=== PATIENT | male | born 1950 | race Caucasian/White ===

== ENCOUNTER 2016-12-06 14:46 | Inpatient (IN) | payer BC, MEDICARE ==
[2016-12-06] VITALS (13 sets, daily range): BP systolic 69–98; BP diastolic 42–54
[~2016-12-06] VITALS: Ht 177.8 cm; Wt 111.6 kg
[~2016-12-06 14:46] MED LIST: ALLO300T PO; AMLO5TAB2 PO; ARIP10TA9 PO; ASPI325T8 PO; ATOR20TA58 PO; CHOL10002 PO; CILO50TA PO; CIPR500T PO; DICY20TA3 PO; DOXY100C2; ESOM40CA25 PO; FINA5TAB4 PO; FOLI0.8T3 PO; FURO20TA3 PO; GLYC2TAB4 PO; INSU100I11 SQ; INSU100I13 SQ; IRON18TA PO; ISOS30TA PO; KETO15CR2 TP; LACT1CAP12 PO; LOSA50TA6 PO; MAGN400T3 PO; MELA1TAB13 PO; MELA3TAB2 PO; MUPI22OI2 TP; NITR0.4T SL; NYST60PO TP; Nitrofurantoin Monohyd/M-Cryst PO; OMEG1CAP38 PO; OMEG500C PO; PANT40TA5 PO; POLY119P4 PO; POLY17PO3 PO; POTA20PA PO; POTA20TA12 PO; PRAM0.12; PRAM0.125 PO; PRAM0.255 PO; PRAZ1CAP2 PO; PROP20TA PO; PROP40TA PO; PSYL1CAP4 PO; RANO500T2 PO; SENN-37 PO; SENN8.6T99 PO; SIME125C65 PO; SIME62.5 PO; SUCR1TAB PO; SULF-143 PO; TAMS0.4C2 PO; TEMA15CA PO; TRIA80OI TP; UBID100C40 PO
[2016-12-06] MEDS ORDERED: ATROPINE 1 MG/10 ML DISP.SYRIN ONE (15:04)
[2016-12-06 15:10] LABS: POTASSIUM ISTAT 5.9 mmol/L (3.5-5.0)
[2016-12-06 15:11] LABS: BASO % 0 % (0-3); EOS % 0 % (0-3); HEMATOCRIT 32.2 % (39.0-53.0); LYMPH # 1.1 x10^3/uL (1.0-4.8); LYMPH % 14 % (24-48); MEAN CORPUSCULAR HEMOGLOBIN 29 pg (25-35); MEAN CORPUSCULAR HGB CONC 31 g/dL (31-37); MEAN CORPUSCULAR VOLUME 94 fL (79-100); MONO % 3 % (0-9); NEUT % 83 % (31-73); PLATELET COUNT 82 x10^3/uL (140-400); RED BLOOD COUNT 3.44 x10^6/uL (4.30-5.70); RED CELL DISTRIBUTION WIDTH 19.1 % (11.5-14.5); WHITE BLOOD COUNT 8.1 x10^3/uL (4.0-11.0)
--- NOTE | 2016-12-06 15:12 | PDOC2 ---
CARDIAC CONSULT DATE OF CONSULT Date of Consult DATE: 12/06/16 TIME: 15:07 REASON FOR CONSULT Reason for Consult: bradycardia REFERRING PHYSICIAN Referring Physician: Blane SOURCE Source: Chart review HISTORY OF PRESENT ILLNESS HISTORY OF PRESENT ILLNESS This is a 66 yo male admitted for complains of weakness and altered mental status. UPona admission he has been noted with RENETTA, bradycardia, and hypotension. Pt is currently lethargic and spouse at the waiting room and I talked to her in details about pt. Reports that pt baseline is typically AOx3 but debilitated mainly in a hospital bed for the most part. He does not ambulate. Reports that in the last 2 days he has been feeling weaker, but his appetite has not decreased significantly and in fact he still ate breakfast this morning. In the last 2 days aside from being weak his mentation has been intermittently becoming drowsy. He has not been drinking that well. Lunch time today he was drowsy that his son end up feeding him but he threw up. She could not really wake him up and was very drowsy that she has to call for herlp. Reports no prior chest pain, SOA, palpitations, diarrhea prior to this event. Reports that he has frequent UTI and the last time he was treated for it was 2 months ago. No fever or chills. Reports that he does not have any stents in his heart, CAD but apparently he is on ranexa. Denies any no prior VTE, recent falls or injury. Presently pt is lethargic and on Li hugger. PAST MEDICAL HISTORY Cardiovascular: CHF, HTN, Hyperlipidemia Pulmonary: Other (VENUS) CENTRAL NERVOUS SYSTEM: Periperal neuropathy, TIA, Other (tremors) GI: Constipation, Diverticulosis, GERD, Other (colonic ileus) Heme/Onc: Anemia NOS Psych: Depression Musculoskeletal: Osteoarthritis Infectious disease: Other (VRE?) Renal/: UTI (frequent) Endocrine: Diabetes (2) Dermatology: Psoriasis, Other (RLE chronic dermatitis) PAST SURGICAL HISTORY Past Surgical History: Arthroscopy (right knee), Total knee replacement, Other (penile surgery; 4th toe amputation, left surgery, bladder washing) FAMILY HISTORY Family History: Coronary Artery Disease (father and brother), Diabetes, Hypertension SOCIAL HISTORY Smoke: No (quit) ALCOHOL: none Drugs: None Lives: with Family ALLERGIES ALLERGIES: Coded Allergies: celecoxib (Unverified Adverse Reaction, Intermediate, Diarrhea, 03/07/14) ROS Review of System unobtainable, see HPI PHYSICAL EXAM General: moderate distress HEENT: Atraumatic, Other (dry oral mucosa) Lungs: Other (basilar crackles) Heart: Other (bradycardia with wide complex.; distant heart sounds) Abdomen: Soft, Other (truncal obesity with large pannus) Extremities: No cyanosis, Other (trace to 1+ bilateral LE pitting edema) Skin: Other (RLE weeping dermatitis) Neuro: Other (lethargic) MUSCULOSKELETAL: Osteoarthritic changes both hands ASSESSMENT/PLAN ASSESSMENT/PLAN 1. Symptomatic Bradyarrhythmia: HR 40-50s with junctional with wide complex QRS. Multifactorial synergetic causes. QTc 529 Including ranexa use, possible hypothyroidism, hyperkalemia, BB and hypothermia 2. Hypothermia/hypotension/possible sepsis 3. Metabolic encephalopathy 4. RENETTA with hyperkalemia: prerenal with known inadequate po hydration 5. Subclinical hypothyroidism: new? TSH 6s 6. Hx of frequent UTI: Ecoli resistant to gentamicin per review 7. Hx of HTN,DM2/HLP 8. Hx of CHF but unknown hx of CAD: pt denies any prior CAD. 9. Chronic debility Recommendations 1. IVF bolus, received x1 atropine. Presently on dopamine gtt. Unable to start levo at this time due to bradycardia. Will consider phenylephrine if poor response to IVF. 2. DC BB (propranolol being used for tremors), ranexa, ARB. 3. Correct K, body Temp.. Pt has received Calcium, dextrose/insulin 4. Awaiting CXR. TTE 5. Consult nephrology 6. Rewarm pt and reevaluate. 7. Hold antiHTN 8. Trop, CK, lipid panel 9. Consider palliative consult and review future goals of care. Problems: DOMINGO XIAO GEOTECH[employer]ICAL [employer]ORATORY TECHNICIAN Dec 06, 2016 15:12
[2016-12-06] MEDS ORDERED: INSULIN REGULAR 100 UNIT/ML 10ML VIAL. IV ONE (15:15)
[2016-12-06] MEDS ORDERED: ATROPINE 0.5 MG/5 ML DISP.SYRIN. IV ONE (15:15)
[2016-12-06] MEDS ORDERED: SODIUM BICARB ADULT 8.4% 50 MEQ/50 ML DISP.SYRIN. IV ONE ×3 (15:15→21:00)
[2016-12-06] MEDS ORDERED: CALCIUM GLUCONATE 1,000 MG/10 ML VIAL. IVP ONE (15:15)
[2016-12-06] MEDS ORDERED: ATROPINE 1 MG/10 ML DISP.SYRIN IV ONE (15:15)
[2016-12-06] MEDS ORDERED: DEXTROSE 50% 25 GM / 50ML DISP.SYRIN. IV ONE (15:15)
[2016-12-06 15:33] LABS: ALBUMIN 2.4 g/dL (3.4-5.0); ALBUMIN/GLOBULIN RATIO 0.7 (1.0-1.7); CALCIUM 9.1 mg/dL (8.5-10.1); CREATININE 2.9 mg/dL (0.7-1.3); GFR 21.9; TOTAL BILIRUBIN 0.2 mg/dL (0.2-1.0)
[2016-12-06 15:34] LABS: POTASSIUM 6.1 mmol/L (3.5-5.1)
[2016-12-06] MEDS ORDERED: IV NORMAL SALINE 1000ML BAG 1,000 ML IV ONE ×3 (15:45→18:45)
[2016-12-06] MEDS ORDERED: IV NORMAL SALINE 500ML BAG 500 ML IV ONE (15:45)
--- NOTE | 2016-12-06 15:45 | PHYS DOC ---
Past Medical History Past Medical History: CHF, Depression, Diabetes-Type II, GERD, High Cholesterol , Hypertension, Other Additional Past Medical Histor: NEUROPATHY, TREMORS, BRADYCARDIA, WOUNDS, PSORIASIS Past Surgical History: Knee Replacement, Other Additional Past Surgical Histo: PENIS SURGERY Alcohol Use: None Drug Use: None Adult General Chief Complaint Chief Complaint: BRADYCARDIA HPI HPI Patient is a 66 year old male brought from home by EMS. EMS was called for "decreased urine output". They found the patient bradycardic approximately 24 and hypotensive with decreased level of consciousness. They gave the patient 0.5 mg of atropine and transported him. The patient was breathing on his own and semi-alert. History from the patient's is at the patient is bedridden because he has neuropathy, bedsores, and is very debilitated. He is usually alert and talkative. He is not on oxygen at home. He does not have a pacemaker and has never been bradycardic before. He has had decreased urine output over the last couple of days and she was concerned about that. She straight cathetered the patient today and got about a half cup of very dark urine out. The patient has no history of renal failure. Patient's states he is a full code and would be agreeable to any medical intervention that we would recommend. PCP Dr. 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 Current Medications Current Medications Current Medications Medications (Trade) Dose Ordered Sig/Gamaliel Start Time Stop Time Status Last Admin Dose Admin Atropine Sulfate 1 mg 1X ONCE 12/06/16 15:15 12/06/16 15:16 DC 12/06/16 15:04 1 MG Calcium Gluconate (Calcium Gluconate) 1,000 mg 1X ONCE 12/06/16 15:15 12/06/16 15:16 DC 12/06/16 14:53 1,000 MG Ceftriaxone Sodium 50 ml @ 100 mls/hr 1X ONCE 12/06/16 15:45 12/06/16 16:14 12/06/16 15:45 100 MLS/HR Dextrose (Dextrose 50%-Water Syringe) 25 gm 1X ONCE 12/06/16 15:15 12/06/16 15:16 DC 12/06/16 14:53 25 GM Dopamine HCl/ Dextrose 250 ml @ 0 mls/hr 1X ONCE 12/06/16 15:15 12/06/16 15:16 DC 12/06/16 15:02 25.5 MLS/HR Insulin Human Regular (NovoLIN R VIAL) 5 unit 1X ONCE 12/06/16 15:15 12/06/16 15:16 DC 12/06/16 14:53 5 UNIT Sodium Bicarbonate 50 meq 1X ONCE 12/06/16 15:15 12/06/16 15:16 DC 12/06/16 14:53 50 MEQ Sodium Chloride 1,000 ml @ 1,000 mls/hr 1X ONCE 12/06/16 15:45 12/06/16 16:44 12/06/16 15:30 1,000 MLS/HR Vancomycin HCl (Vanco Per Pharmacy) 1 each PRN DAILY PRN 12/06/16 16:15 UNV Vancomycin HCl 2 gm/Sodium Chloride 500 ml @ 250 mls/hr 1X ONCE 12/06/16 16:30 12/06/16 18:29 Allergies Allergies Allergies Coded Allergies Type Severity Reaction Last Updated Verified celecoxib Adverse Reaction Intermediate Diarrhea 03/07/14 No Physical Exam Physical Exam Constitutional: Patient is breathing, eyes are closed but he opens them to voice , patient will say his first name when asked, he does have some withdrawal to pain, semi-alert HENT: Normocephalic, atraumatic, bilateral external ears normal, nose normal. [ ] Eyes: conjunctiva normal, no discharge. [] Neck: Normal range of motion, no stridor. [] Cardiovascular:Heart bradycardic rate in the 20s, no murmur Lungs & Thorax: Bilateral breath sounds are very diminished most likely due to effort Abdomen: Obese, no pulsatile mass, soft, does not appear to be tender Skin: Warm, dry, no erythema, no rash. [] Extremities: Atrophy of the lower extremities. Bandages in place over both lower extremities, removed by nursing staff, chronic skin changes and breakdown of both legs with foul-smelling bandages, no definite acute cellulitis Neurologic: Opens eyes to voice, does move both upper extremities, does say his name but not saying much else Current Patient Data Vital Signs Vital Signs Date Time Temp Pulse Resp B/P (MAP) Pulse Ox O2 Delivery O2 Flow Rate FiO2 12/06/16 15:49 58 16 69/38 (48) 100 NonRebreather Mask 12/06/16 15:10 91.9 91.9 Lab Values Laboratory Tests Test 12/06/16 15:00 12/06/16 15:06 White Blood Count 8.1 x10^3/uL (4.0-11.0) Red Blood Count 3.44 x10^6/uL (4.30-5.70) L Hemoglobin 10.0 g/dL (13.0-17.5) L Hematocrit 32.2 % (39.0-53.0) L Mean Corpuscular Volume 94 fL (79-100) Mean Corpuscular Hemoglobin 29 pg (25-35) Mean Corpuscular Hemoglobin Concent 31 g/dL (31-37) Red Cell Distribution Width 19.1 % (11.5-14.5) H Platelet Count 82 x10^3/uL (140-400) L Neutrophils (%) (Auto) 83 % (31-73) H Lymphocytes (%) (Auto) 14 % (24-48) L Monocytes (%) (Auto) 3 % (0-9) Eosinophils (%) (Auto) 0 % (0-3) Basophils (%) (Auto) 0 % (0-3) Neutrophils # (Auto) 6.7 x10^3uL (1.8-7.7) Lymphocytes # (Auto) 1.1 x10^3/uL (1.0-4.8) Monocytes # (Auto) 0.3 x10^3/uL (0.0-1.1) Eosinophils # (Auto) 0.0 x10^3/uL (0.0-0.7) Basophils # (Auto) 0.0 x10^3/uL (0.0-0.2) Sodium Level 135 mmol/L (136-145) L Potassium Level 6.1 mmol/L (3.5-5.1) *H Chloride Level 101 mmol/L (98-107) Carbon Dioxide Level 29 mmol/L (21-32) Anion Gap 5 (6-14) L 12 mmol/L (6-14) Blood Urea Nitrogen 57 mg/dL (8-26) H Creatinine 2.9 mg/dL (0.7-1.3) H Estimated GFR (Cockcroft-Gault) 21.9 BUN/Creatinine Ratio 20 (6-20) Glucose Level 137 mg/dL (70-99) H 134 mg/dL (70-99) H Lactic Acid Level 1.5 mmol/L (0.4-2.0) Calcium Level 9.1 mg/dL (8.5-10.1) Total Bilirubin 0.2 mg/dL (0.2-1.0) Aspartate Amino Transferase (AST) 21 U/L (15-37) Alanine Aminotransferase (ALT) 19 U/L (16-63) Alkaline Phosphatase 128 U/L (46-116) H Total Protein 6.0 g/dL (6.4-8.2) L Albumin 2.4 g/dL (3.4-5.0) L Albumin/Globulin Ratio 0.7 (1.0-1.7) L Thyroid Stimulating Hormone (TSH) 6.292 uIU/mL (0.358-3.74) H POC Hemoglobin 11.6 g/dL (14-18) L POC Hematocrit 34 % (37-52) L POC Sodium 133 mmol/L (135-145) L POC Potassium 5.9 mmol/L (3.5-5.0) H POC Chloride 99 mmol/L (98-110) POC Total CO2 28 mmol/L (23-32) POC Blood Urea Nitrogen 58 mg/dL (8-26) H POC Creatinine 3.0 mg/dL (0.5-1.4) H POC Ionized Calcium (Fish) 1.25 mmol/L (1.13-1.32) Laboratory Tests 12/06/16 15:00 Laboratory Tests 12/06/16 15:00 12/06/16 15:06 EKG EKG EKG #1 read by me. No P waves. Regular rhythm with rate of 33. QRS widening. Idioventricular rhythm. Not able to assess for ST elevation or depression due to the repolarization abnormalities. Abnormal EKG. 1452 EKG #2 read by me. No P waves. Regular rhythm with a heart rate of 57. Widened QRS which is similar to the previous EKG. Unable to assess for ST segments due to QRS widening and repolarization abnormalities. Accelerated idioventricular rhythm. 1543 [] Radiology/Procedures Radiology/Procedures [] Course & Med Decision Making Course & Med Decision Making Pertinent Labs and Imaging studies reviewed. (See chart for details) 66 year old male presents from home by EMS with bradycardia and hypotension. He has a wide regular bradycardia. Additional complaint was decreased urine output. He does not have a dialysis fistula or other sites. I initially treated him for possible hyperkalemia with D50, insulin, bicarbonate, calcium gluconate. There is no change with this treatment. He was given IV atropine with little change. Dopamine infusion was started. His heart rate improved to the high 50s and blood pressure also improved to about 60-70 systolic. I believe the improvement was due to the dopamine infusion. He was also given a 500 mL bolus of normal saline. Patient was found to be markedly hypothermic at 91. Differential includes hypoglycemia. He is not hypoglycemic. Sepsis, a likely possibility. Hypothyroidism, I did order a TSH, I noticed that he had a TSH in the past that was within normal limits in the record. He is not on thyroid replacement. He is not on digoxin per his med list. He is on other medications that could contribute to bradycardia. None of those are reversible with any agent at this time. The patient continued to breathe on his own with sats of 100% on nonrebreather mask, therefore, I did not intubate him. The patient's heart rate and blood pressure improved with dopamine so we did not try externally pacing. I visited with the patient's . The patient is a full code. He is usually alert and oriented. She believes that he would consent to any medical intervention that we would recommend for his benefit. I discussed the case with FREDDY Emery, with the cardiology service. He came to see the patient. I discussed the case with Dr. De Luna, admitting patients for Dr. stanton. She will admit the patient. I wrote bridge orders. We discussed a critical care consult. I discussed the case with Dr. Nava, critical care service. He will see the patient. After his heart rate improved with dopamine it remained stable at about 55-60. His blood pressure remained hypotensive but stable in the 60-70 range. He continued to breathe on his own and remained relatively stable although extremely critical. I discussed with the patient's that he is in critical condition. He is hypothermic, hypotensive, bradycardic, likely septic. I discussed with her the measures that we are taking at this time. Her questions were answered. Critical care time 60 minutes including bedside evaluation and reevaluation multiple times, consultation with family, ordering multiple IV interventions, consultation with cardiology and critical care, discussion with admitting physician, writing orders, documentation. [] Dragon Disclaimer Dragon Disclaimer This electronic medical record was generated, in whole or in part, using a voice recognition dictation system. Departure Departure Impression: Primary Impression: Bradycardia Additional Impressions: Hypotension Hypothermia Sepsis Altered level of consciousness Disposition: ADMITTED INPATIENT Admitting Physician: Jesus De Luna Condition: CRITICAL Referrals: TON STANTON MD (PCP) Problem Qualifiers HAILEE PARKER MD Dec 06, 2016 15:45
[2016-12-06] MEDS ORDERED: VANCOMYCIN PER PHARMACY MC PRN (16:15)
--- NOTE | 2016-12-06 16:18 | ACF ---
Admission Forms Criteria INTENSIVE CARE UNIT ADMISSION Intensive Care Admission Guidelines ( Place 'X' for any and all applicable criteria): Admission to ICU may be indicated when need is demonstrated by ANY ONE of the following (1)(2)(3)(4)(5)(6)(7)(8)(9) : [X ]I. Vital sign abnormalities, including ANY ONE of the following: [ ]a) Systolic arterial pressure less than 90 mm Hg, or 20 mm Hg below the patient's usual pressure [ ]b) Diastolic arterial pressure greater than 120 mm Hg [X ]c) Mean arterial pressure less than 70 mm Hg [A] [ ]d) Pulse less than 40 or greater than 140 beats per minute (in adult) [ ]e) Respiratory rate greater than 35 or less than 8 breaths per minute [ ]II. Laboratory findings (new), including ANY ONE of the following (10): [ ]a) Saturation of arterial oxygen less than 88% or partial pressure of oxygen less than 60 mm Hg (8.0 kPa) despite oxygen supplementation [ ]b) Rising partial pressure of carbon dioxide with respiratory acidosis [ ]c) pH less than 7.2 or greater than 7.65 [ ]d) Serum glucose greater than 800 mg/dL (44.4 mmol/L) [ ]e) Serum sodium less than 110 mEq/L (mmol/L) or greater than 160 mEq/L (mmol/L) [ ]f) Serum potassium less than 2 mEq/L (mmol/L) or greater than 7 mEq /L (mmol/L) [ ]g) Serum calcium greater than 15 mg/dL (3.75 mmol/L) [ ]h) Serum phosphorus less than 1 mg/dL (0.32 mmol/L) [ ]i) Toxic drug level or poisoning causing or likely to cause neurologic or Hemodynamic instability [ ]j) Less severe laboratory abnormalities contributing to ANY ONE of the following: [ ]i) Seizure [ ]ii) Altered mental status [ ]iii) Muscle weakness [ ]iv) Arrhythmias [ ]v) Hemodynamic instability [ ]vi) Other significant clinical manifestations [ ]III. Electrocardiogram (or cardiac monitoring) findings, including ANY ONE of the following: [ ]a) Inherently unstable or life-threatening arrhythmia (eg, sustained ventricular tachycardia, ventricular fibrillation, asystole) [ ]b) Arrhythmia causing severe hypotension (eg, bradycardia, tachycardia) [ ]c) Complete heart block causing severe hypotension [ ]d) Other findings indicative of a need for intensive care (eg , [place]) [ ]IV.Physical findings, including ANY ONE of the following: [ ]a) Threatened airway [ ]b) Sudden altered mental status [ ]c) Repeated or prolonged seizures [ ]d) Coma [ ]e) New-onset anuria (urine output <0.1 mL/kg/hr over 4 h) [ ]f) Cyanosis (new) [ ]g) Cardiac tamponade [ ]h) Status post respiratory or cardiac arrest [ ]i) Severe cosme (eg, partial thickness cosme over more than 10% of body surface, third-degree cosme) [ ]j) Findings consistent with abdominal emergency (eg, peritoneal signs) [ ]V.Imaging findings, such as dissecting aneurysm or ruptured viscus [ ].Specific intervention or monitoring needed, as indicated by ANY ONE of the following: [ ]a) New need for assisted ventilation, invasive or noninvasive(11) [ ]b) New need for intubation (eg, to protect airway) [ ]c) New tracheostomy (less than 48 hours old) [ ]d) Hourly vital signs or neurologic checks [ ]e) Pulmonary artery line monitoring needed [ ]f) Continuous arterial line monitoring needed [ ]g) Continuous IV vasoactive drugs [ ]h) Continuous IV antiarrhythmics [ ]i) Large volume IV fluid resuscitation (eg, greater than 6 L per day ) [ ]j) Large or rapid transfusion needs (eg, more than 6 units within 24 hours) [ ]k) High-risk IV treatment, such as bolus IV medicatns or mannitol infusion [ ]l) Acute cardiac pacing [ ]m) Intra-aortic balloon pump [ ]n) Ventricular assist device [ ]o) Cardioversion [ ]p) Pericardiocentesis [ ]q) Hemodialysis in unstable patient [ ]r) Continuous renal replacement therapy (eg, continuous veno-venous hemofiltration) [ ]s) Peritoneal dialysis initiation [ ]t) Emergency bronchoscopic therapy (eg, for hemoptysis) [ ]u) Emergency endoscopic therapy for bleeding [ ]v) Balloon tamponade for variceal bleeding [ ]w) Intracranial pressure monitoring or tissue oxygen monitoring [ ]x) Ventriculostomy monitoring [ ]y) Treatment of ongoing seizures [ ]z) Induced hypothermia or coma [ ]aa) Ongoing frequent testing and treatment for acute conditions, including ANY ONE of the following: [ ]i) Correction of severe metabolic acidosis/ alkalosis [ ]ii). Severe fluid overload [ ]iii) Cerebral edema [ ]iv) Monitoring or suctioning for respiratory insufficiency or acidosis [ ]v) Monitoring for active bleeding [ ]bb) Rapid desensitization for high-risk hypersensitivity reaction to required medication (eg, penicillin)(12) [ ]cc) Other need for treatment or monitoring not available outside the ICU [ ]VII.Cardiology diagnoses or procedures, including ANY ONE of the following (13)(14)(15)(16)(17): [ ]a) Chest pain with ANY ONE of the following: [ ]i) Hemodynamic instability [ ]ii) Suspicion of diagnoses needing ICU care (eg, aortic dissection) [ ]iii) New unstable or symptomatic arrhythmia or ECG finding (eg, ventricular tachycardia, ventricular fibrillation, advanced heart block) [ ]iv) Syncope or near-syncope [ ]v) SBP less than 100 mm Hg [ ]vi) Pulmonary edema thought to be due to ischemia [ ]vii) New or worsening mitral regurgitation murmur, S3 , or rales [ ]b) Acute [place] with complications as indicated by ANY ONE of the following: [ ]i) Persistent chest pain [ ]ii) Hemodynamic instability [ ]iii) New unstable or symptomatic arrhythmia or ECG finding (eg, ventricular tachycardia, ventricular fibrillation, advanced heart block) [ ]iv) Syncope or near-syncope [ ]v) Pulmonary edema thought to be due to ischemia [ ]vi) New or worsening mitral regurgitation murmur, S3 , or rales [ ]vii) New-onset bundle branch block [ ]viii) Hemorrhagic complication (eg, intracranial or access site bleed following thrombolysis) [ ]c) Cardiac arrhythmia or conduction defect with Hemodynamic instability [ ]d) Complication of cardiac ablation, including ANY ONE of the following(18): [ ]i) Pericardial tamponade [ ]ii) Hemodynamic instability [ ]iii) Thromboembolic stroke [ ]iv) Aortic valve injury [ ]v) Vascular injuries [ ]vi) Esophageal perforation [ ]vii) Severe arrhythmia [ ]viii) Air embolism [ ]ix) Other severe complication [ ]e) Cardiogenic shock [ ]f) Hypertensive emergency, with need for ANY ONE of the following(19): [ ]i) IV antihypertensive therapy [ ]ii) Invasive hemodynamic monitoring (eg, arterial line) [ ]g) Pericardial tamponade [ ]h) Severe heart failure, with ANY ONE of the following(15): [ ]i) Respiratory failure [ ]ii) Cardiogenic shock [ ]iii) Severe arrhythmias [ ]iv) Evidence of cardiac ischemia [ ]i Myocarditis, with ANY ONE of the following [ ]i) Hemodynamic instability [ ]ii) Respiratory failure [ ]iii) Severe arrhythmias [ ]iv) Need for cardiac assist device (eg, left ventricular assist device or extracorporeal membrane oxygenator) [ ]j) Status post cardiac arrest(20) [ ]VIII. Cardiovascular Surgery diagnoses or procedures, including ANY ONE of the following.(21)(22): [ ]a) Acute aortic dissection [ ]b) Aortic surgery for ANY ONE of the following: [ ]i) Thoracic aneurysm [ ]ii) Abdominal aneurysm with ANY ONE of the following(23): [ ]1) Emergency repair [ ]2) Severe cardiopulmonary disease [ ]3) Dialysis-dependent renal failure [ ]4) Need for IV blood pressure control [ ]5) Need for ongoing ventilatory support [ ]6) Perioperative complications, including ANY ONE of the following: [ ]A. Sustained Hemodynamic instability [ ]B. Cardiac ischemia or arrhythmia [ ]C. Hypothermia (less than 35 degrees C (95 degrees F)) [ ]D. Blood transfusion greater than 3 L [ ]iii) Aortic coarctation operative excision or repair [ ]iv) Aortofemoral or aortoiliac bypass with ANY ONE of the following: [ ]1) Continued intubation [ ]2) Hemodynamic instability [ ]3) Need for IV blood pressure control [ ]4) Severe cardiopulmonary disease [ ]c) Cardiac surgery [ ]d) Carotid endarterectomy or stent placement with ANY ONE of the following: [ ]i) Blood pressure <100/60 mm Hg or >160/90 mm Hg despite 4 h of postanesthetic management [ ]ii) New or progressive neurologic defect [ ]iii) Chest pain [ ]iv) Continued intubation [ ]v) Heart failure [ ]vi) Airway compromise by hematoma or vocal cord paralysis [ ]vi) Need for IV blood pressure control [ ]e) Heart transplant [ ]f) Infrainguinal peripheral vascular surgery with ANY ONE of the following: [ ]i) Hemodynamic instability [ ]ii) Acute complications such as persistent chest pain or respiratory distress [ ]iii) Requirement for IV antiarrhythmic or vasoactive agent [ ]iv) Requirement for pulmonary artery catheter [ ]v) Severe hypertension despite 6 hours of recovery room management [ ]g) Complications of any surgery requiring ICU intervention as indicated by ANY ONE of the following(24): [ ]i) Hemodynamic instability [ ]ii) Myocardial infarction with complications (eg, severe arrhythmia, hypotension) [ ]iii) Excessive bleeding or severe coagulopathy [ ]iv) Respiratory failure [ ]v) Renal failure [ ]vi) Airway instability or obstruction [ ]vii) Neurologic deterioration [ ]viii) Infection with likelihood of sepsis syndrome or significant fluid shifts [ ]IX.Endocrinology diagnoses or procedures, including ANY ONE of the following(25)(26): [ ]a) Adrenal crisis with Hemodynamic instability(27) [ ]b) Pheochromocytoma with ANY ONE of the following(28): [ ]i) Hypertensive crisis [ ]ii) Postoperative Hemodynamic instability [ ]iii) Need for IV vasoactive therapy [ ]iv) Need for invasive arterial or central venous pressure monitoring [ ]v) Organ ischemia [ ]c) Diabetic hyperosmolar state with obtundation or coma [ ]d) Diabetic ketoacidosis with ANY ONE of the following: [ ]i) Serum pH less than 7.10 or bicarbonate level less than 10 mEq/L (mmol/L) [ ]ii) Rapidly changing electrolytes [ ]iii) Hypotension [ ]iv) Requirement for large-volume fluid resuscitation [ ]v) Respiratory insufficiency [ ]vi) Life-threatening cardiac dysrhythmias [ ]vii) Obtundation [ ]viii) Severe precipitating condition such as sepsis, stroke, or acute [place] [ ]e) Severe hypoglycemia requiring continuous glucose infusion with frequent adjustment or glucagon infusion [ ]f) Hyperthyroidism associated with thyroid storm (also known as thyrotoxic crisis)(29) [ ]g) Myxedema with life-threatening neurologic, cardiovascular, electrolyte, or renal dysfunction(29) [ ]h) Diabetes insipidus that cannot be controlled with routine medication (30) [ ]X. Gastroenterology diagnoses or procedures, including ANY ONE of the following: [ ]a) Esophageal perforation(31) [ ]b) Severe caustic esophageal injury(31) [ ]c) Liver disease complications with ANY ONE of the following(32): [ ]i) Severe hepatic encephalopathy (eg, stage 3 (somnolent) or higher) [ ]ii) Type 1 hepatorenal syndrome [ ]iii) Other cirrhosis-associated causes of acute renal failure ( eg, severe hypovolemia, acute tubular necrosis, abdominal compartment syndrome) [ ]iv) Hemodynamic instability [ ]v) Respiratory insufficiency due to severe ascites [ ]vi) Sepsis due to spontaneous bacterial peritonitis [ ]d) Fulminant hepatic failure when aggressive intervention or transplant is anticipated (32) [ ]e) Gastrointestinal hemorrhage (upper or lower) with ANY ONE of the following(33)(34): [ ]i) Active ongoing bleeding [ ]ii) Transfusion requirement greater than 2 units of packed red cells [ ]iii) Bleeding ulcer or nonbleeding visible vessel seen on endoscopy [ ]iv) Bleeding ulcer, visible blood vessel, bleeding (or recently bleeding) esophageal varices seen on endoscopy [ ]v) Hypotension [ ]vi) Syncope [ ]vii) Coagulopathy [ ]viii) Hepatic cirrhosis [ ]ix) Abnormal mental status [ ]x) Unstable comorbid condition or end organ dysfunction [ ]xi) Ischemia due to poor perfusion [ ]xii) Need for hemodynamic monitoring (eg, for patients with heart failure or valvular disease) [ ]f) Severe pancreatitis indicated by ANY ONE of the following (35)(36): [ ]i) Requirement for aggressive fluid resuscitation [ ]ii) Life-threatening electrolyte abnormality [ ]iii) SBP less than 90 mm Hg [ ]iv) Persistent tachycardia greater than 120 beats per minute [ ]v) Patients at high risk of rapid deterioration, including ANY ONE of the following: [ ]1) Calculated [place] II score greater than 8 [ ]2) Age older than 55 years [ ]3) BMI greater than 30 [ ]4) Greater than 30% pancreatic necrosis on CT scan [ ]5) Admission hematocrit greater than 47% (0.47) [ ]vi) Organ failure as indicated by ANY ONE of the following: [ ]1) Serum creatinine greater than 1.9 mg/dL (168 micromoles/L) [ ]2) Requirement for mechanical ventilation [ ]3) Urine output less than 50 mL/hour [ ]4) Arterial partial pressure of oxygen less than 60 mm Hg (8.0 kPa) despite supplemental oxygen [ ]5) PiO2/FiO2 ratio less than 300 [ ]vii) Expanding pseudocyst [ ]viii) Infected pancreas [ ]ix) Pleural effusion [ ]x) Encephalopathy [ ]xi) Severe comorbidities [ ]XI. General Surgery diagnoses or procedures, including ANY ONE of the following (9)(24)(37): [ ]a) Acute abdominal catastrophe (eg, ischemic bowel, perforated viscus, abdominal compartment syndrome) [ ]b) Complications of any surgery requiring ICU intervention as indicated by ANY ONE of the following: [ ]i) Hemodynamic instability [ ]ii) [place] with complications (eg, severe arrhythmia, hypotension) [ ]iii) Excessive bleeding or severe coagulopathy [ ]iv) Respiratory failure [ ]v) Renal failure [ ]vi) Airway instability or obstruction [ ]vii) Neurologic deterioration [ ]viii) Infection with likelihood of sepsis syndrome or significant fluid shifts [ ]c) Multiple trauma with complicating features as indicated by ANY ONE of the following(38): [ ]i) Impending acute respiratory failure due to lung contusion, unstable chest wall, aspiration, or hemorrhage [ ]ii) Facial or neck injury threatening airway patency [ ]iii) Cardiac contusion [ ]iv) Pericardial effusion [ ]v) Bronchial tear [ ]vi) Hemodynamic instability [ ]vii) Rhabdomyolisis requiring large volume IV fluid resuscitation [ ]viii)Other significant complicating feature [ ]d) Organ transplant(39)(40) [ ]e) Esophagectomy(31) [ ]f) Whipple procedure [ ]g) Preoperative or postoperative patients requiring ICU intervention, such as hemodynamic optimization, pulmonary artery monitoring, mechanical ventilation, or extensive nursing care [ ]h) Obesity surgery patients with ANY ONE of the following(41): [ ]i) ICU management needs for comorbid conditions, such as sleep apnea or airway management needs [ ]ii) Failed postoperative extubation [ ]iii) Intraoperative complications [ ]XII. Nephrology diagnoses or procedures, including acute, or acute on chronic renal insufficiency with ANY ONE of the following(44)(45): [ ]a) Life-threatening electrolyte or acid-base disorder [ ]b) Acute pulmonary edema [ ]c) Hypotension or significant volume depletion [ ]d) Hypertensive emergency [ ]e) Underlying critical illness contributing to renal failure (eg, septic shock, hepatorenal syndrome) [ ]f) Need for continuous renal replacement therapy [ ]XIII. Neurology diagnoses or procedures, including ANY ONE of the following (46)(47) [B] : [ ]a) Intracranial hypertension requiring ANY ONE of the following(49 ): [ ]i) Induced barbiturate coma [ ]ii) Pharmacologic paralysis or deep sedation and mechanical ventilation [ ]iii) Intracranial pressure or cerebral perfusion pressure monitoring [ ]iv) IV mannitol or hypertonic saline [ ]v) Frequent serum osmolality measurements [ ]b) Seizures with ANY ONE of the following(50): [ ]i) Status epilepticus [ ]ii) Airway compromise requiring or likely to require mechanical ventilation [ ]iii) Severe electrolyte abnormalities causing seizures [ ]c) Progressive acute neurologic dysfunction requiring or likely to require ANY ONE of the following: [ ]i) Mechanical ventilation [ ]ii) Intracranial pressure or cerebral perfusion pressure monitoring [ ]d) Meningitis with obtundation or respiratory insufficiency [C])(51 ) [ ]e) Stroke with ANY ONE of the following(52)(53): [ ]i) Need for observation after thrombolysis [ ]ii) Altered mental status [ ]iii) Need for mechanical ventilation [ ]iv) Elevated intracranial pressure [ ]v) Hypertensive emergency [ ]vi) High risk of progressive infarction or deterioration based on CT scan or MRI [ ]vii) Hemorrhage [ ]f) Acute coma [ ]g) Acute spontaneous intracranial hemorrhage(53)(54) [ ]h) Drug ingestion with ANY ONE of the following(56)(57): [ ]i) Hemodynamic instability [ ]ii) Respiratory depression (partial pressure of carbon dioxide >45 mm Hg (6.0 kPa), new) [ ]iii) Patient requires or is likely to require mechanical ventilation. [ ]iv) Arrhythmias [ ]v) Seizures [ ]vi) Altered mental status ([place] coma scale score less than 12, new) [ ]vii) Significant risk for acute deterioration (eg, toxic level of hypotension or arrhythmia-producing drug) [ ]viii) Drug-induced hypothermia or hyperthermia [ ]ix) Increasing metabolic acidosis [ ]x) Severe hypoglycemia requiring glucose infusion with frequent adjustment or glucagon administration [ ]xi) Ongoing antidote administration (eg, continuous naloxone infusion, organophosphate toxicity treatment) [ ]xii) Emergency intervention need (eg, dialysis, hemoperfusion, restraints) [ ]i) Brain with preparation for organ donation [ ]j) Traumatic brain injury with ANY ONE of the following(55): [ ]i) Altered mental status (eg, new onset [place] coma scale score less than 10) [ ]ii) Cerebral edema [ ]iii) Cerebral hemorrhage [ ]iv) Increased intracranial pressure [ ]XIV. Neurosurgery diagnoses or procedures, including ANY ONE of the following(49)(58)(59): [ ]a) Emergency craniotomy for tumor, hematoma, or trauma [ ]b) Elective craniotomy for posterior fossa tumor [ ]c) Elective craniotomy (supratentorial) for tumor with ANY ONE of the following: [ ]i) Postoperative neurologic deficit or impaired consciousness 6 hours after completion of procedure [ ]ii) SBP less than 110 mm Hg or greater than 180 mm Hg despite therapy [ ]iii) Extensive operative blood loss [ ]iv) High anesthesia risk (eg, [place] [employer] score greater than 3 [ ]d) Craniotomy for aneurysm with ANY ONE of the following: [ ]i) Postoperative neurologic deficit or impaired consciousness 6 hours after completion of procedure [ ]ii) Preoperative Rodriguez-Kaiser grade 3 or higher [ ]iii) SBP less than 110 mm Hg or greater than 180 mm Hg despite therapy [ ]iv) Intracranial pressure monitoring [ ]e) Acute spinal cord injury [ ]f) Subarachnoid hemorrhage [ ]g) Traumatic brain injury with ANY ONE of the following: [ ]i) Acute mental status change ([place] coma scale score less than 10) [ ]ii) CT scan showing cerebral edema or hemorrhage [ ]iii) Intracranial pressure monitoring [ ]h) Complications of any surgery requiring ICU intervention as indicated by ANY ONE of the following(60): [ ]i) Hemodynamic instability [ ]ii) [place] with complications (eg, severe arrhythmia, hypotension) [ ]iii) Excessive bleeding or severe coagulopathy [ ]iv) Respiratory failure [ ] v) Renal failure [ ]vi) Airway instability or obstruction [ ]vii) Neurologic deterioration [ ]viii) Infection with likelihood of sepsis syndrome or significant fluid shifts [ ]i) Preoperative or postoperative patients requiring ICU intervention, such as hemodynamic optimization, pulmonary artery monitoring, mechanical ventilation, or extensive nursing care [ ]XV.Obstetrics and Gynecology diagnoses or procedures, including ANY ONE of the ffg. (61)(62)(63): [ ]a) Severe peripartum condition as indicated by ANY ONE of the following: [ ]i) Eclampsia [ ]ii) Hypertensive emergency [ ]iii) HELLP syndrome (hemolysis, elevated liver enzymes, and low platelet count) [ ]iv) Pulmonary edema [ ]v) Respiratory failure [ ]vi) Pulmonary embolism [ ]vii) Anaphylactoid syndrome of (amniotic fluid embolus) [ ]viii) Ovarian hyperstimulation syndrome [D] [ ]ix) Acute fatty liver of (hepatic failure) [ ]x) Complications such as placental abruption or severe hemorrhage [ ]xi) Sepsis (eg, puerperal sepsis, chorioamnionitis, septic ) [ ]xii) cardiomyopathy with severe congestive heart failure (eg, respiratory failure, cardiogenic shock) [ ]b) Ruptured ectopic [ ]c) Complications of any surgery requiring ICU intervention as indicated by ANY ONE of the following: [ ]i) Hemodynamic instability [ ]ii) [place] with complications (eg, severe arrhythmia, hypotension) [ ]iii) Excessive bleeding or severe coagulopathy [ ]iv) Respiratory failure [ ]v) Renal failure [ ]vi) Airway instability or obstruction [ ]vii) Neurologic deterioration [ ]viii) Infection with likelihood of sepsis syndrome or significant fluid shifts [ ]d) Preoperative or postoperative patients requiring ICU intervention , such as hemodynamic optimization, pulmonary artery monitoring, mechanical ventilation, or extensive nursing care [ ]XVI.Ophthalmology diagnoses or procedures, including ANY ONE of the following (64): [ ]a) Complications of any surgery requiring ICU intervention, such as ANY ONE of the following: [ ]i) Hemodynamic instability [ ]ii) [place] with complications (eg, severe arrhythmia, hypotension) [ ]iii) Excessive bleeding or severe coagulopathy [ ]iv) Respiratory failure [ ]v) Renal failure [ ]vi) Airway instability or obstruction [ ]vii) Neurologic deterioration [ ]viii) Infection with likelihood of sepsis syndrome or significant fluid shifts [ ]b) Preoperative or postoperative patients requiring ICU intervention , such as hemodynamic optimization, pulmonary artery monitoring, mechanical ventilation, or extensive nursing care [ ]XVII.Orthopedics diagnoses or procedures, including ANY ONE of the following [phone]): [ ]a) Complications of any surgery requiring ICU intervention as indicated by ANY ONE of the following: [ ]i) Hemodynamic instability [ ]ii) [place] with complications (eg, severe arrhythmia, hypotension) [ ]iii) Excessive bleeding or severe coagulopathy [ ]iv) Respiratory failure [ ]v) Renal failure [ ]vi) Airway instability or obstruction [ ] vii) Neurologic deterioration [ ]viii) Infection with likelihood of sepsis syndrome or significant fluid shifts [ ]b) Multiple trauma with complicating features as indicated by ANY ONE of the following(38): [ ]i) Impending acute respiratory failure due to lung contusion, unstable chest wall, pneumothorax, aspiration, or hemorrhage [ ]ii) Facial or neck injury threatening airway patency [ ]iii) Cardiac contusion [ ]iv) Rhabdomyolysis requiring large volume IV fluid resuscitation [ ]v) Pericardial effusion [ ]vi) Bronchial tear [ ]vii) Hemodynamic instability [ ]viii) Other significant complicating feature [ ]c) Threatened compartment syndrome [ ]d) Severe cosme with ANY ONE of the following(68)(69)(70): [ ]i) Hypotension or requirement for aggressive fluid resuscitation [ ]ii) Respiratory insufficiency with requirement for high- flow oxygen or mechanical ventilation [ ]iii) Carbon monoxide poisoning [ ]iv) Life-threatening cardiac, renal, pulmonary, or neurologic dysfunction [ ]v) High-voltage (eg, 1000 volts or more) electrical burn [ ]vi) Requirement for frequent or intensive debridement and dressing changes; examples include: [ ]1) Partial thickness cosme greater than 10% of body surface [ ]2) Cosme on face, hands, feet, genitalia, perineum , or major joints [ ]3) Third-degree cosme [ ]4) Any burn greater than 15% of body surface area [ ]vii) Inhalation lung injury [ ]viii) Concomitant trauma or other medical condition requiring ICU care [ ]e) Preoperative or postoperative patients requiring ICU intervention , such as hemodynamic optimization, pulmonary artery monitoring, mechanical ventilation, or extensive nursing care [ ]XVIII.Otolaryngology diagnoses or procedures, including ANY ONE of the following (71)(72): [ ]a) Complications of any surgery requiring ICU intervention as indicated by ANY ONE of the following: [ ]i) Hemodynamic instability [ ]ii) [place] with complications (eg, severe arrhythmia, hypotension) [ ]iii) Excessive bleeding or severe coagulopathy [ ]iv) Respiratory failure [ ]v) Renal failure [ ]vi) Airway instability or obstruction [ ]vii) Neurologic deterioration [ ]viii) Infection with likelihood of sepsis syndrome or significant fluid shifts [ ]b) Airway or hemodynamic compromise that persists after 3 hours of observation in postanesthesia care unit following nasal, palate (eg, uvulopalatopharyngoplasty or palatoplasty), or tongue surgery for sleep apnea [ ]c) Preoperative or postoperative patient requiring ICU intervention, such as hemodynamic optimization, pulmonary artery monitoring, mechanical ventilation, or extensive nursing care [ ]d) Symptomatic upper airway compromise (eg, laryngeal edema, mass) [ ]e) Other airway-compromising procedure (eg, posterior nasal packing) [ ]XIX.Thoracic Surgery and Pulmonary Disease Diagnosis or procedures, including ANY ONE of the following(6): [ ]a) Asthma with ANY ONE of the following(73)(74): [ ]i) Impending or actual respiratory arrest [ ]ii) Need for mechanical ventilation [ ]iii) Peak expiratory flow rate less than 30% of predicted or personal best [ ]iv) Peak expiratory flow rate or FEV1 less than 40% predicted after 1 hour of initial treatment [ ]v) Acidosis [ ]vi) Persistent or worsening hypoxia after initial treatment [ ]vii) Hypercapnia (eg, partial pressure of carbon dioxide greater than 43 mm Hg (5.7 kPa)) [ ]viii) Severe drowsiness, confusion, or coma [ ]ix) Requiring continuous inhaled bronchodilator [ ]b) COPD with ANY ONE of the following(75): [ ]i) Need for assisted ventilation [ ]ii) Hemodynamic instability [ ]iii) Severe dyspnea unresponsive to initial treatment [ ]iv) Change in level of consciousness [ ]v) Persistent findings despite oxygen and outpatient management, including ANY ONE of the following: [ ]1) Partial pressure of oxygen less than 40 mm Hg ( 5.3 kPa) [ ]2) Partial pressure of carbon dioxide greater than 60 mm Hg (8.0 kPa) [ ]3) pH less than 7.25 [ ]4) Worsening hypoxemia or acidosis [ ]c) Cor pulmonale with ANY ONE of the following(75)(76)(77): [ ]i) Hemodynamic instability [ ]ii) Need for IV inotropic or vasoactive agent [ ]iii) Need for invasive hemodynamic monitoring (eg, central venous, pulmonary artery, or arterial catheter) [ ]iv) Hypoxemia with partial pressure of oxygen less than 40 mm Hg (5.3 kPa) [ ]v) Worsening hypoxemia or acidosis despite oxygen therapy [ ]vi) Need for assisted ventilation [ ]vii) Need for right ventricular assist device [ ]viii) Unstable atrial tachyarrhythmia [ ]ix) Need for inhaled nitric oxide [ ]d) Aspiration pneumonia with ANY ONE of the following(78): [ ]i) Acute respiratory distress syndrome (PaO2/FiO2 ratio of 300 or less) [ ]ii) Impending or actual respiratory arrest [ ]iii) Need for invasive or noninvasive mechanical ventilation [ ]e) Pneumocystis jiroveci pneumonia with ANY ONE of the following(79): [ ]i) Impending or actual respiratory arrest [ ]ii) Hypoxia (eg, PO260 mmGh (8.0 kPa) or less despite oxygen therapy) [ ]iii) Need for invasive or noninvasive mechanical ventilation [ ]f) Pneumonia with ANY ONE of the following(80)(81)(82): [ ]i) Need for invasive or noninvasive assisted ventilation [ ]ii) Hemodynamic instability [ ]iii) Severity factors as indicated by 3 or MORE of the following: [ ]1) Respiratory rate 30 breaths per minute or greater [ ]2) PaO2/FiO2 ratio of 250 or less [ ]3) Multilobed infiltrates [ ]4) Altered mental status [ ]5) BUN 20 mg/dL (7.1 mmol/L) or greater [ ]6) WBC count less than 4000/mm3 (4 x109/L) [ ]7) Platelet count <100,000/mm3 (100 x109/L) [ ]8) Temperature less than 36 degrees C (96.8 degrees F ) [ ]9) Hypotension requiring aggressive fluid resuscitation [ ]g) Pulmonary hypertension requiring initiation of parenteral pulmonary vasodilator or trial of inhaled nitric oxide (eg, need for right heart catheterization)(76) [ ]h) Impending respiratory failure as indicated by ANY ONE of the following: [ ]i) Respiratory rate greater than 30 or partial pressure of oxygen less than 60 mm Hg (8.0 kPa) on 50% oxygen or more [ ]ii) Partial pressure of carbon dioxide greater than 45 mm Hg (6.0 kPa) with pH less than 7.35 [ ]i) Respiratory failure with ANY ONE of the following (47): [ ]i) Need for invasive or noninvasive mechanical ventilation [ ]ii) High likelihood of requiring mechanical ventilation within 24 hours [ ]iii) Observation in the first several hours immediately after extubation from mechanical ventilation [ ]iv) Need for close observation and aggressive therapy, such as suctioning, chest physiotherapy, or inhalation treatments at intervals less than 1 hour [ ]v) Pharmacologic ventilatory paralysis [ ]j) Venous thromboembolism with need for systemic or catheter- directed thrombolysis (eg, for limb-threatening thrombosis, phlegmasia cerulea dolens) (83) [ ]k) Pulmonary embolus with ANY ONE of the following(83): [ ]i) Hypotension [ ]ii) Severe hypoxia [ ]iii) Dangerous arrhythmia [ ]iv) Bleeding [ ]v) Need for systemic or catheter-directed thrombolysis [ ]l) Lobectomy or other major thoracic surgery [ ]m) Lung transplant [ ]n) Symptomatic upper airway obstruction (eg, laryngeal edema, mass) [ ]o) Massive hemoptysis [ ]p) Infection or thrombosis of an intravenous device with ANY ONE of the following(6)(84): [ ]i) Hemodynamic instability [ ]ii) Requirement for frequent hemodynamic measurements [ ]iii) Shock [ ]iv) End organ dysfunction [ ] v) Acute renal failure due to missed dialysis [ ]vi) Unstable acute complication (eg, pericardial tamponade , tension pneumothorax) [ ]q) Traumatic rib fracture or fractures with ANY ONE of the following(85): [ ]i) Injury severity score of 19 or greater [ ]ii) Respiratory insufficiency [ ]iii) Flail chest [ ]iv) Sternum fracture [ ]v) Vascular injury (eg, heart or great vessels) [ ]r) Pleural effusion with ANY ONE of the following(86): [ ]i) Respiratory insufficiency [ ]ii) Hemothorax with active ongoing bleeding [ ]iii) Hemodynamic instability [ ]iv) Unstable comorbid condition (eg, sepsis or heart failure [ ]XX. Urology diagnoses or procedures, including ANY ONE of the following ( 87)(88): [ ]a) Renal transplant [ ]b) Complications of any surgery requiring ICU intervention as indicated by ANY ONE of the following: [ ]i) Hemodynamic instability [ ]ii) [place] with complications (eg, severe arrhythmia, hypotension) [ ]iii) Excessive bleeding or severe coagulopathy [ ]iv) Respiratory failure [ ]v) Renal failure [ ]vi) Airway instability or obstruction [ ]vii) Neurologic deterioration [ ]viii) Infection with likelihood of sepsis syndrome or significant fluid shifts [ ]c) Preoperative or postoperative patients requiring ICU intervention , such as hemodynamic optimization, pulmonary artery monitoring, mechanical ventilation , or extensive nursing care [ ]XXI.Infectious Disease diagnoses or procedures, with ANY ONE of the following (6)(43): [ ]a) Hemodynamic instability [ ]b) Shock [ ]c) Requirement for frequent hemodynamic measurements (eg, arterial catheter, pulmonary artery catheter) [ ]d) Sepsis or suspected sepsis with end organ dysfunction (eg, acute kidney injury, acute respiratory distress syndrome) [ ]e) Necrotizing soft tissue infection [ ] XXII.Hematology - Oncology diagnoses or procedures, including chemotherapy administration with ANY ONE of the following(42): [ ]a) Hemodynamic instability [ ]b) Tumor lysis syndrome with ANY ONE of the following : [ ]1) Acute kidney injury [ ]2) Severe electrolyte abnormality [ ]3) Cardiac dysrhythmia [ ]XXIII. Systemic conditions, including ANY ONE of the following: [ ]a) Severe electrolyte or metabolic disturbance causing or likely to cause ANY ONE of the following(10)(89)(90): [ ]i) Life-threatening cardiac dysrhythmia [ ]ii) Respiratory insufficiency [ ]iii) Altered mental status [ ]iv) Seizures [ ]v) Hemodynamic instability [ ]vi) Muscular weakness [ ]b) Environmental injuries such as hypothermia, hyperthermia, electrical injuries, or near drowning(70)(91)(92) The original [facility] content created by [employer] has been revised. The portions of the content which have been revised are identified through the use of italic text or in bold, and [facility] has neither reviewed nor approved the modified material. All other unmodified content is copyright [facility]. Please see references footnoted in the original [facility] edition 2016 Admission Criteria Met?: Yes HECTOR MARTÍNEZ Dec 06, 2016 16:18
[2016-12-06] MEDS ORDERED: VANCOMYCIN 2 GM in IV NORMAL SALINE 500ML BAG 500 ML IV ONE (16:30)
[2016-12-06] MEDS: IV NORMAL SALINE 1000ML BAG 1,000 ML IV SCH (16:30)
[2016-12-06 16:34] LABS: BASE EXCESS COOX -9 mmol/L (-3-3); CARBON MONOXIDE 0.3 % (0.0-1.9); CORRECTED PCO2 COOX 58 mmHg; CORRECTED PH COOX 7.16; CORRECTED PO2 COOX 77 mmHg; HCO3 COOX 21 mmol/L (21-28); METHEMOGLOBIN 0.4 % (0.0-1.9); OXYHEMOGLOBIN 94.4 %; PO2 COOX 97 mmHg (65-108); SAT O2 COOX 95 % (92-99); TOTAL HEMOGLOBIN 11.3 g/dL
[2016-12-06 16:50] LABS: FIO2 COOX 100; PCO2 COOX 69 mmHg (35-46); PH COOX 7.11 (7.35-7.45)
[2016-12-06] MEDS ORDERED: NOREPINEPHRIN PREMIX 250 ML IV ONE (16:50)
[2016-12-06 17:00] LABS: CHOLESTEROL/HDL RATIO 1.5
[2016-12-06] MEDS ORDERED: NOREPINEPHRINE VIAL 16 MG in IV NORMAL SALINE 250ML 250 ML IV PRN (17:15)
--- NOTE | 2016-12-06 18:09 | CARD ---
APPROVED REPORT EXAM: Two-dimensional and M-mode echocardiogram with Doppler and color Doppler. Other Information Quality : GoodHR: 54bpm Rhythm : Bradycardia INDICATION Bradycardia, Hypotension RISK FACTORS Obesity 2D DIMENSIONS RVDd3.4 (2.9-3.5cm)Left Atrium(2D)5.3 (1.6-4.0cm) IVSd1.3 (0.7-1.1cm)Aortic Root(2D)2.8 (2.0-3.7cm) LVDd4.7 (3.9-5.9cm)LVOT Diameter2.3 (1.8-2.4cm) PWd1.2 (0.7-1.1cm)LVDs3.1 (2.5-4.0cm) FS (%) 33.7 %SV63.3 ml LVEF(%)62.5 (>50%) Aortic Valve AoV Peak Nikita.155.1cm/sAoV VTI32.6cm AO Peak GR.9.6mmHgLVOT Peak Nikita.127.1cm/s AO Mean GR.4mmHgAVA (VMAX)3.45cm2 Mitral Valve MV E Pemwxkxj323.0cm/sMV E Peak Gr.6mmHg MV DECEL [id number] A Uczjpodm75.2cm/s MV E Mean Gr.2mmHgE/A Ratio4.2 MV A [id number] Pulmonary Valve PV Peak Qwmrxscz51.0cm/s Tricuspid Valve TR P. Qftfnkfd246pi/sTR Peak Gr.29mmHg Pulmonary Vein S1 Scdxfrbn89.6cm/sD2 Swqcajmz63.4cm/s PVa [id number] LEFT VENTRICLE The left ventricle is normal size. There is mild concentric left ventricular hypertrophy. The left ve ntricular systolic function is normal and the ejection fraction is within normal range. The Ejection Fraction is 55-60%. There is normal LV segmental wall motion. Transmitral Doppler flow pattern is Gra de IV-fixed restrictive diastolic dysfunction. RIGHT VENTRICLE The right ventricle is normal size. There is normal right ventricular wall thickness. The right ventr icular systolic function is normal. ATRIA The left atrium is mildly dilated. The right atrium size is normal. The interatrial septum is intact with no evidence for an atrial septal defect or patent foramen ovale as noted on 2-D or Doppler imagi ng. AORTIC VALVE The aortic valve is mildly sclerotic. The aortic valve is trileaflet. Doppler and Color Flow revealed no significant aortic regurgitation. There is no significant aortic valvular stenosis. MITRAL VALVE Mitral annular calcification is mild. The mitral valve leaflets are thickened. A mild mitral valve pr olapse of the posterior leaflet is present. There is no mitral valve stenosis. Doppler and Color Flow revealed mild mitral valve regurgitation. TRICUSPID VALVE Doppler and Color Flow revealed mild to moderate tricuspid regurgitation. The pulmonary artery systol ic pressure is estimated at 32 mmHg. There is mild pulmonary hypertension. PULMONIC VALVE Doppler and Color Flow revealed no pulmonic valvular regurgitation. There is no pulmonic valvular yin nosis. GREAT VESSELS The aortic root is normal in size. The ascending aorta is normal in size. The pulmonary artery is nor mal. The IVC was obscured, unable to assess. PERICARDIAL EFFUSION There is no evidence of significant pericardial effusion. Critical Notification Critical Value: No <Conclusion> The left ventricle is normal size. The left ventricular systolic function is normal and the ejection fraction is within normal range. The Ejection Fraction is 55-60%. There is mild concentric left ventricular hypertrophy. There is no significant aortic valvular stenosis. Doppler and Color Flow revealed no significant aortic regurgitation. Doppler and Color Flow revealed mild mitral valve regurgitation. Doppler and Color Flow revealed mild to moderate tricuspid regurgitation. The pulmonary artery systolic pressure is estimated at 32 mmHg. There is mild pulmonary hypertension. There is no evidence of significant pericardial effusion.
[2016-12-06] MEDS: IV NORMAL SALINE 500ML BAG 500 ML IV ONE (19:00)
[2016-12-06] MEDS ORDERED: ALBUMIN HUMAN 5% 500 ML IV ONE (19:00)
[2016-12-06] MEDS: PIPERACILLIN/TAZOBACTAM 2.25 GM in IV NORMAL SALINE 50ML 50 ML IV SCH ×2 (19:08→23:10)
--- NOTE | 2016-12-06 19:15 | PDOC2 ---
Consult: RENAL CONSULT / RAMÍREZ. REASON FOR CONSULT ARF SOURCE Source: Chart review, spouse. Pt minimally responsive. Unable to offer history. HISTORY OF PRESENT ILLNESS HISTORY OF PRESENT ILLNESS This is a 66 yo male admitted for complains of weakness and altered mental status. Had vomiting x 1 at lunch time, then became essentially unresponsive. She could not really wake him up and was very drowsy that she has to call for help. Found by son. Brought to ER. Noted with RENETTA, bradycardia, and hypotension. Pt is currently very lethargic and spouse in the room and I talked to her in details about pt. Reports that pt baseline is typically AOx3 but debilitated mainly in a hospital bed for the most part. He does not ambulate. Reports that in the last 2 days he has been feeling weaker, poor intake and worsening appetite and in fact he still ate breakfast this morning. I In the last 2 days aside from being weak his mentation has been intermittently becoming drowsy. He has not been drinking that well. . Reports no prior chest pain, SOA, palpitations, diarrhea prior to this event. Reports that he has frequent UTI and the last time he was treated for it was 2 months ago. No fever or chills. Reports that he does not have any stents in his heart, CAD but apparently he is on ranexa. Denies any no prior VTE, recent falls or injury. Presently pt is lethargic and on Li hugger.No known renal issues. Last Cr on chart from 05/2015 at 0.9 PAST MEDICAL HISTORY Cardiovascular: CHF, HTN, Hyperlipidemia Pulmonary: Other (VENUS) CENTRAL NERVOUS SYSTEM: Periperal neuropathy, TIA, Other (tremors) GI: Constipation, Diverticulosis, GERD, Other (colonic ileus) Heme/Onc: Anemia NOS Psych: Depression Musculoskeletal: Osteoarthritis Infectious disease: Other (VRE?) Renal/: UTI (frequent) Endocrine: Diabetes (2) Dermatology: Psoriasis, Other (RLE chronic dermatitis) PAST SURGICAL HISTORY Past Surgical History: Arthroscopy (right knee), Total knee replacement, Other (penile surgery; 4th toe amputation, left surgery, bladder washing) FAMILY HISTORY Family History: Coronary Artery Disease (father and brother), Diabetes, Hypertension SOCIAL HISTORY Smoke: No (quit) ALCOHOL: none Drugs: None Lives: with Family ALLERGIES ALLERGIES: Coded Allergies: celecoxib (Unverified Adverse Reaction, Intermediate, Diarrhea, 03/07/14) ROS Review of System unobtainable, see HPI PHYSICAL EXAM General: No acute distress HEENT: Atraumatic, Other (dry oral mucosa) Lungs: Decreased bases, no wheeze. Heart: Bradycardia with wide complex.; distant heart sounds. Abdomen: Soft, Other (truncal obesity with large pannus) Extremities: No cyanosis, Other (trace to 1+ bilateral LE pitting edema) Skin: Other (RLE weeping dermatitis) Neuro: Other (lethargic) MUSCULOSKELETAL: Osteoarthritic changes both hands ASSESSMENT/PLAN ARF/ATN OBSTRUCTIVE UROPATHY HYPOTENSION. MENTAL STATUS CHANGE. Grim outlook. Severe hypoperfusion, multi organ failure. Acidosis ( resp and metabolic ). Repeat ABGs after HCO3 pending. Recheck BMP On 3 pressors. Will not sustain dialysis. UOP : none. Follow labs, I/Os ALBUMIN 500 cc 5% HCO3 as needed. Prognosis poor. Survival not likely. Ext d/w spouse. NATASHA ELMORE MD Dec 06, 2016 19:15
[2016-12-06 19:45] LABS: BODY TEMP ABG 90.1 DEG; CORRECTED PCO2 ABG 60 mmHg; CORRECTED PH ABG 7.22; CORRECTED PO2 ABG 70 mmHg; HCO3 ABG 25 mmol/L (21-28); SAT O2 ABG 96 % (92-99)
[2016-12-06 19:46] LABS: PO2 ABG 93 mmHg (65-108)
[2016-12-06 19:51] LABS: CALCIUM 9.4 mg/dL (8.5-10.1); CREATININE 2.8 mg/dL (0.7-1.3); GFR 22.8; POTASSIUM 5.3 mmol/L (3.5-5.1)
[2016-12-06 19:55] LABS: FIO2 ABG 40; PCO2 ABG 73 mmHg (35-46); PH ABG 7.16 (7.35-7.45)
[2016-12-06] MEDS: NOREPINEPHRIN PREMIX 250 ML IV PRN (20:51)
[2016-12-06 20:55] LABS: BILIRUBIN,URINE MODERATE (NEG); GLUCOSE,URINE 100 mg/dL (NEG); NITRITE,URINE POSITIVE (NEG); PH,URINE 5.5; PROTEIN,URINE >=300 mg/dL (NEG-TRACE); UROBILINOGEN,URINE 0.2 mg/dL (0.2 mg/dL)
[2016-12-06 21:10] LABS: BACTERIA,URINE MODERATE /HPF (0-FEW); RBC,URINE TNTC /HPF (0-2); SQUAMOUS EPITHELIAL CELL,UR MOD /LPF; WBC,URINE TNTC /HPF (0-4)
--- NOTE | 2016-12-06 21:24 | EKG ---
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
[2016-12-06] MEDS: PHENYLEPHRINE INJ 80 MG in IV NORMAL SALINE 250ML 250 ML IV PRN (22:11)
[2016-12-07] VITALS (25 sets, daily range): BP systolic 81–138; BP diastolic 44–81
[2016-12-07] MEDS: IV NORMAL SALINE 500ML BAG 500 ML IV ONE
[2016-12-07] MEDS: IV NORMAL SALINE 1000ML BAG 1,000 ML IV SCH ×2 (02:37→05:45)
[2016-12-07] MEDS: PHENYLEPHRINE INJ 80 MG in IV NORMAL SALINE 250ML 250 ML IV PRN (02:37)
[2016-12-07] MEDS: ONDANSETRON PF 4 MG/2 ML VIAL. IV PRN (05:36)
[2016-12-07] MEDS: NOREPINEPHRIN PREMIX 250 ML IV PRN ×4 (05:44→21:10)
[2016-12-07] MEDS: PIPERACILLIN/TAZOBACTAM 2.25 GM in IV NORMAL SALINE 50ML 50 ML IV SCH ×3 (05:45→21:07)
--- NOTE | 2016-12-07 08:16 | RAD ---
Portable chest, 12/07/2016: History: Septic shock Comparison is made to a study from 05/30/2015. The heart is mildly enlarged. There are moderate bibasilar infiltrates obscuring the hemidiaphragms. There is gas beneath both hemidiaphragms, probably due to gaseous distention of the stomach as well as distended colon interposed between the liver and the diaphragm. Pneumoperitoneum cannot be excluded. The right lateral costophrenic angle is obscured, probably due to infiltrate although a small amount pleural fluid cannot be excluded. There is no evidence of pneumothorax. IMPRESSION: 1. Cardiomegaly. 2. Moderate bibasilar pulmonary infiltrates. 3. Gas collections beneath both hemidiaphragms may lie in distended portions of the GI tract, although pneumoperitoneum cannot be excluded. CT scanning may be useful for further evaluation, if clinically indicated.
[2016-12-07 08:40] LABS: HCO3 ABG 23 mmol/L (21-28); PCO2 ABG 41 mmHg (35-46); PH ABG 7.36 (7.35-7.45); PO2 ABG 82 mmHg (65-108); SAT O2 ABG 96 % (92-99)
--- NOTE | 2016-12-07 08:40 | EKG ---
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
[2016-12-07 08:43] LABS: FIO2 ABG 40
--- NOTE | 2016-12-07 09:19 | EKG ---
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 [place] NOW 57 PER MIN Electronically Signed On 12-07-2016 14:28:24 CDT by Elsie Rodriguez
--- NOTE | 2016-12-07 09:24 | PDOC2 ---
CONSULT Date of Consult Date of Consult DATE: 12/07/16 TIME: 09:12 Reason for Consult Reason for Consult: RF/SHOCK Referring Physician Referring Physician: Dr De Luna History of Present Illness Reason for Visit: This is a 66 yo male admitted for complains of weakness and altered mental status. Upon admission he has been noted with RENETTA, bradycardia, and hypotension. Pt is currently lethargic . Reports that pt baseline is typically AOx3 but debilitated mainly in a hospital bed for the most part. He does not ambulate. Reports that in the last 2 days he has been feeling weaker, but his appetite has not decreased significantly and in fact he still ate breakfast this morning. In the last 2 days aside from being weak his mentation has been intermittently becoming drowsy. He has not been drinking that well. Lunch time today he was drowsy that his son end up feeding him but he threw up. She could not really wake him up and was very drowsy that she has to call for help. Reports no prior chest pain, SOA, palpitations, diarrhea prior to this event. Reports that he has frequent UTI and the last time he was treated for it was 2 months ago. No fever or chills. Reports that he does not have any stents in his heart, CAD but apparently he is on ranexa. Denies any no prior VTE, recent falls or injury. Presently pt is lethargic / Treated with BIPAP. clinically better Past Medical History Cardiovascular: CHF, HTN, Hyperlipidemia Pulmonary: Other (VENUS) CENTRAL NERVOUS SYSTEM: Periperal neuropathy, TIA, Other (tremors) GI: Constipation, Diverticulosis, GERD, Other (colonic ileus) Heme/Onc: Anemia NOS Psych: Depression Musculoskeletal: Osteoarthritis Infectious disease: Other (VRE?) Renal/: UTI (frequent) Endocrine: Diabetes (2) Dermatology: Psoriasis, Other (RLE chronic dermatitis) Past Surgical History Past Surgical History: Arthroscopy (right knee), Total knee replacement, Other (penile surgery; 4th toe amputation, left surgery, bladder washing) Family History Family History: Coronary Artery Disease (father and brother), Diabetes, Hypertension Social History No (quit) ALCOHOL: none Drugs: None Lives: with Family Current Problem List Problem List Problems Medical Problems: (1) Altered level of consciousness Status: Acute (2) Bradycardia Status: Acute (3) Hypotension Status: Acute (4) Hypothermia Status: Acute (5) Sepsis Status: Acute Current Medications Current Medications Current Medications Atropine Sulfate 1 mg STK-MED ONCE .ROUTE ; Start 12/06/16 at 15:04; Stop at 15:05; Status DC Dextrose (Dextrose 50%-Water Syringe) 25 gm 1X ONCE IV Last administered on 14:53; Start 12/06/16 at 15:15; Stop 12/06/16 at 15:16; Status DC Insulin Human Regular (NovoLIN R VIAL) 5 unit 1X ONCE IV Last administered on 12/06/16 14:53; Start 12/06/16 at 15:15; Stop 12/06/16 at 15:16; Status DC Atropine Sulfate 1 mg 1X ONCE IV ; Start 12/06/16 at 15:15; Stop 12/06/16 at 15 :16; Status Cancel Sodium Bicarbonate 50 meq 1X ONCE IV Last administered on 12/06/16 14:53; Start 12/06/16 at 15:15; Stop 12/06/16 at 15:16; Status DC Calcium Gluconate (Calcium Gluconate) 1,000 mg 1X ONCE IVP Last administered on 12/06/16 14:53; Start 12/06/16 at 15:15; Stop 12/06/16 at 15:16; Status DC Dopamine HCl/ Dextrose 250 ml @ 0 mls/hr 1X ONCE IV Last administered on 15:02; Start 12/06/16 at 15:15; Stop 12/06/16 at 15:16; Status DC Atropine Sulfate 1 mg 1X ONCE IV Last administered on 12/06/16 15:04; Start 12/06/16 at 15:15; Stop 12/06/16 at 15:16; Status DC Sodium Chloride 500 ml @ 500 mls/hr 1X ONCE IV Last administered on 15:20; Start 12/06/16 at 15:45; Stop 12/06/16 at 16:44; Status DC Sodium Chloride 1,000 ml @ 1,000 mls/hr 1X ONCE IV Last administered on 15:30; Start 12/06/16 at 15:45; Stop 12/06/16 at 16:44; Status DC Ceftriaxone Sodium 50 ml @ 100 mls/hr 1X ONCE IV Last administered on 15:45; Start 12/06/16 at 15:45; Stop 12/06/16 at 16:14; Status DC Vancomycin HCl (Vanco Per Pharmacy) 1 each PRN DAILY PRN MC SEE COMMENTS Last administered on 12/06/16 16:23; Start 12/06/16 at 16:15; Stop 12/06/16 at 19:10 ; Status DC Vancomycin HCl 2 gm/Sodium Chloride 500 ml @ 250 mls/hr 1X ONCE IV Last administered on 12/06/16 16:15; Start 12/06/16 at 16:30; Stop 12/06/16 at 19:10 ; Status DC Vancomycin HCl 1.5 gm/Sodium Chloride 500 ml @ 250 mls/hr Q24H IV ; Start at 16:00; Stop 12/07/16 at 16:00; Status DC Vancomycin HCl 1 each 1X ONCE MC ; Start 12/08/16 at 15:30; Stop 12/08/16 at 15: 30; Status DC Sodium Chloride 1,000 ml @ 100 mls/hr Q10H IV Last administered on 12/07/16 05 :45; Start 12/06/16 at 16:30 Norepinephrine Bitartrate 250 ml @ As Directed STK-MED ONCE IV ; Start at 16:50; Stop 12/06/16 at 16:51; Status DC Sodium Bicarbonate 50 meq 1X ONCE IV Last administered on 12/06/16 17:00; Start 12/06/16 at 17:00; Stop 12/06/16 at 17:01; Status DC Norepinephrine Bitartrate 16 mg/ Sodium Chloride 266 ml @ 0 mls/hr CONT PRN IV SEE I/O RECORD; Start 12/06/16 at 17:15; Status UNV Phenylephrine HCl 80 mg/Sodium Chloride 258 ml @ 0 mls/hr CONT PRN IV SEE I/O RECORD Last administered on 12/07/16 02:37; Start 12/06/16 at 17:15 Norepinephrine Bitartrate 250 ml @ 1.875 mls/ hr CONT PRN IV SEE I/O RECORD Last administered on 12/07/16 07:12; Start 12/06/16 at 17:15 Piperacillin Sod/ Tazobactam Sod 2.25 gm/Sodium Chloride 50 ml @ 100 mls/hr Q8HRS IV Last administered on 12/07/16 05:45; Start 12/06/16 at 18:00 Levofloxacin/ Dextrose 150 ml @ 100 mls/hr Q48H IV Last administered on 19:08; Start 12/06/16 at 18:00 Sodium Chloride 1,000 ml @ 1,000 mls/hr 1X ONCE IV Last administered on 19:23; Start 12/06/16 at 17:45; Stop 12/06/16 at 18:44; Status DC Sodium Chloride 1,000 ml @ 1,000 mls/hr 1X ONCE IV Last administered on 19:23; Start 12/06/16 at 18:45; Stop 12/06/16 at 19:44; Status DC Sodium Chloride 500 ml @ 500 mls/hr 1X ONCE IV Last administered on 12/07/16 00:00; Start 12/06/16 at 19:00; Stop 12/06/16 at 19:59; Status DC Albumin Human 500 ml @ 125 mls/hr 1X ONCE IV Last administered on 12/06/16 19:22; Start 12/06/16 at 19:00; Stop 12/06/16 at 22:59; Status DC Dopamine HCl/ Dextrose 250 ml @ 20.837 mls/ hr CONT PRN IV SEE I/O RECORD Last administered on 12/07/16 07:20; Start 12/06/16 at 19:15 Sodium Bicarbonate 50 meq 1X ONCE IV Last administered on 12/06/16 20:47; Start 12/06/16 at 21:00; Stop 12/06/16 at 21:01; Status DC Ondansetron HCl (Zofran) 4 mg PRN Q6HRS PRN IV NAUSEA/VOMITING Last administered on 12/07/16 05:36; Start 12/07/16 at 05:30 Active Scripts Active Reported Leakey 3 Fish Oil Softgel (Leakey-3 Fatty Acids/Fish Oil) 1 Each Capsule.dr 2 Cap PO DAILY Polyethylene Glycol 3350 17 Gm Powd.pack 17 Gm PO PRN QID PRN Simethicone 125 Mg Capsule 250 Mg PO QID Propranolol Hcl 20 Mg Tablet 20 Mg PO QHS Melatonin 3 Mg Tablet 6 Mg PO QHS Potassium Chloride 20 Meq Tab.er.prt 20 Meq PO DAILY Prazosin Hcl 1 Mg Capsule 1 Mg PO QHS Mupirocin Ointment (Mupirocin) 22 Gm Oint...g. 1 Kiran TP BID Nystop (Nystatin) 60 Gm Powder 1 Kiran TP BID Mirapex (Pramipexole Di-Hcl) 0.125 Mg Tablet 0.125 Mg PO TID Triamcinolone Acetonide 80 Gm Oint...g. 1 Kiran TP TID Tamsulosin Hcl 0.4 Mg Cap.er.24h 0.4 Mg PO DAILY Furosemide 20 Mg Tablet 20 Mg PO DAILY Magnesium Oxide 400 Mg Tablet 400 Mg PO BID Pantoprazole Sodium 40 Mg Tablet.dr 40 Mg PO DAILY Propranolol Hcl 40 Mg Tablet 40 Mg PO DAILY Nephro-Elkin Tablet (Folic Acid/Vitamin B Comp W-C) 0.8 Mg Tablet 1 Tab PO DAILY Temazepam 15 Mg Capsule 30 Mg PO QHS Losartan Potassium 50 Mg Tablet 50 Mg PO DAILY Abilify (Aripiprazole) 10 Mg Tablet 15 Mg PO DAILY Amlodipine Besylate 5 Mg Tablet 5 Tab PO DAILY Ranexa (Ranolazine) 500 Mg Tab.er.12h 500 Mg PO BID Nitrostat (Nitroglycerin) 0.4 Mg Tab.subl 0.4 Mg SL PRN Q5MIN PRN Probiotic & Acidophilus Cap (Lactobac Cmb #3/Fos/Pantethine) 1 Each Capsule 1 Tab PO DAILY Cilostazol 50 Mg Tablet 50 Mg PO BID Glycopyrrolate 2 Mg Tablet 2 Mg PO NOON Finasteride 5 Mg Tablet 5 Mg PO DAILY Vitamin D (Cholecalciferol (Vitamin D3)) 1,000 Unit Tablet 2,000 Unit PO DAILY Co Q-10 (Ubidecarenone) 100 Mg Capsule 100 Mg PO NOON Allopurinol 300 Mg Tablet 300 Mg PO BID Aspirin 325 Mg Tablet 325 Mg PO DAILY Imdur (Isosorbide Mononitrate) 30 Mg Tab.er.24h 30 Mg PO DAILYWLUN Sucralfate 1 Gm Tablet 1 Gm PO QIDACHS Atorvastatin Calcium 20 Mg Tablet 20 Mg PO HS Humalog (Insulin Lispro) 100 Unit/1 Ml Insuln.pen 5 Unit SQ TIDAC Lantus Solostar (Insulin Glargine,Hum.rec.anlog) 100 Unit/1 Ml Insuln.pen 30 Unit SQ QEVNG Ketoconazole 15 Gm Cream..g. 1 Kiran TP DAILY Allergies Allergies: Coded Allergies: celecoxib (Verified Adverse Reaction, Intermediate, Diarrhea, 12/07/16) ROS Review of System unable to obtain from patient Vitals VITALS Vital Signs Date Time Temp Pulse Resp B/P (MAP) Pulse Ox O2 Delivery O2 Flow Rate FiO2 12/07/16 08:26 98 BiPAP/CPAP 12/07/16 08:00 98.1 62 28 111/59 (76) 98.1 Labs Labs Laboratory Tests Test 12/06/16 15:00 12/06/16 15:02 12/06/16 15:06 12/06/16 16:20 White Blood Count 8.1 x10^3/uL (4.0-11.0) Red Blood Count 3.44 x10^6/uL (4.30-5.70) Hemoglobin 10.0 g/dL (13.0-17.5) Hematocrit 32.2 % (39.0-53.0) Mean Corpuscular Volume 94 fL (79-100) Mean Corpuscular Hemoglobin 29 pg (25-35) Mean Corpuscular Hemoglobin Concent 31 g/dL (31-37) Red Cell Distribution Width 19.1 % (11.5-14.5) Platelet Count 82 x10^3/uL (140-400) Neutrophils (%) (Auto) 83 % (31-73) Lymphocytes (%) (Auto) 14 % (24-48) Monocytes (%) (Auto) 3 % (0-9) Eosinophils (%) (Auto) 0 % (0-3) Basophils (%) (Auto) 0 % (0-3) Neutrophils # (Auto) 6.7 x10^3uL (1.8-7.7) Lymphocytes # (Auto) 1.1 x10^3/uL (1.0-4.8) Monocytes # (Auto) 0.3 x10^3/uL (0.0-1.1) Eosinophils # (Auto) 0.0 x10^3/uL (0.0-0.7) Basophils # (Auto) 0.0 x10^3/uL (0.0-0.2) Sodium Level 135 mmol/L (136-145) Potassium Level 6.1 mmol/L (3.5-5.1) Chloride Level 101 mmol/L (98-107) Carbon Dioxide Level 29 mmol/L (21-32) Anion Gap 5 (6-14) 12 mmol/L (6-14) Blood Urea Nitrogen 57 mg/dL (8-26) Creatinine 2.9 mg/dL (0.7-1.3) Estimated GFR (Cockcroft-Gault) 21.9 BUN/Creatinine Ratio 20 (6-20) Glucose Level 137 mg/dL (70-99) 134 mg/dL (70-99) Lactic Acid Level 1.5 mmol/L (0.4-2.0) Calcium Level 9.1 mg/dL (8.5-10.1) Magnesium Level 2.0 mg/dL (1.8-2.4) Total Bilirubin 0.2 mg/dL (0.2-1.0) Aspartate Amino Transf (AST/SGOT) 21 U/L (15-37) Alanine Aminotransferase (ALT/SGPT) 19 U/L (16-63) Alkaline Phosphatase 128 U/L (46-116) Creatine Kinase 33 U/L (39-308) Troponin I Quantitative < 0.017 ng/mL (0.000-0.055) Total Protein 6.0 g/dL (6.4-8.2) Albumin 2.4 g/dL (3.4-5.0) Albumin/Globulin Ratio 0.7 (1.0-1.7) Triglycerides Level 17 mg/dL (0-150) Cholesterol Level 121 mg/dL (0-200) LDL Cholesterol, Calculated 38 mg/dL (0-100) VLDL Cholesterol, Calculated 3 mg/dL (0-40) Non-HDL Cholesterol Calculated 41 mg/dL (0-129) HDL Cholesterol 80 mg/dL (40-60) Cholesterol/HDL Ratio 1.5 Thyroid Stimulating Hormone (TSH) 6.292 uIU/mL (0.358-3.74) Bedside Troponin I 0.00 ng/ml (<0.08) Bedside Hemoglobin 11.6 g/dL (14-18) Bedside Hematocrit 34 % (37-52) Bedside Sodium 133 mmol/L (135-145) Bedside Potassium 5.9 mmol/L (3.5-5.0) Bedside Chloride 99 mmol/L (98-110) Bedside Total CO2 28 mmol/L (23-32) Bedside Blood Urea Nitrogen 58 mg/dL (8-26) Bedside Creatinine 3.0 mg/dL (0.5-1.4) Bedside Ionized Calcium (Fish) 1.25 mmol/L (1.13-1.32) O2 Saturation 95 % (92-99) Arterial Blood pH 7.11 (7.35-7.45) Arterial Blood pH (Temp corrected) 7.16 Arterial Blood pCO2 at Patient Temp 69 mmHg (35-46) Arterial Blood pCO2 (Temp correct) 58 mmHg Arterial Blood pO2 at Patient Temp 97 mmHg (65-108) Arterial Blood pO2 (Temp corrected) 77 mmHg Arterial Blood HCO3 21 mmol/L (21-28) Arterial Blood Base Excess -9 mmol/L (-3-3) Oxyhemoglobin 94.4 % Methemoglobin 0.4 % (0.0-1.9) Carbon Monoxide, Quantitative 0.3 % (0.0-1.9) FiO2 100 Test 12/06/16 18:55 12/06/16 19:44 12/06/16 20:45 12/07/16 08:00 Sodium Level 135 mmol/L (136-145) Potassium Level 5.3 mmol/L (3.5-5.1) Chloride Level 101 mmol/L (98-107) Carbon Dioxide Level 30 mmol/L (21-32) Anion Gap 4 (6-14) Blood Urea Nitrogen 52 mg/dL (8-26) Creatinine 2.8 mg/dL (0.7-1.3) Estimated GFR (Cockcroft-Gault) 22.8 Glucose Level 133 mg/dL (70-99) Calcium Level 9.4 mg/dL (8.5-10.1) O2 Saturation 96 % (92-99) 96 % (92-99) Arterial Blood pH 7.16 (7.35-7.45) 7.36 (7.35-7.45) Arterial Blood pH (Temp corrected) 7.22 Arterial Blood pCO2 at Patient Temp 73 mmHg (35-46) 41 mmHg (35-46) Arterial Blood pCO2 (Temp correct) 60 mmHg Arterial Blood pO2 at Patient Temp 93 mmHg (65-108) 82 mmHg (65-108) Arterial Blood pO2 (Temp corrected) 70 mmHg Arterial Blood HCO3 25 mmol/L (21-28) 23 mmol/L (21-28) Arterial Blood Base Excess -5 mmol/L (-3-3) -3 mmol/L (-3-3) FiO2 40 40 Urine Collection Type Unknown Urine Color Red Urine Clarity Turbid Urine pH 5.5 Urine Specific [place] 1.025 Urine Protein >=300 mg/dL (NEG-TRACE) Urine Glucose (UA) 100 mg/dL (NEG) Urine Ketones (Stick) 15 mg/dL (NEG) Urine Blood Large (NEG) Urine Nitrite Positive (NEG) Urine Bilirubin Moderate (NEG) Urine Urobilinogen Dipstick 0.2 mg/dL (0.2 mg/dL) Urine Leukocyte Esterase Large (NEG) Urine RBC Tntc /HPF (0-2) Urine WBC Tntc /HPF (0-4) Urine Squamous Epithelial Cells Mod /LPF Urine Bacteria Moderate /HPF (0-FEW) Test 12/07/16 08:41 Glucose (Fingerstick) 122 mg/dL (70-99) Laboratory Tests Test 12/06/16 15:00 12/06/16 15:02 12/06/16 15:06 12/06/16 16:20 White Blood Count 8.1 x10^3/uL (4.0-11.0) Red Blood Count 3.44 x10^6/uL (4.30-5.70) Hemoglobin 10.0 g/dL (13.0-17.5) Hematocrit 32.2 % (39.0-53.0) Mean Corpuscular Volume 94 fL (79-100) Mean Corpuscular Hemoglobin 29 pg (25-35) Mean Corpuscular Hemoglobin Concent 31 g/dL (31-37) Red Cell Distribution Width 19.1 % (11.5-14.5) Platelet Count 82 x10^3/uL (140-400) Neutrophils (%) (Auto) 83 % (31-73) Lymphocytes (%) (Auto) 14 % (24-48) Monocytes (%) (Auto) 3 % (0-9) Eosinophils (%) (Auto) 0 % (0-3) Basophils (%) (Auto) 0 % (0-3) Neutrophils # (Auto) 6.7 x10^3uL (1.8-7.7) Lymphocytes # (Auto) 1.1 x10^3/uL (1.0-4.8) Monocytes # (Auto) 0.3 x10^3/uL (0.0-1.1) Eosinophils # (Auto) 0.0 x10^3/uL (0.0-0.7) Basophils # (Auto) 0.0 x10^3/uL (0.0-0.2) Sodium Level 135 mmol/L (136-145) Potassium Level 6.1 mmol/L (3.5-5.1) Chloride Level 101 mmol/L (98-107) Carbon Dioxide Level 29 mmol/L (21-32) Anion Gap 5 (6-14) 12 mmol/L (6-14) Blood Urea Nitrogen 57 mg/dL (8-26) Creatinine 2.9 mg/dL (0.7-1.3) Estimated GFR (Cockcroft-Gault) 21.9 BUN/Creatinine Ratio 20 (6-20) Glucose Level 137 mg/dL (70-99) 134 mg/dL (70-99) Lactic Acid Level 1.5 mmol/L (0.4-2.0) Calcium Level 9.1 mg/dL (8.5-10.1) Magnesium Level 2.0 mg/dL (1.8-2.4) Total Bilirubin 0.2 mg/dL (0.2-1.0) Aspartate Amino Transf (AST/SGOT) 21 U/L (15-37) Alanine Aminotransferase (ALT/SGPT) 19 U/L (16-63) Alkaline Phosphatase 128 U/L (46-116) Creatine Kinase 33 U/L (39-308) Troponin I Quantitative < 0.017 ng/mL (0.000-0.055) Total Protein 6.0 g/dL (6.4-8.2) Albumin 2.4 g/dL (3.4-5.0) Albumin/Globulin Ratio 0.7 (1.0-1.7) Triglycerides Level 17 mg/dL (0-150) Cholesterol Level 121 mg/dL (0-200) LDL Cholesterol, Calculated 38 mg/dL (0-100) VLDL Cholesterol, Calculated 3 mg/dL (0-40) Non-HDL Cholesterol Calculated 41 mg/dL (0-129) HDL Cholesterol 80 mg/dL (40-60) Cholesterol/HDL Ratio 1.5 Thyroid Stimulating Hormone (TSH) 6.292 uIU/mL (0.358-3.74) Bedside Troponin I 0.00 ng/ml (<0.08) Bedside Hemoglobin 11.6 g/dL (14-18) Bedside Hematocrit 34 % (37-52) Bedside Sodium 133 mmol/L (135-145) Bedside Potassium 5.9 mmol/L (3.5-5.0) Bedside Chloride 99 mmol/L (98-110) Bedside Total CO2 28 mmol/L (23-32) Bedside Blood Urea Nitrogen 58 mg/dL (8-26) Bedside Creatinine 3.0 mg/dL (0.5-1.4) Bedside Ionized Calcium (Fish) 1.25 mmol/L (1.13-1.32) O2 Saturation 95 % (92-99) Arterial Blood pH 7.11 (7.35-7.45) Arterial Blood pH (Temp corrected) 7.16 Arterial Blood pCO2 at Patient Temp 69 mmHg (35-46) Arterial Blood pCO2 (Temp correct) 58 mmHg Arterial Blood pO2 at Patient Temp 97 mmHg (65-108) Arterial Blood pO2 (Temp corrected) 77 mmHg Arterial Blood HCO3 21 mmol/L (21-28) Arterial Blood Base Excess -9 mmol/L (-3-3) Oxyhemoglobin 94.4 % Methemoglobin 0.4 % (0.0-1.9) Carbon Monoxide, Quantitative 0.3 % (0.0-1.9) FiO2 100 Test 12/06/16 18:55 12/06/16 19:44 12/06/16 20:45 12/07/16 08:00 Sodium Level 135 mmol/L (136-145) Potassium Level 5.3 mmol/L (3.5-5.1) Chloride Level 101 mmol/L (98-107) Carbon Dioxide Level 30 mmol/L (21-32) Anion Gap 4 (6-14) Blood Urea Nitrogen 52 mg/dL (8-26) Creatinine 2.8 mg/dL (0.7-1.3) Estimated GFR (Cockcroft-Gault) 22.8 Glucose Level 133 mg/dL (70-99) Calcium Level 9.4 mg/dL (8.5-10.1) O2 Saturation 96 % (92-99) 96 % (92-99) Arterial Blood pH 7.16 (7.35-7.45) 7.36 (7.35-7.45) Arterial Blood pH (Temp corrected) 7.22 Arterial Blood pCO2 at Patient Temp 73 mmHg (35-46) 41 mmHg (35-46) Arterial Blood pCO2 (Temp correct) 60 mmHg Arterial Blood pO2 at Patient Temp 93 mmHg (65-108) 82 mmHg (65-108) Arterial Blood pO2 (Temp corrected) 70 mmHg Arterial Blood HCO3 25 mmol/L (21-28) 23 mmol/L (21-28) Arterial Blood Base Excess -5 mmol/L (-3-3) -3 mmol/L (-3-3) FiO2 40 40 Urine Collection Type Unknown Urine Color Red Urine Clarity Turbid Urine pH 5.5 Urine Specific [place] 1.025 Urine Protein >=300 mg/dL (NEG-TRACE) Urine Glucose (UA) 100 mg/dL (NEG) Urine Ketones (Stick) 15 mg/dL (NEG) Urine Blood Large (NEG) Urine Nitrite Positive (NEG) Urine Bilirubin Moderate (NEG) Urine Urobilinogen Dipstick 0.2 mg/dL (0.2 mg/dL) Urine Leukocyte Esterase Large (NEG) Urine RBC Tntc /HPF (0-2) Urine WBC Tntc /HPF (0-4) Urine Squamous Epithelial Cells Mod /LPF Urine Bacteria Moderate /HPF (0-FEW) Test 12/07/16 08:41 Glucose (Fingerstick) 122 mg/dL (70-99) Images Images suspect air under diaphragm Assessment/Plan Assessment/Plan IMPRESSION 1. Acute hypercapnic/ hypoxic RF, Multi-factorial 2. Septic shock, likely source bladder infection vs. pneumoperitoneum 3. acute encephalology secondary to septic shock 4. suspected pneumoperitoneum 5. RENETTA secondary septic shock 6. Abnormal chest x-ray basal atelectasis 7. chronic debility 8. Metabolic acidosis RECOMMENDATION 1. Continue fluid resuscitation 2. wean vasopressors as tolerated keeping a MAP greater than 60 3. Follow all cultures 4. Continue empiric antibiotics per infectious disease 5. Try off the BIPAP. ABG have in improved 6. Follow renal recommendations 7. CT abdomen and pelvis to confirm pneumoperitoneum 8. Discussed with patients in regards to advanced directives, she is agreeably with no intubation but prefers CPR cct 40 min MEAGAN TORRES MD Dec 07, 2016 09:24
--- NOTE | 2016-12-07 10:12 | PDOC2 ---
ROSEMARIEKAILASH INDUSTRIAL THERAPIST 12/07/16 1012: Consult: Consult date: December 06, [address] Nava for possible infection HPI: This patient is a 66 year old male who lives at home in the care of his . He is bedbound, dependent of ADLs and has multiple wounds. He was brought to [facility] ER via ambulance for altered mental status changes, hypotension and bradycardia. He is normally alert and talkative, but over the past few days, he has been sleeping more than usual, not eating or drinking well and urinating less. He normally needs to be straight cath on occasion, but for the most part he is continent and able to go on his own. He has a h/o recurrent UTIs. Most recent was about 3 months ago in which he was treated with NFT. Other than feeling hot and wanting the fan on, no fevers, chills or sweats reported per On arrival to ER, he was hypothermic with a temp 91.9 rectally requiring Blanquita hugger. His WBC count was WNL, lactic acid 1.5, creatine 2.9, Bun 57, K 6.1, & TSH level 6.292. Urinalysis was positive for WBCs TNTC, leuko esterase, nitrites but also had an moderate amount of squamous epithelial cells suggesting contamination. Blood and urine cultures are pending. Findings on chest x-ray is concerning for pneumoperitoneum. He is now on pressor support and oxygen supplementation via venti-mask. He is awake and answering some questions. He c/o chest discomfort and mild SOA. Denies cough, headache, sinus congestion or sore throat. He felt nauseas earlier and vomited prior to admission. Denies diarrhea or abdominal pain. PMH: Recurrent UTIs, E.col- R quinolones, Bactrim, tetra tobra, gent, amp, amp/ sulb, I Augmentin & cefazolin; central tremors, neurogenic bladder, bradyarrhythmia, CHF, HTN, HLD, VENUS, peripheral neuropathy, TIA, diverticulosis , GERD, colonic ileus, anemia, DM II, psoriasis, RLE chronic dermatitis. PSH: Right knee arthroscopy, total knee replacement, penile surgery; 4th toe amputation, bladder washing. FH: Positive for coronary Artery Disease (father and brother), Diabetes, Hypertension SH: and lives at home. Former smoker ALL: celecoxib MEDS: Reviewed on AUG ROS: per HPI. Otherwise all other ROS negative. PHYSICAL EXAM: General: Propped up in bed, awake, NAD. Off Blanquita hugger VS: 93.0, 87/58, 68, 28, SpO2 98% HENT: Pupils equally round, Oral cavity/pharynx dry Neck: Supple, no adenopathy LUNGS: Diminished aeration bases, nonlabored CV: Normal S1 and S2. ABDOMEN: Obese, BS active, soft, nontender : [place] EXT: No edema or cyanosis SKIN: Multiple wounds PET CARE WORKER: Awake, answers few questions, voice soft, + tremors IVs: ok LABS: Reviewed. Today's labs pending. MRSA screen pending. Chest X-RAY IMPRESSION: 1. Cardiomegaly. 2. Moderate bibasilar pulmonary infiltrates. 3. Gas collections beneath both hemidiaphragms may lie in distended portions of the GI tract, although pneumoperitoneum cannot be excluded. CT scanning may be useful for further evaluation, if clinically indicated. IMPRESSION: Septic shock, POA. 12/06. Hypothermia Acute encephalopathy Possible pneumoperitoneum on chest-ray UTI, POA. 12/06 RENETTA Acute respiratory failure Bradyarrhythmia Metabolic acidosis Chronic debility PLAN: Patient was started on vancomycin and given a dose of Rocephin in ER. Dr. Odin Sullivan was contacted and added Zosyn and Levaquin which were both adjusted for renal failure. f/u today's labs and cultures. Antibiotics may need to be further modified depending on results. Order CT abdominal/pelvis without contrast. Discussed with patient's . Discussed with Dr. Nava. Critically ill Thank you ANABELLA SULLIVAN MD 12/07/16 1253: Attending Co-Sign The patient was seen and interviewed as well as examined at the bedside. The chart was reviewed. The case was discussed. Agree with the plan of care. d/w in detail ROSEMARIEKAILASH Reji VILCHIS Dec 07, 2016 10:12 ANABELLA SULLIVAN MD Dec 07, 2016 12:53
--- NOTE | 2016-12-07 10:39 | PDOC ---
Progress Notes Date and Time Date of Service 12/07/2016 1030am Subjective Notes Notes Responded to CT scanner for code blue. She admitted on the day prior for bradycardia. Getting a CT of the abdomen with concerns of pneumoperitoneum. Patient reportedly lost pulse and had agonal breathing. CPR initiated prior to my arrival. Patient is a DO NOT INTUBATE and we proceeded with bagging the patient, continued CPR. 1 dose epinephrine was given IV. On first pulse check, patient had a heart rate in the 50s, he had a normal blood pressure and he had tachypnea breathing on his own. Patient is heading back to CT scan with nurse. Dr. Crane was made aware of the patient, I spoke with Dr. De Luna, primary care physician who will relay the message to Dr. Pearson who is currently caring for the patient. Pt had unremarkable morning labs, BS was 120s 1 hr prior to arrival to CT scan, pt did not receive IV contrast. I spent approximately 15 minutes involved in patient care. Vitals Vitals Vital Signs Date Time Temp Pulse Resp B/P (MAP) Pulse Ox O2 Delivery O2 Flow Rate FiO2 12/07/16 09:43 131/78 (95) 12/07/16 09:00 98.1 64 29 98 BiPAP/CPAP 98.1 Weight Weight [ ] I.O. Intake and Output Intake and Output 12/07/16 07:00 Intake Total 8362.4 ml Output Total 305 ml Balance 8057.4 ml Intake Oral 0 ml IV Total 8362.4 ml Output Urine Total 305 ml Labs Labs Laboratory Tests Test 12/06/16 15:00 12/06/16 15:02 12/06/16 15:06 12/06/16 16:20 White Blood Count 8.1 x10^3/uL (4.0-11.0) Red Blood Count 3.44 x10^6/uL (4.30-5.70) Hemoglobin 10.0 g/dL (13.0-17.5) Hematocrit 32.2 % (39.0-53.0) Mean Corpuscular Volume 94 fL (79-100) Mean Corpuscular Hemoglobin 29 pg (25-35) Mean Corpuscular Hemoglobin Concent 31 g/dL (31-37) Red Cell Distribution Width 19.1 % (11.5-14.5) Platelet Count 82 x10^3/uL (140-400) Neutrophils (%) (Auto) 83 % (31-73) Lymphocytes (%) (Auto) 14 % (24-48) Monocytes (%) (Auto) 3 % (0-9) Eosinophils (%) (Auto) 0 % (0-3) Basophils (%) (Auto) 0 % (0-3) Neutrophils # (Auto) 6.7 x10^3uL (1.8-7.7) Lymphocytes # (Auto) 1.1 x10^3/uL (1.0-4.8) Monocytes # (Auto) 0.3 x10^3/uL (0.0-1.1) Eosinophils # (Auto) 0.0 x10^3/uL (0.0-0.7) Basophils # (Auto) 0.0 x10^3/uL (0.0-0.2) Sodium Level 135 mmol/L (136-145) Potassium Level 6.1 mmol/L (3.5-5.1) Chloride Level 101 mmol/L (98-107) Carbon Dioxide Level 29 mmol/L (21-32) Anion Gap 5 (6-14) 12 mmol/L (6-14) Blood Urea Nitrogen 57 mg/dL (8-26) Creatinine 2.9 mg/dL (0.7-1.3) Estimated GFR (Cockcroft-Gault) 21.9 BUN/Creatinine Ratio 20 (6-20) Glucose Level 137 mg/dL (70-99) 134 mg/dL (70-99) Lactic Acid Level 1.5 mmol/L (0.4-2.0) Calcium Level 9.1 mg/dL (8.5-10.1) Magnesium Level 2.0 mg/dL (1.8-2.4) Total Bilirubin 0.2 mg/dL (0.2-1.0) Aspartate Amino Transf (AST/SGOT) 21 U/L (15-37) Alanine Aminotransferase (ALT/SGPT) 19 U/L (16-63) Alkaline Phosphatase 128 U/L (46-116) Creatine Kinase 33 U/L (39-308) Troponin I Quantitative < 0.017 ng/mL (0.000-0.055) Total Protein 6.0 g/dL (6.4-8.2) Albumin 2.4 g/dL (3.4-5.0) Albumin/Globulin Ratio 0.7 (1.0-1.7) Triglycerides Level 17 mg/dL (0-150) Cholesterol Level 121 mg/dL (0-200) LDL Cholesterol, Calculated 38 mg/dL (0-100) VLDL Cholesterol, Calculated 3 mg/dL (0-40) Non-HDL Cholesterol Calculated 41 mg/dL (0-129) HDL Cholesterol 80 mg/dL (40-60) Cholesterol/HDL Ratio 1.5 Thyroid Stimulating Hormone (TSH) 6.292 uIU/mL (0.358-3.74) Bedside Troponin I 0.00 ng/ml (<0.08) Bedside Hemoglobin 11.6 g/dL (14-18) Bedside Hematocrit 34 % (37-52) Bedside Sodium 133 mmol/L (135-145) Bedside Potassium 5.9 mmol/L (3.5-5.0) Bedside Chloride 99 mmol/L (98-110) Bedside Total CO2 28 mmol/L (23-32) Bedside Blood Urea Nitrogen 58 mg/dL (8-26) Bedside Creatinine 3.0 mg/dL (0.5-1.4) Bedside Ionized Calcium (Fish) 1.25 mmol/L (1.13-1.32) O2 Saturation 95 % (92-99) Arterial Blood pH 7.11 (7.35-7.45) Arterial Blood pH (Temp corrected) 7.16 Arterial Blood pCO2 at Patient Temp 69 mmHg (35-46) Arterial Blood pCO2 (Temp correct) 58 mmHg Arterial Blood pO2 at Patient Temp 97 mmHg (65-108) Arterial Blood pO2 (Temp corrected) 77 mmHg Arterial Blood HCO3 21 mmol/L (21-28) Arterial Blood Base Excess -9 mmol/L (-3-3) Oxyhemoglobin 94.4 % Methemoglobin 0.4 % (0.0-1.9) Carbon Monoxide, Quantitative 0.3 % (0.0-1.9) FiO2 100 Test 12/06/16 18:55 12/06/16 19:44 12/06/16 20:45 12/07/16 08:00 Sodium Level 135 mmol/L (136-145) Potassium Level 5.3 mmol/L (3.5-5.1) Chloride Level 101 mmol/L (98-107) Carbon Dioxide Level 30 mmol/L (21-32) Anion Gap 4 (6-14) Blood Urea Nitrogen 52 mg/dL (8-26) Creatinine 2.8 mg/dL (0.7-1.3) Estimated GFR (Cockcroft-Gault) 22.8 Glucose Level 133 mg/dL (70-99) Calcium Level 9.4 mg/dL (8.5-10.1) O2 Saturation 96 % (92-99) 96 % (92-99) Arterial Blood pH 7.16 (7.35-7.45) 7.36 (7.35-7.45) Arterial Blood pH (Temp corrected) 7.22 Arterial Blood pCO2 at Patient Temp 73 mmHg (35-46) 41 mmHg (35-46) Arterial Blood pCO2 (Temp correct) 60 mmHg Arterial Blood pO2 at Patient Temp 93 mmHg (65-108) 82 mmHg (65-108) Arterial Blood pO2 (Temp corrected) 70 mmHg Arterial Blood HCO3 25 mmol/L (21-28) 23 mmol/L (21-28) Arterial Blood Base Excess -5 mmol/L (-3-3) -3 mmol/L (-3-3) FiO2 40 40 Urine Collection Type Unknown Urine Color Red Urine Clarity Turbid Urine pH 5.5 Urine Specific [place] 1.025 Urine Protein >=300 mg/dL (NEG-TRACE) Urine Glucose (UA) 100 mg/dL (NEG) Urine Ketones (Stick) 15 mg/dL (NEG) Urine Blood Large (NEG) Urine Nitrite Positive (NEG) Urine Bilirubin Moderate (NEG) Urine Urobilinogen Dipstick 0.2 mg/dL (0.2 mg/dL) Urine Leukocyte Esterase Large (NEG) Urine RBC Tntc /HPF (0-2) Urine WBC Tntc /HPF (0-4) Urine Squamous Epithelial Cells Mod /LPF Urine Bacteria Moderate /HPF (0-FEW) Test 12/07/16 08:41 Glucose (Fingerstick) 122 mg/dL (70-99) Physical Exam Musculoskeletal: Osteoarthritis ARDEN VICKERS MD Dec 07, 2016 10:38
--- NOTE | 2016-12-07 10:51 | PDOC ---
PROGRESS NOTES Subjective Subjective The patient was more alert and feeling better early this morning. Objective Objective Vital Signs Date Time Temp Pulse Resp B/P (MAP) Pulse Ox O2 Delivery O2 Flow Rate FiO2 12/07/16 10:00 72 30 91/61 (71) 95 Venturi Mask 12/07/16 09:00 98.1 98.1 Intake and Output 12/07/16 07:00 Intake Total 8362.4 ml Output Total 305 ml Balance 8057.4 ml Intake Oral 0 ml IV Total 8362.4 ml Output Urine Total 305 ml Physical Exam Abdomen: Normal bowel sounds Heart: Regular rate General: mild distress Lungs: Other (mildly decreased breath sounds) Assessment Assessment Problems Medical Problems: (1) Altered level of consciousness Status: Acute (2) Bradycardia Status: Acute (3) Hypotension Status: Acute (4) Hypothermia Status: Acute (5) Sepsis Status: Acute ASSESSMENT/PLAN 1. Symptomatic Bradyarrhythmia: Heart rate had improved overnight. Patient was looking and feeling better early this morning. Patient then was laid flat for a CT scan. He became short of breath and somewhat bradycardic. He received 1 dose of atropine and CPR. Patient resumed a regular rhythm and a acceptable blood pressure. He is continuing on present treatments at this time. He is an DNR status. 2. Hypothermia/hypotension/possible sepsis is a DNR status. Today until his episode in the CT scanner. Again continue present treatments. 3. Metabolic encephalopathy 4. RENETTA with hyperkalemia: Potassium and creatinine levels improved. Continue present treatments. 5. Subclinical hypothyroidism: new? TSH 6s 6. Hx of frequent UTI: Ecoli resistant to gentamicin per review 7. Hx of HTN,DM2/HLP 8. Hx of CHF but unknown hx of CAD: pt denies any prior CAD. 9. Chronic debility Comment Review of Relevant I have reviewed the following items javed (where applicable) has been applied. Labs Laboratory Tests Test 12/06/16 15:00 12/06/16 15:02 12/06/16 15:06 12/06/16 16:20 White Blood Count 8.1 x10^3/uL (4.0-11.0) Red Blood Count 3.44 x10^6/uL (4.30-5.70) Hemoglobin 10.0 g/dL (13.0-17.5) Hematocrit 32.2 % (39.0-53.0) Mean Corpuscular Volume 94 fL (79-100) Mean Corpuscular Hemoglobin 29 pg (25-35) Mean Corpuscular Hemoglobin Concent 31 g/dL (31-37) Red Cell Distribution Width 19.1 % (11.5-14.5) Platelet Count 82 x10^3/uL (140-400) Neutrophils (%) (Auto) 83 % (31-73) Lymphocytes (%) (Auto) 14 % (24-48) Monocytes (%) (Auto) 3 % (0-9) Eosinophils (%) (Auto) 0 % (0-3) Basophils (%) (Auto) 0 % (0-3) Neutrophils # (Auto) 6.7 x10^3uL (1.8-7.7) Lymphocytes # (Auto) 1.1 x10^3/uL (1.0-4.8) Monocytes # (Auto) 0.3 x10^3/uL (0.0-1.1) Eosinophils # (Auto) 0.0 x10^3/uL (0.0-0.7) Basophils # (Auto) 0.0 x10^3/uL (0.0-0.2) Sodium Level 135 mmol/L (136-145) Potassium Level 6.1 mmol/L (3.5-5.1) Chloride Level 101 mmol/L (98-107) Carbon Dioxide Level 29 mmol/L (21-32) Anion Gap 5 (6-14) 12 mmol/L (6-14) Blood Urea Nitrogen 57 mg/dL (8-26) Creatinine 2.9 mg/dL (0.7-1.3) Estimated GFR (Cockcroft-Gault) 21.9 BUN/Creatinine Ratio 20 (6-20) Glucose Level 137 mg/dL (70-99) 134 mg/dL (70-99) Lactic Acid Level 1.5 mmol/L (0.4-2.0) Calcium Level 9.1 mg/dL (8.5-10.1) Magnesium Level 2.0 mg/dL (1.8-2.4) Total Bilirubin 0.2 mg/dL (0.2-1.0) Aspartate Amino Transf (AST/SGOT) 21 U/L (15-37) Alanine Aminotransferase (ALT/SGPT) 19 U/L (16-63) Alkaline Phosphatase 128 U/L (46-116) Creatine Kinase 33 U/L (39-308) Troponin I Quantitative < 0.017 ng/mL (0.000-0.055) Total Protein 6.0 g/dL (6.4-8.2) Albumin 2.4 g/dL (3.4-5.0) Albumin/Globulin Ratio 0.7 (1.0-1.7) Triglycerides Level 17 mg/dL (0-150) Cholesterol Level 121 mg/dL (0-200) LDL Cholesterol, Calculated 38 mg/dL (0-100) VLDL Cholesterol, Calculated 3 mg/dL (0-40) Non-HDL Cholesterol Calculated 41 mg/dL (0-129) HDL Cholesterol 80 mg/dL (40-60) Cholesterol/HDL Ratio 1.5 Thyroid Stimulating Hormone (TSH) 6.292 uIU/mL (0.358-3.74) Bedside Troponin I 0.00 ng/ml (<0.08) Bedside Hemoglobin 11.6 g/dL (14-18) Bedside Hematocrit 34 % (37-52) Bedside Sodium 133 mmol/L (135-145) Bedside Potassium 5.9 mmol/L (3.5-5.0) Bedside Chloride 99 mmol/L (98-110) Bedside Total CO2 28 mmol/L (23-32) Bedside Blood Urea Nitrogen 58 mg/dL (8-26) Bedside Creatinine 3.0 mg/dL (0.5-1.4) Bedside Ionized Calcium (Fish) 1.25 mmol/L (1.13-1.32) O2 Saturation 95 % (92-99) Arterial Blood pH 7.11 (7.35-7.45) Arterial Blood pH (Temp corrected) 7.16 Arterial Blood pCO2 at Patient Temp 69 mmHg (35-46) Arterial Blood pCO2 (Temp correct) 58 mmHg Arterial Blood pO2 at Patient Temp 97 mmHg (65-108) Arterial Blood pO2 (Temp corrected) 77 mmHg Arterial Blood HCO3 21 mmol/L (21-28) Arterial Blood Base Excess -9 mmol/L (-3-3) Oxyhemoglobin 94.4 % Methemoglobin 0.4 % (0.0-1.9) Carbon Monoxide, Quantitative 0.3 % (0.0-1.9) FiO2 100 Test 12/06/16 18:55 12/06/16 19:44 12/06/16 20:45 12/07/16 08:00 Sodium Level 135 mmol/L (136-145) Potassium Level 5.3 mmol/L (3.5-5.1) Chloride Level 101 mmol/L (98-107) Carbon Dioxide Level 30 mmol/L (21-32) Anion Gap 4 (6-14) Blood Urea Nitrogen 52 mg/dL (8-26) Creatinine 2.8 mg/dL (0.7-1.3) Estimated GFR (Cockcroft-Gault) 22.8 Glucose Level 133 mg/dL (70-99) Calcium Level 9.4 mg/dL (8.5-10.1) O2 Saturation 96 % (92-99) 96 % (92-99) Arterial Blood pH 7.16 (7.35-7.45) 7.36 (7.35-7.45) Arterial Blood pH (Temp corrected) 7.22 Arterial Blood pCO2 at Patient Temp 73 mmHg (35-46) 41 mmHg (35-46) Arterial Blood pCO2 (Temp correct) 60 mmHg Arterial Blood pO2 at Patient Temp 93 mmHg (65-108) 82 mmHg (65-108) Arterial Blood pO2 (Temp corrected) 70 mmHg Arterial Blood HCO3 25 mmol/L (21-28) 23 mmol/L (21-28) Arterial Blood Base Excess -5 mmol/L (-3-3) -3 mmol/L (-3-3) FiO2 40 40 Urine Collection Type Unknown Urine Color Red Urine Clarity Turbid Urine pH 5.5 Urine Specific [place] 1.025 Urine Protein >=300 mg/dL (NEG-TRACE) Urine Glucose (UA) 100 mg/dL (NEG) Urine Ketones (Stick) 15 mg/dL (NEG) Urine Blood Large (NEG) Urine Nitrite Positive (NEG) Urine Bilirubin Moderate (NEG) Urine Urobilinogen Dipstick 0.2 mg/dL (0.2 mg/dL) Urine Leukocyte Esterase Large (NEG) Urine RBC Tntc /HPF (0-2) Urine WBC Tntc /HPF (0-4) Urine Squamous Epithelial Cells Mod /LPF Urine Bacteria Moderate /HPF (0-FEW) Test 12/07/16 08:41 Glucose (Fingerstick) 122 mg/dL (70-99) Laboratory Tests Test 6/30/17 15:00 12/06/16 15:02 12/06/16 15:06 12/06/16 16:20 White Blood Count 8.1 x10^3/uL (4.0-11.0) Red Blood Count 3.44 x10^6/uL (4.30-5.70) Hemoglobin 10.0 g/dL (13.0-17.5) Hematocrit 32.2 % (39.0-53.0) Mean Corpuscular Volume 94 fL (79-100) Mean Corpuscular Hemoglobin 29 pg (25-35) Mean Corpuscular Hemoglobin Concent 31 g/dL (31-37) Red Cell Distribution Width 19.1 % (11.5-14.5) Platelet Count 82 x10^3/uL (140-400) Neutrophils (%) (Auto) 83 % (31-73) Lymphocytes (%) (Auto) 14 % (24-48) Monocytes (%) (Auto) 3 % (0-9) Eosinophils (%) (Auto) 0 % (0-3) Basophils (%) (Auto) 0 % (0-3) Neutrophils # (Auto) 6.7 x10^3uL (1.8-7.7) Lymphocytes # (Auto) 1.1 x10^3/uL (1.0-4.8) Monocytes # (Auto) 0.3 x10^3/uL (0.0-1.1) Eosinophils # (Auto) 0.0 x10^3/uL (0.0-0.7) Basophils # (Auto) 0.0 x10^3/uL (0.0-0.2) Sodium Level 135 mmol/L (136-145) Potassium Level 6.1 mmol/L (3.5-5.1) Chloride Level 101 mmol/L (98-107) Carbon Dioxide Level 29 mmol/L (21-32) Anion Gap 5 (6-14) 12 mmol/L (6-14) Blood Urea Nitrogen 57 mg/dL (8-26) Creatinine 2.9 mg/dL (0.7-1.3) Estimated GFR (Cockcroft-Gault) 21.9 BUN/Creatinine Ratio 20 (6-20) Glucose Level 137 mg/dL (70-99) 134 mg/dL (70-99) Lactic Acid Level 1.5 mmol/L (0.4-2.0) Calcium Level 9.1 mg/dL (8.5-10.1) Magnesium Level 2.0 mg/dL (1.8-2.4) Total Bilirubin 0.2 mg/dL (0.2-1.0) Aspartate Amino Transf (AST/SGOT) 21 U/L (15-37) Alanine Aminotransferase (ALT/SGPT) 19 U/L (16-63) Alkaline Phosphatase 128 U/L (46-116) Creatine Kinase 33 U/L (39-308) Troponin I Quantitative < 0.017 ng/mL (0.000-0.055) Total Protein 6.0 g/dL (6.4-8.2) Albumin 2.4 g/dL (3.4-5.0) Albumin/Globulin Ratio 0.7 (1.0-1.7) Triglycerides Level 17 mg/dL (0-150) Cholesterol Level 121 mg/dL (0-200) LDL Cholesterol, Calculated 38 mg/dL (0-100) VLDL Cholesterol, Calculated 3 mg/dL (0-40) Non-HDL Cholesterol Calculated 41 mg/dL (0-129) HDL Cholesterol 80 mg/dL (40-60) Cholesterol/HDL Ratio 1.5 Thyroid Stimulating Hormone (TSH) 6.292 uIU/mL (0.358-3.74) Bedside Troponin I 0.00 ng/ml (<0.08) Bedside Hemoglobin 11.6 g/dL (14-18) Bedside Hematocrit 34 % (37-52) Bedside Sodium 133 mmol/L (135-145) Bedside Potassium 5.9 mmol/L (3.5-5.0) Bedside Chloride 99 mmol/L (98-110) Bedside Total CO2 28 mmol/L (23-32) Bedside Blood Urea Nitrogen 58 mg/dL (8-26) Bedside Creatinine 3.0 mg/dL (0.5-1.4) Bedside Ionized Calcium (Fish) 1.25 mmol/L (1.13-1.32) O2 Saturation 95 % (92-99) Arterial Blood pH 7.11 (7.35-7.45) Arterial Blood pH (Temp corrected) 7.16 Arterial Blood pCO2 at Patient Temp 69 mmHg (35-46) Arterial Blood pCO2 (Temp correct) 58 mmHg Arterial Blood pO2 at Patient Temp 97 mmHg (65-108) Arterial Blood pO2 (Temp corrected) 77 mmHg Arterial Blood HCO3 21 mmol/L (21-28) Arterial Blood Base Excess -9 mmol/L (-3-3) Oxyhemoglobin 94.4 % Methemoglobin 0.4 % (0.0-1.9) Carbon Monoxide, Quantitative 0.3 % (0.0-1.9) FiO2 100 Test 12/06/16 18:55 12/06/16 19:44 12/06/16 20:45 12/07/16 08:00 Sodium Level 135 mmol/L (136-145) Potassium Level 5.3 mmol/L (3.5-5.1) Chloride Level 101 mmol/L (98-107) Carbon Dioxide Level 30 mmol/L (21-32) Anion Gap 4 (6-14) Blood Urea Nitrogen 52 mg/dL (8-26) Creatinine 2.8 mg/dL (0.7-1.3) Estimated GFR (Cockcroft-Gault) 22.8 Glucose Level 133 mg/dL (70-99) Calcium Level 9.4 mg/dL (8.5-10.1) O2 Saturation 96 % (92-99) 96 % (92-99) Arterial Blood pH 7.16 (7.35-7.45) 7.36 (7.35-7.45) Arterial Blood pH (Temp corrected) 7.22 Arterial Blood pCO2 at Patient Temp 73 mmHg (35-46) 41 mmHg (35-46) Arterial Blood pCO2 (Temp correct) 60 mmHg Arterial Blood pO2 at Patient Temp 93 mmHg (65-108) 82 mmHg (65-108) Arterial Blood pO2 (Temp corrected) 70 mmHg Arterial Blood HCO3 25 mmol/L (21-28) 23 mmol/L (21-28) Arterial Blood Base Excess -5 mmol/L (-3-3) -3 mmol/L (-3-3) FiO2 40 40 Urine Collection Type Unknown Urine Color Red Urine Clarity Turbid Urine pH 5.5 Urine Specific [place] 1.025 Urine Protein >=300 mg/dL (NEG-TRACE) Urine Glucose (UA) 100 mg/dL (NEG) Urine Ketones (Stick) 15 mg/dL (NEG) Urine Blood Large (NEG) Urine Nitrite Positive (NEG) Urine Bilirubin Moderate (NEG) Urine Urobilinogen Dipstick 0.2 mg/dL (0.2 mg/dL) Urine Leukocyte Esterase Large (NEG) Urine RBC Tntc /HPF (0-2) Urine WBC Tntc /HPF (0-4) Urine Squamous Epithelial Cells Mod /LPF Urine Bacteria Moderate /HPF (0-FEW) Test 12/07/16 08:41 Glucose (Fingerstick) 122 mg/dL (70-99) Medications Current Medications Atropine Sulfate 1 mg STK-MED ONCE .ROUTE ; Start 12/06/16 at 15:04; Stop at 15:05; Status DC Dextrose (Dextrose 50%-Water Syringe) 25 gm 1X ONCE IV Last administered on 14:53; Start 12/06/16 at 15:15; Stop 12/06/16 at 15:16; Status DC Insulin Human Regular (NovoLIN R VIAL) 5 unit 1X ONCE IV Last administered on 12/06/16 14:53; Start 12/06/16 at 15:15; Stop 12/06/16 at 15:16; Status DC Atropine Sulfate 1 mg 1X ONCE IV ; Start 12/06/16 at 15:15; Stop 12/06/16 at 15 :16; Status Cancel Sodium Bicarbonate 50 meq 1X ONCE IV Last administered on 12/06/16 14:53; Start 12/06/16 at 15:15; Stop 12/06/16 at 15:16; Status DC Calcium Gluconate (Calcium Gluconate) 1,000 mg 1X ONCE IVP Last administered on 12/06/16 14:53; Start 12/06/16 at 15:15; Stop 12/06/16 at 15:16; Status DC Dopamine HCl/ Dextrose 250 ml @ 0 mls/hr 1X ONCE IV Last administered on 15:02; Start 12/06/16 at 15:15; Stop 12/06/16 at 15:16; Status DC Atropine Sulfate 1 mg 1X ONCE IV Last administered on 12/06/16 15:04; Start 12/06/16 at 15:15; Stop 12/06/16 at 15:16; Status DC Sodium Chloride 500 ml @ 500 mls/hr 1X ONCE IV Last administered on 15:20; Start 12/06/16 at 15:45; Stop 12/06/16 at 16:44; Status DC Sodium Chloride 1,000 ml @ 1,000 mls/hr 1X ONCE IV Last administered on 15:30; Start 12/06/16 at 15:45; Stop 12/06/16 at 16:44; Status DC Ceftriaxone Sodium 50 ml @ 100 mls/hr 1X ONCE IV Last administered on 15:45; Start 12/06/16 at 15:45; Stop 12/06/16 at 16:14; Status DC Vancomycin HCl (Vanco Per Pharmacy) 1 each PRN DAILY PRN MC SEE COMMENTS Last administered on 12/06/16 16:23; Start 12/06/16 at 16:15; Stop 12/06/16 at 19:10 ; Status DC Vancomycin HCl 2 gm/Sodium Chloride 500 ml @ 250 mls/hr 1X ONCE IV Last administered on 12/06/16 16:15; Start 12/06/16 at 16:30; Stop 12/06/16 at 19:10 ; Status DC Vancomycin HCl 1.5 gm/Sodium Chloride 500 ml @ 250 mls/hr Q24H IV ; Start at 16:00; Stop 12/07/16 at 16:00; Status DC Vancomycin HCl 1 each 1X ONCE MC ; Start 12/08/16 at 15:30; Stop 12/08/16 at 15: 30; Status DC Sodium Chloride 1,000 ml @ 100 mls/hr Q10H IV Last administered on 12/07/16 05 :45; Start 12/06/16 at 16:30 Norepinephrine Bitartrate 250 ml @ As Directed STK-MED ONCE IV ; Start at 16:50; Stop 12/06/16 at 16:51; Status DC Sodium Bicarbonate 50 meq 1X ONCE IV Last administered on 12/06/16 17:00; Start 12/06/16 at 17:00; Stop 12/06/16 at 17:01; Status DC Norepinephrine Bitartrate 16 mg/ Sodium Chloride 266 ml @ 0 mls/hr CONT PRN IV SEE I/O RECORD; Start 12/06/16 at 17:15; Status UNV Phenylephrine HCl 80 mg/Sodium Chloride 258 ml @ 0 mls/hr CONT PRN IV SEE I/O RECORD Last administered on 12/07/16 02:37; Start 12/06/16 at 17:15 Norepinephrine Bitartrate 250 ml @ 1.875 mls/ hr CONT PRN IV SEE I/O RECORD Last administered on 12/07/16 07:12; Start 12/06/16 at 17:15 Piperacillin Sod/ Tazobactam Sod 2.25 gm/Sodium Chloride 50 ml @ 100 mls/hr Q8HRS IV Last administered on 12/07/16 05:45; Start 12/06/16 at 18:00 Levofloxacin/ Dextrose 150 ml @ 100 mls/hr Q48H IV Last administered on 19:08; Start 12/06/16 at 18:00; Stop 12/07/16 at 10:42; Status DC Sodium Chloride 1,000 ml @ 1,000 mls/hr 1X ONCE IV Last administered on 19:23; Start 12/06/16 at 17:45; Stop 12/06/16 at 18:44; Status DC Sodium Chloride 1,000 ml @ 1,000 mls/hr 1X ONCE IV Last administered on 19:23; Start 12/06/16 at 18:45; Stop 12/06/16 at 19:44; Status DC Sodium Chloride 500 ml @ 500 mls/hr 1X ONCE IV Last administered on 12/07/16 00:00; Start 12/06/16 at 19:00; Stop 12/06/16 at 19:59; Status DC Albumin Human 500 ml @ 125 mls/hr 1X ONCE IV Last administered on 12/06/16 19:22; Start 12/06/16 at 19:00; Stop 12/06/16 at 22:59; Status DC Dopamine HCl/ Dextrose 250 ml @ 20.837 mls/ hr CONT PRN IV SEE I/O RECORD Last administered on 12/07/16 10:38; Start 12/06/16 at 19:15 Sodium Bicarbonate 50 meq 1X ONCE IV Last administered on 12/06/16 20:47; Start 12/06/16 at 21:00; Stop 12/06/16 at 21:01; Status DC Ondansetron HCl (Zofran) 4 mg PRN Q6HRS PRN IV NAUSEA/VOMITING Last administered on 12/07/16 05:36; Start 12/07/16 at 05:30 Active Scripts Active Reported [place] 3 Fish Oil Softgel ([place]-3 Fatty Acids/Fish Oil) 1 Each Capsule.dr 2 Cap PO DAILY Polyethylene Glycol 3350 17 Gm Powd.pack 17 Gm PO PRN QID PRN Simethicone 125 Mg Capsule 250 Mg PO QID Propranolol Hcl 20 Mg Tablet 20 Mg PO QHS Melatonin 3 Mg Tablet 6 Mg PO QHS Potassium Chloride 20 Meq Tab.er.prt 20 Meq PO DAILY Prazosin Hcl 1 Mg Capsule 1 Mg PO QHS Mupirocin Ointment (Mupirocin) 22 Gm Oint...g. 1 Kiran TP BID Nystop (Nystatin) 60 Gm Powder 1 Kiran TP BID Mirapex (Pramipexole Di-Hcl) 0.125 Mg Tablet 0.125 Mg PO TID Triamcinolone Acetonide 80 Gm Oint...g. 1 Kiran TP TID Tamsulosin Hcl 0.4 Mg Cap.er.24h 0.4 Mg PO DAILY Furosemide 20 Mg Tablet 20 Mg PO DAILY Magnesium Oxide 400 Mg Tablet 400 Mg PO BID Pantoprazole Sodium 40 Mg Tablet.dr 40 Mg PO DAILY Propranolol Hcl 40 Mg Tablet 40 Mg PO DAILY Nephro-Elkin Tablet (Folic Acid/Vitamin B Comp W-C) 0.8 Mg Tablet 1 Tab PO DAILY Temazepam 15 Mg Capsule 30 Mg PO QHS Losartan Potassium 50 Mg Tablet 50 Mg PO DAILY Abilify (Aripiprazole) 10 Mg Tablet 15 Mg PO DAILY Amlodipine Besylate 5 Mg Tablet 5 Tab PO DAILY Ranexa (Ranolazine) 500 Mg Tab.er.12h 500 Mg PO BID Nitrostat (Nitroglycerin) 0.4 Mg Tab.subl 0.4 Mg SL PRN Q5MIN PRN Probiotic & Acidophilus Cap (Lactobac Cmb #3/Fos/Pantethine) 1 Each Capsule 1 Tab PO DAILY Cilostazol 50 Mg Tablet 50 Mg PO BID Glycopyrrolate 2 Mg Tablet 2 Mg PO NOON Finasteride 5 Mg Tablet 5 Mg PO DAILY Vitamin D (Cholecalciferol (Vitamin D3)) 1,000 Unit Tablet 2,000 Unit PO DAILY Co Q-10 (Ubidecarenone) 100 Mg Capsule 100 Mg PO NOON Allopurinol 300 Mg Tablet 300 Mg PO BID Aspirin 325 Mg Tablet 325 Mg PO DAILY Imdur (Isosorbide Mononitrate) 30 Mg Tab.er.24h 30 Mg PO DAILYWLUN Sucralfate 1 Gm Tablet 1 Gm PO QIDACHS Atorvastatin Calcium 20 Mg Tablet 20 Mg PO HS Humalog (Insulin Lispro) 100 Unit/1 Ml Insuln.pen 5 Unit SQ TIDAC Lantus Solostar (Insulin Glargine,Hum.rec.anlog) 100 Unit/1 Ml Insuln.pen 30 Unit SQ QEVNG Ketoconazole 15 Gm Cream..g. 1 Kiran TP DAILY Vitals/I & O Vital Sign - Last 24 Hours 12/06/16 12/06/16 12/06/16 12/06/16 15:05 15:07 15:09 15:10 Temp 91.9 91.9 Pulse 40 39 57 36 Resp 16 15 18 16 B/P (MAP) 48/26 (33) 49/28 (35) 59/33 (42) 48/ (33) Pulse Ox 99 100 100 100 O2 Delivery NonRebreather Mask NonRebreather Mask NonRebreather Mask NonRebreather Mask 12/06/16 12/06/16 12/06/16 12/06/16 15:11 15:14 15:19 15:24 Pulse 61 62 61 60 Resp 19 17 18 16 B/P (MAP) 62/37 (45) 57/34 (42) 65/36 (46) 66/37 (47) Pulse Ox 100 100 100 100 O2 Delivery NonRebreather Mask NonRebreather Mask NonRebreather Mask NonRebreather Mask 12/06/16 12/06/16 12/06/16 12/06/16 15:29 15:34 15:39 15:44 Pulse 59 57 57 57 Resp 15 15 17 14 B/P (MAP) 68/39 (49) 66/37 (47) 66/38 (47) 67/37 (47) Pulse Ox 100 100 100 100 O2 Delivery NonRebreather Mask NonRebreather Mask NonRebreather Mask NonRebreather Mask 12/06/16 12/06/16 12/06/16 12/06/16 15:49 16:20 17:00 17:00 Temp 90.0 90.0 Pulse 58 59 54 Resp 16 20 12 B/P (MAP) 69/38 (48) 70/40 (50) 69/42 (51) Pulse Ox 100 100 96 O2 Delivery NonRebreather Mask NonRebreather Mask Bi-pap 12/06/16 12/06/16 12/06/16 12/06/16 17:05 17:10 17:15 17:20 Temp 90.0 90.0 90.0 90.0 90.0 90.0 90.0 90.0 Pulse 56 56 54 54 Resp 12 26 B/P (MAP) 73/42 (52) 73/46 (55) Pulse Ox 97 98 98 98 O2 Delivery NonRebreather Mask NonRebreather Mask BiPAP/CPAP BiPAP/CPAP 12/06/16 12/06/16 12/06/16 12/06/16 17:28 17:30 17:35 17:40 Temp 90.0 90.0 90.0 90.0 90.0 90.0 Pulse 56 60 62 Resp 26 B/P (MAP) 81/47 (58) 82/48 (59) 83/49 (60) Pulse Ox 98 96 96 96 O2 Delivery BiPAP/CPAP BiPAP/CPAP BiPAP/CPAP BiPAP/CPAP 12/06/16 12/06/16 12/06/16 12/06/16 17:50 18:00 19:00 19:16 Temp 90.0 90.0 90.0 90.0 90.0 90.0 Pulse 62 62 59 Resp B/P (MAP) 84/52 (63) 87/52 (64) 73/42 (52) Pulse Ox 97 96 96 98 O2 Delivery BiPAP/CPAP BiPAP/CPAP BiPAP/CPAP BiPAP/CPAP 12/06/16 12/06/16 12/06/16 12/06/16 20:00 20:00 20:38 21:00 Temp 90.0 90.9 90.0 90.9 Pulse 61 60 Resp 28 B/P (MAP) 78/45 (56) 95/54 (68) Pulse Ox 98 98 98 O2 Delivery Bi-pap BiPAP/CPAP BiPAP/CPAP BiPAP/CPAP 12/06/16 12/06/16 12/06/16 12/06/16 21:51 22:00 23:00 23:15 Temp 91.4 92.3 91.4 92.3 Pulse 61 59 Resp 28 B/P (MAP) 90/50 (63) 98/54 (69) Pulse Ox 100 98 98 100 O2 Delivery BiPAP/CPAP BiPAP/CPAP BiPAP/CPAP BiPAP/CPAP 12/07/16 12/07/16 12/07/16 12/07/16 00:00 00:00 01:00 01:03 Temp 93.0 93.9 93.0 93.9 Pulse 68 53 Resp 28 B/P (MAP) 87/58 (68) 91/50 (64) Pulse Ox 98 98 100 O2 Delivery BiPAP/CPAP Bi-pap BiPAP/CPAP BiPAP/CPAP 12/07/16 12/07/16 12/07/16 12/07/16 02:00 02:59 03:00 04:00 Temp 94.5 95.4 96.4 94.5 95.4 96.4 Pulse 68 68 63 Resp 28 28 B/P (MAP) 108/57 (74) 103/58 (73) 89/50 (63) Pulse Ox 98 100 96 94 O2 Delivery BiPAP/CPAP BiPAP/CPAP BiPAP/CPAP BiPAP/CPAP 12/07/16 12/07/16 12/07/16 12/07/16 04:00 05:00 05:35 06:00 Temp 97.5 97.7 97.5 97.7 Pulse 63 63 Resp 28 B/P (MAP) 85/57 (66) 108/55 (72) Pulse Ox 94 100 94 O2 Delivery Bi-pap BiPAP/CPAP BiPAP/CPAP BiPAP/CPAP 12/07/16 12/07/16 12/07/16 12/07/16 07:00 08:00 08:00 08:26 Temp 98.1 98.1 Pulse 96 62 Resp 28 B/P (MAP) 85/47 (60) 111/59 (76) Pulse Ox 96 97 98 O2 Delivery BiPAP/CPAP BiPAP/CPAP Bi-pap BiPAP/CPAP 12/07/16 12/07/16 12/07/16 09:00 09:43 10:00 Temp 98.1 98.1 Pulse 64 72 Resp 29 30 B/P (MAP) 113/44 (67) 131/78 (95) 91/61 (71) Pulse Ox 98 95 O2 Delivery BiPAP/CPAP Venturi Mask Intake and Output 12/06/16 12/06/16 12/07/16 15:00 23:00 07:00 Intake Total 4145 ml 4217.4 ml Output Total 20 ml 285 ml Balance 4125 ml 3932.4 ml BEN DALE MD Dec 07, 2016 10:51
[2016-12-07 10:52] LABS: BASO # 0.1 x10^3/uL (0.0-0.2); BASO % 0 % (0-3); EOS % 0 % (0-3); HEMOGLOBIN 10.8 g/dL (13.0-17.5); LYMPH # 0.8 x10^3/uL (1.0-4.8); LYMPH % 5 % (24-48); MEAN CORPUSCULAR HEMOGLOBIN 29 pg (25-35); MEAN CORPUSCULAR HGB CONC 32 g/dL (31-37); MEAN CORPUSCULAR VOLUME 91 fL (79-100); MONO % 2 % (0-9); NEUT % 92 % (31-73); PLATELET COUNT 129 x10^3/uL (140-400); RED BLOOD COUNT 3.75 x10^6/uL (4.30-5.70); RED CELL DISTRIBUTION WIDTH 19.2 % (11.5-14.5); WHITE BLOOD COUNT 16.2 x10^3/uL (4.0-11.0)
--- NOTE | 2016-12-07 10:54 | RAD ---
CT of the abdomen and pelvis without contrast, 12/07/2016: History: Abdominal pain, possible pneumoperitoneum No IV contrast was administered for this study as requested. The hemidiaphragms are not completely included on these initial images. The patient's clinical condition deteriorated while in the CT suite and additional scans to fully include the diaphragm regions could not be obtained at this time. There is considerable distention of the stomach with fluid and gas. The hepatic flexure of the colon extends anteriorly along the anterior aspect of the liver. These findings appear to explain the subdiaphragmatic gas collection seen on the recent portable chest radiograph. No pneumoperitoneum is identified. There are densities in the posterior costophrenic angle suggesting pleural fluid and atelectasis, although incompletely delineated on these scans. The liver is incompletely visualized. There are extensive streak artifacts in the upper abdomen related to patient's arms. No hepatic mass is seen. There appear to be a couple small gallstones in the gallbladder. No pericholecystic edema is evident. The pancreas is somewhat atrophic. The spleen is of normal size. There is bilateral renal cortical scarring. There is no evidence of hydronephrosis. There is mild calcific plaquing of the abdominal aorta and its branches without evidence of aneurysm. No abdominal or pelvic adenopathy is seen. A Wells catheter is present within the collapsed urinary bladder. There is mild gaseous prominence of small bowel loops in the anterior aspect of the abdomen. The findings suggest a mild ileus. There is gas and stool in the colon in a nonspecific pattern. There is a small umbilical hernia containing only fat. There is mild generalized streaky edema in the mesentery and more extensive subcutaneous edema, suggesting anasarca. There appears to be a trace amount of free fluid in the left paracolic gutter. Moderate multilevel degenerative changes are present in the spine. IMPRESSION: 1. Mild ileus. 2. Moderate distention of the stomach with fluid and gas. 3. No evidence of pneumoperitoneum. 4. Anasarca. 5. Cholelithiasis PQRS Compliance Statement: One or more of the following individualized dose reduction techniques were utilized for this examination: 1. Automated exposure control 2. Adjustment of the mA and/or kV according to patient size 3. Use of iterative reconstruction technique
[2016-12-07 11:12] LABS: ALBUMIN 2.7 g/dL (3.4-5.0); ALBUMIN/GLOBULIN RATIO 0.7 (1.0-1.7); CALCIUM 8.4 mg/dL (8.5-10.1); CREATININE 2.6 mg/dL (0.7-1.3); GFR 24.8; POTASSIUM 5.6 mmol/L (3.5-5.1); TOTAL PROTEIN 6.5 g/dL (6.4-8.2)
[2016-12-07 11:13] LABS: TOTAL BILIRUBIN 0.4 mg/dL (0.2-1.0)
[2016-12-07] MEDS ORDERED: DEXTROSE 50% 25 GM / 50ML DISP.SYRIN. IV PRN (11:15)
[2016-12-07 11:23] LABS: PLT ESTIMATE DECREASED (ADEQUATE)
[2016-12-07 11:24] LABS: ANISOCYTOSIS MOD; OVALOCYTES FEW; POIKILOCYTOSIS PRESENT; POLYCHROMASIA SLIGHT; TARGET CELLS FEW
--- NOTE | 2016-12-07 11:24 | PDOC1 ---
History and Physical Date of Admission Date of Admission DATE: 12/07/16 TIME: 11:21 Past Medical History Cardiovascular: CHF, HTN, Hyperlipidemia Pulmonary: Other (VENUS) CENTRAL NERVOUS SYSTEM: Periperal neuropathy, TIA, Other (tremors) GI: Constipation, Diverticulosis, GERD, Other (colonic ileus) Heme/Onc: Anemia NOS Psych: Depression Musculoskeletal: Osteoarthritis Infectious disease: Other (VRE?) Renal/: UTI (frequent) Endocrine: Diabetes (2) Dermatology: Psoriasis, Other (RLE chronic dermatitis) Past Surgical History Past Surgical History: Arthroscopy (right knee), Total knee replacement, Other (penile surgery; 4th toe amputation, left surgery, bladder washing) Family History Family History: Coronary Artery Disease (father and brother), Diabetes, Hypertension Social History Smoke: No (quit) ALCOHOL: none Drugs: None Current Problem List Problem List Problems Medical Problems: (1) Altered level of consciousness Status: Acute (2) Bradycardia Status: Acute (3) Hypotension Status: Acute (4) Hypothermia Status: Acute (5) Sepsis Status: Acute Problems: Current Medications Current Medications Current Medications Atropine Sulfate 1 mg STK-MED ONCE .ROUTE ; Start 12/06/16 at 15:04; Stop at 15:05; Status DC Dextrose (Dextrose 50%-Water Syringe) 25 gm 1X ONCE IV Last administered on 14:53; Start 12/06/16 at 15:15; Stop 12/06/16 at 15:16; Status DC Insulin Human Regular (NovoLIN R VIAL) 5 unit 1X ONCE IV Last administered on 12/06/16 14:53; Start 12/06/16 at 15:15; Stop 12/06/16 at 15:16; Status DC Atropine Sulfate 1 mg 1X ONCE IV ; Start 12/06/16 at 15:15; Stop 12/06/16 at 15 :16; Status Cancel Sodium Bicarbonate 50 meq 1X ONCE IV Last administered on 12/06/16 14:53; Start 12/06/16 at 15:15; Stop 12/06/16 at 15:16; Status DC Calcium Gluconate (Calcium Gluconate) 1,000 mg 1X ONCE IVP Last administered on 12/06/16 14:53; Start 12/06/16 at 15:15; Stop 12/06/16 at 15:16; Status DC Dopamine HCl/ Dextrose 250 ml @ 0 mls/hr 1X ONCE IV Last administered on 15:02; Start 12/06/16 at 15:15; Stop 12/06/16 at 15:16; Status DC Atropine Sulfate 1 mg 1X ONCE IV Last administered on 12/06/16 15:04; Start 12/06/16 at 15:15; Stop 12/06/16 at 15:16; Status DC Sodium Chloride 500 ml @ 500 mls/hr 1X ONCE IV Last administered on 15:20; Start 12/06/16 at 15:45; Stop 12/06/16 at 16:44; Status DC Sodium Chloride 1,000 ml @ 1,000 mls/hr 1X ONCE IV Last administered on 15:30; Start 12/06/16 at 15:45; Stop 12/06/16 at 16:44; Status DC Ceftriaxone Sodium 50 ml @ 100 mls/hr 1X ONCE IV Last administered on 15:45; Start 12/06/16 at 15:45; Stop 12/06/16 at 16:14; Status DC Vancomycin HCl (Vanco Per Pharmacy) 1 each PRN DAILY PRN MC SEE COMMENTS Last administered on 12/06/16 16:23; Start 12/06/16 at 16:15; Stop 12/06/16 at 19:10 ; Status DC Vancomycin HCl 2 gm/Sodium Chloride 500 ml @ 250 mls/hr 1X ONCE IV Last administered on 12/06/16 16:15; Start 12/06/16 at 16:30; Stop 12/06/16 at 19:10 ; Status DC Vancomycin HCl 1.5 gm/Sodium Chloride 500 ml @ 250 mls/hr Q24H IV ; Start at 16:00; Stop 12/07/16 at 16:00; Status DC Vancomycin HCl 1 each 1X ONCE MC ; Start 12/08/16 at 15:30; Stop 12/08/16 at 15: 30; Status DC Sodium Chloride 1,000 ml @ 100 mls/hr Q10H IV Last administered on 12/07/16 05 :45; Start 12/06/16 at 16:30 Norepinephrine Bitartrate 250 ml @ As Directed STK-MED ONCE IV ; Start at 16:50; Stop 12/06/16 at 16:51; Status DC Sodium Bicarbonate 50 meq 1X ONCE IV Last administered on 12/06/16 17:00; Start 12/06/16 at 17:00; Stop 12/06/16 at 17:01; Status DC Norepinephrine Bitartrate 16 mg/ Sodium Chloride 266 ml @ 0 mls/hr CONT PRN IV SEE I/O RECORD; Start 12/06/16 at 17:15; Status UNV Phenylephrine HCl 80 mg/Sodium Chloride 258 ml @ 0 mls/hr CONT PRN IV SEE I/O RECORD Last administered on 12/07/16 02:37; Start 12/06/16 at 17:15 Norepinephrine Bitartrate 250 ml @ 1.875 mls/ hr CONT PRN IV SEE I/O RECORD Last administered on 12/07/16 07:12; Start 12/06/16 at 17:15 Piperacillin Sod/ Tazobactam Sod 2.25 gm/Sodium Chloride 50 ml @ 100 mls/hr Q8HRS IV Last administered on 12/07/16 05:45; Start 12/06/16 at 18:00 Levofloxacin/ Dextrose 150 ml @ 100 mls/hr Q48H IV Last administered on 19:08; Start 12/06/16 at 18:00; Stop 12/07/16 at 10:42; Status DC Sodium Chloride 1,000 ml @ 1,000 mls/hr 1X ONCE IV Last administered on 19:23; Start 12/06/16 at 17:45; Stop 12/06/16 at 18:44; Status DC Sodium Chloride 1,000 ml @ 1,000 mls/hr 1X ONCE IV Last administered on 19:23; Start 12/06/16 at 18:45; Stop 12/06/16 at 19:44; Status DC Sodium Chloride 500 ml @ 500 mls/hr 1X ONCE IV Last administered on 12/07/16 00:00; Start 12/06/16 at 19:00; Stop 12/06/16 at 19:59; Status DC Albumin Human 500 ml @ 125 mls/hr 1X ONCE IV Last administered on 12/06/16 19:22; Start 12/06/16 at 19:00; Stop 12/06/16 at 22:59; Status DC Dopamine HCl/ Dextrose 250 ml @ 20.837 mls/ hr CONT PRN IV SEE I/O RECORD Last administered on 12/07/16 10:38; Start 12/06/16 at 19:15 Sodium Bicarbonate 50 meq 1X ONCE IV Last administered on 12/06/16 20:47; Start 12/06/16 at 21:00; Stop 12/06/16 at 21:01; Status DC Ondansetron HCl (Zofran) 4 mg PRN Q6HRS PRN IV NAUSEA/VOMITING Last administered on 12/07/16 05:36; Start 12/07/16 at 05:30 Insulin Aspart (NovoLOG) 0-9 UNITS TIDWMEALS SQ ; Start 12/07/16 at 12:00 Dextrose (Dextrose 50%-Water Syringe) 12.5 gm PRN Q15MIN PRN IV SEE COMMENTS; Start 12/07/16 at 11:15 Famotidine (Pepcid) 20 mg BID IVP ; Start 12/07/16 at 11:30 Active Scripts Active Reported Sizerock 3 Fish Oil Softgel (Sizerock-3 Fatty Acids/Fish Oil) 1 Each Capsule.dr 2 Cap PO DAILY Polyethylene Glycol 3350 17 Gm Powd.pack 17 Gm PO PRN QID PRN Simethicone 125 Mg Capsule 250 Mg PO QID Propranolol Hcl 20 Mg Tablet 20 Mg PO QHS Melatonin 3 Mg Tablet 6 Mg PO QHS Potassium Chloride 20 Meq Tab.er.prt 20 Meq PO DAILY Prazosin Hcl 1 Mg Capsule 1 Mg PO QHS Mupirocin Ointment (Mupirocin) 22 Gm Oint...g. 1 Kiran TP BID Nystop (Nystatin) 60 Gm Powder 1 Kiran TP BID Mirapex (Pramipexole Di-Hcl) 0.125 Mg Tablet 0.125 Mg PO TID Triamcinolone Acetonide 80 Gm Oint...g. 1 Kiran TP TID Tamsulosin Hcl 0.4 Mg Cap.er.24h 0.4 Mg PO DAILY Furosemide 20 Mg Tablet 20 Mg PO DAILY Magnesium Oxide 400 Mg Tablet 400 Mg PO BID Pantoprazole Sodium 40 Mg Tablet.dr 40 Mg PO DAILY Propranolol Hcl 40 Mg Tablet 40 Mg PO DAILY Nephro-Elkin Tablet (Folic Acid/Vitamin B Comp W-C) 0.8 Mg Tablet 1 Tab PO DAILY Temazepam 15 Mg Capsule 30 Mg PO QHS Losartan Potassium 50 Mg Tablet 50 Mg PO DAILY Abilify (Aripiprazole) 10 Mg Tablet 15 Mg PO DAILY Amlodipine Besylate 5 Mg Tablet 5 Tab PO DAILY Ranexa (Ranolazine) 500 Mg Tab.er.12h 500 Mg PO BID Nitrostat (Nitroglycerin) 0.4 Mg Tab.subl 0.4 Mg SL PRN Q5MIN PRN Probiotic & Acidophilus Cap (Lactobac Cmb #3/Fos/Pantethine) 1 Each Capsule 1 Tab PO DAILY Cilostazol 50 Mg Tablet 50 Mg PO BID Glycopyrrolate 2 Mg Tablet 2 Mg PO NOON Finasteride 5 Mg Tablet 5 Mg PO DAILY Vitamin D (Cholecalciferol (Vitamin D3)) 1,000 Unit Tablet 2,000 Unit PO DAILY Co Q-10 (Ubidecarenone) 100 Mg Capsule 100 Mg PO NOON Allopurinol 300 Mg Tablet 300 Mg PO BID Aspirin 325 Mg Tablet 325 Mg PO DAILY Imdur (Isosorbide Mononitrate) 30 Mg Tab.er.24h 30 Mg PO DAILYWLUN Sucralfate 1 Gm Tablet 1 Gm PO QIDACHS Atorvastatin Calcium 20 Mg Tablet 20 Mg PO HS Humalog (Insulin Lispro) 100 Unit/1 Ml Insuln.pen 5 Unit SQ TIDAC Lantus Solostar (Insulin Glargine,Hum.rec.anlog) 100 Unit/1 Ml Insuln.pen 30 Unit SQ QEVNG Ketoconazole 15 Gm Cream..g. 1 Kiran TP DAILY Allergies Allergies: Coded Allergies: celecoxib (Verified Adverse Reaction, Intermediate, Diarrhea, 12/07/16) Vitals Vitals Vital Signs Date Time Temp Pulse Resp B/P (MAP) Pulse Ox O2 Delivery O2 Flow Rate FiO2 12/07/16 11:00 97.9 56 32 101/48 (65) 98 BiPAP/CPAP 97.9 Labs Labs Laboratory Tests Test 12/06/16 15:00 12/06/16 15:02 12/06/16 15:06 12/06/16 16:20 White Blood Count 8.1 x10^3/uL (4.0-11.0) Red Blood Count 3.44 x10^6/uL (4.30-5.70) Hemoglobin 10.0 g/dL (13.0-17.5) Hematocrit 32.2 % (39.0-53.0) Mean Corpuscular Volume 94 fL (79-100) Mean Corpuscular Hemoglobin 29 pg (25-35) Mean Corpuscular Hemoglobin Concent 31 g/dL (31-37) Red Cell Distribution Width 19.1 % (11.5-14.5) Platelet Count 82 x10^3/uL (140-400) Neutrophils (%) (Auto) 83 % (31-73) Lymphocytes (%) (Auto) 14 % (24-48) Monocytes (%) (Auto) 3 % (0-9) Eosinophils (%) (Auto) 0 % (0-3) Basophils (%) (Auto) 0 % (0-3) Neutrophils # (Auto) 6.7 x10^3uL (1.8-7.7) Lymphocytes # (Auto) 1.1 x10^3/uL (1.0-4.8) Monocytes # (Auto) 0.3 x10^3/uL (0.0-1.1) Eosinophils # (Auto) 0.0 x10^3/uL (0.0-0.7) Basophils # (Auto) 0.0 x10^3/uL (0.0-0.2) Sodium Level 135 mmol/L (136-145) Potassium Level 6.1 mmol/L (3.5-5.1) Chloride Level 101 mmol/L (98-107) Carbon Dioxide Level 29 mmol/L (21-32) Anion Gap 5 (6-14) 12 mmol/L (6-14) Blood Urea Nitrogen 57 mg/dL (8-26) Creatinine 2.9 mg/dL (0.7-1.3) Estimated GFR (Cockcroft-Gault) 21.9 BUN/Creatinine Ratio 20 (6-20) Glucose Level 137 mg/dL (70-99) 134 mg/dL (70-99) Lactic Acid Level 1.5 mmol/L (0.4-2.0) Calcium Level 9.1 mg/dL (8.5-10.1) Magnesium Level 2.0 mg/dL (1.8-2.4) Total Bilirubin 0.2 mg/dL (0.2-1.0) Aspartate Amino Transf (AST/SGOT) 21 U/L (15-37) Alanine Aminotransferase (ALT/SGPT) 19 U/L (16-63) Alkaline Phosphatase 128 U/L (46-116) Creatine Kinase 33 U/L (39-308) Troponin I Quantitative < 0.017 ng/mL (0.000-0.055) Total Protein 6.0 g/dL (6.4-8.2) Albumin 2.4 g/dL (3.4-5.0) Albumin/Globulin Ratio 0.7 (1.0-1.7) Triglycerides Level 17 mg/dL (0-150) Cholesterol Level 121 mg/dL (0-200) LDL Cholesterol, Calculated 38 mg/dL (0-100) VLDL Cholesterol, Calculated 3 mg/dL (0-40) Non-HDL Cholesterol Calculated 41 mg/dL (0-129) HDL Cholesterol 80 mg/dL (40-60) Cholesterol/HDL Ratio 1.5 Thyroid Stimulating Hormone (TSH) 6.292 uIU/mL (0.358-3.74) Bedside Troponin I 0.00 ng/ml (<0.08) Bedside Hemoglobin 11.6 g/dL (14-18) Bedside Hematocrit 34 % (37-52) Bedside Sodium 133 mmol/L (135-145) Bedside Potassium 5.9 mmol/L (3.5-5.0) Bedside Chloride 99 mmol/L (98-110) Bedside Total CO2 28 mmol/L (23-32) Bedside Blood Urea Nitrogen 58 mg/dL (8-26) Bedside Creatinine 3.0 mg/dL (0.5-1.4) Bedside Ionized Calcium (Fish) 1.25 mmol/L (1.13-1.32) O2 Saturation 95 % (92-99) Arterial Blood pH 7.11 (7.35-7.45) Arterial Blood pH (Temp corrected) 7.16 Arterial Blood pCO2 at Patient Temp 69 mmHg (35-46) Arterial Blood pCO2 (Temp correct) 58 mmHg Arterial Blood pO2 at Patient Temp 97 mmHg (65-108) Arterial Blood pO2 (Temp corrected) 77 mmHg Arterial Blood HCO3 21 mmol/L (21-28) Arterial Blood Base Excess -9 mmol/L (-3-3) Oxyhemoglobin 94.4 % Methemoglobin 0.4 % (0.0-1.9) Carbon Monoxide, Quantitative 0.3 % (0.0-1.9) FiO2 100 Test 12/06/16 18:55 12/06/16 19:44 12/06/16 20:45 12/07/16 08:00 Sodium Level 135 mmol/L (136-145) Potassium Level 5.3 mmol/L (3.5-5.1) Chloride Level 101 mmol/L (98-107) Carbon Dioxide Level 30 mmol/L (21-32) Anion Gap 4 (6-14) Blood Urea Nitrogen 52 mg/dL (8-26) Creatinine 2.8 mg/dL (0.7-1.3) Estimated GFR (Cockcroft-Gault) 22.8 Glucose Level 133 mg/dL (70-99) Calcium Level 9.4 mg/dL (8.5-10.1) O2 Saturation 96 % (92-99) 96 % (92-99) Arterial Blood pH 7.16 (7.35-7.45) 7.36 (7.35-7.45) Arterial Blood pH (Temp corrected) 7.22 Arterial Blood pCO2 at Patient Temp 73 mmHg (35-46) 41 mmHg (35-46) Arterial Blood pCO2 (Temp correct) 60 mmHg Arterial Blood pO2 at Patient Temp 93 mmHg (65-108) 82 mmHg (65-108) Arterial Blood pO2 (Temp corrected) 70 mmHg Arterial Blood HCO3 25 mmol/L (21-28) 23 mmol/L (21-28) Arterial Blood Base Excess -5 mmol/L (-3-3) -3 mmol/L (-3-3) FiO2 40 40 Urine Collection Type Unknown Urine Color Red Urine Clarity Turbid Urine pH 5.5 Urine Specific [place] 1.025 Urine Protein >=300 mg/dL (NEG-TRACE) Urine Glucose (UA) 100 mg/dL (NEG) Urine Ketones (Stick) 15 mg/dL (NEG) Urine Blood Large (NEG) Urine Nitrite Positive (NEG) Urine Bilirubin Moderate (NEG) Urine Urobilinogen Dipstick 0.2 mg/dL (0.2 mg/dL) Urine Leukocyte Esterase Large (NEG) Urine RBC Tntc /HPF (0-2) Urine WBC Tntc /HPF (0-4) Urine Squamous Epithelial Cells Mod /LPF Urine Bacteria Moderate /HPF (0-FEW) Test 12/07/16 08:41 12/07/16 10:46 Glucose (Fingerstick) 122 mg/dL (70-99) White Blood Count 16.2 x10^3/uL (4.0-11.0) Red Blood Count 3.75 x10^6/uL (4.30-5.70) Hemoglobin 10.8 g/dL (13.0-17.5) Hematocrit 34.0 % (39.0-53.0) Mean Corpuscular Volume 91 fL (79-100) Mean Corpuscular Hemoglobin 29 pg (25-35) Mean Corpuscular Hemoglobin Concent 32 g/dL (31-37) Red Cell Distribution Width 19.2 % (11.5-14.5) Platelet Count 129 x10^3/uL (140-400) Neutrophils (%) (Auto) 92 % (31-73) Lymphocytes (%) (Auto) 5 % (24-48) Monocytes (%) (Auto) 2 % (0-9) Eosinophils (%) (Auto) 0 % (0-3) Basophils (%) (Auto) 0 % (0-3) Neutrophils # (Auto) 14.9 x10^3uL (1.8-7.7) Lymphocytes # (Auto) 0.8 x10^3/uL (1.0-4.8) Monocytes # (Auto) 0.4 x10^3/uL (0.0-1.1) Eosinophils # (Auto) 0.0 x10^3/uL (0.0-0.7) Basophils # (Auto) 0.1 x10^3/uL (0.0-0.2) Sodium Level 136 mmol/L (136-145) Potassium Level 5.6 mmol/L (3.5-5.1) Chloride Level 101 mmol/L (98-107) Carbon Dioxide Level 28 mmol/L (21-32) Anion Gap 7 (6-14) Blood Urea Nitrogen 49 mg/dL (8-26) Creatinine 2.6 mg/dL (0.7-1.3) Estimated GFR (Cockcroft-Gault) 24.8 BUN/Creatinine Ratio 19 (6-20) Glucose Level 131 mg/dL (70-99) Calcium Level 8.4 mg/dL (8.5-10.1) Total Bilirubin 0.4 mg/dL (0.2-1.0) Aspartate Amino Transf (AST/SGOT) 18 U/L (15-37) Alanine Aminotransferase (ALT/SGPT) 23 U/L (16-63) Alkaline Phosphatase 132 U/L (46-116) Total Protein 6.5 g/dL (6.4-8.2) Albumin 2.7 g/dL (3.4-5.0) Albumin/Globulin Ratio 0.7 (1.0-1.7) Laboratory Tests Test 12/06/16 15:00 12/06/16 15:02 12/06/16 15:06 12/06/16 16:20 White Blood Count 8.1 x10^3/uL (4.0-11.0) Red Blood Count 3.44 x10^6/uL (4.30-5.70) Hemoglobin 10.0 g/dL (13.0-17.5) Hematocrit 32.2 % (39.0-53.0) Mean Corpuscular Volume 94 fL (79-100) Mean Corpuscular Hemoglobin 29 pg (25-35) Mean Corpuscular Hemoglobin Concent 31 g/dL (31-37) Red Cell Distribution Width 19.1 % (11.5-14.5) Platelet Count 82 x10^3/uL (140-400) Neutrophils (%) (Auto) 83 % (31-73) Lymphocytes (%) (Auto) 14 % (24-48) Monocytes (%) (Auto) 3 % (0-9) Eosinophils (%) (Auto) 0 % (0-3) Basophils (%) (Auto) 0 % (0-3) Neutrophils # (Auto) 6.7 x10^3uL (1.8-7.7) Lymphocytes # (Auto) 1.1 x10^3/uL (1.0-4.8) Monocytes # (Auto) 0.3 x10^3/uL (0.0-1.1) Eosinophils # (Auto) 0.0 x10^3/uL (0.0-0.7) Basophils # (Auto) 0.0 x10^3/uL (0.0-0.2) Sodium Level 135 mmol/L (136-145) Potassium Level 6.1 mmol/L (3.5-5.1) Chloride Level 101 mmol/L (98-107) Carbon Dioxide Level 29 mmol/L (21-32) Anion Gap 5 (6-14) 12 mmol/L (6-14) Blood Urea Nitrogen 57 mg/dL (8-26) Creatinine 2.9 mg/dL (0.7-1.3) Estimated GFR (Cockcroft-Gault) 21.9 BUN/Creatinine Ratio 20 (6-20) Glucose Level 137 mg/dL (70-99) 134 mg/dL (70-99) Lactic Acid Level 1.5 mmol/L (0.4-2.0) Calcium Level 9.1 mg/dL (8.5-10.1) Magnesium Level 2.0 mg/dL (1.8-2.4) Total Bilirubin 0.2 mg/dL (0.2-1.0) Aspartate Amino Transf (AST/SGOT) 21 U/L (15-37) Alanine Aminotransferase (ALT/SGPT) 19 U/L (16-63) Alkaline Phosphatase 128 U/L (46-116) Creatine Kinase 33 U/L (39-308) Troponin I Quantitative < 0.017 ng/mL (0.000-0.055) Total Protein 6.0 g/dL (6.4-8.2) Albumin 2.4 g/dL (3.4-5.0) Albumin/Globulin Ratio 0.7 (1.0-1.7) Triglycerides Level 17 mg/dL (0-150) Cholesterol Level 121 mg/dL (0-200) LDL Cholesterol, Calculated 38 mg/dL (0-100) VLDL Cholesterol, Calculated 3 mg/dL (0-40) Non-HDL Cholesterol Calculated 41 mg/dL (0-129) HDL Cholesterol 80 mg/dL (40-60) Cholesterol/HDL Ratio 1.5 Thyroid Stimulating Hormone (TSH) 6.292 uIU/mL (0.358-3.74) Bedside Troponin I 0.00 ng/ml (<0.08) Bedside Hemoglobin 11.6 g/dL (14-18) Bedside Hematocrit 34 % (37-52) Bedside Sodium 133 mmol/L (135-145) Bedside Potassium 5.9 mmol/L (3.5-5.0) Bedside Chloride 99 mmol/L (98-110) Bedside Total CO2 28 mmol/L (23-32) Bedside Blood Urea Nitrogen 58 mg/dL (8-26) Bedside Creatinine 3.0 mg/dL (0.5-1.4) Bedside Ionized Calcium (Fish) 1.25 mmol/L (1.13-1.32) O2 Saturation 95 % (92-99) Arterial Blood pH 7.11 (7.35-7.45) Arterial Blood pH (Temp corrected) 7.16 Arterial Blood pCO2 at Patient Temp 69 mmHg (35-46) Arterial Blood pCO2 (Temp correct) 58 mmHg Arterial Blood pO2 at Patient Temp 97 mmHg (65-108) Arterial Blood pO2 (Temp corrected) 77 mmHg Arterial Blood HCO3 21 mmol/L (21-28) Arterial Blood Base Excess -9 mmol/L (-3-3) Oxyhemoglobin 94.4 % Methemoglobin 0.4 % (0.0-1.9) Carbon Monoxide, Quantitative 0.3 % (0.0-1.9) FiO2 100 Test 12/06/16 18:55 12/06/16 19:44 12/06/16 20:45 12/07/16 08:00 Sodium Level 135 mmol/L (136-145) Potassium Level 5.3 mmol/L (3.5-5.1) Chloride Level 101 mmol/L (98-107) Carbon Dioxide Level 30 mmol/L (21-32) Anion Gap 4 (6-14) Blood Urea Nitrogen 52 mg/dL (8-26) Creatinine 2.8 mg/dL (0.7-1.3) Estimated GFR (Cockcroft-Gault) 22.8 Glucose Level 133 mg/dL (70-99) Calcium Level 9.4 mg/dL (8.5-10.1) O2 Saturation 96 % (92-99) 96 % (92-99) Arterial Blood pH 7.16 (7.35-7.45) 7.36 (7.35-7.45) Arterial Blood pH (Temp corrected) 7.22 Arterial Blood pCO2 at Patient Temp 73 mmHg (35-46) 41 mmHg (35-46) Arterial Blood pCO2 (Temp correct) 60 mmHg Arterial Blood pO2 at Patient Temp 93 mmHg (65-108) 82 mmHg (65-108) Arterial Blood pO2 (Temp corrected) 70 mmHg Arterial Blood HCO3 25 mmol/L (21-28) 23 mmol/L (21-28) Arterial Blood Base Excess -5 mmol/L (-3-3) -3 mmol/L (-3-3) FiO2 40 40 Urine Collection Type Unknown Urine Color Red Urine Clarity Turbid Urine pH 5.5 Urine Specific [place] 1.025 Urine Protein >=300 mg/dL (NEG-TRACE) Urine Glucose (UA) 100 mg/dL (NEG) Urine Ketones (Stick) 15 mg/dL (NEG) Urine Blood Large (NEG) Urine Nitrite Positive (NEG) Urine Bilirubin Moderate (NEG) Urine Urobilinogen Dipstick 0.2 mg/dL (0.2 mg/dL) Urine Leukocyte Esterase Large (NEG) Urine RBC Tntc /HPF (0-2) Urine WBC Tntc /HPF (0-4) Urine Squamous Epithelial Cells Mod /LPF Urine Bacteria Moderate /HPF (0-FEW) Test 12/07/16 08:41 12/07/16 10:46 Glucose (Fingerstick) 122 mg/dL (70-99) White Blood Count 16.2 x10^3/uL (4.0-11.0) Red Blood Count 3.75 x10^6/uL (4.30-5.70) Hemoglobin 10.8 g/dL (13.0-17.5) Hematocrit 34.0 % (39.0-53.0) Mean Corpuscular Volume 91 fL (79-100) Mean Corpuscular Hemoglobin 29 pg (25-35) Mean Corpuscular Hemoglobin Concent 32 g/dL (31-37) Red Cell Distribution Width 19.2 % (11.5-14.5) Platelet Count 129 x10^3/uL (140-400) Neutrophils (%) (Auto) 92 % (31-73) Lymphocytes (%) (Auto) 5 % (24-48) Monocytes (%) (Auto) 2 % (0-9) Eosinophils (%) (Auto) 0 % (0-3) Basophils (%) (Auto) 0 % (0-3) Neutrophils # (Auto) 14.9 x10^3uL (1.8-7.7) Lymphocytes # (Auto) 0.8 x10^3/uL (1.0-4.8) Monocytes # (Auto) 0.4 x10^3/uL (0.0-1.1) Eosinophils # (Auto) 0.0 x10^3/uL (0.0-0.7) Basophils # (Auto) 0.1 x10^3/uL (0.0-0.2) Sodium Level 136 mmol/L (136-145) Potassium Level 5.6 mmol/L (3.5-5.1) Chloride Level 101 mmol/L (98-107) Carbon Dioxide Level 28 mmol/L (21-32) Anion Gap 7 (6-14) Blood Urea Nitrogen 49 mg/dL (8-26) Creatinine 2.6 mg/dL (0.7-1.3) Estimated GFR (Cockcroft-Gault) 24.8 BUN/Creatinine Ratio 19 (6-20) Glucose Level 131 mg/dL (70-99) Calcium Level 8.4 mg/dL (8.5-10.1) Total Bilirubin 0.4 mg/dL (0.2-1.0) Aspartate Amino Transf (AST/SGOT) 18 U/L (15-37) Alanine Aminotransferase (ALT/SGPT) 23 U/L (16-63) Alkaline Phosphatase 132 U/L (46-116) Total Protein 6.5 g/dL (6.4-8.2) Albumin 2.7 g/dL (3.4-5.0) Albumin/Globulin Ratio 0.7 (1.0-1.7) VTE Prophylaxis Ordered VTE Prophylaxis Devices: Contraindicated VTE Pharmacological Prophylaxi: Yes Assessment/Plan Assessment/Plan urosepsis, resp acidosis, dm , arf- on bipap as dni- d/w family, i told them he is critically ill, but still chance of survival, but is on max pressors- will follow for TARUN Noble MD Dec 07, 2016 11:24
[2016-12-07 11:25] LABS: TEAR DROP CELLS OCC
[2016-12-07] MEDS: FAMOTIDINE 20 MG/2 ML VIAL IVP SCH ×2 (11:51→21:10)
[2016-12-07] MEDS: INSULIN ASPART 300 UNITS/3 ML INSULN.PEN SQ SCH ×2 (12:00→17:00)
[2016-12-07] MEDS ORDERED: VANCOMYCIN 1.5 GM in IV NORMAL SALINE 500ML BAG 500 ML IV SCH (16:00)
--- NOTE | 2016-12-07 17:31 | RAD ---
Indication assess Dobbhoff feeding tube placement. A single view targeted to the upper abdomen was obtained. Dobbhoff feeding tube is noted with its tip in the antrum or first portion of the duodenum. There are dilated loops of small bowel suggesting ileus or partial mechanical small bowel obstruction. IMPRESSION: NG tube with its tip in the antrum or first portion of the duodenum. Moderate dilatation of visualized small bowel loops suggesting a component of obstruction or ileus. Electronically signed by: Bob Hudson MD (12/07/2016 5:28 PM)
--- NOTE | 2016-12-07 17:36 | RAD ---
Indication respiratory distress. Line placement. AP views of the chest were obtained. Note is made of a previous examination approximately 9 hours earlier. Pulmonary infiltrates persist as do bilateral pleural effusions similar to the previous exam. Nasogastric tube is noted. There are several wires and overlying overlying the right hemithorax. One representing a PICC line is not excluded. Note is made that one line may extend into the internal jugular vein. A PICC line in accessory or anomalous vein in the right upper chest is not excluded. A PICC line extending into either brachiocephalic vein or the superior vena cava is not seen. IMPRESSION: Persistent pulmonary infiltrates. No PICC line extending to the mid chest is seen Electronically signed by: Bob Hudson MD (12/07/2016 5:32 PM)
[2016-12-08] VITALS (27 sets, daily range): BP systolic 77–148; BP diastolic 12–107
[2016-12-08 06:02] LABS: BASO # 0.1 x10^3/uL (0.0-0.2); BASO % 1 % (0-3); EOS % 0 % (0-3); HEMATOCRIT 30.4 % (39.0-53.0); HEMOGLOBIN 9.7 g/dL (13.0-17.5); LYMPH # 0.6 x10^3/uL (1.0-4.8); LYMPH % 4 % (24-48); MEAN CORPUSCULAR HEMOGLOBIN 29 pg (25-35); MEAN CORPUSCULAR HGB CONC 32 g/dL (31-37); MEAN CORPUSCULAR VOLUME 91 fL (79-100); MONO % 3 % (0-9); NEUT % 92 % (31-73); PLATELET COUNT 107 x10^3/uL (140-400); RED BLOOD COUNT 3.35 x10^6/uL (4.30-5.70); RED CELL DISTRIBUTION WIDTH 18.9 % (11.5-14.5); WHITE BLOOD COUNT 13.5 x10^3/uL (4.0-11.0)
[2016-12-08 06:12] LABS: CALCIUM 8.3 mg/dL (8.5-10.1); CREATININE 1.9 mg/dL (0.7-1.3); GFR 35.6; MAGNESIUM 1.6 mg/dL (1.8-2.4); POTASSIUM 4.6 mmol/L (3.5-5.1)
[2016-12-08] MEDS: IV NORMAL SALINE 1000ML BAG 1,000 ML IV SCH ×2 (06:25→07:48)
[2016-12-08] MEDS: PIPERACILLIN/TAZOBACTAM 2.25 GM in IV NORMAL SALINE 50ML 50 ML IV SCH ×3 (06:25→22:03)
[2016-12-08] MEDS: INSULIN ASPART 300 UNITS/3 ML INSULN.PEN SQ SCH ×3 (07:47→17:00)
[2016-12-08] MEDS: FAMOTIDINE 20 MG/2 ML VIAL IVP SCH ×2 (08:20→21:02)
--- NOTE | 2016-12-08 08:34 | PDOC ---
Infectious Disease Note Subjective Subjective s/p code blue-justine down during CT scan yesterday (chest compressions, epi and bag-valve vent) Unsuccessful attempt for PICC placement noted. Await IR Hypotension, weaning pressors down Today feeling better c/o left foot pain + lg BM ROS ROS GEN: Denies fevers, chills, sweats CV: Denies chest pain RESP: Denies shortness of air, cough GI: Denies n/v/d NEURO: Denies confusion Vital Sign Vital Signs Vital Signs Date Time Temp Pulse Resp B/P (MAP) Pulse Ox O2 Delivery O2 Flow Rate FiO2 12/08/16 07:48 Venturi Mask 15.0 12/08/16 07:29 97 12/08/16 07:00 99.1 73 32 131/82 (98) 99.1 Physical Exam PHYSICAL EXAM General: Propped up in bed, awake, NAD. HENT: NGT LUNGS: Clear anteriorly CV: Normal S1 and S2. ABDOMEN: Obese, BS active, soft, nontender : [place] EXT: BUE edema. No cyanosis SKIN: Multiple wounds MINES INSPECTOR: Alert, more responsive and stronger voice, + tremors IV: ok Labs Lab Laboratory Tests Test 12/07/16 08:41 12/07/16 10:46 12/07/16 12:03 12/07/16 17:46 Glucose (Fingerstick) 122 mg/dL (70-99) 120 mg/dL (70-99) 130 mg/dL (70-99) White Blood Count 16.2 x10^3/uL (4.0-11.0) Red Blood Count 3.75 x10^6/uL (4.30-5.70) Hemoglobin 10.8 g/dL (13.0-17.5) Hematocrit 34.0 % (39.0-53.0) Mean Corpuscular Volume 91 fL (79-100) Mean Corpuscular Hemoglobin 29 pg (25-35) Mean Corpuscular Hemoglobin Concent 32 g/dL (31-37) Red Cell Distribution Width 19.2 % (11.5-14.5) Platelet Count 129 x10^3/uL (140-400) Neutrophils (%) (Auto) 92 % (31-73) Lymphocytes (%) (Auto) 5 % (24-48) Monocytes (%) (Auto) 2 % (0-9) Eosinophils (%) (Auto) 0 % (0-3) Basophils (%) (Auto) 0 % (0-3) Neutrophils # (Auto) 14.9 x10^3uL (1.8-7.7) Lymphocytes # (Auto) 0.8 x10^3/uL (1.0-4.8) Monocytes # (Auto) 0.4 x10^3/uL (0.0-1.1) Eosinophils # (Auto) 0.0 x10^3/uL (0.0-0.7) Basophils # (Auto) 0.1 x10^3/uL (0.0-0.2) Segmented Neutrophils % 84 % (35-66) Band Neutrophils % 5 % (0-9) Lymphocytes % 6 % (24-48) Monocytes % 4 % (0-10) Metamyelocytes % 1 % (0-0) Platelet Estimate Decreased (ADEQUATE) Polychromasia Slight Poikilocytosis Present Anisocytosis Mod Macrocytosis Present Target Cells Few Tear Drop Cells Occ Ovalocytes Few Sodium Level 136 mmol/L (136-145) Potassium Level 5.6 mmol/L (3.5-5.1) Chloride Level 101 mmol/L (98-107) Carbon Dioxide Level 28 mmol/L (21-32) Anion Gap 7 (6-14) Blood Urea Nitrogen 49 mg/dL (8-26) Creatinine 2.6 mg/dL (0.7-1.3) Estimated GFR (Cockcroft-Gault) 24.8 BUN/Creatinine Ratio 19 (6-20) Glucose Level 131 mg/dL (70-99) Calcium Level 8.4 mg/dL (8.5-10.1) Total Bilirubin 0.4 mg/dL (0.2-1.0) Aspartate Amino Transf (AST/SGOT) 18 U/L (15-37) Alanine Aminotransferase (ALT/SGPT) 23 U/L (16-63) Alkaline Phosphatase 132 U/L (46-116) Total Protein 6.5 g/dL (6.4-8.2) Albumin 2.7 g/dL (3.4-5.0) Albumin/Globulin Ratio 0.7 (1.0-1.7) Test 12/08/16 05:47 12/08/16 07:46 White Blood Count 13.5 x10^3/uL (4.0-11.0) Red Blood Count 3.35 x10^6/uL (4.30-5.70) Hemoglobin 9.7 g/dL (13.0-17.5) Hematocrit 30.4 % (39.0-53.0) Mean Corpuscular Volume 91 fL (79-100) Mean Corpuscular Hemoglobin 29 pg (25-35) Mean Corpuscular Hemoglobin Concent 32 g/dL (31-37) Red Cell Distribution Width 18.9 % (11.5-14.5) Platelet Count 107 x10^3/uL (140-400) Neutrophils (%) (Auto) 92 % (31-73) Lymphocytes (%) (Auto) 4 % (24-48) Monocytes (%) (Auto) 3 % (0-9) Eosinophils (%) (Auto) 0 % (0-3) Basophils (%) (Auto) 1 % (0-3) Neutrophils # (Auto) 12.4 x10^3uL (1.8-7.7) Lymphocytes # (Auto) 0.6 x10^3/uL (1.0-4.8) Monocytes # (Auto) 0.4 x10^3/uL (0.0-1.1) Eosinophils # (Auto) 0.0 x10^3/uL (0.0-0.7) Basophils # (Auto) 0.1 x10^3/uL (0.0-0.2) Sodium Level 136 mmol/L (136-145) Potassium Level 4.6 mmol/L (3.5-5.1) Chloride Level 102 mmol/L (98-107) Carbon Dioxide Level 23 mmol/L (21-32) Anion Gap 11 (6-14) Blood Urea Nitrogen 43 mg/dL (8-26) Creatinine 1.9 mg/dL (0.7-1.3) Estimated GFR (Cockcroft-Gault) 35.6 Glucose Level 119 mg/dL (70-99) Calcium Level 8.3 mg/dL (8.5-10.1) Magnesium Level 1.6 mg/dL (1.8-2.4) Glucose (Fingerstick) 76 mg/dL (70-99) IMPRESSION: 1. Mild ileus. 2. Moderate distention of the stomach with fluid and gas. 3. No evidence of pneumoperitoneum. 4. Anasarca. 5. Cholelithiasis Micro BLOOD CULT RESULT 1 Preliminary Staphylococcus aureus Recovered from aerobic bottle only. PRESUMPTIVE MRSA URINE CULTURE RES 1 Preliminary Gram negative rods Objective Assessment Septic shock, POA. 12/06. Staph aureus, presumptive MRSA bacteremia. TTE neg veg , 12/06. Hypothermia- off [place]an[place]ita hugger Acute encephalopathy, improving Possible pneumoperitoneum on chest-ray. CT neg, mild ileus UTI, POA. 12/06. GNR RENETTA Acute respiratory failure Bradyarrhythmia s/p code blue 12/07 Metabolic acidosis Chronic debility Plan Plan of Care Dose daptomycin given renal function per Dr. Odin Godoy Continue Zosyn Last dose vanc 12/06. f/u cultures, further modifications of antibiotics anticipated once ID/ susceptibilities known. Hold PICC. ok for other central line if needed for pressors and TPN Attending Co-Sign The patient was seen and interviewed as well as examined at the bedside. The chart was reviewed. The case was discussed. Agree with the plan of care. KAILASH HOUSTON APRN Dec 08, 2016 08:34 ANABELLA GODOY MD Dec 08, 2016 12:50
[2016-12-08 08:41] LABS: HCO3 ABG 22 mmol/L (21-28); PCO2 ABG 31 mmHg (35-46); PH ABG 7.47 (7.35-7.45); PO2 ABG 62 mmHg (65-108); SAT O2 ABG 93 % (92-99)
[2016-12-08 08:49] LABS: FIO2 ABG 40
--- NOTE | 2016-12-08 10:19 | PDOC ---
PULMONARY PROGRESS NOTES Subjective more awake, off BIPAP on pressors Vitals Vital Signs Date Time Temp Pulse Resp B/P (MAP) Pulse Ox O2 Delivery O2 Flow Rate FiO2 12/08/16 10:00 98.4 93 29 97/50 (66) 94 Venturi Mask 98.4 12/08/16 08:00 15.0 General: Alert, No acute distress Lungs: Other (decrease bs) Cardiovascular: S1 Abdomen: Soft, Other (distended) Extremities: Other (1+edema, wounds) Skin: Warm Labs Laboratory Tests Test 12/06/16 15:00 12/06/16 15:02 12/06/16 15:06 12/06/16 16:20 White Blood Count 8.1 x10^3/uL (4.0-11.0) Red Blood Count 3.44 x10^6/uL (4.30-5.70) Hemoglobin 10.0 g/dL (13.0-17.5) Hematocrit 32.2 % (39.0-53.0) Mean Corpuscular Volume 94 fL (79-100) Mean Corpuscular Hemoglobin 29 pg (25-35) Mean Corpuscular Hemoglobin Concent 31 g/dL (31-37) Red Cell Distribution Width 19.1 % (11.5-14.5) Platelet Count 82 x10^3/uL (140-400) Neutrophils (%) (Auto) 83 % (31-73) Lymphocytes (%) (Auto) 14 % (24-48) Monocytes (%) (Auto) 3 % (0-9) Eosinophils (%) (Auto) 0 % (0-3) Basophils (%) (Auto) 0 % (0-3) Neutrophils # (Auto) 6.7 x10^3uL (1.8-7.7) Lymphocytes # (Auto) 1.1 x10^3/uL (1.0-4.8) Monocytes # (Auto) 0.3 x10^3/uL (0.0-1.1) Eosinophils # (Auto) 0.0 x10^3/uL (0.0-0.7) Basophils # (Auto) 0.0 x10^3/uL (0.0-0.2) Sodium Level 135 mmol/L (136-145) Potassium Level 6.1 mmol/L (3.5-5.1) Chloride Level 101 mmol/L (98-107) Carbon Dioxide Level 29 mmol/L (21-32) Anion Gap 5 (6-14) 12 mmol/L (6-14) Blood Urea Nitrogen 57 mg/dL (8-26) Creatinine 2.9 mg/dL (0.7-1.3) Estimated GFR (Cockcroft-Gault) 21.9 BUN/Creatinine Ratio 20 (6-20) Glucose Level 137 mg/dL (70-99) 134 mg/dL (70-99) Lactic Acid Level 1.5 mmol/L (0.4-2.0) Calcium Level 9.1 mg/dL (8.5-10.1) Magnesium Level 2.0 mg/dL (1.8-2.4) Total Bilirubin 0.2 mg/dL (0.2-1.0) Aspartate Amino Transf (AST/SGOT) 21 U/L (15-37) Alanine Aminotransferase (ALT/SGPT) 19 U/L (16-63) Alkaline Phosphatase 128 U/L (46-116) Creatine Kinase 33 U/L (39-308) Troponin I Quantitative < 0.017 ng/mL (0.000-0.055) Total Protein 6.0 g/dL (6.4-8.2) Albumin 2.4 g/dL (3.4-5.0) Albumin/Globulin Ratio 0.7 (1.0-1.7) Triglycerides Level 17 mg/dL (0-150) Cholesterol Level 121 mg/dL (0-200) LDL Cholesterol, Calculated 38 mg/dL (0-100) VLDL Cholesterol, Calculated 3 mg/dL (0-40) Non-HDL Cholesterol Calculated 41 mg/dL (0-129) HDL Cholesterol 80 mg/dL (40-60) Cholesterol/HDL Ratio 1.5 Thyroid Stimulating Hormone (TSH) 6.292 uIU/mL (0.358-3.74) Bedside Troponin I 0.00 ng/ml (<0.08) Bedside Hemoglobin 11.6 g/dL (14-18) Bedside Hematocrit 34 % (37-52) Bedside Sodium 133 mmol/L (135-145) Bedside Potassium 5.9 mmol/L (3.5-5.0) Bedside Chloride 99 mmol/L (98-110) Bedside Total CO2 28 mmol/L (23-32) Bedside Blood Urea Nitrogen 58 mg/dL (8-26) Bedside Creatinine 3.0 mg/dL (0.5-1.4) Bedside Ionized Calcium (Fish) 1.25 mmol/L (1.13-1.32) O2 Saturation 95 % (92-99) Arterial Blood pH 7.11 (7.35-7.45) Arterial Blood pH (Temp corrected) 7.16 Arterial Blood pCO2 at Patient Temp 69 mmHg (35-46) Arterial Blood pCO2 (Temp correct) 58 mmHg Arterial Blood pO2 at Patient Temp 97 mmHg (65-108) Arterial Blood pO2 (Temp corrected) 77 mmHg Arterial Blood HCO3 21 mmol/L (21-28) Arterial Blood Base Excess -9 mmol/L (-3-3) Oxyhemoglobin 94.4 % Methemoglobin 0.4 % (0.0-1.9) Carbon Monoxide, Quantitative 0.3 % (0.0-1.9) FiO2 100 Test 12/06/16 18:55 12/06/16 19:44 12/06/16 20:15 12/06/16 20:45 Sodium Level 135 mmol/L (136-145) Potassium Level 5.3 mmol/L (3.5-5.1) Chloride Level 101 mmol/L (98-107) Carbon Dioxide Level 30 mmol/L (21-32) Anion Gap 4 (6-14) Blood Urea Nitrogen 52 mg/dL (8-26) Creatinine 2.8 mg/dL (0.7-1.3) Estimated GFR (Cockcroft-Gault) 22.8 Glucose Level 133 mg/dL (70-99) Calcium Level 9.4 mg/dL (8.5-10.1) O2 Saturation 96 % (92-99) Arterial Blood pH 7.16 (7.35-7.45) Arterial Blood pH (Temp corrected) 7.22 Arterial Blood pCO2 at Patient Temp 73 mmHg (35-46) Arterial Blood pCO2 (Temp correct) 60 mmHg Arterial Blood pO2 at Patient Temp 93 mmHg (65-108) Arterial Blood pO2 (Temp corrected) 70 mmHg Arterial Blood HCO3 25 mmol/L (21-28) Arterial Blood Base Excess -5 mmol/L (-3-3) FiO2 40 Nasal Screen MRSA (PCR) Positive (Negative) Urine Collection Type Unknown Urine Color Red Urine Clarity Turbid Urine pH 5.5 Urine Specific [place] 1.025 Urine Protein >=300 mg/dL (NEG-TRACE) Urine Glucose (UA) 100 mg/dL (NEG) Urine Ketones (Stick) 15 mg/dL (NEG) Urine Blood Large (NEG) Urine Nitrite Positive (NEG) Urine Bilirubin Moderate (NEG) Urine Urobilinogen Dipstick 0.2 mg/dL (0.2 mg/dL) Urine Leukocyte Esterase Large (NEG) Urine RBC Tntc /HPF (0-2) Urine WBC Tntc /HPF (0-4) Urine Squamous Epithelial Cells Mod /LPF Urine Bacteria Moderate /HPF (0-FEW) Test 12/07/16 08:00 12/07/16 08:41 12/07/16 10:46 12/07/16 12:03 O2 Saturation 96 % (92-99) Arterial Blood pH 7.36 (7.35-7.45) Arterial Blood pCO2 at Patient Temp 41 mmHg (35-46) Arterial Blood pO2 at Patient Temp 82 mmHg (65-108) Arterial Blood HCO3 23 mmol/L (21-28) Arterial Blood Base Excess -3 mmol/L (-3-3) FiO2 40 Glucose (Fingerstick) 122 mg/dL (70-99) 120 mg/dL (70-99) White Blood Count 16.2 x10^3/uL (4.0-11.0) Red Blood Count 3.75 x10^6/uL (4.30-5.70) Hemoglobin 10.8 g/dL (13.0-17.5) Hematocrit 34.0 % (39.0-53.0) Mean Corpuscular Volume 91 fL (79-100) Mean Corpuscular Hemoglobin 29 pg (25-35) Mean Corpuscular Hemoglobin Concent 32 g/dL (31-37) Red Cell Distribution Width 19.2 % (11.5-14.5) Platelet Count 129 x10^3/uL (140-400) Neutrophils (%) (Auto) 92 % (31-73) Lymphocytes (%) (Auto) 5 % (24-48) Monocytes (%) (Auto) 2 % (0-9) Eosinophils (%) (Auto) 0 % (0-3) Basophils (%) (Auto) 0 % (0-3) Neutrophils # (Auto) 14.9 x10^3uL (1.8-7.7) Lymphocytes # (Auto) 0.8 x10^3/uL (1.0-4.8) Monocytes # (Auto) 0.4 x10^3/uL (0.0-1.1) Eosinophils # (Auto) 0.0 x10^3/uL (0.0-0.7) Basophils # (Auto) 0.1 x10^3/uL (0.0-0.2) Segmented Neutrophils % 84 % (35-66) Band Neutrophils % 5 % (0-9) Lymphocytes % 6 % (24-48) Monocytes % 4 % (0-10) Metamyelocytes % 1 % (0-0) Platelet Estimate Decreased (ADEQUATE) Polychromasia Slight Poikilocytosis Present Anisocytosis Mod Macrocytosis Present Target Cells Few Tear Drop Cells Occ Ovalocytes Few Sodium Level 136 mmol/L (136-145) Potassium Level 5.6 mmol/L (3.5-5.1) Chloride Level 101 mmol/L (98-107) Carbon Dioxide Level 28 mmol/L (21-32) Anion Gap 7 (6-14) Blood Urea Nitrogen 49 mg/dL (8-26) Creatinine 2.6 mg/dL (0.7-1.3) Estimated GFR (Cockcroft-Gault) 24.8 BUN/Creatinine Ratio 19 (6-20) Glucose Level 131 mg/dL (70-99) Calcium Level 8.4 mg/dL (8.5-10.1) Total Bilirubin 0.4 mg/dL (0.2-1.0) Aspartate Amino Transf (AST/SGOT) 18 U/L (15-37) Alanine Aminotransferase (ALT/SGPT) 23 U/L (16-63) Alkaline Phosphatase 132 U/L (46-116) Total Protein 6.5 g/dL (6.4-8.2) Albumin 2.7 g/dL (3.4-5.0) Albumin/Globulin Ratio 0.7 (1.0-1.7) Test 12/07/16 17:46 12/08/16 05:47 12/08/16 07:46 12/08/16 08:00 Glucose (Fingerstick) 130 mg/dL (70-99) 76 mg/dL (70-99) White Blood Count 13.5 x10^3/uL (4.0-11.0) Red Blood Count 3.35 x10^6/uL (4.30-5.70) Hemoglobin 9.7 g/dL (13.0-17.5) Hematocrit 30.4 % (39.0-53.0) Mean Corpuscular Volume 91 fL (79-100) Mean Corpuscular Hemoglobin 29 pg (25-35) Mean Corpuscular Hemoglobin Concent 32 g/dL (31-37) Red Cell Distribution Width 18.9 % (11.5-14.5) Platelet Count 107 x10^3/uL (140-400) Neutrophils (%) (Auto) 92 % (31-73) Lymphocytes (%) (Auto) 4 % (24-48) Monocytes (%) (Auto) 3 % (0-9) Eosinophils (%) (Auto) 0 % (0-3) Basophils (%) (Auto) 1 % (0-3) Neutrophils # (Auto) 12.4 x10^3uL (1.8-7.7) Lymphocytes # (Auto) 0.6 x10^3/uL (1.0-4.8) Monocytes # (Auto) 0.4 x10^3/uL (0.0-1.1) Eosinophils # (Auto) 0.0 x10^3/uL (0.0-0.7) Basophils # (Auto) 0.1 x10^3/uL (0.0-0.2) Sodium Level 136 mmol/L (136-145) Potassium Level 4.6 mmol/L (3.5-5.1) Chloride Level 102 mmol/L (98-107) Carbon Dioxide Level 23 mmol/L (21-32) Anion Gap 11 (6-14) Blood Urea Nitrogen 43 mg/dL (8-26) Creatinine 1.9 mg/dL (0.7-1.3) Estimated GFR (Cockcroft-Gault) 35.6 Glucose Level 119 mg/dL (70-99) Calcium Level 8.3 mg/dL (8.5-10.1) Magnesium Level 1.6 mg/dL (1.8-2.4) O2 Saturation 93 % (92-99) Arterial Blood pH 7.47 (7.35-7.45) Arterial Blood pCO2 at Patient Temp 31 mmHg (35-46) Arterial Blood pO2 at Patient Temp 62 mmHg (65-108) Arterial Blood HCO3 22 mmol/L (21-28) Arterial Blood Base Excess -1 mmol/L (-3-3) FiO2 40 Laboratory Tests Test 12/07/16 10:46 12/07/16 12:03 12/07/16 17:46 12/08/16 05:47 White Blood Count 16.2 x10^3/uL (4.0-11.0) 13.5 x10^3/uL (4.0-11.0) Red Blood Count 3.75 x10^6/uL (4.30-5.70) 3.35 x10^6/uL (4.30-5.70) Hemoglobin 10.8 g/dL (13.0-17.5) 9.7 g/dL (13.0-17.5) Hematocrit 34.0 % (39.0-53.0) 30.4 % (39.0-53.0) Mean Corpuscular Volume 91 fL (79-100) 91 fL (79-100) Mean Corpuscular Hemoglobin 29 pg (25-35) 29 pg (25-35) Mean Corpuscular Hemoglobin Concent 32 g/dL (31-37) 32 g/dL (31-37) Red Cell Distribution Width 19.2 % (11.5-14.5) 18.9 % (11.5-14.5) Platelet Count 129 x10^3/uL (140-400) 107 x10^3/uL (140-400) Neutrophils (%) (Auto) 92 % (31-73) 92 % (31-73) Lymphocytes (%) (Auto) 5 % (24-48) 4 % (24-48) Monocytes (%) (Auto) 2 % (0-9) 3 % (0-9) Eosinophils (%) (Auto) 0 % (0-3) 0 % (0-3) Basophils (%) (Auto) 0 % (0-3) 1 % (0-3) Neutrophils # (Auto) 14.9 x10^3uL (1.8-7.7) 12.4 x10^3uL (1.8-7.7) Lymphocytes # (Auto) 0.8 x10^3/uL (1.0-4.8) 0.6 x10^3/uL (1.0-4.8) Monocytes # (Auto) 0.4 x10^3/uL (0.0-1.1) 0.4 x10^3/uL (0.0-1.1) Eosinophils # (Auto) 0.0 x10^3/uL (0.0-0.7) 0.0 x10^3/uL (0.0-0.7) Basophils # (Auto) 0.1 x10^3/uL (0.0-0.2) 0.1 x10^3/uL (0.0-0.2) Segmented Neutrophils % 84 % (35-66) Band Neutrophils % 5 % (0-9) Lymphocytes % 6 % (24-48) Monocytes % 4 % (0-10) Metamyelocytes % 1 % (0-0) Platelet Estimate Decreased (ADEQUATE) Polychromasia Slight Poikilocytosis Present Anisocytosis Mod Macrocytosis Present Target Cells Few Tear Drop Cells Occ Ovalocytes Few Sodium Level 136 mmol/L (136-145) 136 mmol/L (136-145) Potassium Level 5.6 mmol/L (3.5-5.1) 4.6 mmol/L (3.5-5.1) Chloride Level 101 mmol/L (98-107) 102 mmol/L (98-107) Carbon Dioxide Level 28 mmol/L (21-32) 23 mmol/L (21-32) Anion Gap 7 (6-14) 11 (6-14) Blood Urea Nitrogen 49 mg/dL (8-26) 43 mg/dL (8-26) Creatinine 2.6 mg/dL (0.7-1.3) 1.9 mg/dL (0.7-1.3) Estimated GFR (Cockcroft-Gault) 24.8 35.6 BUN/Creatinine Ratio 19 (6-20) Glucose Level 131 mg/dL (70-99) 119 mg/dL (70-99) Calcium Level 8.4 mg/dL (8.5-10.1) 8.3 mg/dL (8.5-10.1) Total Bilirubin 0.4 mg/dL (0.2-1.0) Aspartate Amino Transf (AST/SGOT) 18 U/L (15-37) Alanine Aminotransferase (ALT/SGPT) 23 U/L (16-63) Alkaline Phosphatase 132 U/L (46-116) Total Protein 6.5 g/dL (6.4-8.2) Albumin 2.7 g/dL (3.4-5.0) Albumin/Globulin Ratio 0.7 (1.0-1.7) Glucose (Fingerstick) 120 mg/dL (70-99) 130 mg/dL (70-99) Magnesium Level 1.6 mg/dL (1.8-2.4) Test 12/08/16 07:46 12/08/16 08:00 Glucose (Fingerstick) 76 mg/dL (70-99) O2 Saturation 93 % (92-99) Arterial Blood pH 7.47 (7.35-7.45) Arterial Blood pCO2 at Patient Temp 31 mmHg (35-46) Arterial Blood pO2 at Patient Temp 62 mmHg (65-108) Arterial Blood HCO3 22 mmol/L (21-28) Arterial Blood Base Excess -1 mmol/L (-3-3) FiO2 40 Medications Active Scripts Medications Dose Route/Sig Max Daily Dose Days Date Category [place] 3 Fish Oil Softgel ([place]-3 Fatty Acids/Fish Oil) 1 Each Capsule.dr 2 Cap PO DAILY 05/25/15 Reported Polyethylene Glycol 3350 17 Gm Powd.pack 17 Gm PO PRN QID PRN 05/25/15 Reported Simethicone 125 Mg Capsule 250 Mg PO QID 05/25/15 Reported Propranolol Hcl 20 Mg Tablet 20 Mg PO QHS 05/25/15 Reported Melatonin 3 Mg Tablet 6 Mg PO QHS 05/25/15 Reported Potassium Chloride 20 Meq Tab.er.prt 20 Meq PO DAILY 05/25/15 Reported Prazosin Hcl 1 Mg Capsule 1 Mg PO QHS 05/25/15 Reported Mupirocin Ointment (Mupirocin) 22 Gm Oint...g. 1 Kiran TP BID 05/25/15 Reported Nystop (Nystatin) 60 Gm Powder 1 Kiran TP BID 05/25/15 Reported Mirapex (Pramipexole Di-Hcl) 0.125 Mg Tablet 0.125 Mg PO TID 05/25/15 Reported Triamcinolone Acetonide 80 Gm Oint...g. 1 Kiran TP TID 05/25/15 Reported Tamsulosin Hcl 0.4 Mg Cap.er.24h 0.4 Mg PO DAILY 08/04/14 Reported Furosemide 20 Mg Tablet 20 Mg PO DAILY 08/04/14 Reported Magnesium Oxide 400 Mg Tablet 400 Mg PO BID 03/03/14 Reported Pantoprazole Sodium 40 Mg Tablet.dr 40 Mg PO DAILY 03/03/14 Reported Propranolol Hcl 40 Mg Tablet 40 Mg PO DAILY 03/03/14 Reported Nephro-Elkin Tablet (Folic Acid/Vitamin B Comp W-C) 0.8 Mg Tablet 1 Tab PO DAILY 03/03/14 Reported Temazepam 15 Mg Capsule 30 Mg PO QHS 03/03/14 Reported Losartan Potassium 50 Mg Tablet 50 Mg PO DAILY 03/03/14 Reported Abilify (Aripiprazole) 10 Mg Tablet 15 Mg PO DAILY 03/03/14 Reported Amlodipine Besylate 5 Mg Tablet 5 Tab PO DAILY 03/03/14 Reported Ranexa (Ranolazine) 500 Mg Tab.er.12h 500 Mg PO BID 03/03/14 Reported Nitrostat (Nitroglycerin) 0.4 Mg Tab.subl 0.4 Mg SL PRN Q5MIN PRN 03/03/14 Reported Probiotic & Acidophilus Cap (Lactobac Cmb #3/Fos/Pantethine) 1 Each Capsule 1 Tab PO DAILY 03/03/14 Reported Cilostazol 50 Mg Tablet 50 Mg PO BID 03/03/14 Reported Glycopyrrolate 2 Mg Tablet 2 Mg PO NOON 03/03/14 Reported Finasteride 5 Mg Tablet 5 Mg PO DAILY 03/03/14 Reported Vitamin D (Cholecalciferol (Vitamin D3)) 1,000 Unit Tablet 2,000 Unit PO DAILY 03/03/14 Reported Co Q-10 (Ubidecarenone) 100 Mg Capsule 100 Mg PO NOON 03/03/14 Reported Allopurinol 300 Mg Tablet 300 Mg PO BID 03/03/14 Reported Aspirin 325 Mg Tablet 325 Mg PO DAILY 03/03/14 Reported Imdur (Isosorbide Mononitrate) 30 Mg Tab.er.24h 30 Mg PO DAILYWLUN 03/03/14 Reported Sucralfate 1 Gm Tablet 1 Gm PO QIDACHS 03/03/14 Reported Atorvastatin Calcium 20 Mg Tablet 20 Mg PO HS 03/03/14 Reported Humalog (Insulin Lispro) 100 Unit/1 Ml Insuln.pen 5 Unit SQ TIDAC 03/03/14 Reported Lantus Solostar (Insulin Glargine,Hum.rec.anlog) 100 Unit/1 Ml Insuln.pen 30 Unit SQ QEVNG 03/03/14 Reported Ketoconazole 15 Gm Cream..g. 1 Kiran TP DAILY 03/03/14 Reported Impression . 1. Acute hypercapnic/ hypoxic RF, Multi-factorial 2. Septic shock, likely source bladder infection, staph bacteremia 3. acute encephalology secondary to septic shock 4. No pneumoperitoneum by ct abdomen 5. RENETTA secondary septic shock 6. Abnormal chest x-ray basal atelectasis 7. chronic debility 8. Metabolic acidosis 9. Bradycardia, improved Plan . 1. Prn fluid resuscitation 2. wean vasopressors as tolerated keeping a MAP greater than 60 3. Follow all cultures (staph in blood, gram negative in urine) 4. Continue empiric antibiotics per infectious disease 5. off the BIPAP. ABG have in improved 6. Follow renal recommendations 7. CT abdomen and pelvis with no pneumoperitoneum 8. Discussed with patients 12/07 in regards to advanced directives, she is agreeably with no intubation but prefers CPR 9. start PPN, Ileus on ct abdomen cct 25 min MEAGAN TORRES MD Dec 08, 2016 10:19
[2016-12-08] MEDS ORDERED: MAGNESIUM SULFATE 2GM 50 ML IV ONE (11:15)
[2016-12-08] MEDS: NOREPINEPHRIN PREMIX 250 ML IV PRN (11:27)
[2016-12-08] MEDS: AMINO AC 3%/ELECTROLYTE/GLYCER 1,000 ML IV SCH (11:28)
--- NOTE | 2016-12-08 11:52 | PDOC ---
Provider Note Provider Note ALERT, ORIENTED PLACE/TIME- BP STILL LOW BUT GOOD OUTPUT- CREAT DOWN 1.9, PLATELETS LOW BUT > THAN 7/1, MAY HAVE LOW GRADE DIC FROM SEPSIS, on dapto/ zosyn for now- d/w , continue pressor wean, ppn, follow platelets, no lovenox needed- still npo for now TARUN ZIMMERMAN MD Dec 08, 2016 11:51
--- NOTE | 2016-12-08 12:55 | PDOC ---
PROGRESS NOTES Subjective Subjective The patient is more responsive today. Objective Objective Vital Signs Date Time Temp Pulse Resp B/P (MAP) Pulse Ox O2 Delivery O2 Flow Rate FiO2 12/08/16 12:00 Venturi Mask 12/08/16 12:00 98.1 82 28 100/52 (68) 96 98.1 12/08/16 08:00 15.0 Intake and Output 12/08/16 07:00 Intake Total 3720.2 ml Output Total 2265 ml Balance 1455.2 ml IV Total 3720.2 ml Output Urine Total 1465 ml Gastric Drainage Total 800 ml # Bowel Movements 1 Physical Exam Abdomen: Normal bowel sounds Heart: Regular rate General: mild distress Lungs: Other (mildly decreased breath sounds) Assessment Assessment Problems Medical Problems: (1) Altered level of consciousness Status: Acute (2) Bradycardia Status: Acute (3) Hypotension Status: Acute (4) Hypothermia Status: Acute (5) Sepsis Status: Acute 1. Symptomatic Bradyarrhythmia: Resolved. Continue present medications and close monitoring. 2. Hypothermia/hypotension/possible sepsis. The patient is improved today. Continue present treatment. 3. Metabolic encephalopathy Improving. 4. RENETTA with hyperkalemia: Potassium and creatinine levels improved. Continue present treatments. 5. Subclinical hypothyroidism 6. Hx of frequent UTI: Ecoli resistant to gentamicin per review 7. Hx of HTN,DM2/HLP 8. Hx of CHF but unknown hx of CAD: pt denies any prior CAD. 9. Chronic debility Comment Review of Relevant I have reviewed the following items javed (where applicable) has been applied. Labs Laboratory Tests Test 12/06/16 15:00 12/06/16 15:02 12/06/16 15:06 12/06/16 16:20 White Blood Count 8.1 x10^3/uL (4.0-11.0) Red Blood Count 3.44 x10^6/uL (4.30-5.70) Hemoglobin 10.0 g/dL (13.0-17.5) Hematocrit 32.2 % (39.0-53.0) Mean Corpuscular Volume 94 fL (79-100) Mean Corpuscular Hemoglobin 29 pg (25-35) Mean Corpuscular Hemoglobin Concent 31 g/dL (31-37) Red Cell Distribution Width 19.1 % (11.5-14.5) Platelet Count 82 x10^3/uL (140-400) Neutrophils (%) (Auto) 83 % (31-73) Lymphocytes (%) (Auto) 14 % (24-48) Monocytes (%) (Auto) 3 % (0-9) Eosinophils (%) (Auto) 0 % (0-3) Basophils (%) (Auto) 0 % (0-3) Neutrophils # (Auto) 6.7 x10^3uL (1.8-7.7) Lymphocytes # (Auto) 1.1 x10^3/uL (1.0-4.8) Monocytes # (Auto) 0.3 x10^3/uL (0.0-1.1) Eosinophils # (Auto) 0.0 x10^3/uL (0.0-0.7) Basophils # (Auto) 0.0 x10^3/uL (0.0-0.2) Sodium Level 135 mmol/L (136-145) Potassium Level 6.1 mmol/L (3.5-5.1) Chloride Level 101 mmol/L (98-107) Carbon Dioxide Level 29 mmol/L (21-32) Anion Gap 5 (6-14) 12 mmol/L (6-14) Blood Urea Nitrogen 57 mg/dL (8-26) Creatinine 2.9 mg/dL (0.7-1.3) Estimated GFR (Cockcroft-Gault) 21.9 BUN/Creatinine Ratio 20 (6-20) Glucose Level 137 mg/dL (70-99) 134 mg/dL (70-99) Lactic Acid Level 1.5 mmol/L (0.4-2.0) Calcium Level 9.1 mg/dL (8.5-10.1) Magnesium Level 2.0 mg/dL (1.8-2.4) Total Bilirubin 0.2 mg/dL (0.2-1.0) Aspartate Amino Transf (AST/SGOT) 21 U/L (15-37) Alanine Aminotransferase (ALT/SGPT) 19 U/L (16-63) Alkaline Phosphatase 128 U/L (46-116) Creatine Kinase 33 U/L (39-308) Troponin I Quantitative < 0.017 ng/mL (0.000-0.055) Total Protein 6.0 g/dL (6.4-8.2) Albumin 2.4 g/dL (3.4-5.0) Albumin/Globulin Ratio 0.7 (1.0-1.7) Triglycerides Level 17 mg/dL (0-150) Cholesterol Level 121 mg/dL (0-200) LDL Cholesterol, Calculated 38 mg/dL (0-100) VLDL Cholesterol, Calculated 3 mg/dL (0-40) Non-HDL Cholesterol Calculated 41 mg/dL (0-129) HDL Cholesterol 80 mg/dL (40-60) Cholesterol/HDL Ratio 1.5 Thyroid Stimulating Hormone (TSH) 6.292 uIU/mL (0.358-3.74) Bedside Troponin I 0.00 ng/ml (<0.08) Bedside Hemoglobin 11.6 g/dL (14-18) Bedside Hematocrit 34 % (37-52) Bedside Sodium 133 mmol/L (135-145) Bedside Potassium 5.9 mmol/L (3.5-5.0) Bedside Chloride 99 mmol/L (98-110) Bedside Total CO2 28 mmol/L (23-32) Bedside Blood Urea Nitrogen 58 mg/dL (8-26) Bedside Creatinine 3.0 mg/dL (0.5-1.4) Bedside Ionized Calcium (Fish) 1.25 mmol/L (1.13-1.32) O2 Saturation 95 % (92-99) Arterial Blood pH 7.11 (7.35-7.45) Arterial Blood pH (Temp corrected) 7.16 Arterial Blood pCO2 at Patient Temp 69 mmHg (35-46) Arterial Blood pCO2 (Temp correct) 58 mmHg Arterial Blood pO2 at Patient Temp 97 mmHg (65-108) Arterial Blood pO2 (Temp corrected) 77 mmHg Arterial Blood HCO3 21 mmol/L (21-28) Arterial Blood Base Excess -9 mmol/L (-3-3) Oxyhemoglobin 94.4 % Methemoglobin 0.4 % (0.0-1.9) Carbon Monoxide, Quantitative 0.3 % (0.0-1.9) FiO2 100 Test 12/06/16 18:55 12/06/16 19:44 12/06/16 20:15 12/06/16 20:45 Sodium Level 135 mmol/L (136-145) Potassium Level 5.3 mmol/L (3.5-5.1) Chloride Level 101 mmol/L (98-107) Carbon Dioxide Level 30 mmol/L (21-32) Anion Gap 4 (6-14) Blood Urea Nitrogen 52 mg/dL (8-26) Creatinine 2.8 mg/dL (0.7-1.3) Estimated GFR (Cockcroft-Gault) 22.8 Glucose Level 133 mg/dL (70-99) Calcium Level 9.4 mg/dL (8.5-10.1) O2 Saturation 96 % (92-99) Arterial Blood pH 7.16 (7.35-7.45) Arterial Blood pH (Temp corrected) 7.22 Arterial Blood pCO2 at Patient Temp 73 mmHg (35-46) Arterial Blood pCO2 (Temp correct) 60 mmHg Arterial Blood pO2 at Patient Temp 93 mmHg (65-108) Arterial Blood pO2 (Temp corrected) 70 mmHg Arterial Blood HCO3 25 mmol/L (21-28) Arterial Blood Base Excess -5 mmol/L (-3-3) FiO2 40 Nasal Screen MRSA (PCR) Positive (Negative) Urine Collection Type Unknown Urine Color Red Urine Clarity Turbid Urine pH 5.5 Urine Specific [place] 1.025 Urine Protein >=300 mg/dL (NEG-TRACE) Urine Glucose (UA) 100 mg/dL (NEG) Urine Ketones (Stick) 15 mg/dL (NEG) Urine Blood Large (NEG) Urine Nitrite Positive (NEG) Urine Bilirubin Moderate (NEG) Urine Urobilinogen Dipstick 0.2 mg/dL (0.2 mg/dL) Urine Leukocyte Esterase Large (NEG) Urine RBC Tntc /HPF (0-2) Urine WBC Tntc /HPF (0-4) Urine Squamous Epithelial Cells Mod /LPF Urine Bacteria Moderate /HPF (0-FEW) Test 12/07/16 08:00 12/07/16 08:41 12/07/16 10:46 12/07/16 12:03 O2 Saturation 96 % (92-99) Arterial Blood pH 7.36 (7.35-7.45) Arterial Blood pCO2 at Patient Temp 41 mmHg (35-46) Arterial Blood pO2 at Patient Temp 82 mmHg (65-108) Arterial Blood HCO3 23 mmol/L (21-28) Arterial Blood Base Excess -3 mmol/L (-3-3) FiO2 40 Glucose (Fingerstick) 122 mg/dL (70-99) 120 mg/dL (70-99) White Blood Count 16.2 x10^3/uL (4.0-11.0) Red Blood Count 3.75 x10^6/uL (4.30-5.70) Hemoglobin 10.8 g/dL (13.0-17.5) Hematocrit 34.0 % (39.0-53.0) Mean Corpuscular Volume 91 fL (79-100) Mean Corpuscular Hemoglobin 29 pg (25-35) Mean Corpuscular Hemoglobin Concent 32 g/dL (31-37) Red Cell Distribution Width 19.2 % (11.5-14.5) Platelet Count 129 x10^3/uL (140-400) Neutrophils (%) (Auto) 92 % (31-73) Lymphocytes (%) (Auto) 5 % (24-48) Monocytes (%) (Auto) 2 % (0-9) Eosinophils (%) (Auto) 0 % (0-3) Basophils (%) (Auto) 0 % (0-3) Neutrophils # (Auto) 14.9 x10^3uL (1.8-7.7) Lymphocytes # (Auto) 0.8 x10^3/uL (1.0-4.8) Monocytes # (Auto) 0.4 x10^3/uL (0.0-1.1) Eosinophils # (Auto) 0.0 x10^3/uL (0.0-0.7) Basophils # (Auto) 0.1 x10^3/uL (0.0-0.2) Segmented Neutrophils % 84 % (35-66) Band Neutrophils % 5 % (0-9) Lymphocytes % 6 % (24-48) Monocytes % 4 % (0-10) Metamyelocytes % 1 % (0-0) Platelet Estimate Decreased (ADEQUATE) Polychromasia Slight Poikilocytosis Present Anisocytosis Mod Macrocytosis Present Target Cells Few Tear Drop Cells Occ Ovalocytes Few Sodium Level 136 mmol/L (136-145) Potassium Level 5.6 mmol/L (3.5-5.1) Chloride Level 101 mmol/L (98-107) Carbon Dioxide Level 28 mmol/L (21-32) Anion Gap 7 (6-14) Blood Urea Nitrogen 49 mg/dL (8-26) Creatinine 2.6 mg/dL (0.7-1.3) Estimated GFR (Cockcroft-Gault) 24.8 BUN/Creatinine Ratio 19 (6-20) Glucose Level 131 mg/dL (70-99) Calcium Level 8.4 mg/dL (8.5-10.1) Total Bilirubin 0.4 mg/dL (0.2-1.0) Aspartate Amino Transf (AST/SGOT) 18 U/L (15-37) Alanine Aminotransferase (ALT/SGPT) 23 U/L (16-63) Alkaline Phosphatase 132 U/L (46-116) Total Protein 6.5 g/dL (6.4-8.2) Albumin 2.7 g/dL (3.4-5.0) Albumin/Globulin Ratio 0.7 (1.0-1.7) Test 12/07/16 17:46 12/08/16 05:47 12/08/16 07:46 12/08/16 08:00 Glucose (Fingerstick) 130 mg/dL (70-99) 76 mg/dL (70-99) White Blood Count 13.5 x10^3/uL (4.0-11.0) Red Blood Count 3.35 x10^6/uL (4.30-5.70) Hemoglobin 9.7 g/dL (13.0-17.5) Hematocrit 30.4 % (39.0-53.0) Mean Corpuscular Volume 91 fL (79-100) Mean Corpuscular Hemoglobin 29 pg (25-35) Mean Corpuscular Hemoglobin Concent 32 g/dL (31-37) Red Cell Distribution Width 18.9 % (11.5-14.5) Platelet Count 107 x10^3/uL (140-400) Neutrophils (%) (Auto) 92 % (31-73) Lymphocytes (%) (Auto) 4 % (24-48) Monocytes (%) (Auto) 3 % (0-9) Eosinophils (%) (Auto) 0 % (0-3) Basophils (%) (Auto) 1 % (0-3) Neutrophils # (Auto) 12.4 x10^3uL (1.8-7.7) Lymphocytes # (Auto) 0.6 x10^3/uL (1.0-4.8) Monocytes # (Auto) 0.4 x10^3/uL (0.0-1.1) Eosinophils # (Auto) 0.0 x10^3/uL (0.0-0.7) Basophils # (Auto) 0.1 x10^3/uL (0.0-0.2) Sodium Level 136 mmol/L (136-145) Potassium Level 4.6 mmol/L (3.5-5.1) Chloride Level 102 mmol/L (98-107) Carbon Dioxide Level 23 mmol/L (21-32) Anion Gap 11 (6-14) Blood Urea Nitrogen 43 mg/dL (8-26) Creatinine 1.9 mg/dL (0.7-1.3) Estimated GFR (Cockcroft-Gault) 35.6 Glucose Level 119 mg/dL (70-99) Calcium Level 8.3 mg/dL (8.5-10.1) Magnesium Level 1.6 mg/dL (1.8-2.4) O2 Saturation 93 % (92-99) Arterial Blood pH 7.47 (7.35-7.45) Arterial Blood pCO2 at Patient Temp 31 mmHg (35-46) Arterial Blood pO2 at Patient Temp 62 mmHg (65-108) Arterial Blood HCO3 22 mmol/L (21-28) Arterial Blood Base Excess -1 mmol/L (-3-3) FiO2 40 Test 12/08/16 12:19 Glucose (Fingerstick) 97 mg/dL (70-99) Laboratory Tests Test 12/07/16 17:46 12/08/16 05:47 12/08/16 07:46 12/08/16 08:00 Glucose (Fingerstick) 130 mg/dL (70-99) 76 mg/dL (70-99) White Blood Count 13.5 x10^3/uL (4.0-11.0) Red Blood Count 3.35 x10^6/uL (4.30-5.70) Hemoglobin 9.7 g/dL (13.0-17.5) Hematocrit 30.4 % (39.0-53.0) Mean Corpuscular Volume 91 fL (79-100) Mean Corpuscular Hemoglobin 29 pg (25-35) Mean Corpuscular Hemoglobin Concent 32 g/dL (31-37) Red Cell Distribution Width 18.9 % (11.5-14.5) Platelet Count 107 x10^3/uL (140-400) Neutrophils (%) (Auto) 92 % (31-73) Lymphocytes (%) (Auto) 4 % (24-48) Monocytes (%) (Auto) 3 % (0-9) Eosinophils (%) (Auto) 0 % (0-3) Basophils (%) (Auto) 1 % (0-3) Neutrophils # (Auto) 12.4 x10^3uL (1.8-7.7) Lymphocytes # (Auto) 0.6 x10^3/uL (1.0-4.8) Monocytes # (Auto) 0.4 x10^3/uL (0.0-1.1) Eosinophils # (Auto) 0.0 x10^3/uL (0.0-0.7) Basophils # (Auto) 0.1 x10^3/uL (0.0-0.2) Sodium Level 136 mmol/L (136-145) Potassium Level 4.6 mmol/L (3.5-5.1) Chloride Level 102 mmol/L (98-107) Carbon Dioxide Level 23 mmol/L (21-32) Anion Gap 11 (6-14) Blood Urea Nitrogen 43 mg/dL (8-26) Creatinine 1.9 mg/dL (0.7-1.3) Estimated GFR (Cockcroft-Gault) 35.6 Glucose Level 119 mg/dL (70-99) Calcium Level 8.3 mg/dL (8.5-10.1) Magnesium Level 1.6 mg/dL (1.8-2.4) O2 Saturation 93 % (92-99) Arterial Blood pH 7.47 (7.35-7.45) Arterial Blood pCO2 at Patient Temp 31 mmHg (35-46) Arterial Blood pO2 at Patient Temp 62 mmHg (65-108) Arterial Blood HCO3 22 mmol/L (21-28) Arterial Blood Base Excess -1 mmol/L (-3-3) FiO2 40 Test 12/08/16 12:19 Glucose (Fingerstick) 97 mg/dL (70-99) Microbiology 12/06/16 Blood Culture - Preliminary, Resulted 12/06/16 Blood Culture Result 1 (ERICK) - Preliminary, Resulted 12/06/16 Urine Culture - Preliminary, Resulted 12/06/16 Urine Culture Result 1 (ERICK) - Preliminary, Resulted Medications Current Medications Atropine Sulfate 1 mg STK-MED ONCE .ROUTE ; Start 12/06/16 at 15:04; Stop at 15:05; Status DC Dextrose (Dextrose 50%-Water Syringe) 25 gm 1X ONCE IV Last administered on 14:53; Start 12/06/16 at 15:15; Stop 12/06/16 at 15:16; Status DC Insulin Human Regular (NovoLIN R VIAL) 5 unit 1X ONCE IV Last administered on 12/06/16 14:53; Start 12/06/16 at 15:15; Stop 12/06/16 at 15:16; Status DC Atropine Sulfate 1 mg 1X ONCE IV ; Start 12/06/16 at 15:15; Stop 12/06/16 at 15 :16; Status Cancel Sodium Bicarbonate 50 meq 1X ONCE IV Last administered on 12/06/16 14:53; Start 12/06/16 at 15:15; Stop 12/06/16 at 15:16; Status DC Calcium Gluconate (Calcium Gluconate) 1,000 mg 1X ONCE IVP Last administered on 12/06/16 14:53; Start 12/06/16 at 15:15; Stop 12/06/16 at 15:16; Status DC Dopamine HCl/ Dextrose 250 ml @ 0 mls/hr 1X ONCE IV Last administered on 15:02; Start 12/06/16 at 15:15; Stop 12/06/16 at 15:16; Status DC Atropine Sulfate 1 mg 1X ONCE IV Last administered on 12/06/16 15:04; Start 12/06/16 at 15:15; Stop 12/06/16 at 15:16; Status DC Sodium Chloride 500 ml @ 500 mls/hr 1X ONCE IV Last administered on 15:20; Start 12/06/16 at 15:45; Stop 12/06/16 at 16:44; Status DC Sodium Chloride 1,000 ml @ 1,000 mls/hr 1X ONCE IV Last administered on 15:30; Start 12/06/16 at 15:45; Stop 12/06/16 at 16:44; Status DC Ceftriaxone Sodium 50 ml @ 100 mls/hr 1X ONCE IV Last administered on 15:45; Start 12/06/16 at 15:45; Stop 12/06/16 at 16:14; Status DC Vancomycin HCl (Vanco Per Pharmacy) 1 each PRN DAILY PRN MC SEE COMMENTS Last administered on 12/06/16 16:23; Start 12/06/16 at 16:15; Stop 12/06/16 at 19:10 ; Status DC Vancomycin HCl 2 gm/Sodium Chloride 500 ml @ 250 mls/hr 1X ONCE IV Last administered on 12/06/16 16:15; Start 12/06/16 at 16:30; Stop 12/06/16 at 19:10 ; Status DC Vancomycin HCl 1.5 gm/Sodium Chloride 500 ml @ 250 mls/hr Q24H IV ; Start at 16:00; Stop 12/07/16 at 16:00; Status DC Vancomycin HCl 1 each 1X ONCE MC ; Start 12/08/16 at 15:30; Stop 12/08/16 at 15: 30; Status DC Sodium Chloride 1,000 ml @ 100 mls/hr Q10H IV Last administered on 12/08/16 07 :48; Start 12/06/16 at 16:30; Stop 12/08/16 at 11:06; Status DC Norepinephrine Bitartrate 250 ml @ As Directed STK-MED ONCE IV ; Start at 16:50; Stop 12/06/16 at 16:51; Status DC Sodium Bicarbonate 50 meq 1X ONCE IV Last administered on 12/06/16 17:00; Start 12/06/16 at 17:00; Stop 12/06/16 at 17:01; Status DC Norepinephrine Bitartrate 16 mg/ Sodium Chloride 266 ml @ 0 mls/hr CONT PRN IV SEE I/O RECORD; Start 12/06/16 at 17:15; Status UNV Phenylephrine HCl 80 mg/Sodium Chloride 258 ml @ 0 mls/hr CONT PRN IV SEE I/O RECORD Last administered on 12/07/16 02:37; Start 12/06/16 at 17:15 Norepinephrine Bitartrate 250 ml @ 1.875 mls/ hr CONT PRN IV SEE I/O RECORD Last administered on 12/08/16 11:27; Start 12/06/16 at 17:15 Piperacillin Sod/ Tazobactam Sod 2.25 gm/Sodium Chloride 50 ml @ 100 mls/hr Q8HRS IV Last administered on 12/08/16 06:25; Start 12/06/16 at 18:00 Levofloxacin/ Dextrose 150 ml @ 100 mls/hr Q48H IV Last administered on 19:08; Start 12/06/16 at 18:00; Stop 12/07/16 at 10:42; Status DC Sodium Chloride 1,000 ml @ 1,000 mls/hr 1X ONCE IV Last administered on 19:23; Start 12/06/16 at 17:45; Stop 12/06/16 at 18:44; Status DC Sodium Chloride 1,000 ml @ 1,000 mls/hr 1X ONCE IV Last administered on 19:23; Start 12/06/16 at 18:45; Stop 12/06/16 at 19:44; Status DC Sodium Chloride 500 ml @ 500 mls/hr 1X ONCE IV Last administered on 12/07/16 00:00; Start 12/06/16 at 19:00; Stop 12/06/16 at 19:59; Status DC Albumin Human 500 ml @ 125 mls/hr 1X ONCE IV Last administered on 12/06/16 19:22; Start 12/06/16 at 19:00; Stop 12/06/16 at 22:59; Status DC Dopamine HCl/ Dextrose 250 ml @ 20.837 mls/ hr CONT PRN IV SEE I/O RECORD Last administered on 12/08/16 12:49; Start 12/06/16 at 19:15 Sodium Bicarbonate 50 meq 1X ONCE IV Last administered on 12/06/16 20:47; Start 12/06/16 at 21:00; Stop 12/06/16 at 21:01; Status DC Ondansetron HCl (Zofran) 4 mg PRN Q6HRS PRN IV NAUSEA/VOMITING Last administered on 12/07/16 05:36; Start 12/07/16 at 05:30 Insulin Aspart (NovoLOG) 0-9 UNITS TIDWMEALS SQ ; Start 12/07/16 at 12:00 Dextrose (Dextrose 50%-Water Syringe) 12.5 gm PRN Q15MIN PRN IV SEE COMMENTS; Start 12/07/16 at 11:15 Famotidine (Pepcid) 20 mg BID IVP Last administered on 12/08/16 08:20; Start at 11:30 Daptomycin 450 mg/ Sodium Chloride 50 ml @ 100 mls/hr Q24H IV Last administered on 12/08/16 10:40; Start 12/08/16 at 10:00 Amino Acids/ Glycerin/ Electrolytes 1,000 ml @ 80 mls/hr [id number] IV Last administered on 12/08/16 11:28; Start 12/08/16 at 11:15 Magnesium Sulfate/ Dextrose 50 ml @ 25 mls/hr 1X ONCE IV Last administered on 12/08/16 11:29; Start 12/08/16 at 11:15; Stop 12/08/16 at 13:14 Active Scripts Active Reported [place] 3 Fish Oil Softgel ([place]-3 Fatty Acids/Fish Oil) 1 Each Capsule.dr 2 Cap PO DAILY Polyethylene Glycol 3350 17 Gm Powd.pack 17 Gm PO PRN QID PRN Simethicone 125 Mg Capsule 250 Mg PO QID Propranolol Hcl 20 Mg Tablet 20 Mg PO QHS Melatonin 3 Mg Tablet 6 Mg PO QHS Potassium Chloride 20 Meq Tab.er.prt 20 Meq PO DAILY Prazosin Hcl 1 Mg Capsule 1 Mg PO QHS Mupirocin Ointment (Mupirocin) 22 Gm Oint...g. 1 Kiran TP BID Nystop (Nystatin) 60 Gm Powder 1 Kiran TP BID Mirapex (Pramipexole Di-Hcl) 0.125 Mg Tablet 0.125 Mg PO TID Triamcinolone Acetonide 80 Gm Oint...g. 1 Kiran TP TID Tamsulosin Hcl 0.4 Mg Cap.er.24h 0.4 Mg PO DAILY Furosemide 20 Mg Tablet 20 Mg PO DAILY Magnesium Oxide 400 Mg Tablet 400 Mg PO BID Pantoprazole Sodium 40 Mg Tablet. 40 Mg PO DAILY Propranolol Hcl 40 Mg Tablet 40 Mg PO DAILY Nephro-[place]kin Tablet (Folic Acid/Vitamin B Comp W-C) 0.8 Mg Tablet 1 Tab PO DAILY Temazepam 15 Mg Capsule 30 Mg PO QHS Losartan Potassium 50 Mg Tablet 50 Mg PO DAILY Abilify (Aripiprazole) 10 Mg Tablet 15 Mg PO DAILY Amlodipine Besylate 5 Mg Tablet 5 Tab PO DAILY Ranexa (Ranolazine) 500 Mg Tab.er.12h 500 Mg PO BID Nitrostat (Nitroglycerin) 0.4 Mg Tab.subl 0.4 Mg SL PRN Q5MIN PRN Probiotic & Acidophilus Cap (Lactobac Cmb #3/Fos/Pantethine) 1 Each Capsule 1 Tab PO DAILY Cilostazol 50 Mg Tablet 50 Mg PO BID Glycopyrrolate 2 Mg Tablet 2 Mg PO NOON Finasteride 5 Mg Tablet 5 Mg PO DAILY Vitamin D (Cholecalciferol (Vitamin D3)) 1,000 Unit Tablet 2,000 Unit PO DAILY Co Q-10 (Ubidecarenone) 100 Mg Capsule 100 Mg PO NOON Allopurinol 300 Mg Tablet 300 Mg PO BID Aspirin 325 Mg Tablet 325 Mg PO DAILY Imdur (Isosorbide Mononitrate) 30 Mg Tab.er.24h 30 Mg PO DAILYWLUN Sucralfate 1 Gm Tablet 1 Gm PO QIDACHS Atorvastatin Calcium 20 Mg Tablet 20 Mg PO HS Humalog (Insulin Lispro) 100 Unit/1 Ml Insuln.pen 5 Unit SQ TIDAC Lantus Solostar (Insulin Glargine,Hum.rec.anlog) 100 Unit/1 Ml Insuln.pen 30 Unit SQ QEVNG Ketoconazole 15 Gm Cream..g. 1 Kiran TP DAILY Vitals/I & O Vital Sign - Last 24 Hours 12/07/16 12/07/16 12/07/16 12/07/16 12:54 13:00 14:00 15:00 Temp 96.8 96.8 96.6 96.8 96.8 96.6 Pulse 49 64 68 Resp 32 32 29 B/P (MAP) 99/46 (63) 102/48 (66) 104/52 (69) Pulse Ox 98 97 99 98 O2 Delivery BiPAP/CPAP BiPAP/CPAP BiPAP/CPAP BiPAP/CPAP 12/07/16 12/07/16 12/07/16 12/07/16 15:53 16:00 16:00 17:00 Temp 96.1 96.3 96.1 96.3 Pulse 60 58 Resp 34 36 B/P (MAP) 101/46 (64) 95/46 (62) Pulse Ox 95 96 94 O2 Delivery BiPAP/CPAP BiPAP/CPAP Bi-pap BiPAP/CPAP 12/07/16 12/07/16 12/07/16 12/07/16 17:36 18:00 19:00 19:18 Temp 96.1 96.1 96.1 96.1 Pulse 67 67 Resp 32 37 B/P (MAP) 96/65 (75) 81/59 (66) Pulse Ox 95 98 96 96 O2 Delivery BiPAP/CPAP BiPAP/CPAP BiPAP/CPAP BiPAP/CPAP 12/07/16 12/07/16 12/07/16 12/07/16 20:00 20:00 21:00 22:00 Temp 96.2 96.4 96.8 96.2 96.4 96.8 Pulse 57 66 74 Resp 48 43 39 B/P (MAP) 106/66 (79) 121/65 (83) 138/57 (84) Pulse Ox 98 98 97 O2 Delivery BiPAP/CPAP Bi-pap BiPAP/CPAP BiPAP/CPAP 12/07/16 12/07/16 12/08/16 12/08/16 22:40 23:00 00:00 00:00 Temp 97.2 97.8 97.2 97.8 Pulse 70 68 Resp 34 42 B/P (MAP) 125/81 (96) 148/60 (89) Pulse Ox 98 97 98 O2 Delivery BiPAP/CPAP BiPAP/CPAP Bi-pap BiPAP/CPAP 12/08/16 12/08/16 12/08/16 12/08/16 00:51 01:00 03:05 03:07 Temp 98.2 98.2 Pulse 84 65 Resp 39 49 B/P (MAP) 145/107 (120) 82/42 (55) Pulse Ox 97 98 99 99 O2 Delivery BiPAP/CPAP BiPAP/CPAP BiPAP/CPAP BiPAP/CPAP 12/08/16 12/08/16 12/08/16 12/08/16 04:00 04:00 05:00 05:20 Temp 99.0 99.1 99.0 99.1 Pulse 76 76 Resp 43 43 B/P (MAP) 103/64 (77) 103/64 (77) Pulse Ox 98 98 97 O2 Delivery Bi-pap BiPAP/CPAP BiPAP/CPAP BiPAP/CPAP 12/08/16 12/08/16 12/08/16 12/08/16 06:00 07:00 07:29 07:48 Temp 99.0 99.1 99.0 99.1 Pulse 89 73 Resp 39 32 B/P (MAP) 118/67 (84) 131/82 (98) Pulse Ox 98 97 97 O2 Delivery BiPAP/CPAP BiPAP/CPAP BiPAP/CPAP Venturi Mask O2 Flow Rate 15.0 12/08/16 12/08/16 12/08/16 12/08/16 08:00 08:00 08:00 09:00 Temp 98.8 98.8 Pulse 93 83 Resp 34 35 B/P (MAP) 77/29 (45) 87/12 (37) Pulse Ox 93 93 O2 Delivery Venturi Mask Bi-pap Venturi Mask O2 Flow Rate 15.0 12/08/16 12/08/16 12/08/16 12/08/16 10:00 11:00 12:00 12:00 Temp 98.4 98.1 98.4 98.1 Pulse 93 93 82 Resp 29 32 28 B/P (MAP) 97/50 (66) 93/49 (64) 100/52 (68) Pulse Ox 94 95 96 O2 Delivery Venturi Mask Venturi Mask Venturi Mask Venturi Mask Intake and Output 12/07/16 12/07/16 12/08/16 15:00 23:00 07:00 Intake Total 2650.2 ml 1070 ml Output Total 300 ml 715 ml 1250 ml Balance -300 ml 1935.2 ml -180 ml BEN DALE MD Dec 08, 2016 12:55
--- NOTE | 2016-12-08 23:51 | PDOC ---
Provider Note Provider Note RENAL F/U : RAMÍREZ S : More alert. No active CP, SOA or new c/o O : VSS BP better/stable Alert. Neck : Supple Lings : Decreased bases. Non labored. CVS : RRR Abd : Portly. No masses. Stable edema/trace. Neuro ; Alert. Labs reviewed. A/P : ARF/ATN HTN w CKD HYPOTENSION MENTAL STATUS CHANGES. Overall improved. Supportive care. Wean off pressors. Labs. Natasha Elmore M.D. NATASHA ELMORE MD Dec 08, 2016 23:51
[2016-12-09] VITALS (54 sets, daily range): BP systolic 88–133; BP diastolic 46–70
[2016-12-09] MEDS: AMINO AC 3%/ELECTROLYTE/GLYCER 1,000 ML IV SCH ×2 (02:39→14:07)
[2016-12-09] MEDS: NOREPINEPHRIN PREMIX 250 ML IV PRN (02:40)
[2016-12-09] MEDS: PIPERACILLIN/TAZOBACTAM 2.25 GM in IV NORMAL SALINE 50ML 50 ML IV SCH (05:54)
--- NOTE | 2016-12-09 07:56 | PDOC ---
Infectious Disease Note Subjective Subjective pt feeling good says ROS ROS GEN: Denies fevers, chills, sweats HEENT: Denies blurred vision, sore throat CV: Denies chest pain RESP: Denies shortness of air, cough GI: Denies n/v/d NEURO: Denies confusion, dizziness Vital Sign Vital Signs Vital Signs Date Time Temp Pulse Resp B/P (MAP) Pulse Ox O2 Delivery O2 Flow Rate FiO2 12/09/16 07:40 Venturi Mask 15.0 12/09/16 07:18 97.1 79 30 105/61 (76) 94 97.1 Physical Exam PHYSICAL EXAM GENERAL: NAD, Alert HEENT: PERRL, OC/OP NECK: Supple, no JVD, no LN LUNGS: Clear HEART: S1S2, no gallop, no murmur ABD: Soft, NT, no organomegaly, no rebound EXT: ++ edema, no cyanosis HEALTH POLICY ANALYST: Alert, oriented x 3, SKIN: No rash IV: ok Labs Lab Laboratory Tests Test 12/08/16 08:00 12/08/16 12:19 12/08/16 17:30 O2 Saturation 93 % (92-99) Arterial Blood pH 7.47 (7.35-7.45) Arterial Blood pCO2 at Patient Temp 31 mmHg (35-46) Arterial Blood pO2 at Patient Temp 62 mmHg (65-108) Arterial Blood HCO3 22 mmol/L (21-28) Arterial Blood Base Excess -1 mmol/L (-3-3) FiO2 40 Glucose (Fingerstick) 97 mg/dL (70-99) 138 mg/dL (70-99) Objective Assessment Septic shock, POA. 12/06. Staph aureus, presumptive MRSA bacteremia. TTE neg veg , 12/06. Hypothermia- off Blanquita hugger Acute encephalopathy, improving Possible pneumoperitoneum on chest-ray. CT neg, mild ileus UTI, POA. 12/06. GNR RENETTA Acute respiratory failure Bradyarrhythmia s/p code blue 12/07 Metabolic acidosis Chronic debility Plan Plan of Care cont daptomycin d/c Zosyn Last dose vanc 12/06. f/u cultures, further modifications of antibiotics anticipated once ID/ susceptibilities known. Hold PICC. ok for other central line if needed for pressors and TPN ANABELLA GODOY MD Dec 09, 2016 07:56
[2016-12-09] MEDS: INSULIN ASPART 300 UNITS/3 ML INSULN.PEN SQ SCH ×3 (08:00→16:43)
[2016-12-09] MEDS: FAMOTIDINE 20 MG/2 ML VIAL IVP SCH ×2 (08:23→22:14)
--- NOTE | 2016-12-09 09:05 | PDOC ---
Provider Note Provider Note labs pending, e coli urine res. to pip, sens to rocep so change, rest of orders same- still lools like AF on monitor- will need some lasix re edema , wait for labs first TARUN ZIMMERMAN MD Dec 09, 2016 09:05
[2016-12-09] MEDS ORDERED: FUROSEMIDE 40 MG/4 ML VIAL. IVP ONE (09:30)
[2016-12-09] MEDS ORDERED: LIDOCAINE 1%/EPI 1:100,000 20 ML VIAL. ONE (10:32)
[2016-12-09] MEDS ORDERED: LIDOCAINE 1% / SOD BICARB 8.4% 20 ML VIAL. IJ ONE ×2 (10:32→10:45)
[2016-12-09] MEDS ORDERED: HEPARIN for IV BOLUS 10,000 UNIT/10 ML VIAL. ONE (10:33)
--- NOTE | 2016-12-09 11:30 | RAD ---
Portable chest, 12/09/2016: History: Check central line placement Comparison is made to a study from 12/07/2016. A right jugular central venous catheter has been inserted extending into the right atrium. The catheter tip is not clearly delineated due to overlap of the spine. The NG tube has been removed. The right hemidiaphragm remains elevated. The heart is enlarged. The pulmonary vascularity is poorly defined and appears congested. There are moderate ongoing bilateral pulmonary infiltrates. There is pleural fluid contributing to the basilar opacities. The basilar opacities have worsened slightly. There is no evidence of pneumothorax. IMPRESSION: 1. Interval insertion of a right jugular central venous catheter extending into the right atrium. 2. Cardiomegaly with vascular congestion. 3. Worsening basilar opacities compatible with infiltrate and pleural fluid.
[2016-12-09 11:44] LABS: BASO # 0.1 x10^3/uL (0.0-0.2); BASO % 1 % (0-3); EOS % 1 % (0-3); HEMATOCRIT 29.3 % (39.0-53.0); HEMOGLOBIN 9.6 g/dL (13.0-17.5); LYMPH # 0.6 x10^3/uL (1.0-4.8); LYMPH % 5 % (24-48); MEAN CORPUSCULAR HEMOGLOBIN 29 pg (25-35); MEAN CORPUSCULAR HGB CONC 33 g/dL (31-37); MEAN CORPUSCULAR VOLUME 89 fL (79-100); MONO % 4 % (0-9); NEUT % 91 % (31-73); PLATELET COUNT 95 x10^3/uL (140-400); RED BLOOD COUNT 3.28 x10^6/uL (4.30-5.70); RED CELL DISTRIBUTION WIDTH 18.5 % (11.5-14.5); WHITE BLOOD COUNT 11.6 x10^3/uL (4.0-11.0)
--- NOTE | 2016-12-09 12:02 | PDOC ---
PULMONARY PROGRESS NOTES Subjective PT OFF BIPAP NO INCREASE SOA Vitals Vital Signs Date Time Temp Pulse Resp B/P (MAP) Pulse Ox O2 Delivery O2 Flow Rate FiO2 12/09/16 11:45 Venturi Mask 15.0 12/09/16 10:15 72 24 96/58 (71) 94 12/09/16 07:18 97.1 97.1 ROS: No Nausea, No Chest Pain, No Abdominal Pain, No Increase Cough General: Alert, No acute distress Cardiovascular: S1 Abdomen: Soft, Other (distended) Extremities: Other (1+edema, wounds) Skin: Warm Labs Laboratory Tests Test 12/07/16 12:03 12/07/16 17:46 12/08/16 05:47 12/08/16 07:46 Glucose (Fingerstick) 120 mg/dL (70-99) 130 mg/dL (70-99) 76 mg/dL (70-99) White Blood Count 13.5 x10^3/uL (4.0-11.0) Red Blood Count 3.35 x10^6/uL (4.30-5.70) Hemoglobin 9.7 g/dL (13.0-17.5) Hematocrit 30.4 % (39.0-53.0) Mean Corpuscular Volume 91 fL (79-100) Mean Corpuscular Hemoglobin 29 pg (25-35) Mean Corpuscular Hemoglobin Concent 32 g/dL (31-37) Red Cell Distribution Width 18.9 % (11.5-14.5) Platelet Count 107 x10^3/uL (140-400) Neutrophils (%) (Auto) 92 % (31-73) Lymphocytes (%) (Auto) 4 % (24-48) Monocytes (%) (Auto) 3 % (0-9) Eosinophils (%) (Auto) 0 % (0-3) Basophils (%) (Auto) 1 % (0-3) Neutrophils # (Auto) 12.4 x10^3uL (1.8-7.7) Lymphocytes # (Auto) 0.6 x10^3/uL (1.0-4.8) Monocytes # (Auto) 0.4 x10^3/uL (0.0-1.1) Eosinophils # (Auto) 0.0 x10^3/uL (0.0-0.7) Basophils # (Auto) 0.1 x10^3/uL (0.0-0.2) Sodium Level 136 mmol/L (136-145) Potassium Level 4.6 mmol/L (3.5-5.1) Chloride Level 102 mmol/L (98-107) Carbon Dioxide Level 23 mmol/L (21-32) Anion Gap 11 (6-14) Blood Urea Nitrogen 43 mg/dL (8-26) Creatinine 1.9 mg/dL (0.7-1.3) Estimated GFR (Cockcroft-Gault) 35.6 Glucose Level 119 mg/dL (70-99) Calcium Level 8.3 mg/dL (8.5-10.1) Magnesium Level 1.6 mg/dL (1.8-2.4) Test 12/08/16 08:00 12/08/16 12:19 12/08/16 17:30 12/09/16 08:21 O2 Saturation 93 % (92-99) Arterial Blood pH 7.47 (7.35-7.45) Arterial Blood pCO2 at Patient Temp 31 mmHg (35-46) Arterial Blood pO2 at Patient Temp 62 mmHg (65-108) Arterial Blood HCO3 22 mmol/L (21-28) Arterial Blood Base Excess -1 mmol/L (-3-3) FiO2 40 Glucose (Fingerstick) 97 mg/dL (70-99) 138 mg/dL (70-99) 149 mg/dL (70-99) Test 12/09/16 11:30 White Blood Count 11.6 x10^3/uL (4.0-11.0) Red Blood Count 3.28 x10^6/uL (4.30-5.70) Hemoglobin 9.6 g/dL (13.0-17.5) Hematocrit 29.3 % (39.0-53.0) Mean Corpuscular Volume 89 fL (79-100) Mean Corpuscular Hemoglobin 29 pg (25-35) Mean Corpuscular Hemoglobin Concent 33 g/dL (31-37) Red Cell Distribution Width 18.5 % (11.5-14.5) Platelet Count 95 x10^3/uL (140-400) Neutrophils (%) (Auto) 91 % (31-73) Lymphocytes (%) (Auto) 5 % (24-48) Monocytes (%) (Auto) 4 % (0-9) Eosinophils (%) (Auto) 1 % (0-3) Basophils (%) (Auto) 1 % (0-3) Neutrophils # (Auto) 10.5 x10^3uL (1.8-7.7) Lymphocytes # (Auto) 0.6 x10^3/uL (1.0-4.8) Monocytes # (Auto) 0.4 x10^3/uL (0.0-1.1) Eosinophils # (Auto) 0.1 x10^3/uL (0.0-0.7) Basophils # (Auto) 0.1 x10^3/uL (0.0-0.2) Laboratory Tests Test 12/08/16 12:19 12/08/16 17:30 12/09/16 08:21 12/09/16 11:30 Glucose (Fingerstick) 97 mg/dL (70-99) 138 mg/dL (70-99) 149 mg/dL (70-99) White Blood Count 11.6 x10^3/uL (4.0-11.0) Red Blood Count 3.28 x10^6/uL (4.30-5.70) Hemoglobin 9.6 g/dL (13.0-17.5) Hematocrit 29.3 % (39.0-53.0) Mean Corpuscular Volume 89 fL (79-100) Mean Corpuscular Hemoglobin 29 pg (25-35) Mean Corpuscular Hemoglobin Concent 33 g/dL (31-37) Red Cell Distribution Width 18.5 % (11.5-14.5) Platelet Count 95 x10^3/uL (140-400) Neutrophils (%) (Auto) 91 % (31-73) Lymphocytes (%) (Auto) 5 % (24-48) Monocytes (%) (Auto) 4 % (0-9) Eosinophils (%) (Auto) 1 % (0-3) Basophils (%) (Auto) 1 % (0-3) Neutrophils # (Auto) 10.5 x10^3uL (1.8-7.7) Lymphocytes # (Auto) 0.6 x10^3/uL (1.0-4.8) Monocytes # (Auto) 0.4 x10^3/uL (0.0-1.1) Eosinophils # (Auto) 0.1 x10^3/uL (0.0-0.7) Basophils # (Auto) 0.1 x10^3/uL (0.0-0.2) Medications Active Scripts Medications Dose Route/Sig Max Daily Dose Days Date Category [place] 3 Fish Oil Softgel ([place]-3 Fatty Acids/Fish Oil) 1 Each Capsule.dr 2 Cap PO DAILY 05/25/15 Reported Polyethylene Glycol 3350 17 Gm Powd.pack 17 Gm PO PRN QID PRN 05/25/15 Reported Simethicone 125 Mg Capsule 250 Mg PO QID 05/25/15 Reported Propranolol Hcl 20 Mg Tablet 20 Mg PO QHS 05/25/15 Reported Melatonin 3 Mg Tablet 6 Mg PO QHS 05/25/15 Reported Potassium Chloride 20 Meq Tab.er.prt 20 Meq PO DAILY 05/25/15 Reported Prazosin Hcl 1 Mg Capsule 1 Mg PO QHS 05/25/15 Reported Mupirocin Ointment (Mupirocin) 22 Gm Oint...g. 1 Kiran TP BID 05/25/15 Reported Nystop (Nystatin) 60 Gm Powder 1 Kiran TP BID 05/25/15 Reported Mirapex (Pramipexole Di-Hcl) 0.125 Mg Tablet 0.125 Mg PO TID 05/25/15 Reported Triamcinolone Acetonide 80 Gm Oint...g. 1 Kiran TP TID 05/25/15 Reported Tamsulosin Hcl 0.4 Mg Cap.er.24h 0.4 Mg PO DAILY 08/04/14 Reported Furosemide 20 Mg Tablet 20 Mg PO DAILY 08/04/14 Reported Magnesium Oxide 400 Mg Tablet 400 Mg PO BID 03/03/14 Reported Pantoprazole Sodium 40 Mg Tablet.dr 40 Mg PO DAILY 03/03/14 Reported Propranolol Hcl 40 Mg Tablet 40 Mg PO DAILY 03/03/14 Reported Nephro-Elkin Tablet (Folic Acid/Vitamin B Comp W-C) 0.8 Mg Tablet 1 Tab PO DAILY 03/03/14 Reported Temazepam 15 Mg Capsule 30 Mg PO QHS 03/03/14 Reported Losartan Potassium 50 Mg Tablet 50 Mg PO DAILY 03/03/14 Reported Abilify (Aripiprazole) 10 Mg Tablet 15 Mg PO DAILY 03/03/14 Reported Amlodipine Besylate 5 Mg Tablet 5 Tab PO DAILY 03/03/14 Reported Ranexa (Ranolazine) 500 Mg Tab.er.12h 500 Mg PO BID 03/03/14 Reported Nitrostat (Nitroglycerin) 0.4 Mg Tab.subl 0.4 Mg SL PRN Q5MIN PRN 03/03/14 Reported Probiotic & Acidophilus Cap (Lactobac Cmb #3/Fos/Pantethine) 1 Each Capsule 1 Tab PO DAILY 03/03/14 Reported Cilostazol 50 Mg Tablet 50 Mg PO BID 03/03/14 Reported Glycopyrrolate 2 Mg Tablet 2 Mg PO NOON 03/03/14 Reported Finasteride 5 Mg Tablet 5 Mg PO DAILY 03/03/14 Reported Vitamin D (Cholecalciferol (Vitamin D3)) 1,000 Unit Tablet 2,000 Unit PO DAILY 03/03/14 Reported Co Q-10 (Ubidecarenone) 100 Mg Capsule 100 Mg PO NOON 03/03/14 Reported Allopurinol 300 Mg Tablet 300 Mg PO BID 03/03/14 Reported Aspirin 325 Mg Tablet 325 Mg PO DAILY 03/03/14 Reported Imdur (Isosorbide Mononitrate) 30 Mg Tab.er.24h 30 Mg PO DAILYWLUN 03/03/14 Reported Sucralfate 1 Gm Tablet 1 Gm PO QIDACHS 03/03/14 Reported Atorvastatin Calcium 20 Mg Tablet 20 Mg PO HS 03/03/14 Reported Humalog (Insulin Lispro) 100 Unit/1 Ml Insuln.pen 5 Unit SQ TIDAC 03/03/14 Reported Lantus Solostar (Insulin Glargine,Hum.rec.anlog) 100 Unit/1 Ml Insuln.pen 30 Unit SQ QEVNG 03/03/14 Reported Ketoconazole 15 Gm Cream..g. 1 Kiran TP DAILY 03/03/14 Reported Impression . 1. Acute hypercapnic/ hypoxic RF, Multi-factorial 2. Septic shock, staph bacteremia 3. acute encephalology secondary to septic shock 4. No pneumoperitoneum by ct abdomen 5. RENETTA secondary septic shock 6. Abnormal chest x-ray basal atelectasis 7. chronic debility 8. Metabolic acidosis 9. Bradycardia, improved Plan . PT FEELS BETTER BIPAP QHS TITRATE PRESSORS OFF PPN NO INTUBATION ANTIBX PER ID FLUIDS NEEDED GLEN MONROY MD Dec 09, 2016 12:02
[2016-12-09 12:11] LABS: CALCIUM 8.7 mg/dL (8.5-10.1); CREATININE 1.1 mg/dL (0.7-1.3); POTASSIUM 3.8 mmol/L (3.5-5.1)
--- NOTE | 2016-12-09 12:11 | PDOC ---
PROGRESS NOTES Subjective Subjective The patient is more alert today. Objective Objective Vital Signs Date Time Temp Pulse Resp B/P (MAP) Pulse Ox O2 Delivery O2 Flow Rate FiO2 12/09/16 11:45 Venturi Mask 15.0 12/09/16 10:15 72 24 96/58 (71) 94 12/09/16 07:18 97.1 97.1 Intake and Output 12/09/16 07:00 Intake Total 3846.3 ml Output Total 3370 ml Balance 476.3 ml IV Total 3846.3 ml Output Urine Total 3170 ml Gastric Drainage Total 200 ml # Bowel Movements 1 Physical Exam Abdomen: Normal bowel sounds Heart: Regular rate General: mild distress Lungs: Other (mildly decreased breath sounds) Assessment Assessment Problems Medical Problems: (1) Altered level of consciousness Status: Acute (2) Bradycardia Status: Acute (3) Hypotension Status: Acute (4) Hypothermia Status: Acute (5) Sepsis Status: Acute 1. Symptomatic Bradyarrhythmia: Resolved. Continue present medications and close monitoring. 2. Hypothermia/hypotension/possible sepsis. The patient continues to improve. Continue present treatment. 3. Metabolic encephalopathy Resolving 4. RENETTA with hyperkalemia: Potassium and creatinine levels improved. Continue present treatments. 5. Subclinical hypothyroidism 6. Hx of frequent UTI: Ecoli resistant to gentamicin per review 7. Hx of HTN,DM2/HLP 8. Hx of CHF but unknown hx of CAD: pt denies any prior CAD. 9. Chronic debility Comment Review of Relevant I have reviewed the following items javed (where applicable) has been applied. Labs Laboratory Tests Test 12/07/16 17:46 12/08/16 05:47 12/08/16 07:46 12/08/16 08:00 Glucose (Fingerstick) 130 mg/dL (70-99) 76 mg/dL (70-99) White Blood Count 13.5 x10^3/uL (4.0-11.0) Red Blood Count 3.35 x10^6/uL (4.30-5.70) Hemoglobin 9.7 g/dL (13.0-17.5) Hematocrit 30.4 % (39.0-53.0) Mean Corpuscular Volume 91 fL (79-100) Mean Corpuscular Hemoglobin 29 pg (25-35) Mean Corpuscular Hemoglobin Concent 32 g/dL (31-37) Red Cell Distribution Width 18.9 % (11.5-14.5) Platelet Count 107 x10^3/uL (140-400) Neutrophils (%) (Auto) 92 % (31-73) Lymphocytes (%) (Auto) 4 % (24-48) Monocytes (%) (Auto) 3 % (0-9) Eosinophils (%) (Auto) 0 % (0-3) Basophils (%) (Auto) 1 % (0-3) Neutrophils # (Auto) 12.4 x10^3uL (1.8-7.7) Lymphocytes # (Auto) 0.6 x10^3/uL (1.0-4.8) Monocytes # (Auto) 0.4 x10^3/uL (0.0-1.1) Eosinophils # (Auto) 0.0 x10^3/uL (0.0-0.7) Basophils # (Auto) 0.1 x10^3/uL (0.0-0.2) Sodium Level 136 mmol/L (136-145) Potassium Level 4.6 mmol/L (3.5-5.1) Chloride Level 102 mmol/L (98-107) Carbon Dioxide Level 23 mmol/L (21-32) Anion Gap 11 (6-14) Blood Urea Nitrogen 43 mg/dL (8-26) Creatinine 1.9 mg/dL (0.7-1.3) Estimated GFR (Cockcroft-Gault) 35.6 Glucose Level 119 mg/dL (70-99) Calcium Level 8.3 mg/dL (8.5-10.1) Magnesium Level 1.6 mg/dL (1.8-2.4) O2 Saturation 93 % (92-99) Arterial Blood pH 7.47 (7.35-7.45) Arterial Blood pCO2 at Patient Temp 31 mmHg (35-46) Arterial Blood pO2 at Patient Temp 62 mmHg (65-108) Arterial Blood HCO3 22 mmol/L (21-28) Arterial Blood Base Excess -1 mmol/L (-3-3) FiO2 40 Test 12/08/16 12:19 12/08/16 17:30 12/09/16 08:21 12/09/16 11:30 Glucose (Fingerstick) 97 mg/dL (70-99) 138 mg/dL (70-99) 149 mg/dL (70-99) White Blood Count 11.6 x10^3/uL (4.0-11.0) Red Blood Count 3.28 x10^6/uL (4.30-5.70) Hemoglobin 9.6 g/dL (13.0-17.5) Hematocrit 29.3 % (39.0-53.0) Mean Corpuscular Volume 89 fL (79-100) Mean Corpuscular Hemoglobin 29 pg (25-35) Mean Corpuscular Hemoglobin Concent 33 g/dL (31-37) Red Cell Distribution Width 18.5 % (11.5-14.5) Platelet Count 95 x10^3/uL (140-400) Neutrophils (%) (Auto) 91 % (31-73) Lymphocytes (%) (Auto) 5 % (24-48) Monocytes (%) (Auto) 4 % (0-9) Eosinophils (%) (Auto) 1 % (0-3) Basophils (%) (Auto) 1 % (0-3) Neutrophils # (Auto) 10.5 x10^3uL (1.8-7.7) Lymphocytes # (Auto) 0.6 x10^3/uL (1.0-4.8) Monocytes # (Auto) 0.4 x10^3/uL (0.0-1.1) Eosinophils # (Auto) 0.1 x10^3/uL (0.0-0.7) Basophils # (Auto) 0.1 x10^3/uL (0.0-0.2) Laboratory Tests Test 12/08/16 12:19 12/08/16 17:30 12/09/16 08:21 12/09/16 11:30 Glucose (Fingerstick) 97 mg/dL (70-99) 138 mg/dL (70-99) 149 mg/dL (70-99) White Blood Count 11.6 x10^3/uL (4.0-11.0) Red Blood Count 3.28 x10^6/uL (4.30-5.70) Hemoglobin 9.6 g/dL (13.0-17.5) Hematocrit 29.3 % (39.0-53.0) Mean Corpuscular Volume 89 fL (79-100) Mean Corpuscular Hemoglobin 29 pg (25-35) Mean Corpuscular Hemoglobin Concent 33 g/dL (31-37) Red Cell Distribution Width 18.5 % (11.5-14.5) Platelet Count 95 x10^3/uL (140-400) Neutrophils (%) (Auto) 91 % (31-73) Lymphocytes (%) (Auto) 5 % (24-48) Monocytes (%) (Auto) 4 % (0-9) Eosinophils (%) (Auto) 1 % (0-3) Basophils (%) (Auto) 1 % (0-3) Neutrophils # (Auto) 10.5 x10^3uL (1.8-7.7) Lymphocytes # (Auto) 0.6 x10^3/uL (1.0-4.8) Monocytes # (Auto) 0.4 x10^3/uL (0.0-1.1) Eosinophils # (Auto) 0.1 x10^3/uL (0.0-0.7) Basophils # (Auto) 0.1 x10^3/uL (0.0-0.2) Microbiology 12/06/16 Blood Culture - Preliminary, Resulted 12/06/16 Blood Culture Result 1 (ERICK) - Preliminary, Resulted 12/06/16 Blood Culture Result 2 (ERICK) - Preliminary, Resulted 12/06/16 Antimicrobic Susceptibility - Preliminary, Resulted 12/06/16 Urine Culture - Final, Complete 12/06/16 Urine Culture Result 1 (ERICK) - Final, Complete 12/06/16 Antimicrobic Susceptibility - Final, Complete Medications Current Medications Atropine Sulfate 1 mg STK-MED ONCE .ROUTE ; Start 12/06/16 at 15:04; Stop at 15:05; Status DC Dextrose (Dextrose 50%-Water Syringe) 25 gm 1X ONCE IV Last administered on 14:53; Start 12/06/16 at 15:15; Stop 12/06/16 at 15:16; Status DC Insulin Human Regular (NovoLIN R VIAL) 5 unit 1X ONCE IV Last administered on 12/06/16 14:53; Start 12/06/16 at 15:15; Stop 12/06/16 at 15:16; Status DC Atropine Sulfate 1 mg 1X ONCE IV ; Start 12/06/16 at 15:15; Stop 12/06/16 at 15 :16; Status Cancel Sodium Bicarbonate 50 meq 1X ONCE IV Last administered on 12/06/16 14:53; Start 12/06/16 at 15:15; Stop 12/06/16 at 15:16; Status DC Calcium Gluconate (Calcium Gluconate) 1,000 mg 1X ONCE IVP Last administered on 12/06/16 14:53; Start 12/06/16 at 15:15; Stop 12/06/16 at 15:16; Status DC Dopamine HCl/ Dextrose 250 ml @ 0 mls/hr 1X ONCE IV Last administered on 15:02; Start 12/06/16 at 15:15; Stop 12/06/16 at 15:16; Status DC Atropine Sulfate 1 mg 1X ONCE IV Last administered on 12/06/16 15:04; Start 12/06/16 at 15:15; Stop 12/06/16 at 15:16; Status DC Sodium Chloride 500 ml @ 500 mls/hr 1X ONCE IV Last administered on 15:20; Start 12/06/16 at 15:45; Stop 12/06/16 at 16:44; Status DC Sodium Chloride 1,000 ml @ 1,000 mls/hr 1X ONCE IV Last administered on 15:30; Start 12/06/16 at 15:45; Stop 12/06/16 at 16:44; Status DC Ceftriaxone Sodium 50 ml @ 100 mls/hr 1X ONCE IV Last administered on 15:45; Start 12/06/16 at 15:45; Stop 12/06/16 at 16:14; Status DC Vancomycin HCl (Vanco Per Pharmacy) 1 each PRN DAILY PRN MC SEE COMMENTS Last administered on 12/06/16 16:23; Start 12/06/16 at 16:15; Stop 12/06/16 at 19:10 ; Status DC Vancomycin HCl 2 gm/Sodium Chloride 500 ml @ 250 mls/hr 1X ONCE IV Last administered on 12/06/16 16:15; Start 12/06/16 at 16:30; Stop 12/06/16 at 19:10 ; Status DC Vancomycin HCl 1.5 gm/Sodium Chloride 500 ml @ 250 mls/hr Q24H IV ; Start at 16:00; Stop 12/07/16 at 16:00; Status DC Vancomycin HCl 1 each 1X ONCE MC ; Start 12/08/16 at 15:30; Stop 12/08/16 at 15: 30; Status DC Sodium Chloride 1,000 ml @ 100 mls/hr Q10H IV Last administered on 12/08/16 07 :48; Start 12/06/16 at 16:30; Stop 12/08/16 at 11:06; Status DC Norepinephrine Bitartrate 250 ml @ As Directed STK-MED ONCE IV ; Start at 16:50; Stop 12/06/16 at 16:51; Status DC Sodium Bicarbonate 50 meq 1X ONCE IV Last administered on 12/06/16 17:00; Start 12/06/16 at 17:00; Stop 12/06/16 at 17:01; Status DC Norepinephrine Bitartrate 16 mg/ Sodium Chloride 266 ml @ 0 mls/hr CONT PRN IV SEE I/O RECORD; Start 12/06/16 at 17:15; Status UNV Phenylephrine HCl 80 mg/Sodium Chloride 258 ml @ 0 mls/hr CONT PRN IV SEE I/O RECORD Last administered on 12/07/16 02:37; Start 12/06/16 at 17:15 Norepinephrine Bitartrate 250 ml @ 1.875 mls/ hr CONT PRN IV SEE I/O RECORD Last administered on 12/09/16 02:40; Start 12/06/16 at 17:15 Piperacillin Sod/ Tazobactam Sod 2.25 gm/Sodium Chloride 50 ml @ 100 mls/hr Q8HRS IV Last administered on 12/09/16 05:54; Start 12/06/16 at 18:00; Stop 12/09/16 at 09:01; Status DC Levofloxacin/ Dextrose 150 ml @ 100 mls/hr Q48H IV Last administered on 19:08; Start 12/06/16 at 18:00; Stop 12/07/16 at 10:42; Status DC Sodium Chloride 1,000 ml @ 1,000 mls/hr 1X ONCE IV Last administered on 19:23; Start 12/06/16 at 17:45; Stop 12/06/16 at 18:44; Status DC Sodium Chloride 1,000 ml @ 1,000 mls/hr 1X ONCE IV Last administered on 19:23; Start 12/06/16 at 18:45; Stop 12/06/16 at 19:44; Status DC Sodium Chloride 500 ml @ 500 mls/hr 1X ONCE IV Last administered on 12/07/16 00:00; Start 12/06/16 at 19:00; Stop 12/06/16 at 19:59; Status DC Albumin Human 500 ml @ 125 mls/hr 1X ONCE IV Last administered on 12/06/16 19:22; Start 12/06/16 at 19:00; Stop 12/06/16 at 22:59; Status DC Dopamine HCl/ Dextrose 250 ml @ 20.837 mls/ hr CONT PRN IV SEE I/O RECORD Last administered on 12/09/16 07:17; Start 12/06/16 at 19:15 Sodium Bicarbonate 50 meq 1X ONCE IV Last administered on 12/06/16 20:47; Start 12/06/16 at 21:00; Stop 12/06/16 at 21:01; Status DC Ondansetron HCl (Zofran) 4 mg PRN Q6HRS PRN IV NAUSEA/VOMITING Last administered on 12/07/16 05:36; Start 12/07/16 at 05:30 Insulin Aspart (NovoLOG) 0-9 UNITS TIDWMEALS SQ ; Start 12/07/16 at 12:00 Dextrose (Dextrose 50%-Water Syringe) 12.5 gm PRN Q15MIN PRN IV SEE COMMENTS; Start 12/07/16 at 11:15 Famotidine (Pepcid) 20 mg BID IVP Last administered on 12/09/16 08:23; Start at 11:30 Daptomycin 450 mg/ Sodium Chloride 50 ml @ 100 mls/hr Q24H IV Last administered on 12/09/16 10:22; Start 12/08/16 at 10:00 Amino Acids/ Glycerin/ Electrolytes 1,000 ml @ 80 mls/hr [id number] IV Last administered on 12/09/16 02:39; Start 12/08/16 at 11:15 Magnesium Sulfate/ Dextrose 50 ml @ 25 mls/hr 1X ONCE IV Last administered on 12/08/16 11:29; Start 12/08/16 at 11:15; Stop 12/08/16 at 13:14; Status DC Ceftriaxone Sodium 1 gm/ Sodium Chloride 50 ml @ 100 mls/hr Q24H IV Last administered on 12/09/16 09:39; Start 12/09/16 at 10:00 Furosemide (Lasix) 40 mg 1X ONCE IVP Last administered on 12/09/16 09:39; Start 12/09/16 at 09:30; Stop 12/09/16 at 09:31; Status DC Lidocaine/ Epinephrine (Xylocaine 1%-Epi 1:100,000) 20 ml STK-MED ONCE .ROUTE ; Start 12/09/16 at 10:32; Stop 12/09/16 at 10:33; Status DC Lidocaine/Sodium Bicarbonate (Buffered Lidocaine 1%) 20 ml STK-MED ONCE IJ ; Start 12/09/16 at 10:32; Stop 12/09/16 at 10:33; Status DC Lidocaine/Sodium Bicarbonate (Buffered Lidocaine 1%) 3 ml 1X ONCE IJ Last administered on 12/09/16 11:04; Start 12/09/16 at 10:45; Stop 12/09/16 at 10:46; Status DC Heparin Sodium/ Sodium Chloride 60 unit 1X ONCE IV Last administered on 11:03; Start 12/09/16 at 10:45; Stop 12/09/16 at 10:46; Status DC Heparin Sodium (Porcine) (Heparin Sodium) 10,000 unit STK-MED ONCE .ROUTE ; Start 12/09/16 at 10:33; Stop 12/09/16 at 10:34; Status DC Active Scripts Active Reported [place] 3 Fish Oil Softgel ([place]-3 Fatty Acids/Fish Oil) 1 Each Capsule.dr 2 Cap PO DAILY Polyethylene Glycol 3350 17 Gm Powd.pack 17 Gm PO PRN QID PRN Simethicone 125 Mg Capsule 250 Mg PO QID Propranolol Hcl 20 Mg Tablet 20 Mg PO QHS Melatonin 3 Mg Tablet 6 Mg PO QHS Potassium Chloride 20 Meq Tab.er.prt 20 Meq PO DAILY Prazosin Hcl 1 Mg Capsule 1 Mg PO QHS Mupirocin Ointment (Mupirocin) 22 Gm Oint...g. 1 Kiran TP BID Nystop (Nystatin) 60 Gm Powder 1 Kiran TP BID Mirapex (Pramipexole Di-Hcl) 0.125 Mg Tablet 0.125 Mg PO TID Triamcinolone Acetonide 80 Gm Oint...g. 1 Kiran TP TID Tamsulosin Hcl 0.4 Mg Cap.er.24h 0.4 Mg PO DAILY Furosemide 20 Mg Tablet 20 Mg PO DAILY Magnesium Oxide 400 Mg Tablet 400 Mg PO BID Pantoprazole Sodium 40 Mg Tablet.dr 40 Mg PO DAILY Propranolol Hcl 40 Mg Tablet 40 Mg PO DAILY Nephro-Elkin Tablet (Folic Acid/Vitamin B Comp W-C) 0.8 Mg Tablet 1 Tab PO DAILY Temazepam 15 Mg Capsule 30 Mg PO QHS Losartan Potassium 50 Mg Tablet 50 Mg PO DAILY Abilify (Aripiprazole) 10 Mg Tablet 15 Mg PO DAILY Amlodipine Besylate 5 Mg Tablet 5 Tab PO DAILY Ranexa (Ranolazine) 500 Mg Tab.er.12h 500 Mg PO BID Nitrostat (Nitroglycerin) 0.4 Mg Tab.subl 0.4 Mg SL PRN Q5MIN PRN Probiotic & Acidophilus Cap (Lactobac Cmb #3/Fos/Pantethine) 1 Each Capsule 1 Tab PO DAILY Cilostazol 50 Mg Tablet 50 Mg PO BID Glycopyrrolate 2 Mg Tablet 2 Mg PO NOON Finasteride 5 Mg Tablet 5 Mg PO DAILY Vitamin D (Cholecalciferol (Vitamin D3)) 1,000 Unit Tablet 2,000 Unit PO DAILY Co Q-10 (Ubidecarenone) 100 Mg Capsule 100 Mg PO NOON Allopurinol 300 Mg Tablet 300 Mg PO BID Aspirin 325 Mg Tablet 325 Mg PO DAILY Imdur (Isosorbide Mononitrate) 30 Mg Tab.er.24h 30 Mg PO DAILYWLUN Sucralfate 1 Gm Tablet 1 Gm PO QIDACHS Atorvastatin Calcium 20 Mg Tablet 20 Mg PO HS Humalog (Insulin Lispro) 100 Unit/1 Ml Insuln.pen 5 Unit SQ TIDAC Lantus Solostar (Insulin Glargine,Hum.rec.anlog) 100 Unit/1 Ml Insuln.pen 30 Unit SQ QEVNG Ketoconazole 15 Gm Cream..g. 1 Kiran TP DAILY Vitals/I & O Vital Sign - Last 24 Hours 12/08/16 12/08/16 12/08/16 12/08/16 13:00 14:00 15:00 16:00 Temp 97.7 97.5 97.7 97.5 Pulse 76 89 80 Resp 28 29 34 B/P (MAP) 95/53 (67) 95/52 (66) 95/50 (65) Pulse Ox 95 94 91 O2 Delivery Venturi Mask Venturi Mask Venturi Mask Venturi Mask 12/08/16 12/08/16 12/08/16 12/08/16 16:00 17:00 18:00 19:00 Temp 97.2 97.2 Pulse 78 74 74 72 Resp 28 29 32 31 B/P (MAP) 99/45 (63) 100/51 (67) 98/47 (64) 94/54 (67) Pulse Ox 91 91 91 91 O2 Delivery Venturi Mask Venturi Mask Venturi Mask Venturi Mask 12/08/16 12/08/16 12/08/16 12/08/16 19:34 19:34 20:30 21:00 Temp 96.9 96.9 Pulse 76 72 76 Resp 28 35 B/P (MAP) 100/47 (64) 104/54 (71) 102/54 (70) Pulse Ox 91 95 O2 Delivery Venturi Mask Venturi Mask Venturi Mask 12/08/16 12/08/16 12/08/16 12/08/16 21:30 22:00 22:30 23:00 Pulse 72 72 78 Resp 45 45 B/P (MAP) 107/55 (72) 106/66 (79) 100/48 (65) 95/52 (66) Pulse Ox 96 96 O2 Delivery Venturi Mask Venturi Mask 12/08/16 12/09/16 12/09/16 12/09/16 23:30 00:00 00:00 00:30 Pulse 78 Resp 45 B/P (MAP) 103/53 (70) 98/51 (67) 103/50 (67) Pulse Ox 96 O2 Delivery Venturi Mask Venturi Mask 12/09/16 12/09/16 12/09/16 12/09/16 01:00 01:30 02:00 03:00 Pulse 87 72 72 Resp 34 40 38 B/P (MAP) 103/50 (67) 100/58 (72) 111/48 (69) 106/57 (73) Pulse Ox 94 96 96 O2 Delivery Venturi Mask Venturi Mask Venturi Mask 12/09/16 12/09/16 12/09/16 12/09/16 03:30 04:00 04:00 04:30 Pulse 78 Resp 35 B/P (MAP) 117/60 (79) 109/52 (71) 124/61 (82) Pulse Ox 95 O2 Delivery Venturi Mask Venturi Mask 12/09/16 12/09/16 12/09/16 12/09/16 05:00 05:30 06:00 07:18 Temp 97.1 97.1 Pulse 74 77 79 Resp 40 45 30 B/P (MAP) 119/61 (80) 117/54 (75) 110/68 (82) 105/61 (76) Pulse Ox 96 95 94 O2 Delivery Venturi Mask Venturi Mask Venturi Mask 12/09/16 12/09/16 12/09/16 12/09/16 07:40 08:23 08:45 09:00 Pulse 101 76 76 Resp 26 35 26 B/P (MAP) 122/66 (84) 107/61 (76) 100/52 (68) Pulse Ox 94 94 93 O2 Delivery Venturi Mask Venturi Mask Venturi Mask Venturi Mask O2 Flow Rate 15.0 12/09/16 12/09/16 12/09/16 12/09/16 09:15 09:30 09:45 10:00 Pulse 78 80 86 80 Resp 26 30 32 26 B/P (MAP) 101/58 (72) 103/58 (73) 108/61 (77) 101/55 (70) Pulse Ox 93 94 94 93 O2 Delivery Venturi Mask Venturi Mask Venturi Mask Venturi Mask 12/09/16 12/09/16 10:15 11:45 Pulse 72 Resp 24 B/P (MAP) 96/58 (71) Pulse Ox 94 O2 Delivery Venturi Mask Venturi Mask O2 Flow Rate 15.0 Intake and Output 12/08/16 12/08/16 12/09/16 15:00 23:00 07:00 Intake Total 936.2 ml 1195.1 ml 1715 ml Output Total 1000 ml 1335 ml 1035 ml Balance -63.8 ml -139.9 ml 680 ml BEN DALE MD Dec 09, 2016 12:11
--- NOTE | 2016-12-09 13:19 | RAD ---
Procedure: Ultrasound-guided placement of right internal jugular central venous catheter Clinical Indication: Need for central venous access Sterility: All elements of maximal sterile barrier technique including the use of a cap, mask, sterile gown, sterile gloves, large sterile sheet, appropriate hand hygiene, and 2% chlorhexidine for cutaneous antisepsis (or acceptable alternative antiseptic per current guidelines) were followed for this procedure. Consent: The procedure was explained in its entirety to the patient or the patients designated indirect sales representative by a member of the treatment team, including a discussion of the risks, benefits and commonly accepted alternatives to the procedure, as well as the expected consequences of no therapy whatsoever. Discussion of the risks included, but was not limited to, those that are most frequent and those that are rare but possibly severe or life-threatening, as well as the possibility of unforeseen complications. Technique and Findings: Following informed consent, the patient was prepped and draped in the usual sterile fashion. Ultrasound interrogation of the right neck revealed patency and compressibility of the right internal jugular vein. A 21-gauge micropuncture needle was used to gain access to this vein after 1% Lidocaine was used to achieve local anesthesia. Ultrasound images were saved to the medical record. A 5 Maltese micropuncture sheath was placed. 035 wire was advanced centrally. Over this wire following dilatation triple lumen central venous catheter was advanced centrally. Catheter was found to flush and aspirate normally. Follow-up chest radiograph was obtained demonstrating appropriate positioning. No immediate complications were identified. Impression: Successful ultrasound-guided placement of right internal jugular triple-lumen central venous catheter
--- NOTE | 2016-12-09 15:40 | PDOC ---
Provider Note Provider Note RENAL F/U : RAMÍREZ S : Much more alert. No active CP, SOA or new c/o O : VSS BP better/stable Alert. Neck : Supple Lings : Decreased bases. Non labored. CVS : RRR Abd : Portly. No masses. Stable edema/trace. Neuro ; Alert. Labs reviewed. A/P : ARF/ATN HTN w CKD HYPOTENSION MENTAL STATUS CHANGES. Overall improved. Almost off pressors. BP low stable. Interactive. Supportive care. Wean off pressors. Labs. Natasha Elmore M.D. NATASHA ELMORE MD Dec 09, 2016 15:40
[2016-12-09] MEDS ORDERED: VITS A & D/LANOLIN TOPICAL OINTMENT 56GM TUBE. TP PRN (18:30)
[2016-12-09] MEDS: AMMONIUM LACTATE 12% TOPICAL LOTION 226GM BOTTLE. TP SCH (19:00)
--- NOTE | 2016-12-09 20:23 | RAD ---
Indication: NG tube placement. Time of exam 8 0 2:00 PM An NG tube passes below the diaphragm and has the tip directed towards the left in the region of the gastric body. There is mild gaseous distention of bowel loops in the central abdomen. There appears to be some atelectasis in both lung bases. IMPRESSION: NG tube placement, as described. Electronically signed by: Thierno Bansal MD (12/09/2016 8:20 PM)
[2016-12-09] MEDS: NYSTATIN TOPICAL POWDER 15GM BOTTLE. TP SCH (22:21)
[2016-12-10] VITALS (27 sets, daily range): BP systolic 105–140; BP diastolic 53–73
[2016-12-10] MEDS: AMINO AC 3%/ELECTROLYTE/GLYCER 1,000 ML IV SCH ×2 (00:57→14:10)
[2016-12-10] MEDS: INSULIN ASPART 300 UNITS/3 ML INSULN.PEN SQ SCH ×4 (00:57→18:00)
--- NOTE | 2016-12-10 08:01 | PDOC ---
Infectious Disease Note Subjective Subjective pt feeling dizzy ROS ROS GEN: Denies fevers, chills, sweats HEENT: Denies blurred vision, sore throat CV: Denies chest pain RESP: Denies shortness of air, cough GI: Denies n/v/d NEURO: Denies confusion, Vital Sign Vital Signs Vital Signs Date Time Temp Pulse Resp B/P (MAP) Pulse Ox O2 Delivery O2 Flow Rate FiO2 12/10/16 06:00 78 24 120/57 (78) 95 Venturi Mask 15.0 12/10/16 04:00 97.7 97.7 Physical Exam PHYSICAL EXAM GENERAL: NAD, Alert HEENT: PERRL, OC/OP NECK: Supple, no JVD, no LN LUNGS: Clear HEART: S1S2, no gallop, no murmur ABD: Soft, NT, no organomegaly, no rebound EXT: edema, no cyanosis CLINICAL DERMATOLOGIST: Alert, oriented x 3, no focal neurologic deficit SKIN: No rash,, multiple wounds IV: ok Labs Lab Laboratory Tests Test 12/09/16 08:21 12/09/16 11:30 12/09/16 12:34 12/09/16 16:43 Glucose (Fingerstick) 149 mg/dL (70-99) 137 mg/dL (70-99) 123 mg/dL (70-99) White Blood Count 11.6 x10^3/uL (4.0-11.0) Red Blood Count 3.28 x10^6/uL (4.30-5.70) Hemoglobin 9.6 g/dL (13.0-17.5) Hematocrit 29.3 % (39.0-53.0) Mean Corpuscular Volume 89 fL (79-100) Mean Corpuscular Hemoglobin 29 pg (25-35) Mean Corpuscular Hemoglobin Concent 33 g/dL (31-37) Red Cell Distribution Width 18.5 % (11.5-14.5) Platelet Count 95 x10^3/uL (140-400) Neutrophils (%) (Auto) 91 % (31-73) Lymphocytes (%) (Auto) 5 % (24-48) Monocytes (%) (Auto) 4 % (0-9) Eosinophils (%) (Auto) 1 % (0-3) Basophils (%) (Auto) 1 % (0-3) Neutrophils # (Auto) 10.5 x10^3uL (1.8-7.7) Lymphocytes # (Auto) 0.6 x10^3/uL (1.0-4.8) Monocytes # (Auto) 0.4 x10^3/uL (0.0-1.1) Eosinophils # (Auto) 0.1 x10^3/uL (0.0-0.7) Basophils # (Auto) 0.1 x10^3/uL (0.0-0.2) Sodium Level 139 mmol/L (136-145) Potassium Level 3.8 mmol/L (3.5-5.1) Chloride Level 105 mmol/L (98-107) Carbon Dioxide Level 27 mmol/L (21-32) Anion Gap 7 (6-14) Blood Urea Nitrogen 33 mg/dL (8-26) Creatinine 1.1 mg/dL (0.7-1.3) Estimated GFR (Cockcroft-Gault) 67.0 Glucose Level 144 mg/dL (70-99) Calcium Level 8.7 mg/dL (8.5-10.1) Test 12/10/16 00:55 12/10/16 06:24 Glucose (Fingerstick) 127 mg/dL (70-99) 127 mg/dL (70-99) Objective Assessment Septic shock, POA. 12/06. Staph aureus, presumptive MRSA bacteremia. TTE neg veg , 12/06. Hypothermia- off Blanquita hugger Acute encephalopathy, improving Possible pneumoperitoneum on chest-ray. CT neg, mild ileus UTI, POA. 12/06. GNR RENETTA Acute respiratory failure Bradyarrhythmia s/p code blue 7/1 Metabolic acidosis Chronic debility Plan Plan of Care vanc Last dose vanc 12/06. f/u cultures, further modifications of antibiotics anticipated once ID/ susceptibilities known. Hold PICC. ok for other central line if needed for pressors and TPN ANABELLA GODOY MD Dec 10, 2016 08:01
--- NOTE | 2016-12-10 08:07 | PDOC ---
CARDIOLOGY PROGRESS NOTE SUBJECTIVE: Reports dyspnea. OBJECTIVE: Vital SIgns: Vital Signs Date Time Temp Pulse Resp B/P (MAP) Pulse Ox O2 Delivery O2 Flow Rate FiO2 12/10/16 06:00 78 24 120/57 (78) 95 Venturi Mask 15.0 12/10/16 04:00 97.7 97.7 I & O Negative 4.2 L Objective: Gen: Confused. Alert to self but not place and time. CVS: Irr irr. SR with PAC's. PULM: Rhonchi bilaterally. ABD: Soft. EXT: RUE edema. CURRENT MEDICATIONS: No cardiac meds. DIAGNOSTIC TESTING: Tele: SR with PAC's. ASSESSMENT: 1. Debility 2. Staph aureus bacteremia. 3. Bradyarrhythmias. Problems: PLAN: 1. Supportive care from CV perspective. 2. Monitor UOP, consider lasix prn. 3. No HARSHA for now unless cultures return positive given that patient is high risk for re-intubation with sedation. WATSON ESCAMILLA MD Dec 10, 2016 08:07
[2016-12-10] MEDS: NYSTATIN TOPICAL POWDER 15GM BOTTLE. TP SCH ×2 (08:41→20:49)
[2016-12-10] MEDS: FAMOTIDINE 20 MG/2 ML VIAL IVP SCH ×2 (08:41→20:48)
[2016-12-10] MEDS: AMMONIUM LACTATE 12% TOPICAL LOTION 226GM BOTTLE. TP SCH ×2 (08:41→20:49)
[2016-12-10] MEDS ORDERED: VANCOMYCIN 2 GM in IV NORMAL SALINE 500ML BAG 500 ML IV ONE (09:00)
--- NOTE | 2016-12-10 09:59 | PDOC ---
Provider Note Provider Note takes abilfy at home, now some dysphoria so resume- renal fx recovered, off pressors, edema down after lasix- cont same care, move out [facility] 12/11- platelets still 95 K, follow TARUN ZIMMERMAN MD Dec 10, 2016 09:59
[2016-12-10] MEDS: VANCOMYCIN PER PHARMACY MC PRN (10:00)
[2016-12-10] MEDS: ARIPiprazole 5 MG TABLET PO SCH (12:38)
--- NOTE | 2016-12-10 14:38 | PDOC ---
Provider Note Provider Note Provider Note RENAL F/U : RAMÍREZ S : No active CP, SOA or new c/o O : VSS BP better/stable Alert. Neck : Supple Lings : Decreased bases. Non labored. CVS : RRR Abd : Portly. No masses. Stable edema/trace. Neuro ; Alert. Labs reviewed. A/P : ARF/ATN HTN w CKD HYPOTENSION MENTAL STATUS CHANGES. Overall improved. BP low stable. Interactive. No labs today. Supportive care. Wean off pressors. Labs in am. Natasha Elmore M.D. NATASHA ELMORE MD Dec 10, 2016 14:38
--- NOTE | 2016-12-10 16:32 | PDOC ---
PULMONARY PROGRESS NOTES Subjective PT OFF BIPAP NO INCREASE SOA OFF PRESSORS Vitals Vital Signs Date Time Temp Pulse Resp B/P (MAP) Pulse Ox O2 Delivery O2 Flow Rate FiO2 12/10/16 15:56 Venturi Mask 15.0 12/10/16 15:12 63 34 113/58 (76) 98 12/10/16 14:07 97.6 97.6 ROS: No Nausea, No Chest Pain, No Abdominal Pain, No Increase Cough General: Alert, No acute distress Cardiovascular: S1 Abdomen: Soft, Other (distended) Extremities: Other (1+edema, wounds) Skin: Warm Labs Laboratory Tests Test 12/08/16 17:30 12/09/16 08:21 12/09/16 11:30 12/09/16 12:34 Glucose (Fingerstick) 138 mg/dL (70-99) 149 mg/dL (70-99) 137 mg/dL (70-99) White Blood Count 11.6 x10^3/uL (4.0-11.0) Red Blood Count 3.28 x10^6/uL (4.30-5.70) Hemoglobin 9.6 g/dL (13.0-17.5) Hematocrit 29.3 % (39.0-53.0) Mean Corpuscular Volume 89 fL (79-100) Mean Corpuscular Hemoglobin 29 pg (25-35) Mean Corpuscular Hemoglobin Concent 33 g/dL (31-37) Red Cell Distribution Width 18.5 % (11.5-14.5) Platelet Count 95 x10^3/uL (140-400) Neutrophils (%) (Auto) 91 % (31-73) Lymphocytes (%) (Auto) 5 % (24-48) Monocytes (%) (Auto) 4 % (0-9) Eosinophils (%) (Auto) 1 % (0-3) Basophils (%) (Auto) 1 % (0-3) Neutrophils # (Auto) 10.5 x10^3uL (1.8-7.7) Lymphocytes # (Auto) 0.6 x10^3/uL (1.0-4.8) Monocytes # (Auto) 0.4 x10^3/uL (0.0-1.1) Eosinophils # (Auto) 0.1 x10^3/uL (0.0-0.7) Basophils # (Auto) 0.1 x10^3/uL (0.0-0.2) Sodium Level 139 mmol/L (136-145) Potassium Level 3.8 mmol/L (3.5-5.1) Chloride Level 105 mmol/L (98-107) Carbon Dioxide Level 27 mmol/L (21-32) Anion Gap 7 (6-14) Blood Urea Nitrogen 33 mg/dL (8-26) Creatinine 1.1 mg/dL (0.7-1.3) Estimated GFR (Cockcroft-Gault) 67.0 Glucose Level 144 mg/dL (70-99) Calcium Level 8.7 mg/dL (8.5-10.1) Test 12/09/16 16:43 12/10/16 00:55 12/10/16 06:24 12/10/16 08:55 Glucose (Fingerstick) 123 mg/dL (70-99) 127 mg/dL (70-99) 127 mg/dL (70-99) Urine Random Creatinine 27.9 mg/dL (Not Estab.) Urine Random Sodium 40 mmol/L (Not Estab.) Test 12/10/16 12:40 Glucose (Fingerstick) 117 mg/dL (70-99) Laboratory Tests Test 12/09/16 16:43 12/10/16 00:55 12/10/16 06:24 12/10/16 08:55 Glucose (Fingerstick) 123 mg/dL (70-99) 127 mg/dL (70-99) 127 mg/dL (70-99) Urine Random Creatinine 27.9 mg/dL (Not Estab.) Urine Random Sodium 40 mmol/L (Not Estab.) Test 12/10/16 12:40 Glucose (Fingerstick) 117 mg/dL (70-99) Medications Active Scripts Medications Dose Route/Sig Max Daily Dose Days Date Category [place] 3 Fish Oil Softgel ([place]-3 Fatty Acids/Fish Oil) 1 Each Capsule. 2 Cap PO DAILY 05/25/15 Reported Polyethylene Glycol 3350 17 Gm Powd.pack 17 Gm PO PRN QID PRN 05/25/15 Reported Simethicone 125 Mg Capsule 250 Mg PO QID 05/25/15 Reported Propranolol Hcl 20 Mg Tablet 20 Mg PO QHS 05/25/15 Reported Melatonin 3 Mg Tablet 6 Mg PO QHS 05/25/15 Reported Potassium Chloride 20 Meq Tab.er.prt 20 Meq PO DAILY 05/25/15 Reported Prazosin Hcl 1 Mg Capsule 1 Mg PO QHS 05/25/15 Reported Mupirocin Ointment (Mupirocin) 22 Gm Oint...g. 1 Kiran TP BID 05/25/15 Reported Nystop (Nystatin) 60 Gm Powder 1 Kiran TP BID 05/25/15 Reported Mirapex (Pramipexole Di-Hcl) 0.125 Mg Tablet 0.125 Mg PO TID 05/25/15 Reported Triamcinolone Acetonide 80 Gm Oint...g. 1 Kiran TP TID 05/25/15 Reported Tamsulosin Hcl 0.4 Mg Cap.er.24h 0.4 Mg PO DAILY 08/04/14 Reported Furosemide 20 Mg Tablet 20 Mg PO DAILY 08/04/14 Reported Magnesium Oxide 400 Mg Tablet 400 Mg PO BID 03/03/14 Reported Pantoprazole Sodium 40 Mg Tablet.dr 40 Mg PO DAILY 03/03/14 Reported Propranolol Hcl 40 Mg Tablet 40 Mg PO DAILY 03/03/14 Reported Nephro-Elkin Tablet (Folic Acid/Vitamin B Comp W-C) 0.8 Mg Tablet 1 Tab PO DAILY 03/03/14 Reported Temazepam 15 Mg Capsule 30 Mg PO QHS 03/03/14 Reported Losartan Potassium 50 Mg Tablet 50 Mg PO DAILY 03/03/14 Reported Abilify (Aripiprazole) 10 Mg Tablet 15 Mg PO DAILY 03/03/14 Reported Amlodipine Besylate 5 Mg Tablet 5 Tab PO DAILY 03/03/14 Reported Ranexa (Ranolazine) 500 Mg Tab.er.12h 500 Mg PO BID 03/03/14 Reported Nitrostat (Nitroglycerin) 0.4 Mg Tab.subl 0.4 Mg SL PRN Q5MIN PRN 03/03/14 Reported Probiotic & Acidophilus Cap (Lactobac Cmb #3/Fos/Pantethine) 1 Each Capsule 1 Tab PO DAILY 03/03/14 Reported Cilostazol 50 Mg Tablet 50 Mg PO BID 03/03/14 Reported Glycopyrrolate 2 Mg Tablet 2 Mg PO NOON 03/03/14 Reported Finasteride 5 Mg Tablet 5 Mg PO DAILY 03/03/14 Reported Vitamin D (Cholecalciferol (Vitamin D3)) 1,000 Unit Tablet 2,000 Unit PO DAILY 03/03/14 Reported Co Q-10 (Ubidecarenone) 100 Mg Capsule 100 Mg PO NOON 03/03/14 Reported Allopurinol 300 Mg Tablet 300 Mg PO BID 03/03/14 Reported Aspirin 325 Mg Tablet 325 Mg PO DAILY 03/03/14 Reported Imdur (Isosorbide Mononitrate) 30 Mg Tab.er.24h 30 Mg PO DAILYWLUN 03/03/14 Reported Sucralfate 1 Gm Tablet 1 Gm PO QIDACHS 03/03/14 Reported Atorvastatin Calcium 20 Mg Tablet 20 Mg PO HS 03/03/14 Reported Humalog (Insulin Lispro) 100 Unit/1 Ml Insuln.pen 5 Unit SQ TIDAC 03/03/14 Reported Lantus Solostar (Insulin Glargine,Hum.rec.anlog) 100 Unit/1 Ml Insuln.pen 30 Unit SQ QEVNG 03/03/14 Reported Ketoconazole 15 Gm Cream..g. 1 Kiran TP DAILY 03/03/14 Reported Impression . 1. Acute hypercapnic/ hypoxic RF, Multi-factorial 2. Septic shock, staph bacteremia 3. acute encephalology secondary to septic shock 4. No pneumoperitoneum by ct abdomen 5. RENETTA secondary septic shock 6. Abnormal chest x-ray basal atelectasis 7. chronic debility 8. Metabolic acidosis 9. Bradycardia, improved Plan . PRN BIPAP SPOKE WITH PROGNOSIS IS POOR BIPAP QHS PRESSORS OFF PPN NO INTUBATION ANTIBX PER ID FLUIDS NEEDED GLEN MONROY MD Dec 10, 2016 16:32
[2016-12-10] MEDS: VANCOMYCIN 1.5 GM in IV NORMAL SALINE 500ML BAG 500 ML IV SCH (20:48)
[2016-12-11] VITALS (27 sets, daily range): BP systolic 72–134; BP diastolic 41–81
[2016-12-11] MEDS: AMINO AC 3%/ELECTROLYTE/GLYCER 1,000 ML IV SCH (01:45)
[2016-12-11] MEDS: INSULIN ASPART 300 UNITS/3 ML INSULN.PEN SQ SCH ×4 (05:35→17:51)
[2016-12-11 06:28] LABS: ALBUMIN 2.1 g/dL (3.4-5.0); ALBUMIN/GLOBULIN RATIO 0.6 (1.0-1.7); CALCIUM 9.1 mg/dL (8.5-10.1); CREATININE 0.5 mg/dL (0.7-1.3); GFR 166.4; POTASSIUM 3.6 mmol/L (3.5-5.1); TOTAL BILIRUBIN 0.5 mg/dL (0.2-1.0); TOTAL PROTEIN 5.4 g/dL (6.4-8.2)
[2016-12-11] MEDS: ARIPiprazole 5 MG TABLET PO SCH (08:09)
[2016-12-11] MEDS: AMMONIUM LACTATE 12% TOPICAL LOTION 226GM BOTTLE. TP SCH ×2 (08:10→21:00)
[2016-12-11] MEDS: NYSTATIN TOPICAL POWDER 15GM BOTTLE. TP SCH (08:10)
--- NOTE | 2016-12-11 08:22 | PDOC ---
Infectious Disease Note Subjective Subjective pt feeling dizzy ROS ROS unable to do Vital Sign Vital Signs Vital Signs Date Time Temp Pulse Resp B/P (MAP) Pulse Ox O2 Delivery O2 Flow Rate FiO2 12/11/16 05:57 64 24 103/46 (65) 99 Venturi Mask 15.0 12/11/16 04:00 98.0 98.0 Physical Exam PHYSICAL EXAM GENERAL: NAD, Alert HEENT: PERRL, OC/OP NECK: Supple, no JVD, no LN LUNGS: Clear HEART: S1S2, no gallop, no murmur ABD: Soft, NT, no organomegaly, no rebound EXT: No edema, no cyanosis SLOTS MANAGER: Alert, encephalopathic SKIN: multiple wounds IV: ok Labs Lab Laboratory Tests Test 12/10/16 08:55 12/10/16 12:40 12/10/16 18:08 12/11/16 00:03 Urine Random Creatinine 27.9 mg/dL (Not Estab.) Urine Random Sodium 40 mmol/L (Not Estab.) Glucose (Fingerstick) 117 mg/dL (70-99) 138 mg/dL (70-99) 103 mg/dL (70-99) Test 12/11/16 05:00 12/11/16 05:34 Sodium Level 142 mmol/L (136-145) Potassium Level 3.6 mmol/L (3.5-5.1) Chloride Level 107 mmol/L (98-107) Carbon Dioxide Level 31 mmol/L (21-32) Anion Gap 4 (6-14) Blood Urea Nitrogen 21 mg/dL (8-26) Creatinine 0.5 mg/dL (0.7-1.3) Estimated GFR (Cockcroft-Gault) 166.4 BUN/Creatinine Ratio 42 (6-20) Glucose Level 127 mg/dL (70-99) Calcium Level 9.1 mg/dL (8.5-10.1) Total Bilirubin 0.5 mg/dL (0.2-1.0) Aspartate Amino Transf (AST/SGOT) 17 U/L (15-37) Alanine Aminotransferase (ALT/SGPT) 17 U/L (16-63) Alkaline Phosphatase 90 U/L (46-116) Total Protein 5.4 g/dL (6.4-8.2) Albumin 2.1 g/dL (3.4-5.0) Albumin/Globulin Ratio 0.6 (1.0-1.7) Glucose (Fingerstick) 141 mg/dL (70-99) Objective Assessment Septic shock, POA. 12/06. Staph aureus, presumptive MRSA bacteremia. TTE neg veg , 12/06. Hypothermia- off Blanquita hugger Acute encephalopathy, improving Possible pneumoperitoneum on chest-ray. CT neg, mild ileus UTI, POA. 12/06. GNR RENETTA Acute respiratory failure Bradyarrhythmia s/p code blue 12/07 Metabolic acidosis Chronic debility Plan Plan of Care vanc f/u cultures, further modifications of antibiotics anticipated once ID/ susceptibilities known. ok for other central line if needed for pressors and TPN d/w d/c to [facility] ANABELLA GODOY MD Dec 11, 2016 08:22
--- NOTE | 2016-12-11 08:27 | PDOC ---
SUBJECTIVE ROS f/up of RENETTA Doing better as reported ROS unable to be obtained from pt due to contd AMS OBJECTIVE Vital Signs Vital Signs Date Time Temp Pulse Resp B/P (MAP) Pulse Ox O2 Delivery O2 Flow Rate FiO2 12/11/16 05:57 64 24 103/46 (65) 99 Venturi Mask 15.0 12/11/16 04:00 98.0 98.0 I & 0 Intake and Output 12/11/16 07:00 Intake Total 2357 ml Output Total 2075 ml Balance 282 ml Intake Oral 0 ml IV Total 1804 ml Tube Feeding 553 ml Output Urine Total 2075 ml PHYSICAL EXAM Physical Exam General Appearance: Awake ? Alert Oriented x ? x 1 In no Distress; Fm Eyes: Sclera Anciteric; Conjunctiva Normal EN: No EN Drainage Mucous Memb. dryish Neck: no JVD no JVP Supple no Thyromegaly CVS: S1 S2 soft Murmur No Gallop No Rub +2-3 Edema Resp: few Rales occ Rhonchi no Acc. Muscle use GI: BAS +ve NO Bruit Non Tender Non Distended : no CVA tenderness; no Suprapubic Tenderness DIAGNOSIS/ASSESSMENT Assessment & Plan ARF - resolved ? CKD III - once Anasarca resolves Proteinuria - quantitiate with Ratio Anasarca - Lasix + Alb Problems: COMMENT/RELEVANT DATA Meds Current Medications Medications (Trade) Dose Ordered Sig/Gamaliel Start Time Stop Time Status Last Admin Dose Admin Albumin Human 500 ml @ 125 mls/hr 1X ONCE 12/06/16 19:00 12/06/16 22:59 DC 12/06/16 19:22 125 MLS/HR Amino Acids/ Glycerin/ Electrolytes 1,000 ml @ 80 mls/hr [id number] 12/08/16 11:15 12/10/16 14:10 80 MLS/HR Aripiprazole (Abilify) 15 mg DAILY 12/10/16 11:00 12/11/16 08:09 15 MG Atropine Sulfate 1 mg 1X ONCE 12/06/16 15:15 12/06/16 15:16 DC 12/06/16 15:04 1 MG Calcium Gluconate (Calcium Gluconate) 1,000 mg 1X ONCE 12/06/16 15:15 12/06/16 15:16 DC 12/06/16 14:53 1,000 MG Ceftriaxone Sodium 1 gm/ Sodium Chloride 50 ml @ 100 mls/hr Q24H 12/09/16 10:00 12/10/16 08:02 DC 12/09/16 09:39 100 MLS/HR Ceftriaxone Sodium 50 ml @ 100 mls/hr 1X ONCE 12/06/16 15:45 12/06/16 16:14 DC 12/06/16 15:45 100 MLS/HR Daptomycin 450 mg/ Sodium Chloride 50 ml @ 100 mls/hr Q24H 12/08/16 10:00 12/10/16 08:02 DC 12/09/16 10:22 100 MLS/HR Dextrose (Dextrose 50%-Water Syringe) 12.5 gm PRN Q15MIN PRN 12/07/16 11:15 Dopamine HCl/ Dextrose 250 ml @ 20.837 mls/ hr CONT PRN 12/06/16 19:15 12/09/16 17:34 20.837 MLS/HR Famotidine (Pepcid) 20 mg BID 12/07/16 11:30 12/10/16 20:48 20 MG Furosemide (Lasix) 40 mg 1X ONCE 12/09/16 09:30 12/09/16 09:31 DC 12/09/16 09:39 40 MG Heparin Sodium (Porcine) (Heparin Sodium) 10,000 unit STK-MED ONCE 12/09/16 10:33 12/09/16 10:34 DC Heparin Sodium/ Sodium Chloride 60 unit 1X ONCE 12/09/16 10:45 12/09/16 10:46 DC 12/09/16 11:03 60 UNIT Insulin Aspart (NovoLOG) 0-9 UNITS Q6HRS 12/10/16 00:00 Insulin Human Regular (NovoLIN R VIAL) 5 unit 1X ONCE 12/06/16 15:15 12/06/16 15:16 DC 12/06/16 14:53 5 UNIT Lactic Acid (Lac-Hydrin) 1 tyrone BID 12/09/16 19:00 12/11/16 08:10 1 TYRONE Levofloxacin/ Dextrose 150 ml @ 100 mls/hr Q48H 12/06/16 18:00 12/07/16 10:42 DC 12/06/16 19:08 100 MLS/HR Lidocaine/ Epinephrine (Xylocaine 1%-Epi 1:100,000) 20 ml STK-MED ONCE 12/09/16 10:32 12/09/16 10:33 DC Lidocaine/Sodium Bicarbonate (Buffered Lidocaine 1%) 3 ml 1X ONCE 12/09/16 10:45 12/09/16 10:46 DC 12/09/16 11:04 3 ML Magnesium Sulfate/ Dextrose 50 ml @ 25 mls/hr 1X ONCE 12/08/16 11:15 12/08/16 13:14 DC 12/08/16 11:29 25 MLS/HR Norepinephrine Bitartrate 250 ml @ 1.875 mls/ hr CONT PRN 12/06/16 17:15 12/09/16 02:40 22.5 MLS/HR Norepinephrine Bitartrate 16 mg/ Sodium Chloride 266 ml @ 0 mls/hr CONT PRN 12/06/16 17:15 UNV Nystatin (Nystop) 1 tyrone BID 12/09/16 19:01 12/11/16 08:10 1 TYRONE Ondansetron HCl (Zofran) 4 mg PRN Q6HRS PRN 12/07/16 05:30 12/07/16 05:36 4 MG Phenylephrine HCl 80 mg/Sodium Chloride 258 ml @ 0 mls/hr CONT PRN 12/06/16 17:15 12/07/16 02:37 56.3 MLS/HR Piperacillin Sod/ Tazobactam Sod 2.25 gm/Sodium Chloride 50 ml @ 100 mls/hr Q8HRS 12/06/16 18:00 12/09/16 09:01 DC 12/09/16 05:54 100 MLS/HR Sodium Bicarbonate 50 meq 1X ONCE 12/06/16 21:00 12/06/16 21:01 DC 12/06/16 20:47 50 MEQ Sodium Chloride 500 ml @ 500 mls/hr 1X ONCE 12/06/16 19:00 12/06/16 19:59 DC 12/07/16 00:00 500 MLS/HR Vancomycin HCl (Vanco Per Pharmacy) 1 each PRN DAILY PRN 12/10/16 08:15 12/10/16 10:00 1 EACH Vancomycin HCl 1.5 gm/Sodium Chloride 500 ml @ 250 mls/hr Q12H 12/10/16 21:00 12/10/16 20:48 250 MLS/HR Vancomycin HCl 2 gm/Sodium Chloride 500 ml @ 250 mls/hr 1X ONCE 12/10/16 09:00 12/10/16 10:59 DC 12/10/16 08:41 250 MLS/HR Vitamin A/Vitamin D (Vitamin A & D Ointment) 1 tyrone PRN Q1HR PRN 12/09/16 18:30 Lab Laboratory Tests Test 12/10/16 08:55 12/10/16 12:40 12/10/16 18:08 12/11/16 00:03 Urine Random Creatinine 27.9 mg/dL (Not Estab.) Urine Random Sodium 40 mmol/L (Not Estab.) Glucose (Fingerstick) 117 mg/dL (70-99) 138 mg/dL (70-99) 103 mg/dL (70-99) Test 12/11/16 05:00 12/11/16 05:34 Sodium Level 142 mmol/L (136-145) Potassium Level 3.6 mmol/L (3.5-5.1) Chloride Level 107 mmol/L (98-107) Carbon Dioxide Level 31 mmol/L (21-32) Anion Gap 4 (6-14) Blood Urea Nitrogen 21 mg/dL (8-26) Creatinine 0.5 mg/dL (0.7-1.3) Estimated GFR (Cockcroft-Gault) 166.4 BUN/Creatinine Ratio 42 (6-20) Glucose Level 127 mg/dL (70-99) Calcium Level 9.1 mg/dL (8.5-10.1) Total Bilirubin 0.5 mg/dL (0.2-1.0) Aspartate Amino Transf (AST/SGOT) 17 U/L (15-37) Alanine Aminotransferase (ALT/SGPT) 17 U/L (16-63) Alkaline Phosphatase 90 U/L (46-116) Total Protein 5.4 g/dL (6.4-8.2) Albumin 2.1 g/dL (3.4-5.0) Albumin/Globulin Ratio 0.6 (1.0-1.7) Glucose (Fingerstick) 141 mg/dL (70-99) JAVED GODOY MD Dec 11, 2016 08:27
[2016-12-11] MEDS: VANCOMYCIN PER PHARMACY MC PRN ×2 (08:32→23:59)
--- NOTE | 2016-12-11 09:20 | PDOC ---
SUBJECTIVE Subjective very sleepy, very weak and not verbal but following command OBJECTIVE Objective Bp ok Vital Signs Vital Signs Date Time Temp Pulse Resp B/P (MAP) Pulse Ox O2 Delivery O2 Flow Rate FiO2 12/11/16 05:57 64 24 103/46 (65) 99 Venturi Mask 15.0 12/11/16 05:00 76 24 131/57 (81) 92 Venturi Mask 15.0 12/11/16 04:00 98.0 72 24 103/64 (77) 99 Venturi Mask 15.0 98.0 12/11/16 04:00 Venturi Mask 15.0 12/11/16 03:00 72 24 134/77 (96) 99 Venturi Mask 15.0 12/11/16 02:00 70 24 133/61 (85) 96 Venturi Mask 15.0 12/11/16 01:00 64 24 122/62 (82) 99 Venturi Mask 15.0 12/11/16 00:23 Venturi Mask 15.0 12/11/16 00:07 97.5 65 24 106/54 (71) 100 Venturi Mask 15.0 97.5 12/10/16 23:00 68 24 110/54 (72) 97 Venturi Mask 15.0 12/10/16 22:00 64 26 105/61 (76) 100 Venturi Mask 15.0 12/10/16 21:00 68 24 119/59 (79) 99 Venturi Mask 15.0 12/10/16 20:00 Venturi Mask 15.0 12/10/16 20:00 96.6 78 24 134/73 (93) 99 Venturi Mask 15.0 96.6 12/10/16 19:00 66 24 120/63 (82) 98 Venturi Mask 15.0 12/10/16 18:00 68 26 119/53 (75) 98 Venturi Mask 15.0 12/10/16 17:15 85 24 129/66 (87) 98 Venturi Mask 15.0 12/10/16 16:30 65 22 133/69 (90) 97 Venturi Mask 15.0 12/10/16 15:56 Venturi Mask 15.0 12/10/16 15:12 63 34 113/58 (76) 98 Venturi Mask 15.0 12/10/16 14:07 97.6 61 32 116/55 (75) 98 Venturi Mask 15.0 97.6 12/10/16 13:17 64 30 118/58 (78) 95 Venturi Mask 15.0 12/10/16 12:00 62 32 121/61 (81) 95 Venturi Mask 15.0 12/10/16 12:00 Venturi Mask 15.0 12/10/16 11:00 62 30 119/57 (77) 95 Venturi Mask 15.0 12/10/16 10:07 77 28 115/57 (76) 95 Venturi Mask 15.0 I & O Intake and Output 12/11/16 07:00 Intake Total 2357 ml Output Total 2075 ml Balance 282 ml Intake Oral 0 ml IV Total 1804 ml Tube Feeding 553 ml Output Urine Total 2075 ml PHYSICAL EXAM Physical Exam lungs with ronchi and rales heartRRR abd soft ext +2 edema , still with scrotum edema ASSESSMENT/PLAN Assessment/Plan 1-Septic shock, POA. 12/06. Staph aureus, presumptive MRSA bacteremia. TTE neg veg, 12/06. 2-Hypothermia- off Blanquita hugger 3-Acute encephalopathy, improving 4-UTI, POA. 12/06. GNR 5-RENETTA 6-Acute respiratory failure 7-Bradyarrhythmia s/p code blue 12/07 8-Metabolic acidosis 9-Chronic debility continue supportive plans, need to address nutrition soon, agree with Albumin and lasix Problems: COMMENT Lab Laboratory Tests Test 12/10/16 12:40 12/10/16 18:08 12/11/16 00:03 12/11/16 05:00 Glucose (Fingerstick) 117 mg/dL (70-99) 138 mg/dL (70-99) 103 mg/dL (70-99) Sodium Level 142 mmol/L (136-145) Potassium Level 3.6 mmol/L (3.5-5.1) Chloride Level 107 mmol/L (98-107) Carbon Dioxide Level 31 mmol/L (21-32) Anion Gap 4 (6-14) Blood Urea Nitrogen 21 mg/dL (8-26) Creatinine 0.5 mg/dL (0.7-1.3) Estimated GFR (Cockcroft-Gault) 166.4 BUN/Creatinine Ratio 42 (6-20) Glucose Level 127 mg/dL (70-99) Calcium Level 9.1 mg/dL (8.5-10.1) Total Bilirubin 0.5 mg/dL (0.2-1.0) Aspartate Amino Transf (AST/SGOT) 17 U/L (15-37) Alanine Aminotransferase (ALT/SGPT) 17 U/L (16-63) Alkaline Phosphatase 90 U/L (46-116) Total Protein 5.4 g/dL (6.4-8.2) Albumin 2.1 g/dL (3.4-5.0) Albumin/Globulin Ratio 0.6 (1.0-1.7) Test 12/11/16 05:34 Glucose (Fingerstick) 141 mg/dL (70-99) KYLE LAWSON MD Dec 11, 2016 09:20
[2016-12-11] MEDS: ALBUMIN HUMAN 25% 100 ML IV SCH ×3 (09:33→20:58)
[2016-12-11] MEDS: VANCOMYCIN 1.5 GM in IV NORMAL SALINE 500ML BAG 500 ML IV SCH (09:34)
[2016-12-11] MEDS: FAMOTIDINE 20 MG/2 ML VIAL IVP SCH ×2 (09:41→21:07)
[2016-12-11] MEDS: FUROSEMIDE 40 MG/4 ML VIAL. IVP SCH ×2 (11:01→15:47)
[2016-12-11 12:51] LABS: BASO % 0 % (0-3); EOS % 1 % (0-3); HEMATOCRIT 27.7 % (39.0-53.0); HEMOGLOBIN 8.8 g/dL (13.0-17.5); LYMPH # 0.7 x10^3/uL (1.0-4.8); LYMPH % 8 % (24-48); MEAN CORPUSCULAR HEMOGLOBIN 29 pg (25-35); MEAN CORPUSCULAR HGB CONC 32 g/dL (31-37); MEAN CORPUSCULAR VOLUME 93 fL (79-100); MONO % 4 % (0-9); NEUT % 87 % (31-73); PLATELET COUNT 83 x10^3/uL (140-400); RED CELL DISTRIBUTION WIDTH 19.5 % (11.5-14.5); WHITE BLOOD COUNT 8.8 x10^3/uL (4.0-11.0)
[2016-12-11 13:25] LABS: ANISOCYTOSIS SLIGHT; PLT ESTIMATE DECREASED (ADEQUATE)
--- NOTE | 2016-12-11 13:41 | PDOC ---
CARDIO Progress Notes Date and Time Date of Service 12/11/16 Time of Evaluation 1215 Subjective Subjective: Other (non-verbal. ) Vitals Vitals Vital Signs Date Time Temp Pulse Resp B/P (MAP) Pulse Ox O2 Delivery O2 Flow Rate FiO2 12/11/16 13:04 98.2 65 125/52 (76) 97 Venturi Mask 15.0 98.2 12/11/16 09:00 24 Weight Weight [ ] Input and Output Intake and Output Intake and Output 12/11/16 07:00 Intake Total 2667 ml Output Total 2075 ml Balance 592 ml Intake Oral 0 ml IV Total 1804 ml Tube Feeding 863 ml Output Urine Total 2075 ml Laboratory Labs Laboratory Tests Test 12/10/16 18:08 12/11/16 00:03 12/11/16 05:00 12/11/16 05:34 Glucose (Fingerstick) 138 mg/dL (70-99) 103 mg/dL (70-99) 141 mg/dL (70-99) White Blood Count 8.8 x10^3/uL (4.0-11.0) Red Blood Count 3.00 x10^6/uL (4.30-5.70) Hemoglobin 8.8 g/dL (13.0-17.5) Hematocrit 27.7 % (39.0-53.0) Mean Corpuscular Volume 93 fL (79-100) Mean Corpuscular Hemoglobin 29 pg (25-35) Mean Corpuscular Hemoglobin Concent 32 g/dL (31-37) Red Cell Distribution Width 19.5 % (11.5-14.5) Platelet Count 83 x10^3/uL (140-400) Neutrophils (%) (Auto) 87 % (31-73) Lymphocytes (%) (Auto) 8 % (24-48) Monocytes (%) (Auto) 4 % (0-9) Eosinophils (%) (Auto) 1 % (0-3) Basophils (%) (Auto) 0 % (0-3) Neutrophils # (Auto) 7.7 x10^3uL (1.8-7.7) Lymphocytes # (Auto) 0.7 x10^3/uL (1.0-4.8) Monocytes # (Auto) 0.4 x10^3/uL (0.0-1.1) Eosinophils # (Auto) 0.0 x10^3/uL (0.0-0.7) Basophils # (Auto) 0.0 x10^3/uL (0.0-0.2) Segmented Neutrophils % 92 % (35-66) Lymphocytes % 5 % (24-48) Monocytes % 3 % (0-10) Platelet Estimate Decreased (ADEQUATE) Basophilic Stippling Present Anisocytosis Slight Sodium Level 142 mmol/L (136-145) Potassium Level 3.6 mmol/L (3.5-5.1) Chloride Level 107 mmol/L (98-107) Carbon Dioxide Level 31 mmol/L (21-32) Anion Gap 4 (6-14) Blood Urea Nitrogen 21 mg/dL (8-26) Creatinine 0.5 mg/dL (0.7-1.3) Estimated GFR (Cockcroft-Gault) 166.4 BUN/Creatinine Ratio 42 (6-20) Glucose Level 127 mg/dL (70-99) Calcium Level 9.1 mg/dL (8.5-10.1) Total Bilirubin 0.5 mg/dL (0.2-1.0) Aspartate Amino Transf (AST/SGOT) 17 U/L (15-37) Alanine Aminotransferase (ALT/SGPT) 17 U/L (16-63) Alkaline Phosphatase 90 U/L (46-116) Total Protein 5.4 g/dL (6.4-8.2) Albumin 2.1 g/dL (3.4-5.0) Albumin/Globulin Ratio 0.6 (1.0-1.7) Test 12/11/16 11:09 Glucose (Fingerstick) 117 mg/dL (70-99) Microbiology Micro Microbiology 12/10/16 Blood Culture - Preliminary, Resulted NO GROWTH AFTER 1 DAY 12/06/16 Urine Culture - Final, Complete 12/06/16 Urine Culture Result 1 (ERICK) - Final, Complete 12/06/16 Antimicrobic Susceptibility - Final, Complete Physical Exam HEENT: Neck Supple W Full Motion Chest: Symmetric LUNGS: Other (bibasilar crackles ) Heart: S1S2, RRR Abdomen: Soft N/T Extremities: Other (anasarca, drsg intact to bilateral LE) Neurology: other (somnolent ) Assessment Assessment 1. Bradyarrhythmia, resolved. 2. Staph aureus bacteremia; as per ID 3. Septic shock; off pressors. maintaining low-normotensive BP. 4. Acute respiratory failure 5. Metabolic encephalopathy 6. RENETTA; improved. per renal 7. Chronic debility Recommendations 1. CXR 2. Agree with Lasix; continue diuresis 3. Supportive care from CV perspective. 4. Prognosis guarded. Palliative care consulted. JULISA HANDY APRN Dec 11, 2016 13:41
--- NOTE | 2016-12-11 14:57 | PDOC ---
PULMONARY PROGRESS NOTES Subjective PT OFF BIPAP NO INCREASE SOA OFF PRESSORS STATES NO BETTER Vitals Vital Signs Date Time Temp Pulse Resp B/P (MAP) Pulse Ox O2 Delivery O2 Flow Rate FiO2 12/11/16 14:00 98.5 63 24 129/60 (83) 94 Venturi Mask 15.0 98.5 General: Alert, No acute distress Cardiovascular: S1 Abdomen: Soft, Other (distended) Extremities: Other (1+edema, wounds) Skin: Warm Labs Laboratory Tests Test 12/09/16 16:43 12/10/16 00:55 12/10/16 06:24 12/10/16 08:55 Glucose (Fingerstick) 123 mg/dL (70-99) 127 mg/dL (70-99) 127 mg/dL (70-99) Urine Random Creatinine 27.9 mg/dL (Not Estab.) Urine Random Sodium 40 mmol/L (Not Estab.) Test 12/10/16 12:40 12/10/16 18:08 12/11/16 00:03 12/11/16 05:00 Glucose (Fingerstick) 117 mg/dL (70-99) 138 mg/dL (70-99) 103 mg/dL (70-99) White Blood Count 8.8 x10^3/uL (4.0-11.0) Red Blood Count 3.00 x10^6/uL (4.30-5.70) Hemoglobin 8.8 g/dL (13.0-17.5) Hematocrit 27.7 % (39.0-53.0) Mean Corpuscular Volume 93 fL (79-100) Mean Corpuscular Hemoglobin 29 pg (25-35) Mean Corpuscular Hemoglobin Concent 32 g/dL (31-37) Red Cell Distribution Width 19.5 % (11.5-14.5) Platelet Count 83 x10^3/uL (140-400) Neutrophils (%) (Auto) 87 % (31-73) Lymphocytes (%) (Auto) 8 % (24-48) Monocytes (%) (Auto) 4 % (0-9) Eosinophils (%) (Auto) 1 % (0-3) Basophils (%) (Auto) 0 % (0-3) Neutrophils # (Auto) 7.7 x10^3uL (1.8-7.7) Lymphocytes # (Auto) 0.7 x10^3/uL (1.0-4.8) Monocytes # (Auto) 0.4 x10^3/uL (0.0-1.1) Eosinophils # (Auto) 0.0 x10^3/uL (0.0-0.7) Basophils # (Auto) 0.0 x10^3/uL (0.0-0.2) Segmented Neutrophils % 92 % (35-66) Lymphocytes % 5 % (24-48) Monocytes % 3 % (0-10) Platelet Estimate Decreased (ADEQUATE) Basophilic Stippling Present Anisocytosis Slight Sodium Level 142 mmol/L (136-145) Potassium Level 3.6 mmol/L (3.5-5.1) Chloride Level 107 mmol/L (98-107) Carbon Dioxide Level 31 mmol/L (21-32) Anion Gap 4 (6-14) Blood Urea Nitrogen 21 mg/dL (8-26) Creatinine 0.5 mg/dL (0.7-1.3) Estimated GFR (Cockcroft-Gault) 166.4 BUN/Creatinine Ratio 42 (6-20) Glucose Level 127 mg/dL (70-99) Calcium Level 9.1 mg/dL (8.5-10.1) Total Bilirubin 0.5 mg/dL (0.2-1.0) Aspartate Amino Transf (AST/SGOT) 17 U/L (15-37) Alanine Aminotransferase (ALT/SGPT) 17 U/L (16-63) Alkaline Phosphatase 90 U/L (46-116) Total Protein 5.4 g/dL (6.4-8.2) Albumin 2.1 g/dL (3.4-5.0) Albumin/Globulin Ratio 0.6 (1.0-1.7) Test 12/11/16 05:34 12/11/16 11:09 Glucose (Fingerstick) 141 mg/dL (70-99) 117 mg/dL (70-99) Laboratory Tests Test 12/10/16 18:08 12/11/16 00:03 12/11/16 05:00 12/11/16 05:34 Glucose (Fingerstick) 138 mg/dL (70-99) 103 mg/dL (70-99) 141 mg/dL (70-99) White Blood Count 8.8 x10^3/uL (4.0-11.0) Red Blood Count 3.00 x10^6/uL (4.30-5.70) Hemoglobin 8.8 g/dL (13.0-17.5) Hematocrit 27.7 % (39.0-53.0) Mean Corpuscular Volume 93 fL (79-100) Mean Corpuscular Hemoglobin 29 pg (25-35) Mean Corpuscular Hemoglobin Concent 32 g/dL (31-37) Red Cell Distribution Width 19.5 % (11.5-14.5) Platelet Count 83 x10^3/uL (140-400) Neutrophils (%) (Auto) 87 % (31-73) Lymphocytes (%) (Auto) 8 % (24-48) Monocytes (%) (Auto) 4 % (0-9) Eosinophils (%) (Auto) 1 % (0-3) Basophils (%) (Auto) 0 % (0-3) Neutrophils # (Auto) 7.7 x10^3uL (1.8-7.7) Lymphocytes # (Auto) 0.7 x10^3/uL (1.0-4.8) Monocytes # (Auto) 0.4 x10^3/uL (0.0-1.1) Eosinophils # (Auto) 0.0 x10^3/uL (0.0-0.7) Basophils # (Auto) 0.0 x10^3/uL (0.0-0.2) Segmented Neutrophils % 92 % (35-66) Lymphocytes % 5 % (24-48) Monocytes % 3 % (0-10) Platelet Estimate Decreased (ADEQUATE) Basophilic Stippling Present Anisocytosis Slight Sodium Level 142 mmol/L (136-145) Potassium Level 3.6 mmol/L (3.5-5.1) Chloride Level 107 mmol/L (98-107) Carbon Dioxide Level 31 mmol/L (21-32) Anion Gap 4 (6-14) Blood Urea Nitrogen 21 mg/dL (8-26) Creatinine 0.5 mg/dL (0.7-1.3) Estimated GFR (Cockcroft-Gault) 166.4 BUN/Creatinine Ratio 42 (6-20) Glucose Level 127 mg/dL (70-99) Calcium Level 9.1 mg/dL (8.5-10.1) Total Bilirubin 0.5 mg/dL (0.2-1.0) Aspartate Amino Transf (AST/SGOT) 17 U/L (15-37) Alanine Aminotransferase (ALT/SGPT) 17 U/L (16-63) Alkaline Phosphatase 90 U/L (46-116) Total Protein 5.4 g/dL (6.4-8.2) Albumin 2.1 g/dL (3.4-5.0) Albumin/Globulin Ratio 0.6 (1.0-1.7) Test 12/11/16 11:09 Glucose (Fingerstick) 117 mg/dL (70-99) Medications Active Scripts Medications Dose Route/Sig Max Daily Dose Days Date Category [place] 3 Fish Oil Softgel ([place]-3 Fatty Acids/Fish Oil) 1 Each Capsule.dr 2 Cap PO DAILY 05/25/15 Reported Polyethylene Glycol 3350 17 Gm Powd.pack 17 Gm PO PRN QID PRN 05/25/15 Reported Simethicone 125 Mg Capsule 250 Mg PO QID 05/25/15 Reported Propranolol Hcl 20 Mg Tablet 20 Mg PO QHS 05/25/15 Reported Melatonin 3 Mg Tablet 6 Mg PO QHS 05/25/15 Reported Potassium Chloride 20 Meq Tab.er.prt 20 Meq PO DAILY 05/25/15 Reported Prazosin Hcl 1 Mg Capsule 1 Mg PO QHS 05/25/15 Reported Mupirocin Ointment (Mupirocin) 22 Gm Oint...g. 1 Kiran TP BID 05/25/15 Reported Nystop (Nystatin) 60 Gm Powder 1 Kiran TP BID 05/25/15 Reported Mirapex (Pramipexole Di-Hcl) 0.125 Mg Tablet 0.125 Mg PO TID 05/25/15 Reported Triamcinolone Acetonide 80 Gm Oint...g. 1 Kiran TP TID 05/25/15 Reported Tamsulosin Hcl 0.4 Mg Cap.er.24h 0.4 Mg PO DAILY 08/04/14 Reported Furosemide 20 Mg Tablet 20 Mg PO DAILY 08/04/14 Reported Magnesium Oxide 400 Mg Tablet 400 Mg PO BID 03/03/14 Reported Pantoprazole Sodium 40 Mg Tablet.dr 40 Mg PO DAILY 03/03/14 Reported Propranolol Hcl 40 Mg Tablet 40 Mg PO DAILY 03/03/14 Reported Nephro-Elkin Tablet (Folic Acid/Vitamin B Comp W-C) 0.8 Mg Tablet 1 Tab PO DAILY 03/03/14 Reported Temazepam 15 Mg Capsule 30 Mg PO QHS 03/03/14 Reported Losartan Potassium 50 Mg Tablet 50 Mg PO DAILY 03/03/14 Reported Abilify (Aripiprazole) 10 Mg Tablet 15 Mg PO DAILY 03/03/14 Reported Amlodipine Besylate 5 Mg Tablet 5 Tab PO DAILY 03/03/14 Reported Ranexa (Ranolazine) 500 Mg Tab.er.12h 500 Mg PO BID 03/03/14 Reported Nitrostat (Nitroglycerin) 0.4 Mg Tab.subl 0.4 Mg SL PRN Q5MIN PRN 03/03/14 Reported Probiotic & Acidophilus Cap (Lactobac Cmb #3/Fos/Pantethine) 1 Each Capsule 1 Tab PO DAILY 03/03/14 Reported Cilostazol 50 Mg Tablet 50 Mg PO BID 03/03/14 Reported Glycopyrrolate 2 Mg Tablet 2 Mg PO NOON 03/03/14 Reported Finasteride 5 Mg Tablet 5 Mg PO DAILY 03/03/14 Reported Vitamin D (Cholecalciferol (Vitamin D3)) 1,000 Unit Tablet 2,000 Unit PO DAILY 03/03/14 Reported Co Q-10 (Ubidecarenone) 100 Mg Capsule 100 Mg PO NOON 03/03/14 Reported Allopurinol 300 Mg Tablet 300 Mg PO BID 03/03/14 Reported Aspirin 325 Mg Tablet 325 Mg PO DAILY 03/03/14 Reported Imdur (Isosorbide Mononitrate) 30 Mg Tab.er.24h 30 Mg PO DAILYWLUN 03/03/14 Reported Sucralfate 1 Gm Tablet 1 Gm PO QIDACHS 03/03/14 Reported Atorvastatin Calcium 20 Mg Tablet 20 Mg PO HS 03/03/14 Reported Humalog (Insulin Lispro) 100 Unit/1 Ml Insuln.pen 5 Unit SQ TIDAC 03/03/14 Reported Lantus Solostar (Insulin Glargine,Hum.rec.anlog) 100 Unit/1 Ml Insuln.pen 30 Unit SQ QEVNG 03/03/14 Reported Ketoconazole 15 Gm Cream..g. 1 Kiran TP DAILY 03/03/14 Reported Impression . 1. Acute hypercapnic/ hypoxic RF, Multi-factorial 2. Septic shock, staph bacteremia 3. acute encephalology secondary to septic shock 4. No pneumoperitoneum by ct abdomen 5. RENETTA secondary septic shock 6. Abnormal chest x-ray basal atelectasis 7. chronic debility 8. Metabolic acidosis 9. Bradycardia, improved Plan . NO IMPROVEMENT WILL NEED LTAC PRN BIPAP AND QHS SPOKE WITH , INFORMED HER THAT HE IS VERY DEBILITATED POOR PROGNOSIS PROGNOSIS IS POOR PRESSORS OFF PPN NO INTUBATION ANTIBX PER ID FLUIDS NEEDED GLEN MONROY MD Dec 11, 2016 14:57
--- NOTE | 2016-12-11 15:09 | RAD ---
Indication shortness of air. A single view of the chest was obtained and is compared to a study 2 days earlier. There has not been a significant change. Pulmonary infiltrates likely reflecting congestive heart failure persist. Volume loss at the lung bases is compatible with atelectasis or pneumonia. There are likely pleural effusions. The level of inspiratory effort is similar. Nasogastric tube is noted. IMPRESSION: No significant change
--- NOTE | 2016-12-11 17:02 | PDOC2 ---
PALLIATIVE CARE Palliative Care Note Palliative Care Consult requested by Dr. Nieto to address goals of care Diagnosis/Admission: Bradycardia, Hypotension, Renal Failure--improved, sepsis ; BC+ Patient does not respond to verbal stimuli /follow directions Not tolerating tube feedings. Met with . Reviewed current medical condition. wants to continue current medical treatments. Understands he is seriously ill. Had been living at home. Discussed Code Status; Wants to continue current DNI; States he has had chest compressions before and has done well. Will follow up tomorrow. BRIAN EDEN Dec 11, 2016 17:02
[2016-12-11] MEDS ORDERED: NOREPINEPHRIN PREMIX 250 ML IV PRN (22:00)
[2016-12-11] MEDS ORDERED: ALBUTEROL SULFATE 2.5 MG/3 ML NEBU. IH ONE (23:00)
[2016-12-11 23:09] LABS: UR PROTEIN RD 40.5 mg/dL (Not Estab.)
[2016-12-12] VITALS (23 sets, daily range): BP systolic 107–148; BP diastolic 53–89
[2016-12-12] MEDS: NYSTATIN TOPICAL POWDER 15GM BOTTLE. TP SCH ×3 (00:42→20:19)
[2016-12-12] MEDS: VANCOMYCIN 1.5 GM in IV NORMAL SALINE 500ML BAG 500 ML IV SCH ×2 (04:13→22:00)
[2016-12-12] MEDS: INSULIN ASPART 300 UNITS/3 ML INSULN.PEN SQ SCH ×3 (05:43→12:00)
[2016-12-12 06:16] LABS: HEMATOCRIT 28.3 % (39.0-53.0); RED BLOOD COUNT 3.1 x10^6/uL (4.30-5.70); RED CELL DISTRIBUTION WIDTH 19.2 % (11.5-14.5); WHITE BLOOD COUNT 13.7 x10^3/uL (4.0-11.0)
[2016-12-12 06:42] LABS: ALBUMIN 3.3 g/dL (3.4-5.0); CALCIUM 8.9 mg/dL (8.5-10.1); CREATININE 0.9 mg/dL (0.7-1.3); GFR 84.4; PHOSPHORUS 3.5 mg/dL (2.6-4.7); POTASSIUM 3.6 mmol/L (3.5-5.1)
--- NOTE | 2016-12-12 07:46 | PDOC ---
Infectious Disease Note Subjective Subjective sleepy on bipap ROS ROS unable to do Vital Sign Vital Signs Vital Signs Date Time Temp Pulse Resp B/P (MAP) Pulse Ox O2 Delivery O2 Flow Rate FiO2 12/12/16 06:00 76 30 148/80 (102) 90 BiPAP/CPAP 12/12/16 05:22 96.3 96.3 12/11/16 21:00 15.0 Physical Exam PHYSICAL EXAM GENERAL: on bipap HEENT: PERRL, OC/OP NECK: Supple, no JVD, no LN LUNGS: Clear HEART: S1S2, no gallop, no murmur ABD: Soft, NT, no organomegaly, no rebound EXT: No edema, no cyanosis STAGE DRIVER: sleepy, SKIN: No rash IV: ok Labs Lab Laboratory Tests Test 12/11/16 11:09 12/11/16 11:45 12/11/16 21:00 12/12/16 00:15 Glucose (Fingerstick) 117 mg/dL (70-99) 147 mg/dL (70-99) Urine Protein 40.5 mg/dL (Not Estab.) Urine Creatinine 37.8 mg/dL (Not Estab.) Urine Protein/Creatinine Ratio 1071 mg/g creat (0-200) Vancomycin Level Trough 21.2 mcg/mL (10.0-20.0) Vancomycin Last Dose Date 12/11/16 Vancomycin Last Dose Time 0500 Test 12/12/16 05:43 12/12/16 05:50 Glucose (Fingerstick) 157 mg/dL (70-99) White Blood Count 13.7 x10^3/uL (4.0-11.0) Red Blood Count 3.10 x10^6/uL (4.30-5.70) Hemoglobin 9.0 g/dL (13.0-17.5) Hematocrit 28.3 % (39.0-53.0) Mean Corpuscular Volume 91 fL (79-100) Mean Corpuscular Hemoglobin 29 pg (25-35) Mean Corpuscular Hemoglobin Concent 32 g/dL (31-37) Red Cell Distribution Width 19.2 % (11.5-14.5) Platelet Count 79 x10^3/uL (140-400) Sodium Level 146 mmol/L (136-145) Potassium Level 3.6 mmol/L (3.5-5.1) Chloride Level 108 mmol/L (98-107) Carbon Dioxide Level 32 mmol/L (21-32) Anion Gap 6 (6-14) Blood Urea Nitrogen 25 mg/dL (8-26) Creatinine 0.9 mg/dL (0.7-1.3) Estimated GFR (Cockcroft-Gault) 84.4 Glucose Level 166 mg/dL (70-99) Calcium Level 8.9 mg/dL (8.5-10.1) Phosphorus Level 3.5 mg/dL (2.6-4.7) Albumin 3.3 g/dL (3.4-5.0) Objective Assessment Septic shock, POA. 12/06. MRSA bacteremia. TTE neg veg, 12/06. Hypothermia- off Blanquita hugger Acute encephalopathy, improving Possible pneumoperitoneum on chest-ray. CT neg, mild ileus UTI, POA. 12/06. RENETTA Acute respiratory failure Bradyarrhythmia s/p code blue 12/07 Metabolic acidosis Chronic debility Plan Plan of Care cont vanc, dose adjusted d/w d/c to [facility] soon longterm prognosis poor ANABELLA GODOY MD Dec 12, 2016 07:46
[2016-12-12] MEDS: AMMONIUM LACTATE 12% TOPICAL LOTION 226GM BOTTLE. TP SCH ×2 (09:00→20:16)
[2016-12-12] MEDS: FAMOTIDINE 20 MG/2 ML VIAL IVP SCH ×2 (09:12→20:15)
[2016-12-12] MEDS: ARIPiprazole 5 MG TABLET PO SCH (09:12)
--- NOTE | 2016-12-12 09:33 | PDOC ---
SUBJECTIVE ROS RENETTA/ edema Now on BiPAP with 100% FiO2 OBJECTIVE Vital Signs Vital Signs Date Time Temp Pulse Resp B/P (MAP) Pulse Ox O2 Delivery O2 Flow Rate FiO2 12/12/16 08:29 86 BiPAP/CPAP 12/12/16 08:00 108 29 131/88 (102) 12/12/16 07:00 96.8 96.8 12/11/16 21:00 15.0 I & 0 Intake and Output 12/12/16 07:00 Intake Total 1735 ml Output Total 1992 ml Balance -257 ml Intake Oral 0 ml IV Total 1475 ml Tube Feeding 80 ml Other 180 ml Output Urine Total 1992 ml PHYSICAL EXAM Physical Exam General Appearance: Awake - barely Alert Oriented x 0 In some resp Distress while on BiPAP Eyes: Sclera Anicteric; Conjunctiva Normal EN: No EN Drainage Mucous Memb. dryish Neck: no JVD no JVP Supple no Thyromegaly CVS: S1 S2 soft Murmur No Gallop No Rub +2-3 Edema Resp: few Rales occ Rhonchi no Acc. Muscle use GI: BS +ve NO Bruit Non Tender Non Distended : no CVA tenderness; no Suprapubic Tenderness DIAGNOSIS/ASSESSMENT Assessment & Plan ARF - resolved ? CKD III - once Anasarca resolves Proteinuria - 1gm by Ratio Anasarca - tried Lasix + Alb yest, but pt got hypotensive and Bradycardic requiring restarting Dopamine and BiPAP for resp decompensation. Resp Failure - defer to Dr Ibanez - ? Pn vs CHF. Hold off on IV Alb for now. Lasix OK with Me prn Transient Oliguria last pm - was asso with justine and low BP. Now ~ 50cc/hr on Dopamine D/w about DNR status - she remains non-comittal COMMENT/RELEVANT DATA Meds Current Medications Medications (Trade) Dose Ordered Sig/Gamaliel Start Time Stop Time Status Last Admin Dose Admin Albumin Human 100 ml @ 100 mls/hr TID 12/11/16 09:00 12/11/16 21:51 DC 12/11/16 20:58 100 MLS/HR Albuterol Sulfate (Ventolin Neb Soln) 2.5 mg 1X ONCE 12/11/16 23:00 12/11/16 23:01 DC 12/11/16 22:51 2.5 MG Amino Acids/ Glycerin/ Electrolytes 1,000 ml @ 80 mls/hr [id number] 12/08/16 11:15 12/11/16 08:33 DC 12/10/16 14:10 80 MLS/HR Aripiprazole (Abilify) 15 mg DAILY 12/10/16 11:00 12/12/16 09:12 15 MG Atropine Sulfate 1 mg 1X ONCE 12/06/16 15:15 12/06/16 15:16 DC 12/06/16 15:04 1 MG Calcium Gluconate (Calcium Gluconate) 1,000 mg 1X ONCE 12/06/16 15:15 12/06/16 15:16 DC 12/06/16 14:53 1,000 MG Ceftriaxone Sodium 1 gm/ Sodium Chloride 50 ml @ 100 mls/hr Q24H 12/09/16 10:00 12/10/16 08:02 DC 12/09/16 09:39 100 MLS/HR Ceftriaxone Sodium 50 ml @ 100 mls/hr 1X ONCE 12/06/16 15:45 12/06/16 16:14 DC 12/06/16 15:45 100 MLS/HR Daptomycin 450 mg/ Sodium Chloride 50 ml @ 100 mls/hr Q24H 12/08/16 10:00 12/10/16 08:02 DC 12/09/16 10:22 100 MLS/HR Dextrose (Dextrose 50%-Water Syringe) 12.5 gm PRN Q15MIN PRN 12/07/16 11:15 Dopamine HCl/ Dextrose 250 ml @ 20.848 mls/ hr CONT PRN 12/11/16 22:00 12/12/16 09:19 25.017 MLS/HR Famotidine (Pepcid) 20 mg BID 12/07/16 11:30 12/12/16 09:12 20 MG Furosemide (Lasix) 40 mg DAILY 12/13/16 09:00 Heparin Sodium (Porcine) (Heparin Sodium) 10,000 unit STK-MED ONCE 12/09/16 10:33 12/09/16 10:34 DC Heparin Sodium/ Sodium Chloride 60 unit 1X ONCE 12/09/16 10:45 12/09/16 10:46 DC 12/09/16 11:03 60 UNIT Insulin Aspart (NovoLOG) 0-9 UNITS Q6HRS 12/10/16 00:00 Insulin Human Regular (NovoLIN R VIAL) 5 unit 1X ONCE 12/06/16 15:15 12/06/16 15:16 DC 12/06/16 14:53 5 UNIT Lactic Acid (Lac-Hydrin) 1 tyrone BID 12/09/16 19:00 12/11/16 08:10 1 TYRONE Levofloxacin/ Dextrose 150 ml @ 100 mls/hr Q48H 12/06/16 18:00 12/07/16 10:42 DC 12/06/16 19:08 100 MLS/HR Lidocaine/ Epinephrine (Xylocaine 1%-Epi 1:100,000) 20 ml STK-MED ONCE 12/09/16 10:32 12/09/16 10:33 DC Lidocaine/Sodium Bicarbonate (Buffered Lidocaine 1%) 3 ml 1X ONCE 12/09/16 10:45 12/09/16 10:46 DC 12/09/16 11:04 3 ML Magnesium Sulfate/ Dextrose 50 ml @ 25 mls/hr 1X ONCE 12/08/16 11:15 12/08/16 13:14 DC 12/08/16 11:29 25 MLS/HR Norepinephrine Bitartrate 250 ml @ 0 mls/hr CONT PRN 12/11/16 22:00 Norepinephrine Bitartrate 16 mg/ Sodium Chloride 266 ml @ 0 mls/hr CONT PRN 12/06/16 17:15 UNV Nystatin (Nystop) 1 tyrone BID 12/09/16 19:01 12/12/16 09:13 1 TYRONE Ondansetron HCl (Zofran) 4 mg PRN Q6HRS PRN 12/07/16 05:30 12/07/16 05:36 4 MG Phenylephrine HCl 80 mg/Sodium Chloride 258 ml @ 0 mls/hr CONT PRN 12/06/16 17:15 12/11/16 08:33 DC 12/07/16 02:37 56.3 MLS/HR Piperacillin Sod/ Tazobactam Sod 2.25 gm/Sodium Chloride 50 ml @ 100 mls/hr Q8HRS 12/06/16 18:00 12/09/16 09:01 DC 12/09/16 05:54 100 MLS/HR Sodium Bicarbonate 50 meq 1X ONCE 12/06/16 21:00 12/06/16 21:01 DC 12/06/16 20:47 50 MEQ Sodium Chloride 500 ml @ 500 mls/hr 1X ONCE 12/06/16 19:00 12/06/16 19:59 DC 12/07/16 00:00 500 MLS/HR Vancomycin HCl 1 each 1X ONCE 12/14/16 09:30 12/14/16 09:31 Vancomycin HCl (Vanco Per Pharmacy) 1 each PRN DAILY PRN 12/10/16 08:15 12/11/16 23:59 1 EACH Vancomycin HCl 1.5 gm/Sodium Chloride 500 ml @ 250 mls/hr Q18H 12/12/16 04:00 12/12/16 04:13 250 MLS/HR Vancomycin HCl 2 gm/Sodium Chloride 500 ml @ 250 mls/hr 1X ONCE 12/10/16 09:00 12/10/16 10:59 DC 12/10/16 08:41 250 MLS/HR Vitamin A/Vitamin D (Vitamin A & D Ointment) 1 tyrone PRN Q1HR PRN 12/09/16 18:30 Lab Laboratory Tests Test 12/11/16 11:09 12/11/16 11:45 12/11/16 21:00 12/12/16 00:15 Glucose (Fingerstick) 117 mg/dL (70-99) 147 mg/dL (70-99) Urine Protein 40.5 mg/dL (Not Estab.) Urine Creatinine 37.8 mg/dL (Not Estab.) Urine Protein/Creatinine Ratio 1071 mg/g creat (0-200) Vancomycin Level Trough 21.2 mcg/mL (10.0-20.0) Vancomycin Last Dose Date 12/11/16 Vancomycin Last Dose Time 0500 Test 12/12/16 05:43 12/12/16 05:50 Glucose (Fingerstick) 157 mg/dL (70-99) White Blood Count 13.7 x10^3/uL (4.0-11.0) Red Blood Count 3.10 x10^6/uL (4.30-5.70) Hemoglobin 9.0 g/dL (13.0-17.5) Hematocrit 28.3 % (39.0-53.0) Mean Corpuscular Volume 91 fL (79-100) Mean Corpuscular Hemoglobin 29 pg (25-35) Mean Corpuscular Hemoglobin Concent 32 g/dL (31-37) Red Cell Distribution Width 19.2 % (11.5-14.5) Platelet Count 79 x10^3/uL (140-400) Sodium Level 146 mmol/L (136-145) Potassium Level 3.6 mmol/L (3.5-5.1) Chloride Level 108 mmol/L (98-107) Carbon Dioxide Level 32 mmol/L (21-32) Anion Gap 6 (6-14) Blood Urea Nitrogen 25 mg/dL (8-26) Creatinine 0.9 mg/dL (0.7-1.3) Estimated GFR (Cockcroft-Gault) 84.4 Glucose Level 166 mg/dL (70-99) Calcium Level 8.9 mg/dL (8.5-10.1) Phosphorus Level 3.5 mg/dL (2.6-4.7) Albumin 3.3 g/dL (3.4-5.0) JAVED GODOY MD Dec 12, 2016 09:33
--- NOTE | 2016-12-12 09:41 | PDOC ---
SUBJECTIVE Subjective another episode of bradycardia last night back on pressors , more awake today but difficulty keeping saturation adequacy OBJECTIVE Vital Signs Vital Signs Date Time Temp Pulse Resp B/P (MAP) Pulse Ox O2 Delivery O2 Flow Rate FiO2 12/12/16 08:29 86 BiPAP/CPAP 12/12/16 08:00 Bi-pap 12/12/16 08:00 108 29 131/88 (102) 89 BiPAP/CPAP 12/12/16 07:00 96.8 85 29 137/70 (92) 84 BiPAP/CPAP 96.8 12/12/16 06:00 76 30 148/80 (102) 90 BiPAP/CPAP 12/12/16 05:51 92 BiPAP/CPAP 12/12/16 05:22 96.3 82 28 140/78 (98) 89 BiPAP/CPAP 96.3 12/12/16 04:32 91 BiPAP/CPAP 12/12/16 04:30 Bi-pap 12/12/16 04:20 94.5 76 28 123/64 (83) 94 BiPAP/CPAP 94.5 12/12/16 03:16 65 28 134/60 (84) 94 BiPAP/CPAP 12/12/16 02:00 95 BiPAP/CPAP 12/12/16 01:51 85 28 120/65 (83) 95 BiPAP/CPAP 12/12/16 01:09 86 28 107/62 (77) 94 BiPAP/CPAP 12/12/16 00:00 88 26 117/63 (81) 93 BiPAP/CPAP 12/12/16 00:00 Bi-pap 12/11/16 23:00 100 26 107/60 (76) 96 BiPAP/CPAP 12/11/16 22:49 97 BiPAP/CPAP 12/11/16 22:30 100 28 100/63 (75) 81 BiPAP/CPAP 12/11/16 22:19 82 29 91/51 (64) BiPAP/CPAP 12/11/16 22:08 78 29 87/45 (59) BiPAP/CPAP 12/11/16 22:00 74 29 84/43 (57) BiPAP/CPAP 12/11/16 21:45 58 26 72/41 (51) BiPAP/CPAP 12/11/16 21:00 60 26 86/42 (57) 95 Venturi Mask 15.0 7/5/17 20:00 96.4 60 24 98/48 (65) 97 Venturi Mask 15.0 96.4 12/11/16 20:00 Venturi Mask 15.0 12/11/16 19:00 62 24 99/51 (67) 96 Venturi Mask 15.0 12/11/16 18:10 97.8 59 24 117/81 (93) 95 Venturi Mask 15.0 97.8 12/11/16 17:03 97.8 60 24 101/42 (61) 95 Venturi Mask 15.0 97.8 12/11/16 16:00 97.8 55 24 101/45 (63) Venturi Mask 15.0 97.8 12/11/16 16:00 Venturi Mask 15.0 12/11/16 14:00 98.5 63 24 129/60 (83) 94 Venturi Mask 15.0 98.5 12/11/16 13:04 98.2 65 125/52 (76) 97 Venturi Mask 15.0 98.2 12/11/16 12:05 98.0 72 123/58 (79) 97 Venturi Mask 15.0 98.0 12/11/16 12:03 Venturi Mask 15.0 12/11/16 11:00 98.1 72 123/63 (83) 97 Venturi Mask 15.0 98.1 12/11/16 10:00 98.1 72 104/49 (67) 97 Venturi Mask 15.0 98.1 I & O Intake and Output 12/12/16 07:00 Intake Total 1735 ml Output Total 1992 ml Balance -257 ml Intake Oral 0 ml IV Total 1475 ml Tube Feeding 80 ml Other 180 ml Output Urine Total 1992 ml PHYSICAL EXAM Physical Exam lethargic lungs with rales and ronchi heart tachy now abd mild distention ext + 2 edema ASSESSMENT/PLAN Assessment/Plan 1-Septic shock, POA. 12/06. Staph aureus, presumptive MRSA bacteremia. TTE neg veg, 12/06. 2-Hypothermia- off [place]ita hugger 3-Acute encephalopathy, improving 4-UTI, POA. 12/06. GNR 5-RENETTA 6-Acute respiratory failure 7-Bradyarrhythmia s/p code blue 12/07, another episode significant bradycardia yesterday, 8-Metabolic acidosis 9-Chronic debility discussed with he is DNI but want all other treatment, consider external pacer due to recurrent bradycardia , continue current Tx for now , nutrition still on hold overall prognosis is poor Problems: COMMENT Lab Laboratory Tests Test 12/11/16 11:09 12/11/16 11:45 12/11/16 21:00 12/12/16 00:15 Glucose (Fingerstick) 117 mg/dL (70-99) 147 mg/dL (70-99) Urine Protein 40.5 mg/dL (Not Estab.) Urine Creatinine 37.8 mg/dL (Not Estab.) Urine Protein/Creatinine Ratio 1071 mg/g creat (0-200) Vancomycin Level Trough 21.2 mcg/mL (10.0-20.0) Vancomycin Last Dose Date 12/11/16 Vancomycin Last Dose Time 0500 Test 12/12/16 05:43 12/12/16 05:50 Glucose (Fingerstick) 157 mg/dL (70-99) White Blood Count 13.7 x10^3/uL (4.0-11.0) Red Blood Count 3.10 x10^6/uL (4.30-5.70) Hemoglobin 9.0 g/dL (13.0-17.5) Hematocrit 28.3 % (39.0-53.0) Mean Corpuscular Volume 91 fL (79-100) Mean Corpuscular Hemoglobin 29 pg (25-35) Mean Corpuscular Hemoglobin Concent 32 g/dL (31-37) Red Cell Distribution Width 19.2 % (11.5-14.5) Platelet Count 79 x10^3/uL (140-400) Sodium Level 146 mmol/L (136-145) Potassium Level 3.6 mmol/L (3.5-5.1) Chloride Level 108 mmol/L (98-107) Carbon Dioxide Level 32 mmol/L (21-32) Anion Gap 6 (6-14) Blood Urea Nitrogen 25 mg/dL (8-26) Creatinine 0.9 mg/dL (0.7-1.3) Estimated GFR (Cockcroft-Gault) 84.4 Glucose Level 166 mg/dL (70-99) Calcium Level 8.9 mg/dL (8.5-10.1) Phosphorus Level 3.5 mg/dL (2.6-4.7) Albumin 3.3 g/dL (3.4-5.0) KYLE LAWSON MD Dec 12, 2016 09:41
[2016-12-12] MEDS: VANCOMYCIN PER PHARMACY MC PRN (12:52)
--- NOTE | 2016-12-12 14:09 | PDOC ---
PROGRESS NOTES Subjective Subjective Increasing shortness of breath with the patient back on BiPAP Objective Objective Vital Signs Date Time Temp Pulse Resp B/P (MAP) Pulse Ox O2 Delivery O2 Flow Rate FiO2 12/12/16 13:47 84 BiPAP/CPAP 12/12/16 13:00 79 29 119/72 (88) 12/12/16 12:00 96.6 96.6 12/11/16 21:00 15.0 Intake and Output 12/12/16 07:00 Intake Total 1735 ml Output Total 1992 ml Balance -257 ml Intake Oral 0 ml IV Total 1475 ml Tube Feeding 80 ml Other 180 ml Output Urine Total 1992 ml Physical Exam Abdomen: Normal bowel sounds Heart: Regular rate General: moderate distress Lungs: Other (decreased breath sounds) Assessment Assessment Problems Medical Problems: (1) Altered level of consciousness Status: Acute (2) Bradycardia Status: Acute (3) Hypotension Status: Acute (4) Hypothermia Status: Acute (5) Sepsis Status: Acute 1. Bradyarrhythmia, episode last night while hypoxic. Rate now has regained normal. Continuing to monitor. Atropine and external pacemaker if needed. 2. Staph aureus bacteremia; as per ID 3. Septic shock; off pressors. maintaining low-normotensive BP. 4. Acute respiratory failure. Increasing shortness of breath. Back on BiPAP. Followed by the pulmonary service. 5. Metabolic encephalopathy 6. RENETTA. per renal 7. Chronic debility Comment Review of Relevant I have reviewed the following items javed (where applicable) has been applied. Labs Laboratory Tests Test 12/10/16 18:08 12/11/16 00:03 12/11/16 05:00 12/11/16 05:34 Glucose (Fingerstick) 138 mg/dL (70-99) 103 mg/dL (70-99) 141 mg/dL (70-99) White Blood Count 8.8 x10^3/uL (4.0-11.0) Red Blood Count 3.00 x10^6/uL (4.30-5.70) Hemoglobin 8.8 g/dL (13.0-17.5) Hematocrit 27.7 % (39.0-53.0) Mean Corpuscular Volume 93 fL (79-100) Mean Corpuscular Hemoglobin 29 pg (25-35) Mean Corpuscular Hemoglobin Concent 32 g/dL (31-37) Red Cell Distribution Width 19.5 % (11.5-14.5) Platelet Count 83 x10^3/uL (140-400) Neutrophils (%) (Auto) 87 % (31-73) Lymphocytes (%) (Auto) 8 % (24-48) Monocytes (%) (Auto) 4 % (0-9) Eosinophils (%) (Auto) 1 % (0-3) Basophils (%) (Auto) 0 % (0-3) Neutrophils # (Auto) 7.7 x10^3uL (1.8-7.7) Lymphocytes # (Auto) 0.7 x10^3/uL (1.0-4.8) Monocytes # (Auto) 0.4 x10^3/uL (0.0-1.1) Eosinophils # (Auto) 0.0 x10^3/uL (0.0-0.7) Basophils # (Auto) 0.0 x10^3/uL (0.0-0.2) Segmented Neutrophils % 92 % (35-66) Lymphocytes % 5 % (24-48) Monocytes % 3 % (0-10) Platelet Estimate Decreased (ADEQUATE) Basophilic Stippling Present Anisocytosis Slight Sodium Level 142 mmol/L (136-145) Potassium Level 3.6 mmol/L (3.5-5.1) Chloride Level 107 mmol/L (98-107) Carbon Dioxide Level 31 mmol/L (21-32) Anion Gap 4 (6-14) Blood Urea Nitrogen 21 mg/dL (8-26) Creatinine 0.5 mg/dL (0.7-1.3) Estimated GFR (Cockcroft-Gault) 166.4 BUN/Creatinine Ratio 42 (6-20) Glucose Level 127 mg/dL (70-99) Calcium Level 9.1 mg/dL (8.5-10.1) Total Bilirubin 0.5 mg/dL (0.2-1.0) Aspartate Amino Transf (AST/SGOT) 17 U/L (15-37) Alanine Aminotransferase (ALT/SGPT) 17 U/L (16-63) Alkaline Phosphatase 90 U/L (46-116) Total Protein 5.4 g/dL (6.4-8.2) Albumin 2.1 g/dL (3.4-5.0) Albumin/Globulin Ratio 0.6 (1.0-1.7) Test 12/11/16 11:09 12/11/16 11:45 12/11/16 21:00 12/12/16 00:15 Glucose (Fingerstick) 117 mg/dL (70-99) 147 mg/dL (70-99) Urine Protein 40.5 mg/dL (Not Estab.) Urine Creatinine 37.8 mg/dL (Not Estab.) Urine Protein/Creatinine Ratio 1071 mg/g creat (0-200) Vancomycin Level Trough 21.2 mcg/mL (10.0-20.0) Vancomycin Last Dose Date 12/11/16 Vancomycin Last Dose Time 0500 Test 12/12/16 05:43 12/12/16 05:50 Glucose (Fingerstick) 157 mg/dL (70-99) White Blood Count 13.7 x10^3/uL (4.0-11.0) Red Blood Count 3.10 x10^6/uL (4.30-5.70) Hemoglobin 9.0 g/dL (13.0-17.5) Hematocrit 28.3 % (39.0-53.0) Mean Corpuscular Volume 91 fL (79-100) Mean Corpuscular Hemoglobin 29 pg (25-35) Mean Corpuscular Hemoglobin Concent 32 g/dL (31-37) Red Cell Distribution Width 19.2 % (11.5-14.5) Platelet Count 79 x10^3/uL (140-400) Sodium Level 146 mmol/L (136-145) Potassium Level 3.6 mmol/L (3.5-5.1) Chloride Level 108 mmol/L (98-107) Carbon Dioxide Level 32 mmol/L (21-32) Anion Gap 6 (6-14) Blood Urea Nitrogen 25 mg/dL (8-26) Creatinine 0.9 mg/dL (0.7-1.3) Estimated GFR (Cockcroft-Gault) 84.4 Glucose Level 166 mg/dL (70-99) Calcium Level 8.9 mg/dL (8.5-10.1) Phosphorus Level 3.5 mg/dL (2.6-4.7) Albumin 3.3 g/dL (3.4-5.0) Laboratory Tests Test 12/11/16 21:00 12/12/16 00:15 12/12/16 05:43 12/12/16 05:50 Vancomycin Level Trough 21.2 mcg/mL (10.0-20.0) Vancomycin Last Dose Date 12/11/16 Vancomycin Last Dose Time 0500 Glucose (Fingerstick) 147 mg/dL (70-99) 157 mg/dL (70-99) White Blood Count 13.7 x10^3/uL (4.0-11.0) Red Blood Count 3.10 x10^6/uL (4.30-5.70) Hemoglobin 9.0 g/dL (13.0-17.5) Hematocrit 28.3 % (39.0-53.0) Mean Corpuscular Volume 91 fL (79-100) Mean Corpuscular Hemoglobin 29 pg (25-35) Mean Corpuscular Hemoglobin Concent 32 g/dL (31-37) Red Cell Distribution Width 19.2 % (11.5-14.5) Platelet Count 79 x10^3/uL (140-400) Sodium Level 146 mmol/L (136-145) Potassium Level 3.6 mmol/L (3.5-5.1) Chloride Level 108 mmol/L (98-107) Carbon Dioxide Level 32 mmol/L (21-32) Anion Gap 6 (6-14) Blood Urea Nitrogen 25 mg/dL (8-26) Creatinine 0.9 mg/dL (0.7-1.3) Estimated GFR (Cockcroft-Gault) 84.4 Glucose Level 166 mg/dL (70-99) Calcium Level 8.9 mg/dL (8.5-10.1) Phosphorus Level 3.5 mg/dL (2.6-4.7) Albumin 3.3 g/dL (3.4-5.0) Microbiology 12/10/16 Blood Culture - Preliminary, Resulted NO GROWTH AFTER 2 DAYS 12/06/16 Urine Culture - Final, Complete 12/06/16 Urine Culture Result 1 (ERICK) - Final, Complete 12/06/16 Antimicrobic Susceptibility - Final, Complete Medications Current Medications Atropine Sulfate 1 mg STK-MED ONCE .ROUTE ; Start 12/06/16 at 15:04; Stop at 15:05; Status DC Dextrose (Dextrose 50%-Water Syringe) 25 gm 1X ONCE IV Last administered on t 14:53; Start 12/06/16 at 15:15; Stop 12/06/16 at 15:16; Status DC Insulin Human Regular (NovoLIN R VIAL) 5 unit 1X ONCE IV Last administered on 12/06/16 14:53; Start 12/06/16 at 15:15; Stop 12/06/16 at 15:16; Status DC Atropine Sulfate 1 mg 1X ONCE IV ; Start 12/06/16 at 15:15; Stop 12/06/16 at 15 :16; Status Cancel Sodium Bicarbonate 50 meq 1X ONCE IV Last administered on 12/06/16 14:53; Start 12/06/16 at 15:15; Stop 12/06/16 at 15:16; Status DC Calcium Gluconate (Calcium Gluconate) 1,000 mg 1X ONCE IVP Last administered on 12/06/16 14:53; Start 12/06/16 at 15:15; Stop 12/06/16 at 15:16; Status DC Dopamine HCl/ Dextrose 250 ml @ 0 mls/hr 1X ONCE IV Last administered on 15:02; Start 12/06/16 at 15:15; Stop 12/06/16 at 15:16; Status DC Atropine Sulfate 1 mg 1X ONCE IV Last administered on 12/06/16 15:04; Start 12/06/16 at 15:15; Stop 12/06/16 at 15:16; Status DC Sodium Chloride 500 ml @ 500 mls/hr 1X ONCE IV Last administered on 15:20; Start 12/06/16 at 15:45; Stop 12/06/16 at 16:44; Status DC Sodium Chloride 1,000 ml @ 1,000 mls/hr 1X ONCE IV Last administered on 15:30; Start 12/06/16 at 15:45; Stop 12/06/16 at 16:44; Status DC Ceftriaxone Sodium 50 ml @ 100 mls/hr 1X ONCE IV Last administered on 15:45; Start 12/06/16 at 15:45; Stop 12/06/16 at 16:14; Status DC Vancomycin HCl (Vanco Per Pharmacy) 1 each PRN DAILY PRN MC SEE COMMENTS Last administered on 12/06/16 16:23; Start 12/06/16 at 16:15; Stop 12/06/16 at 19:10 ; Status DC Vancomycin HCl 2 gm/Sodium Chloride 500 ml @ 250 mls/hr 1X ONCE IV Last administered on 12/06/16 16:15; Start 12/06/16 at 16:30; Stop 12/06/16 at 19:10 ; Status DC Vancomycin HCl 1.5 gm/Sodium Chloride 500 ml @ 250 mls/hr Q24H IV ; Start at 16:00; Stop 12/07/16 at 16:00; Status DC Vancomycin HCl 1 each 1X ONCE MC ; Start 12/08/16 at 15:30; Stop 12/08/16 at 15: 30; Status DC Sodium Chloride 1,000 ml @ 100 mls/hr Q10H IV Last administered on 12/08/16 07 :48; Start 12/06/16 at 16:30; Stop 12/08/16 at 11:06; Status DC Norepinephrine Bitartrate 250 ml @ As Directed STK-MED ONCE IV ; Start at 16:50; Stop 12/06/16 at 16:51; Status DC Sodium Bicarbonate 50 meq 1X ONCE IV Last administered on 12/06/16 17:00; Start 12/06/16 at 17:00; Stop 12/06/16 at 17:01; Status DC Norepinephrine Bitartrate 16 mg/ Sodium Chloride 266 ml @ 0 mls/hr CONT PRN IV SEE I/O RECORD; Start 12/06/16 at 17:15; Status UNV Phenylephrine HCl 80 mg/Sodium Chloride 258 ml @ 0 mls/hr CONT PRN IV SEE I/O RECORD Last administered on 12/07/16 02:37; Start 12/06/16 at 17:15; Stop at 08:33; Status DC Norepinephrine Bitartrate 250 ml @ 1.875 mls/ hr CONT PRN IV SEE I/O RECORD Last administered on 12/09/16 02:40; Start 12/06/16 at 17:15; Stop 12/11/16 at 08 :33; Status DC Piperacillin Sod/ Tazobactam Sod 2.25 gm/Sodium Chloride 50 ml @ 100 mls/hr Q8HRS IV Last administered on 12/09/16 05:54; Start 12/06/16 at 18:00; Stop 12/09/16 at 09:01; Status DC Levofloxacin/ Dextrose 150 ml @ 100 mls/hr Q48H IV Last administered on 19:08; Start 12/06/16 at 18:00; Stop 12/07/16 at 10:42; Status DC Sodium Chloride 1,000 ml @ 1,000 mls/hr 1X ONCE IV Last administered on 19:23; Start 12/06/16 at 17:45; Stop 12/06/16 at 18:44; Status DC Sodium Chloride 1,000 ml @ 1,000 mls/hr 1X ONCE IV Last administered on 19:23; Start 12/06/16 at 18:45; Stop 12/06/16 at 19:44; Status DC Sodium Chloride 500 ml @ 500 mls/hr 1X ONCE IV Last administered on 12/07/16 00:00; Start 12/06/16 at 19:00; Stop 12/06/16 at 19:59; Status DC Albumin Human 500 ml @ 125 mls/hr 1X ONCE IV Last administered on 12/06/16 19:22; Start 12/06/16 at 19:00; Stop 12/06/16 at 22:59; Status DC Dopamine HCl/ Dextrose 250 ml @ 20.837 mls/ hr CONT PRN IV SEE I/O RECORD Last administered on 12/09/16 17:34; Start 12/06/16 at 19:15; Stop 12/11/16 at 08 :33; Status DC Sodium Bicarbonate 50 meq 1X ONCE IV Last administered on 12/06/16 20:47; Start 12/06/16 at 21:00; Stop 12/06/16 at 21:01; Status DC Ondansetron HCl (Zofran) 4 mg PRN Q6HRS PRN IV NAUSEA/VOMITING Last administered on 12/07/16 05:36; Start 12/07/16 at 05:30 Insulin Aspart (NovoLOG) 0-9 UNITS TIDWMEALS SQ ; Start 12/07/16 at 12:00; Stop 12/09/16 at 23:10; Status DC Dextrose (Dextrose 50%-Water Syringe) 12.5 gm PRN Q15MIN PRN IV SEE COMMENTS; Start 12/07/16 at 11:15 Famotidine (Pepcid) 20 mg BID IVP Last administered on 12/12/16 09:12; Start at 11:30 Daptomycin 450 mg/ Sodium Chloride 50 ml @ 100 mls/hr Q24H IV Last administered on 12/09/16 10:22; Start 12/08/16 at 10:00; Stop 12/10/16 at 08:02; Status DC Amino Acids/ Glycerin/ Electrolytes 1,000 ml @ 80 mls/hr [id number] IV Last administered on 12/10/16 14:10; Start 12/08/16 at 11:15; Stop 12/11/16 at 08:33; Status DC Magnesium Sulfate/ Dextrose 50 ml @ 25 mls/hr 1X ONCE IV Last administered on 12/08/16 11:29; Start 12/08/16 at 11:15; Stop 12/08/16 at 13:14; Status DC Ceftriaxone Sodium 1 gm/ Sodium Chloride 50 ml @ 100 mls/hr Q24H IV Last administered on 12/09/16 09:39; Start 12/09/16 at 10:00; Stop 12/10/16 at 08:02; Status DC Furosemide (Lasix) 40 mg 1X ONCE IVP Last administered on 12/09/16 09:39; Start 12/09/16 at 09:30; Stop 12/09/16 at 09:31; Status DC Lidocaine/ Epinephrine (Xylocaine 1%-Epi 1:100,000) 20 ml STK-MED ONCE .ROUTE ; Start 12/09/16 at 10:32; Stop 12/09/16 at 10:33; Status DC Lidocaine/Sodium Bicarbonate (Buffered Lidocaine 1%) 20 ml STK-MED ONCE IJ ; Start 12/09/16 at 10:32; Stop 12/09/16 at 10:33; Status DC Lidocaine/Sodium Bicarbonate (Buffered Lidocaine 1%) 3 ml 1X ONCE IJ Last administered on 12/09/16 11:04; Start 12/09/16 at 10:45; Stop 12/09/16 at 10:46; Status DC Heparin Sodium/ Sodium Chloride 60 unit 1X ONCE IV Last administered on 11:03; Start 12/09/16 at 10:45; Stop 12/09/16 at 10:46; Status DC Heparin Sodium (Porcine) (Heparin Sodium) 10,000 unit STK-MED ONCE .ROUTE ; Start 12/09/16 at 10:33; Stop 12/09/16 at 10:34; Status DC Lactic Acid (Lac-Hydrin) 1 kiran BID TP Last administered on 12/11/16 08:10; Start 12/09/16 at 19:00 Nystatin (Nystop) 1 kiran BID TP Last administered on 12/12/16 09:13; Start at 19:01 Vitamin A/Vitamin D (Vitamin A & D Ointment) 1 kiran PRN Q1HR PRN TP SKIN PROTECTION; Start 12/09/16 at 18:30 Insulin Aspart (NovoLOG) 0-9 UNITS Q6HRS SQ ; Start 12/10/16 at 00:00 Vancomycin HCl (Vanco Per Pharmacy) 1 each PRN DAILY PRN MC SEE COMMENTS Last administered on 12/12/16 12:52; Start 12/10/16 at 08:15 Vancomycin HCl 2 gm/Sodium Chloride 500 ml @ 250 mls/hr 1X ONCE IV Last administered on 12/10/16 08:41; Start 12/10/16 at 09:00; Stop 12/10/16 at 10:59; Status DC Aripiprazole (Abilify) 15 mg DAILY PO Last administered on 12/12/16 09:12; Start 12/10/16 at 11:00 Vancomycin HCl 1 each 1X ONCE MC Last administered on 12/11/16 21:07; Start at 20:30; Stop 12/11/16 at 20:31; Status DC Vancomycin HCl 1.5 gm/Sodium Chloride 500 ml @ 250 mls/hr Q12H IV Last administered on 12/11/16 09:34; Start 12/10/16 at 21:00; Stop 12/11/16 at 22:05; Status DC Albumin Human 100 ml @ 100 mls/hr TID IV Last administered on 12/11/16 20:58; Start 12/11/16 at 09:00; Stop 12/11/16 at 21:51; Status DC Furosemide (Lasix) 40 mg TID IVP Last administered on 12/11/16 15:47; Start 12/11/16 at 09:00; Stop 12/11/16 at 21:51; Status DC Furosemide (Lasix) 40 mg DAILY IVP ; Start 12/13/16 at 09:00 Dopamine HCl/ Dextrose 250 ml @ As Directed STK-MED ONCE IV ; Start 12/11/16 at 21:36; Stop 12/11/16 at 21:37; Status DC Dopamine HCl/ Dextrose 250 ml @ 20.848 mls/ hr CONT PRN IV SEE I/O RECORD Last administered on 12/12/16 09:19; Start 12/11/16 at 22:00 Norepinephrine Bitartrate 250 ml @ 0 mls/hr CONT PRN IV SEE I/O RECORD; Start 12/11/16 at 22:00 Vancomycin HCl 1.5 gm/Sodium Chloride 500 ml @ 250 mls/hr Q18H IV Last administered on 12/12/16 04:13; Start 12/12/16 at 04:00 Albuterol Sulfate (Ventolin Neb Soln) 2.5 mg 1X ONCE IH Last administered on 22:51; Start 12/11/16 at 23:00; Stop 12/11/16 at 23:01; Status DC Vancomycin HCl 1 each 1X ONCE MC ; Start 12/14/16 at 09:30; Stop 12/14/16 at 09: 31 Active Scripts Active Reported [place] 3 Fish Oil Softgel ([place]-3 Fatty Acids/Fish Oil) 1 Each Capsule.dr 2 Cap PO DAILY Polyethylene Glycol 3350 17 Gm Powd.pack 17 Gm PO PRN QID PRN Simethicone 125 Mg Capsule 250 Mg PO QID Propranolol Hcl 20 Mg Tablet 20 Mg PO QHS Melatonin 3 Mg Tablet 6 Mg PO QHS Potassium Chloride 20 Meq Tab.er.prt 20 Meq PO DAILY Prazosin Hcl 1 Mg Capsule 1 Mg PO QHS Mupirocin Ointment (Mupirocin) 22 Gm Oint...g. 1 Kiran TP BID Nystop (Nystatin) 60 Gm Powder 1 Kiran TP BID Mirapex (Pramipexole Di-Hcl) 0.125 Mg Tablet 0.125 Mg PO TID Triamcinolone Acetonide 80 Gm Oint...g. 1 Kiran TP TID Tamsulosin Hcl 0.4 Mg Cap.er.24h 0.4 Mg PO DAILY Furosemide 20 Mg Tablet 20 Mg PO DAILY Magnesium Oxide 400 Mg Tablet 400 Mg PO BID Pantoprazole Sodium 40 Mg Tablet.dr 40 Mg PO DAILY Propranolol Hcl 40 Mg Tablet 40 Mg PO DAILY Nephro-Elkin Tablet (Folic Acid/Vitamin B Comp W-C) 0.8 Mg Tablet 1 Tab PO DAILY Temazepam 15 Mg Capsule 30 Mg PO QHS Losartan Potassium 50 Mg Tablet 50 Mg PO DAILY Abilify (Aripiprazole) 10 Mg Tablet 15 Mg PO DAILY Amlodipine Besylate 5 Mg Tablet 5 Tab PO DAILY Ranexa (Ranolazine) 500 Mg Tab.er.12h 500 Mg PO BID Nitrostat (Nitroglycerin) 0.4 Mg Tab.subl 0.4 Mg SL PRN Q5MIN PRN Probiotic & Acidophilus Cap (Lactobac Cmb #3/Fos/Pantethine) 1 Each Capsule 1 Tab PO DAILY Cilostazol 50 Mg Tablet 50 Mg PO BID Glycopyrrolate 2 Mg Tablet 2 Mg PO NOON Finasteride 5 Mg Tablet 5 Mg PO DAILY Vitamin D (Cholecalciferol (Vitamin D3)) 1,000 Unit Tablet 2,000 Unit PO DAILY Co Q-10 (Ubidecarenone) 100 Mg Capsule 100 Mg PO NOON Allopurinol 300 Mg Tablet 300 Mg PO BID Aspirin 325 Mg Tablet 325 Mg PO DAILY Imdur (Isosorbide Mononitrate) 30 Mg Tab.er.24h 30 Mg PO DAILYWLUN Sucralfate 1 Gm Tablet 1 Gm PO QIDACHS Atorvastatin Calcium 20 Mg Tablet 20 Mg PO HS Humalog (Insulin Lispro) 100 Unit/1 Ml Insuln.pen 5 Unit SQ TIDAC Lantus Solostar (Insulin Glargine,Hum.rec.anlog) 100 Unit/1 Ml Insuln.pen 30 Unit SQ QEVNG Ketoconazole 15 Gm Cream..g. 1 Kiran TP DAILY Vitals/I & O Vital Sign - Last 24 Hours 12/11/16 12/11/16 12/11/16 12/11/16 16:00 16:00 17:03 18:10 Temp 97.8 97.8 97.8 97.8 97.8 97.8 Pulse 55 60 59 Resp 24 24 24 B/P (MAP) 101/45 (63) 101/42 (61) 117/81 (93) Pulse Ox 95 95 O2 Delivery Venturi Mask Venturi Mask Venturi Mask Venturi Mask O2 Flow Rate 15.0 15.0 15.0 15.0 12/11/16 12/11/16 12/11/16 12/11/16 19:00 20:00 20:00 21:00 Temp 96.4 96.4 Pulse 62 60 60 Resp 24 24 26 B/P (MAP) 99/51 (67) 98/48 (65) 86/42 (57) Pulse Ox 96 97 95 O2 Delivery Venturi Mask Venturi Mask Venturi Mask Venturi Mask O2 Flow Rate 15.0 15.0 15.0 15.0 12/11/16 12/11/16 12/11/16 12/11/16 21:45 22:00 22:08 22:19 Pulse 58 74 78 82 Resp 29 B/P (MAP) 72/41 (51) 84/43 (57) 87/45 (59) 91/51 (64) O2 Delivery BiPAP/CPAP BiPAP/CPAP BiPAP/CPAP BiPAP/CPAP 12/11/16 12/11/16 12/11/16 12/12/16 22:30 22:49 23:00 00:00 Pulse 100 100 Resp B/P (MAP) 100/63 (75) 107/60 (76) Pulse Ox 81 97 96 O2 Delivery BiPAP/CPAP BiPAP/CPAP BiPAP/CPAP Bi-pap 12/12/16 12/12/16 12/12/16 12/12/16 00:00 01:09 01:51 02:00 Pulse 88 86 85 Resp B/P (MAP) 117/63 (81) 107/62 (77) 120/65 (83) Pulse Ox 93 94 95 95 O2 Delivery BiPAP/CPAP BiPAP/CPAP BiPAP/CPAP BiPAP/CPAP 12/12/16 12/12/16 12/12/16 12/12/16 03:16 04:20 04:30 04:32 Temp 94.5 94.5 Pulse 65 76 Resp B/P (MAP) 134/60 (84) 123/64 (83) Pulse Ox 94 94 91 O2 Delivery BiPAP/CPAP BiPAP/CPAP Bi-pap BiPAP/CPAP 12/12/16 12/12/16 12/12/16 12/12/16 05:22 05:51 06:00 07:00 Temp 96.3 96.8 96.3 96.8 Pulse 82 76 85 Resp 28 30 29 B/P (MAP) 140/78 (98) 148/80 (102) 137/70 (92) Pulse Ox 89 92 90 84 O2 Delivery BiPAP/CPAP BiPAP/CPAP BiPAP/CPAP BiPAP/CPAP 12/12/16 12/12/16 12/12/16 12/12/16 08:00 08:00 08:29 09:00 Pulse 108 92 Resp 29 30 B/P (MAP) 131/88 (102) 143/84 (103) Pulse Ox 89 86 85 O2 Delivery BiPAP/CPAP Bi-pap BiPAP/CPAP BiPAP/CPAP 12/12/16 12/12/16 12/12/16 12/12/16 10:00 11:00 12:00 12:26 Temp 96.6 96.6 Pulse 74 107 104 Resp 29 29 B/P (MAP) 134/89 (104) 122/69 (86) 140/88 (105) Pulse Ox 83 87 83 80 O2 Delivery BiPAP/CPAP BiPAP/CPAP BiPAP/CPAP BiPAP/CPAP 12/12/16 12/12/16 13:00 13:47 Pulse 79 Resp 29 B/P (MAP) 119/72 (88) Pulse Ox 85 84 O2 Delivery BiPAP/CPAP BiPAP/CPAP Intake and Output 12/11/16 12/11/16 12/12/16 15:00 23:00 07:00 Intake Total 860 ml 200 ml 675 ml Output Total 1125 ml 687 ml 180 ml Balance -265 ml -487 ml 495 ml BEN DALE MD Dec 12, 2016 14:09
[2016-12-12] MEDS: ONDANSETRON PF 4 MG/2 ML VIAL. IV PRN (14:11)
--- NOTE | 2016-12-12 14:36 | PDOC ---
PULMONARY PROGRESS NOTES Subjective ON BIPAP MINIMAL RESPONSE Vitals Vital Signs Date Time Temp Pulse Resp B/P (MAP) Pulse Ox O2 Delivery O2 Flow Rate FiO2 12/12/16 13:47 84 BiPAP/CPAP 12/12/16 13:00 79 29 119/72 (88) 12/12/16 12:00 96.6 96.6 12/11/16 21:00 15.0 General: Lethargic Cardiovascular: S1, S2 Abdomen: Soft, Other (distended) Extremities: Other (1+edema, wounds) Skin: Warm Labs Laboratory Tests Test 12/10/16 18:08 12/11/16 00:03 12/11/16 05:00 12/11/16 05:34 Glucose (Fingerstick) 138 mg/dL (70-99) 103 mg/dL (70-99) 141 mg/dL (70-99) White Blood Count 8.8 x10^3/uL (4.0-11.0) Red Blood Count 3.00 x10^6/uL (4.30-5.70) Hemoglobin 8.8 g/dL (13.0-17.5) Hematocrit 27.7 % (39.0-53.0) Mean Corpuscular Volume 93 fL (79-100) Mean Corpuscular Hemoglobin 29 pg (25-35) Mean Corpuscular Hemoglobin Concent 32 g/dL (31-37) Red Cell Distribution Width 19.5 % (11.5-14.5) Platelet Count 83 x10^3/uL (140-400) Neutrophils (%) (Auto) 87 % (31-73) Lymphocytes (%) (Auto) 8 % (24-48) Monocytes (%) (Auto) 4 % (0-9) Eosinophils (%) (Auto) 1 % (0-3) Basophils (%) (Auto) 0 % (0-3) Neutrophils # (Auto) 7.7 x10^3uL (1.8-7.7) Lymphocytes # (Auto) 0.7 x10^3/uL (1.0-4.8) Monocytes # (Auto) 0.4 x10^3/uL (0.0-1.1) Eosinophils # (Auto) 0.0 x10^3/uL (0.0-0.7) Basophils # (Auto) 0.0 x10^3/uL (0.0-0.2) Segmented Neutrophils % 92 % (35-66) Lymphocytes % 5 % (24-48) Monocytes % 3 % (0-10) Platelet Estimate Decreased (ADEQUATE) Basophilic Stippling Present Anisocytosis Slight Sodium Level 142 mmol/L (136-145) Potassium Level 3.6 mmol/L (3.5-5.1) Chloride Level 107 mmol/L (98-107) Carbon Dioxide Level 31 mmol/L (21-32) Anion Gap 4 (6-14) Blood Urea Nitrogen 21 mg/dL (8-26) Creatinine 0.5 mg/dL (0.7-1.3) Estimated GFR (Cockcroft-Gault) 166.4 BUN/Creatinine Ratio 42 (6-20) Glucose Level 127 mg/dL (70-99) Calcium Level 9.1 mg/dL (8.5-10.1) Total Bilirubin 0.5 mg/dL (0.2-1.0) Aspartate Amino Transf (AST/SGOT) 17 U/L (15-37) Alanine Aminotransferase (ALT/SGPT) 17 U/L (16-63) Alkaline Phosphatase 90 U/L (46-116) Total Protein 5.4 g/dL (6.4-8.2) Albumin 2.1 g/dL (3.4-5.0) Albumin/Globulin Ratio 0.6 (1.0-1.7) Test 12/11/16 11:09 12/11/16 11:45 12/11/16 21:00 12/12/16 00:15 Glucose (Fingerstick) 117 mg/dL (70-99) 147 mg/dL (70-99) Urine Protein 40.5 mg/dL (Not Estab.) Urine Creatinine 37.8 mg/dL (Not Estab.) Urine Protein/Creatinine Ratio 1071 mg/g creat (0-200) Vancomycin Level Trough 21.2 mcg/mL (10.0-20.0) Vancomycin Last Dose Date 12/11/16 Vancomycin Last Dose Time 0500 Test 12/12/16 05:43 12/12/16 05:50 Glucose (Fingerstick) 157 mg/dL (70-99) White Blood Count 13.7 x10^3/uL (4.0-11.0) Red Blood Count 3.10 x10^6/uL (4.30-5.70) Hemoglobin 9.0 g/dL (13.0-17.5) Hematocrit 28.3 % (39.0-53.0) Mean Corpuscular Volume 91 fL (79-100) Mean Corpuscular Hemoglobin 29 pg (25-35) Mean Corpuscular Hemoglobin Concent 32 g/dL (31-37) Red Cell Distribution Width 19.2 % (11.5-14.5) Platelet Count 79 x10^3/uL (140-400) Sodium Level 146 mmol/L (136-145) Potassium Level 3.6 mmol/L (3.5-5.1) Chloride Level 108 mmol/L (98-107) Carbon Dioxide Level 32 mmol/L (21-32) Anion Gap 6 (6-14) Blood Urea Nitrogen 25 mg/dL (8-26) Creatinine 0.9 mg/dL (0.7-1.3) Estimated GFR (Cockcroft-Gault) 84.4 Glucose Level 166 mg/dL (70-99) Calcium Level 8.9 mg/dL (8.5-10.1) Phosphorus Level 3.5 mg/dL (2.6-4.7) Albumin 3.3 g/dL (3.4-5.0) Laboratory Tests Test 12/11/16 21:00 12/12/16 00:15 12/12/16 05:43 12/12/16 05:50 Vancomycin Level Trough 21.2 mcg/mL (10.0-20.0) Vancomycin Last Dose Date 12/11/16 Vancomycin Last Dose Time 0500 Glucose (Fingerstick) 147 mg/dL (70-99) 157 mg/dL (70-99) White Blood Count 13.7 x10^3/uL (4.0-11.0) Red Blood Count 3.10 x10^6/uL (4.30-5.70) Hemoglobin 9.0 g/dL (13.0-17.5) Hematocrit 28.3 % (39.0-53.0) Mean Corpuscular Volume 91 fL (79-100) Mean Corpuscular Hemoglobin 29 pg (25-35) Mean Corpuscular Hemoglobin Concent 32 g/dL (31-37) Red Cell Distribution Width 19.2 % (11.5-14.5) Platelet Count 79 x10^3/uL (140-400) Sodium Level 146 mmol/L (136-145) Potassium Level 3.6 mmol/L (3.5-5.1) Chloride Level 108 mmol/L (98-107) Carbon Dioxide Level 32 mmol/L (21-32) Anion Gap 6 (6-14) Blood Urea Nitrogen 25 mg/dL (8-26) Creatinine 0.9 mg/dL (0.7-1.3) Estimated GFR (Cockcroft-Gault) 84.4 Glucose Level 166 mg/dL (70-99) Calcium Level 8.9 mg/dL (8.5-10.1) Phosphorus Level 3.5 mg/dL (2.6-4.7) Albumin 3.3 g/dL (3.4-5.0) Medications Active Scripts Medications Dose Route/Sig Max Daily Dose Days Date Category [place] 3 Fish Oil Softgel ([place]-3 Fatty Acids/Fish Oil) 1 Each Capsule.dr 2 Cap PO DAILY 05/25/15 Reported Polyethylene Glycol 3350 17 Gm Powd.pack 17 Gm PO PRN QID PRN 05/25/15 Reported Simethicone 125 Mg Capsule 250 Mg PO QID 05/25/15 Reported Propranolol Hcl 20 Mg Tablet 20 Mg PO QHS 05/25/15 Reported Melatonin 3 Mg Tablet 6 Mg PO QHS 05/25/15 Reported Potassium Chloride 20 Meq Tab.er.prt 20 Meq PO DAILY 05/25/15 Reported Prazosin Hcl 1 Mg Capsule 1 Mg PO QHS 05/25/15 Reported Mupirocin Ointment (Mupirocin) 22 Gm Oint...g. 1 Kiran TP BID 05/25/15 Reported Nystop (Nystatin) 60 Gm Powder 1 Kiran TP BID 05/25/15 Reported Mirapex (Pramipexole Di-Hcl) 0.125 Mg Tablet 0.125 Mg PO TID 05/25/15 Reported Triamcinolone Acetonide 80 Gm Oint...g. 1 Kiran TP TID 05/25/15 Reported Tamsulosin Hcl 0.4 Mg Cap.er.24h 0.4 Mg PO DAILY 08/04/14 Reported Furosemide 20 Mg Tablet 20 Mg PO DAILY 08/04/14 Reported Magnesium Oxide 400 Mg Tablet 400 Mg PO BID 03/03/14 Reported Pantoprazole Sodium 40 Mg Tablet.dr 40 Mg PO DAILY 03/03/14 Reported Propranolol Hcl 40 Mg Tablet 40 Mg PO DAILY 03/03/14 Reported Nephro-Elkin Tablet (Folic Acid/Vitamin B Comp W-C) 0.8 Mg Tablet 1 Tab PO DAILY 03/03/14 Reported Temazepam 15 Mg Capsule 30 Mg PO QHS 03/03/14 Reported Losartan Potassium 50 Mg Tablet 50 Mg PO DAILY 03/03/14 Reported Abilify (Aripiprazole) 10 Mg Tablet 15 Mg PO DAILY 03/03/14 Reported Amlodipine Besylate 5 Mg Tablet 5 Tab PO DAILY 03/03/14 Reported Ranexa (Ranolazine) 500 Mg Tab.er.12h 500 Mg PO BID 03/03/14 Reported Nitrostat (Nitroglycerin) 0.4 Mg Tab.subl 0.4 Mg SL PRN Q5MIN PRN 03/03/14 Reported Probiotic & Acidophilus Cap (Lactobac Cmb #3/Fos/Pantethine) 1 Each Capsule 1 Tab PO DAILY 03/03/14 Reported Cilostazol 50 Mg Tablet 50 Mg PO BID 03/03/14 Reported Glycopyrrolate 2 Mg Tablet 2 Mg PO NOON 03/03/14 Reported Finasteride 5 Mg Tablet 5 Mg PO DAILY 03/03/14 Reported Vitamin D (Cholecalciferol (Vitamin D3)) 1,000 Unit Tablet 2,000 Unit PO DAILY 03/03/14 Reported Co Q-10 (Ubidecarenone) 100 Mg Capsule 100 Mg PO NOON 03/03/14 Reported Allopurinol 300 Mg Tablet 300 Mg PO BID 03/03/14 Reported Aspirin 325 Mg Tablet 325 Mg PO DAILY 03/03/14 Reported Imdur (Isosorbide Mononitrate) 30 Mg Tab.er.24h 30 Mg PO DAILYWLUN 03/03/14 Reported Sucralfate 1 Gm Tablet 1 Gm PO QIDACHS 03/03/14 Reported Atorvastatin Calcium 20 Mg Tablet 20 Mg PO HS 03/03/14 Reported Humalog (Insulin Lispro) 100 Unit/1 Ml Insuln.pen 5 Unit SQ TIDAC 03/03/14 Reported Lantus Solostar (Insulin Glargine,Hum.rec.anlog) 100 Unit/1 Ml Insuln.pen 30 Unit SQ QEVNG 03/03/14 Reported Ketoconazole 15 Gm Cream..g. 1 Kiran TP DAILY 03/03/14 Reported Impression . 1. Acute hypercapnic/ hypoxic RF, Multi-factorial 2. Septic shock, staph bacteremia 3. acute encephalology secondary to septic shock 4. No pneumoperitoneum by ct abdomen 5. RENETTA secondary septic shock 6. Abnormal chest x-ray basal atelectasis 7. chronic debility 8. Metabolic acidosis 9. Bradycardia, improved Plan . CONTINUE THE SAME BIPAP SPOKE WITH , INFORMED HER THAT HE IS VERY DEBILITATED POOR PROGNOSIS BACK ON PRESSORS PPN NO INTUBATION ANTIBX PER ID FLUIDS NEEDED GLEN MONROY MD Dec 12, 2016 14:36
--- NOTE | 2016-12-12 17:52 | PDOC2 ---
PALLIATIVE CARE Palliative Care Note Palliative Care Patient remain on BiPap. Had episode of bradycardia last night. Patient not tolerating tube feedings. Discussed with patient's condition this am as above. Discussed with son also. Son verbally inappropriate. Both and son wish to continue current aggressive care. Plan: Continue current treatment plan. MADII. BRIAN EDEN Dec 12, 2016 17:52
--- NOTE | 2016-12-12 18:28 | RAD ---
Indication: NG tube placement. Time of exam 6 0 7:00 PM Comparison is made with prior radiographs from 12/09/2016. An NG tube has been placed and is located within the stomach. The NG tube curls to the left and has the tip in the region of the gastric body. IMPRESSION: NG tube placement. Electronically signed by: Thierno Bansal MD (12/12/2016 6:24 PM) [facility]
[2016-12-13] VITALS (25 sets, daily range): BP systolic 97–134; BP diastolic 52–73
[2016-12-13 05:39] LABS: ALBUMIN 2.8 g/dL (3.4-5.0); CALCIUM 9.3 mg/dL (8.5-10.1); GFR 74.8; PHOSPHORUS 3.1 mg/dL (2.6-4.7); POTASSIUM 3.4 mmol/L (3.5-5.1)
[2016-12-13 05:40] LABS: HEMATOCRIT 27.4 % (39.0-53.0); HEMOGLOBIN 8.9 g/dL (13.0-17.5); RED BLOOD COUNT 3.04 x10^6/uL (4.30-5.70); RED CELL DISTRIBUTION WIDTH 18.4 % (11.5-14.5); WHITE BLOOD COUNT 10.4 x10^3/uL (4.0-11.0)
--- NOTE | 2016-12-13 07:56 | PDOC ---
Infectious Disease Note Subjective Subjective on bipap ROS ROS unable to do Vital Sign Vital Signs Vital Signs Date Time Temp Pulse Resp B/P (MAP) Pulse Ox O2 Delivery O2 Flow Rate FiO2 12/13/16 07:33 98 BiPAP/CPAP 12/13/16 07:00 98 26 102/60 (74) 12/13/16 04:03 97.0 97.0 Physical Exam PHYSICAL EXAM GENERAL: Alert on bipap HEENT: PERRL, OC/OP NECK: Supple, no JVD, no LN LUNGS: Clear HEART: S1S2, no gallop, no murmur ABD: Soft, NT, no organomegaly, no rebound EXT: No edema, no cyanosis [employer]: Alert, on bipap SKIN: No rash IV: ok Labs Lab Laboratory Tests Test 12/12/16 14:15 12/13/16 05:15 Glucose (Fingerstick) 125 mg/dL (70-99) White Blood Count 10.4 x10^3/uL (4.0-11.0) Red Blood Count 3.04 x10^6/uL (4.30-5.70) Hemoglobin 8.9 g/dL (13.0-17.5) Hematocrit 27.4 % (39.0-53.0) Mean Corpuscular Volume 90 fL (79-100) Mean Corpuscular Hemoglobin 29 pg (25-35) Mean Corpuscular Hemoglobin Concent 33 g/dL (31-37) Red Cell Distribution Width 18.4 % (11.5-14.5) Platelet Count 82 x10^3/uL (140-400) Sodium Level 145 mmol/L (136-145) Potassium Level 3.4 mmol/L (3.5-5.1) Chloride Level 107 mmol/L (98-107) Carbon Dioxide Level 30 mmol/L (21-32) Anion Gap 8 (6-14) Blood Urea Nitrogen 25 mg/dL (8-26) Creatinine 1.0 mg/dL (0.7-1.3) Estimated GFR (Cockcroft-Gault) 74.8 Glucose Level 130 mg/dL (70-99) Calcium Level 9.3 mg/dL (8.5-10.1) Phosphorus Level 3.1 mg/dL (2.6-4.7) Albumin 2.8 g/dL (3.4-5.0) Objective Assessment Septic shock, POA. 12/06. MRSA bacteremia. TTE neg veg, 12/06. Hypothermia- off Blanquita hugger Acute encephalopathy, improving Possible pneumoperitoneum on chest-ray. CT neg, mild ileus UTI, POA. 12/06. RENETTA Acute respiratory failure Bradyarrhythmia s/p code blue 12/07 Metabolic acidosis Chronic debility Plan Plan of Care cont vanc, dose adjusted d/w terminal worker prognosis poor ANABELLA GODOY MD Dec 13, 2016 07:56
[2016-12-13] MEDS: NYSTATIN TOPICAL POWDER 15GM BOTTLE. TP SCH ×2 (09:00→21:04)
[2016-12-13] MEDS: AMMONIUM LACTATE 12% TOPICAL LOTION 226GM BOTTLE. TP SCH ×2 (09:00→21:04)
[2016-12-13] MEDS: ARIPiprazole 5 MG TABLET PO SCH (09:00)
[2016-12-13] MEDS: FUROSEMIDE 40 MG/4 ML VIAL. IVP SCH (09:48)
[2016-12-13] MEDS: FAMOTIDINE 20 MG/2 ML VIAL IVP SCH ×2 (09:48→21:04)
--- NOTE | 2016-12-13 10:08 | PDOC ---
SUBJECTIVE Subjective No bradycardia since yesterday, he is more alert and following commands today, he told his that he would like to eat OBJECTIVE Vital Signs Vital Signs Date Time Temp Pulse Resp B/P (MAP) Pulse Ox O2 Delivery O2 Flow Rate FiO2 12/13/16 10:00 82 25 120/63 (82) 98 BiPAP/CPAP 12/13/16 09:00 90 26 121/63 (82) 97 BiPAP/CPAP 12/13/16 08:59 97 BiPAP/CPAP 12/13/16 08:00 98.4 73 25 115/62 (79) 97 BiPAP/CPAP 98.4 12/13/16 08:00 Bi-pap 12/13/16 07:33 98 BiPAP/CPAP 12/13/16 07:00 98 26 102/60 (74) 96 BiPAP/CPAP 12/13/16 06:21 95 28 110/56 (74) 98 BiPAP/CPAP 12/13/16 05:43 88 26 128/69 (88) 99 BiPAP/CPAP 12/13/16 04:30 86 26 117/64 (81) 97 BiPAP/CPAP 12/13/16 04:03 97.0 95 26 133/68 (89) 98 BiPAP/CPAP 97.0 12/13/16 04:00 Bi-pap 12/13/16 03:46 97 BiPAP/CPAP 12/13/16 03:04 92 26 134/73 (93) 98 BiPAP/CPAP 12/13/16 02:30 98 26 126/72 (90) 98 BiPAP/CPAP 12/13/16 01:22 96 BiPAP/CPAP 12/13/16 01:04 97 26 112/70 (84) 98 BiPAP/CPAP 12/13/16 00:00 96.3 87 28 119/64 (82) 97 BiPAP/CPAP 96.3 12/13/16 00:00 Bi-pap 12/12/16 23:12 96 BiPAP/CPAP 12/12/16 22:01 86 30 126/74 (91) 99 BiPAP/CPAP 12/12/16 21:09 96 30 121/76 (91) 99 BiPAP/CPAP 12/12/16 20:00 Bi-pap 12/12/16 19:55 97.4 77 115/53 (73) 100 BiPAP/CPAP 97.4 12/12/16 19:32 99 BiPAP/CPAP 12/12/16 19:00 99 30 119/65 (83) 99 BiPAP/CPAP 12/12/16 18:00 97.7 64 30 107/67 (80) 100 BiPAP/CPAP 97.7 12/12/16 17:38 90 BiPAP/CPAP 12/12/16 17:00 80 28 114/61 (78) 86 BiPAP/CPAP 12/12/16 16:26 90 BiPAP/CPAP 12/12/16 16:00 78 27 112/69 (83) 85 BiPAP/CPAP 12/12/16 16:00 Bi-pap 12/12/16 15:00 78 27 121/74 (90) 85 BiPAP/CPAP 12/12/16 14:00 74 27 125/70 (88) 84 BiPAP/CPAP 12/12/16 13:47 84 BiPAP/CPAP 12/12/16 13:00 79 29 119/72 (88) 85 BiPAP/CPAP 12/12/16 12:26 80 BiPAP/CPAP 12/12/16 12:00 Bi-pap 12/12/16 12:00 96.6 104 29 140/88 (105) 83 BiPAP/CPAP 96.6 12/12/16 11:00 107 29 122/69 (86) 87 BiPAP/CPAP I & O Intake and Output 12/13/16 07:00 Intake Total 1189 ml Output Total 865 ml Balance 324 ml Intake Oral 50 ml IV Total 1139 ml Output Urine Total 865 ml PHYSICAL EXAM Physical Exam Lungs with the few basilar rales Heart regular rate and rhythm at present time was a rate in the 70s Abdomen is soft nontender Extremities with less edema ASSESSMENT/PLAN Assessment/Plan 1-Septic shock, POA. 12/06. Staph aureus, presumptive MRSA bacteremia. TTE neg veg, 12/06. 2-Hypothermia- off Blanquita hugger 3-Acute encephalopathy, improving 4-UTI, POA. 12/06. GNR 5-RENETTA 6-Acute respiratory failure 7-Bradyarrhythmia s/p code blue 12/07, another episode significant bradycardia 12/11 8-Metabolic acidosis 9-Chronic debility May be able to transfer to LTAC Friday, goal for now is to wean off BiPAP overall prognosis is poor Problems: COMMENT Lab Laboratory Tests Test 12/12/16 14:15 12/13/16 05:15 Glucose (Fingerstick) 125 mg/dL (70-99) White Blood Count 10.4 x10^3/uL (4.0-11.0) Red Blood Count 3.04 x10^6/uL (4.30-5.70) Hemoglobin 8.9 g/dL (13.0-17.5) Hematocrit 27.4 % (39.0-53.0) Mean Corpuscular Volume 90 fL (79-100) Mean Corpuscular Hemoglobin 29 pg (25-35) Mean Corpuscular Hemoglobin Concent 33 g/dL (31-37) Red Cell Distribution Width 18.4 % (11.5-14.5) Platelet Count 82 x10^3/uL (140-400) Sodium Level 145 mmol/L (136-145) Potassium Level 3.4 mmol/L (3.5-5.1) Chloride Level 107 mmol/L (98-107) Carbon Dioxide Level 30 mmol/L (21-32) Anion Gap 8 (6-14) Blood Urea Nitrogen 25 mg/dL (8-26) Creatinine 1.0 mg/dL (0.7-1.3) Estimated GFR (Cockcroft-Gault) 74.8 Glucose Level 130 mg/dL (70-99) Calcium Level 9.3 mg/dL (8.5-10.1) Phosphorus Level 3.1 mg/dL (2.6-4.7) Albumin 2.8 g/dL (3.4-5.0) KYLE LAWSON MD Dec 13, 2016 10:07
[2016-12-13] MEDS: POTASSIUM CHLORIDE 20 MEQ/15 ML ORAL LIQUID. PEG SCH (11:14)
[2016-12-13] MEDS: VANCOMYCIN PER PHARMACY MC PRN (11:21)
--- NOTE | 2016-12-13 13:05 | PDOC2 ---
PALLIATIVE CARE Palliative Care Note Palliative Care Patient remains on BiPap. RR 26 Agitated. Planning full aggressive. No intubation. Screening for LTAC Palliative Care will sign off. BRIAN EDEN Dec 13, 2016 13:05
--- NOTE | 2016-12-13 13:22 | PDOC ---
SUBJECTIVE ROS RENETTA Remains on biPAP OBJECTIVE Vital Signs Vital Signs Date Time Temp Pulse Resp B/P (MAP) Pulse Ox O2 Delivery O2 Flow Rate FiO2 12/13/16 13:00 98 26 105/58 (74) 99 BiPAP/CPAP 12/13/16 12:00 98.6 98.6 I & 0 Intake and Output 12/13/16 07:00 Intake Total 1189 ml Output Total 865 ml Balance 324 ml Intake Oral 50 ml IV Total 1139 ml Output Urine Total 865 ml PHYSICAL EXAM Physical Exam General Appearance: Awake - barely Alert Oriented x 0 In some resp Distress while on BiPAP Eyes: Sclera Anicteric; Conjunctiva Normal EN: No EN Drainage Mucous Memb. dryish Neck: no JVD no JVP Supple no Thyromegaly CVS: S1 S2 soft Murmur No Gallop No Rub +2 Edema Resp: few Rales occ Rhonchi no Acc. Muscle use GI: BS +ve NO Bruit Non Tender Non Distended : no CVA tenderness; no Suprapubic Tenderness DIAGNOSIS/ASSESSMENT ARF - resolved - watch creat ? CKD III once Anasarca resolves ? Proteinuria - 1gm by Ratio - reval once infection resolve Anasarca - tried Lasix + Alb but pt got hypotensive and Bradycardic requiring restarting Dopamine and BiPAP for resp decompensation. Resp Failure - defer to Dr Ibanez - ? Pn vs CHF. Hold off on IV Alb for now. Lasix OK with Me prn if needed for resp status Transient Oliguria - resolved with improved hemodynamics Will sign off - pl call with Qs COMMENT/RELEVANT DATA Meds Current Medications Medications (Trade) Dose Ordered Sig/Gamaliel Start Time Stop Time Status Last Admin Dose Admin Albumin Human 100 ml @ 100 mls/hr TID 12/11/16 09:00 12/11/16 21:51 DC 12/11/16 20:58 100 MLS/HR Albuterol Sulfate (Ventolin Neb Soln) 2.5 mg 1X ONCE 12/11/16 23:00 12/11/16 23:01 DC 12/11/16 22:51 2.5 MG Amino Acids/ Glycerin/ Electrolytes 1,000 ml @ 80 mls/hr [id number] 12/08/16 11:15 12/11/16 08:33 DC 12/10/16 14:10 80 MLS/HR Aripiprazole (Abilify) 15 mg DAILY 12/10/16 11:00 12/12/16 09:12 15 MG Atropine Sulfate 1 mg 1X ONCE 12/06/16 15:15 12/06/16 15:16 DC 12/06/16 15:04 1 MG Calcium Gluconate (Calcium Gluconate) 1,000 mg 1X ONCE 12/06/16 15:15 12/06/16 15:16 DC 12/06/16 14:53 1,000 MG Ceftriaxone Sodium 1 gm/ Sodium Chloride 50 ml @ 100 mls/hr Q24H 12/09/16 10:00 12/10/16 08:02 DC 12/09/16 09:39 100 MLS/HR Ceftriaxone Sodium 50 ml @ 100 mls/hr 1X ONCE 12/06/16 15:45 12/06/16 16:14 DC 12/06/16 15:45 100 MLS/HR Daptomycin 450 mg/ Sodium Chloride 50 ml @ 100 mls/hr Q24H 12/08/16 10:00 12/10/16 08:02 DC 12/09/16 10:22 100 MLS/HR Dextrose (Dextrose 50%-Water Syringe) 12.5 gm PRN Q15MIN PRN 12/07/16 11:15 Dopamine HCl/ Dextrose 250 ml @ 20.848 mls/ hr CONT PRN 12/11/16 22:00 12/13/16 08:00 20.848 MLS/HR Famotidine (Pepcid) 20 mg BID 12/07/16 11:30 12/13/16 09:48 20 MG Furosemide (Lasix) 40 mg DAILY 12/13/16 09:00 12/13/16 09:48 40 MG Heparin Sodium (Porcine) (Heparin Sodium) 10,000 unit STK-MED ONCE 12/09/16 10:33 12/09/16 10:34 DC Heparin Sodium/ Sodium Chloride 60 unit 1X ONCE 12/09/16 10:45 12/09/16 10:46 DC 12/09/16 11:03 60 UNIT Insulin Aspart (NovoLOG) 0-9 UNITS Q6HRS 12/10/16 00:00 12/12/16 14:11 DC Insulin Human Regular (NovoLIN R VIAL) 5 unit 1X ONCE 12/06/16 15:15 12/06/16 15:16 DC 12/06/16 14:53 5 UNIT Lactic Acid (Lac-Hydrin) 1 tyrone BID 12/09/16 19:00 12/11/16 08:10 1 TYRONE Levofloxacin/ Dextrose 150 ml @ 100 mls/hr Q48H 12/06/16 18:00 12/07/16 10:42 DC 12/06/16 19:08 100 MLS/HR Lidocaine/ Epinephrine (Xylocaine 1%-Epi 1:100,000) 20 ml STK-MED ONCE 12/09/16 10:32 12/09/16 10:33 DC Lidocaine/Sodium Bicarbonate (Buffered Lidocaine 1%) 3 ml 1X ONCE 12/09/16 10:45 12/09/16 10:46 DC 12/09/16 11:04 3 ML Magnesium Sulfate/ Dextrose 50 ml @ 25 mls/hr 1X ONCE 12/08/16 11:15 12/08/16 13:14 DC 12/08/16 11:29 25 MLS/HR Norepinephrine Bitartrate 250 ml @ 0 mls/hr CONT PRN 12/11/16 22:00 Norepinephrine Bitartrate 16 mg/ Sodium Chloride 266 ml @ 0 mls/hr CONT PRN 12/06/16 17:15 UNV Nystatin (Nystop) 1 tyrone BID 12/09/16 19:01 12/13/16 09:00 1 TYRONE Ondansetron HCl (Zofran) 4 mg PRN Q6HRS PRN 12/07/16 05:30 12/12/16 14:11 4 MG Phenylephrine HCl 80 mg/Sodium Chloride 258 ml @ 0 mls/hr CONT PRN 12/06/16 17:15 12/11/16 08:33 DC 12/07/16 02:37 56.3 MLS/HR Piperacillin Sod/ Tazobactam Sod 2.25 gm/Sodium Chloride 50 ml @ 100 mls/hr Q8HRS 12/06/16 18:00 12/09/16 09:01 DC 12/09/16 05:54 100 MLS/HR Potassium Chloride (KCl Oral Soln) 20 meq DAILY 12/13/16 10:00 12/13/16 11:14 20 MEQ Sodium Bicarbonate 50 meq 1X ONCE 12/06/16 21:00 12/06/16 21:01 DC 12/06/16 20:47 50 MEQ Sodium Chloride 500 ml @ 500 mls/hr 1X ONCE 12/06/16 19:00 12/06/16 19:59 DC 12/07/16 00:00 500 MLS/HR Vancomycin HCl 1 each 1X ONCE 12/14/16 09:30 12/14/16 09:31 Vancomycin HCl (Vanco Per Pharmacy) 1 each PRN DAILY PRN 12/10/16 08:15 12/13/16 11:21 1 EACH Vancomycin HCl 1.5 gm/Sodium Chloride 500 ml @ 250 mls/hr Q18H 12/12/16 04:00 12/12/16 22:00 250 MLS/HR Vancomycin HCl 2 gm/Sodium Chloride 500 ml @ 250 mls/hr 1X ONCE 12/10/16 09:00 12/10/16 10:59 DC 12/10/16 08:41 250 MLS/HR Vitamin A/Vitamin D (Vitamin A & D Ointment) 1 tyrone PRN Q1HR PRN 12/09/16 18:30 12/13/16 03:07 1 TYRONE Lab Laboratory Tests Test 12/12/16 14:15 12/13/16 05:15 Glucose (Fingerstick) 125 mg/dL (70-99) White Blood Count 10.4 x10^3/uL (4.0-11.0) Red Blood Count 3.04 x10^6/uL (4.30-5.70) Hemoglobin 8.9 g/dL (13.0-17.5) Hematocrit 27.4 % (39.0-53.0) Mean Corpuscular Volume 90 fL (79-100) Mean Corpuscular Hemoglobin 29 pg (25-35) Mean Corpuscular Hemoglobin Concent 33 g/dL (31-37) Red Cell Distribution Width 18.4 % (11.5-14.5) Platelet Count 82 x10^3/uL (140-400) Sodium Level 145 mmol/L (136-145) Potassium Level 3.4 mmol/L (3.5-5.1) Chloride Level 107 mmol/L (98-107) Carbon Dioxide Level 30 mmol/L (21-32) Anion Gap 8 (6-14) Blood Urea Nitrogen 25 mg/dL (8-26) Creatinine 1.0 mg/dL (0.7-1.3) Estimated GFR (Cockcroft-Gault) 74.8 Glucose Level 130 mg/dL (70-99) Calcium Level 9.3 mg/dL (8.5-10.1) Phosphorus Level 3.1 mg/dL (2.6-4.7) Albumin 2.8 g/dL (3.4-5.0) JAVED GODOY MD Dec 13, 2016 13:22
--- NOTE | 2016-12-13 14:02 | PDOC ---
PULMONARY PROGRESS NOTES Subjective ON BIPAP MINIMAL RESPONSE Vitals Vital Signs Date Time Temp Pulse Resp B/P (MAP) Pulse Ox O2 Delivery O2 Flow Rate FiO2 12/13/16 13:00 98 26 105/58 (74) 99 BiPAP/CPAP 12/13/16 12:00 98.6 98.6 General: Lethargic Cardiovascular: S1, S2 Abdomen: Soft, Other (distended) Extremities: Other (1+edema, wounds) Skin: Warm Labs Laboratory Tests Test 12/11/16 17:49 12/11/16 21:00 12/12/16 00:15 12/12/16 05:43 Glucose (Fingerstick) 127 mg/dL (70-99) 147 mg/dL (70-99) 157 mg/dL (70-99) Vancomycin Level Trough 21.2 mcg/mL (10.0-20.0) Vancomycin Last Dose Date 12/11/16 Vancomycin Last Dose Time 0500 Test 12/12/16 05:50 12/12/16 14:15 12/13/16 05:15 White Blood Count 13.7 x10^3/uL (4.0-11.0) 10.4 x10^3/uL (4.0-11.0) Red Blood Count 3.10 x10^6/uL (4.30-5.70) 3.04 x10^6/uL (4.30-5.70) Hemoglobin 9.0 g/dL (13.0-17.5) 8.9 g/dL (13.0-17.5) Hematocrit 28.3 % (39.0-53.0) 27.4 % (39.0-53.0) Mean Corpuscular Volume 91 fL (79-100) 90 fL (79-100) Mean Corpuscular Hemoglobin 29 pg (25-35) 29 pg (25-35) Mean Corpuscular Hemoglobin Concent 32 g/dL (31-37) 33 g/dL (31-37) Red Cell Distribution Width 19.2 % (11.5-14.5) 18.4 % (11.5-14.5) Platelet Count 79 x10^3/uL (140-400) 82 x10^3/uL (140-400) Sodium Level 146 mmol/L (136-145) 145 mmol/L (136-145) Potassium Level 3.6 mmol/L (3.5-5.1) 3.4 mmol/L (3.5-5.1) Chloride Level 108 mmol/L (98-107) 107 mmol/L (98-107) Carbon Dioxide Level 32 mmol/L (21-32) 30 mmol/L (21-32) Anion Gap 6 (6-14) 8 (6-14) Blood Urea Nitrogen 25 mg/dL (8-26) 25 mg/dL (8-26) Creatinine 0.9 mg/dL (0.7-1.3) 1.0 mg/dL (0.7-1.3) Estimated GFR (Cockcroft-Gault) 84.4 74.8 Glucose Level 166 mg/dL (70-99) 130 mg/dL (70-99) Calcium Level 8.9 mg/dL (8.5-10.1) 9.3 mg/dL (8.5-10.1) Phosphorus Level 3.5 mg/dL (2.6-4.7) 3.1 mg/dL (2.6-4.7) Albumin 3.3 g/dL (3.4-5.0) 2.8 g/dL (3.4-5.0) Glucose (Fingerstick) 125 mg/dL (70-99) Laboratory Tests Test 12/12/16 14:15 12/13/16 05:15 Glucose (Fingerstick) 125 mg/dL (70-99) White Blood Count 10.4 x10^3/uL (4.0-11.0) Red Blood Count 3.04 x10^6/uL (4.30-5.70) Hemoglobin 8.9 g/dL (13.0-17.5) Hematocrit 27.4 % (39.0-53.0) Mean Corpuscular Volume 90 fL (79-100) Mean Corpuscular Hemoglobin 29 pg (25-35) Mean Corpuscular Hemoglobin Concent 33 g/dL (31-37) Red Cell Distribution Width 18.4 % (11.5-14.5) Platelet Count 82 x10^3/uL (140-400) Sodium Level 145 mmol/L (136-145) Potassium Level 3.4 mmol/L (3.5-5.1) Chloride Level 107 mmol/L (98-107) Carbon Dioxide Level 30 mmol/L (21-32) Anion Gap 8 (6-14) Blood Urea Nitrogen 25 mg/dL (8-26) Creatinine 1.0 mg/dL (0.7-1.3) Estimated GFR (Cockcroft-Gault) 74.8 Glucose Level 130 mg/dL (70-99) Calcium Level 9.3 mg/dL (8.5-10.1) Phosphorus Level 3.1 mg/dL (2.6-4.7) Albumin 2.8 g/dL (3.4-5.0) Medications Active Scripts Medications Dose Route/Sig Max Daily Dose Days Date Category Mccaskill 3 Fish Oil Softgel (Mccaskill-3 Fatty Acids/Fish Oil) 1 Each Capsule.dr 2 Cap PO DAILY 05/25/15 Reported Polyethylene Glycol 3350 17 Gm Powd.pack 17 Gm PO PRN QID PRN 05/25/15 Reported Simethicone 125 Mg Capsule 250 Mg PO QID 05/25/15 Reported Propranolol Hcl 20 Mg Tablet 20 Mg PO QHS 05/25/15 Reported Melatonin 3 Mg Tablet 6 Mg PO QHS 05/25/15 Reported Potassium Chloride 20 Meq Tab.er.prt 20 Meq PO DAILY 05/25/15 Reported Prazosin Hcl 1 Mg Capsule 1 Mg PO QHS 05/25/15 Reported Mupirocin Ointment (Mupirocin) 22 Gm Oint...g. 1 Kiran TP BID 05/25/15 Reported Nystop (Nystatin) 60 Gm Powder 1 Kiran TP BID 05/25/15 Reported Mirapex (Pramipexole Di-Hcl) 0.125 Mg Tablet 0.125 Mg PO TID 05/25/15 Reported Triamcinolone Acetonide 80 Gm Oint...g. 1 Kiran TP TID 05/25/15 Reported Tamsulosin Hcl 0.4 Mg Cap.er.24h 0.4 Mg PO DAILY 08/04/14 Reported Furosemide 20 Mg Tablet 20 Mg PO DAILY 08/04/14 Reported Magnesium Oxide 400 Mg Tablet 400 Mg PO BID 03/03/14 Reported Pantoprazole Sodium 40 Mg Tablet.dr 40 Mg PO DAILY 03/03/14 Reported Propranolol Hcl 40 Mg Tablet 40 Mg PO DAILY 03/03/14 Reported Nephro-Elkin Tablet (Folic Acid/Vitamin B Comp W-C) 0.8 Mg Tablet 1 Tab PO DAILY 03/03/14 Reported Temazepam 15 Mg Capsule 30 Mg PO QHS 03/03/14 Reported Losartan Potassium 50 Mg Tablet 50 Mg PO DAILY 03/03/14 Reported Abilify (Aripiprazole) 10 Mg Tablet 15 Mg PO DAILY 03/03/14 Reported Amlodipine Besylate 5 Mg Tablet 5 Tab PO DAILY 03/03/14 Reported Ranexa (Ranolazine) 500 Mg Tab.er.12h 500 Mg PO BID 03/03/14 Reported Nitrostat (Nitroglycerin) 0.4 Mg Tab.subl 0.4 Mg SL PRN Q5MIN PRN 03/03/14 Reported Probiotic & Acidophilus Cap (Lactobac Cmb #3/Fos/Pantethine) 1 Each Capsule 1 Tab PO DAILY 03/03/14 Reported Cilostazol 50 Mg Tablet 50 Mg PO BID 03/03/14 Reported Glycopyrrolate 2 Mg Tablet 2 Mg PO NOON 03/03/14 Reported Finasteride 5 Mg Tablet 5 Mg PO DAILY 03/03/14 Reported Vitamin D (Cholecalciferol (Vitamin D3)) 1,000 Unit Tablet 2,000 Unit PO DAILY 03/03/14 Reported Co Q-10 (Ubidecarenone) 100 Mg Capsule 100 Mg PO NOON 03/03/14 Reported Allopurinol 300 Mg Tablet 300 Mg PO BID 03/03/14 Reported Aspirin 325 Mg Tablet 325 Mg PO DAILY 03/03/14 Reported Imdur (Isosorbide Mononitrate) 30 Mg Tab.er.24h 30 Mg PO DAILYWLUN 03/03/14 Reported Sucralfate 1 Gm Tablet 1 Gm PO QIDACHS 03/03/14 Reported Atorvastatin Calcium 20 Mg Tablet 20 Mg PO HS 03/03/14 Reported Humalog (Insulin Lispro) 100 Unit/1 Ml Insuln.pen 5 Unit SQ TIDAC 03/03/14 Reported Lantus Solostar (Insulin Glargine,Hum.rec.anlog) 100 Unit/1 Ml Insuln.pen 30 Unit SQ QEVNG 03/03/14 Reported Ketoconazole 15 Gm Cream..g. 1 Kiran TP DAILY 03/03/14 Reported Impression . 1. Acute hypercapnic/ hypoxic RF, Multi-factorial 2. Septic shock, staph bacteremia 3. acute encephalology secondary to septic shock 4. No pneumoperitoneum by ct abdomen 5. RENETTA secondary septic shock 6. Abnormal chest x-ray basal atelectasis 7. chronic debility 8. Metabolic acidosis 9. Bradycardia, improved Plan . I THINK HE CAN MOVE TO LTAC ON FRIDAY SPOKE WITH BIPAP BACK ON PRESSORS PPN NO INTUBATION GLEN MONROY MD Dec 13, 2016 14:02
--- NOTE | 2016-12-13 15:37 | PDOC ---
CARDIO Progress Notes Date and Time Date of Service 12/13/16 Time of Evaluation 1430 Subjective Subjective: No Chest Pain, Other (more alert today. On BiPAP. Mild abdominal tenderness. ) Vitals Vitals Vital Signs Date Time Temp Pulse Resp B/P (MAP) Pulse Ox O2 Delivery O2 Flow Rate FiO2 12/13/16 14:11 86 24 104/59 (74) 98 BiPAP/CPAP 12/13/16 12:00 98.6 98.6 Weight Weight [ ] Input and Output Intake and Output Intake and Output 12/13/16 07:00 Intake Total 1189 ml Output Total 865 ml Balance 324 ml Intake Oral 50 ml IV Total 1139 ml Output Urine Total 865 ml Laboratory Labs Laboratory Tests Test 12/13/16 05:15 White Blood Count 10.4 x10^3/uL (4.0-11.0) Red Blood Count 3.04 x10^6/uL (4.30-5.70) Hemoglobin 8.9 g/dL (13.0-17.5) Hematocrit 27.4 % (39.0-53.0) Mean Corpuscular Volume 90 fL (79-100) Mean Corpuscular Hemoglobin 29 pg (25-35) Mean Corpuscular Hemoglobin Concent 33 g/dL (31-37) Red Cell Distribution Width 18.4 % (11.5-14.5) Platelet Count 82 x10^3/uL (140-400) Sodium Level 145 mmol/L (136-145) Potassium Level 3.4 mmol/L (3.5-5.1) Chloride Level 107 mmol/L (98-107) Carbon Dioxide Level 30 mmol/L (21-32) Anion Gap 8 (6-14) Blood Urea Nitrogen 25 mg/dL (8-26) Creatinine 1.0 mg/dL (0.7-1.3) Estimated GFR (Cockcroft-Gault) 74.8 Glucose Level 130 mg/dL (70-99) Calcium Level 9.3 mg/dL (8.5-10.1) Phosphorus Level 3.1 mg/dL (2.6-4.7) Albumin 2.8 g/dL (3.4-5.0) Microbiology Micro Microbiology 12/10/16 Blood Culture - Preliminary, Resulted NO GROWTH AFTER 3 DAYS 12/06/16 Urine Culture - Final, Complete 12/06/16 Urine Culture Result 1 (ERICK) - Final, Complete 12/06/16 Antimicrobic Susceptibility - Final, Complete Physical Exam HEENT: Neck Supple W Full Motion Chest: Symmetric LUNGS: Other (diminished bases ) Heart: S1S2, RRR, other (distant heart tones. ) Abdomen: Soft N/T Extremities: Other (anasarca, drsg intact to bilateral LE) Neurology: alert, follow commands, other (somnolent ) Assessment Assessment 1. Bradyarrhythmia; episode 12/11 with hypoxia. Now resolved. Continue to monitor. 2. Staph aureus bacteremia; as per ID 3. Septic shock; back on pressor support 4. Acute respiratory failure. Increasing shortness of breath. requiring continuous BiPAP. per Pulm 5. Metabolic encephalopathy 6. RENETTA; per renal 7. Chronic debility Recommendations 1. Wean off dopamine as able. D/w RN 2. Continue diuresis as BP allows. 4. Supportive care from CV perspective. 5. Prognosis guarded. Remains full aggressive care 6. Okay to transfer to LTAC from CV perspective JULISA HANDY APRN Dec 13, 2016 15:37
[2016-12-13] MEDS: VANCOMYCIN 1.5 GM in IV NORMAL SALINE 500ML BAG 500 ML IV SCH (16:00)
[2016-12-13] MEDS: ONDANSETRON PF 4 MG/2 ML VIAL. IV PRN (22:18)
[2016-12-14] VITALS (15 sets, daily range): BP systolic 90–153; BP diastolic 51–106
[2016-12-14] MEDS ORDERED: MORPHINE SULFATE 2 MG/ML DISP.SYRIN. IV PRN (00:30)
[2016-12-14] MEDS ORDERED: MORPHINE SULFATE 4 MG/ML DISP.SYRIN. IV PRN (03:15)
[2016-12-14 07:05] LABS: HEMATOCRIT 25.8 % (39.0-53.0); HEMOGLOBIN 8.3 g/dL (13.0-17.5); RED BLOOD COUNT 2.87 x10^6/uL (4.30-5.70); RED CELL DISTRIBUTION WIDTH 18.4 % (11.5-14.5); WHITE BLOOD COUNT 10.3 x10^3/uL (4.0-11.0)
[2016-12-14 07:17] LABS: ALBUMIN 2.4 g/dL (3.4-5.0); CALCIUM 8.6 mg/dL (8.5-10.1); CREATININE 1.4 mg/dL (0.7-1.3); GFR 50.7; PHOSPHORUS 2.7 mg/dL (2.6-4.7); POTASSIUM 3.1 mmol/L (3.5-5.1)
--- NOTE | 2016-12-14 07:37 | PDOC ---
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 x 3, no focal neurologic deficit SKIN: No rash IV: ok Labs Lab Laboratory Tests Test 12/13/16 15:45 12/14/16 06:55 Vancomycin Level Trough 32.9 mcg/mL (10.0-20.0) Vancomycin Last Dose Date 12/12/16 Vancomycin Last Dose Time 2200 White Blood Count 10.3 x10^3/uL (4.0-11.0) Red Blood Count 2.87 x10^6/uL (4.30-5.70) Hemoglobin 8.3 g/dL (13.0-17.5) Hematocrit 25.8 % (39.0-53.0) Mean Corpuscular Volume 90 fL (79-100) Mean Corpuscular Hemoglobin 29 pg (25-35) Mean Corpuscular Hemoglobin Concent 32 g/dL (31-37) Red Cell Distribution Width 18.4 % (11.5-14.5) Platelet Count 94 x10^3/uL (140-400) Sodium Level 149 mmol/L (136-145) Potassium Level 3.1 mmol/L (3.5-5.1) Chloride Level 110 mmol/L (98-107) Carbon Dioxide Level 30 mmol/L (21-32) Anion Gap 9 (6-14) Blood Urea Nitrogen 32 mg/dL (8-26) Creatinine 1.4 mg/dL (0.7-1.3) Estimated GFR (Cockcroft-Gault) 50.7 Glucose Level 119 mg/dL (70-99) Calcium Level 8.6 mg/dL (8.5-10.1) Phosphorus Level 2.7 mg/dL (2.6-4.7) Albumin 2.4 g/dL (3.4-5.0) Objective Assessment Septic shock, POA. 12/06. MRSA bacteremia. TTE neg veg, 12/06. Hypothermia- off Blanquita hugger Acute encephalopathy, improving Possible pneumoperitoneum on chest-ray. CT neg, mild ileus UTI, POA. 12/06. RENETTA Acute respiratory failure Bradyarrhythmia s/p code blue 12/07 Metabolic acidosis Chronic debility Plan Plan of Care wait for van to come down d/w [facility] prognosis poor ANABELLA GODOY MD Dec 14, 2016 07:36
[2016-12-14] MEDS: POTASSIUM CHLORIDE 20 MEQ/15 ML ORAL LIQUID. PEG SCH ×2 (09:30→20:44)
[2016-12-14] MEDS: NYSTATIN TOPICAL POWDER 15GM BOTTLE. TP SCH ×2 (09:30→20:44)
[2016-12-14] MEDS: AMMONIUM LACTATE 12% TOPICAL LOTION 226GM BOTTLE. TP SCH ×2 (09:30→20:44)
[2016-12-14] MEDS: FUROSEMIDE 40 MG/4 ML VIAL. IVP SCH (09:30)
[2016-12-14] MEDS: ARIPiprazole 5 MG TABLET PO SCH (09:30)
[2016-12-14] MEDS: VANCOMYCIN 1.5 GM in IV NORMAL SALINE 500ML BAG 500 ML IV SCH (09:30)
[2016-12-14] MEDS: FAMOTIDINE 20 MG/2 ML VIAL IVP SCH ×2 (09:49→20:44)
[2016-12-14] MEDS: VANCOMYCIN PER PHARMACY MC PRN ×2 (09:54→09:55)
[2016-12-14] MEDS ORDERED: KCL PER PROTOCOL MC PRN (11:15)
--- NOTE | 2016-12-14 13:36 | PDOC ---
SUBJECTIVE Subjective He is more alert, acute feeding was started this morning and he is tolerating so far, he was off the BiPAP for 2 hours and a half but back on BiPAP right now OBJECTIVE Vital Signs Vital Signs Date Time Temp Pulse Resp B/P (MAP) Pulse Ox O2 Delivery O2 Flow Rate FiO2 12/14/16 10:59 92 Venturi Mask 12.0 12/14/16 09:18 100 BiPAP/CPAP 12/14/16 09:00 76 28 119/66 (83) 99 Venturi Mask 12/14/16 08:05 Bi-pap 15.0 12/14/16 07:19 100 BiPAP/CPAP 12/14/16 07:03 100.2 100 28 153/51 (85) 100 BiPAP/CPAP 100.2 12/14/16 06:00 95 28 153/53 (86) 99 BiPAP/CPAP 12/14/16 05:13 100 BiPAP/CPAP 12/14/16 05:05 28 99 BiPAP/CPAP 12/14/16 05:00 77 28 116/62 (80) 97 BiPAP/CPAP 12/14/16 04:35 28 100 BiPAP/CPAP 12/14/16 04:00 99.5 72 28 118/57 (77) 97 BiPAP/CPAP 99.5 12/14/16 04:00 Bi-pap 12/14/16 03:45 100 BiPAP/CPAP 12/14/16 03:00 84 28 150/56 (87) 99 BiPAP/CPAP 12/14/16 02:00 76 28 119/54 (75) 99 BiPAP/CPAP 12/14/16 01:45 100 BiPAP/CPAP 12/14/16 01:07 28 99 BiPAP/CPAP 12/14/16 01:00 76 28 119/53 (75) 100 BiPAP/CPAP 12/14/16 00:37 28 96 BiPAP/CPAP 12/14/16 00:00 Bi-pap 12/14/16 00:00 99.0 90 28 152/106 (121) 96 BiPAP/CPAP 99.0 12/13/16 23:10 100 BiPAP/CPAP 12/13/16 23:00 75 28 122/72 (89) 100 BiPAP/CPAP 12/13/16 22:00 65 28 109/70 (83) 100 BiPAP/CPAP 12/13/16 21:00 85 28 127/65 (85) 99 BiPAP/CPAP 12/13/16 20:00 Bi-pap 12/13/16 20:00 95 29 113/60 (77) 98 BiPAP/CPAP 12/13/16 19:37 100 BiPAP/CPAP 12/13/16 19:00 98.6 69 20 120/70 (87) 98 BiPAP/CPAP 98.6 12/13/16 18:08 98.5 83 20 118/66 (83) 99 BiPAP/CPAP 98.5 12/13/16 17:00 88 22 108/52 (70) 99 BiPAP/CPAP 12/13/16 16:52 100 BiPAP/CPAP 12/13/16 16:04 Bi-pap 15.0 12/13/16 16:00 86 24 97/54 (68) 99 BiPAP/CPAP 12/13/16 15:00 84 22 106/60 (75) 99 BiPAP/CPAP 12/13/16 14:11 86 24 104/59 (74) 98 BiPAP/CPAP I & O Intake and Output 12/14/16 07:00 Intake Total 313 ml Output Total 1734 ml Balance -1421 ml IV Total 313 ml Output Urine Total 1734 ml # Bowel Movements 1 PHYSICAL EXAM Physical Exam Not much change, still has significant edema in the lower extremities ASSESSMENT/PLAN Assessment/Plan 1-Septic shock, POA. 12/06. Staph aureus, presumptive MRSA bacteremia. TTE neg veg, 12/06. 2-Hypothermia- off Blanquita hugger 3-Acute encephalopathy, improving 4-UTI, POA. 12/06. GNR 5-RENETTA 6-Acute respiratory failure 7-Bradyarrhythmia s/p code blue 12/07, another episode significant bradycardia 12/11 8-Metabolic acidosis 9-Chronic debility 10-hypokalemia replacing 11-anemia and thrombocytopenia May be able to transfer to LTAC Friday, goal for now is to wean off BiPAP overall prognosis is poor Problems: COMMENT Lab Laboratory Tests Test 12/13/16 15:45 12/14/16 06:55 Vancomycin Level Trough 32.9 mcg/mL (10.0-20.0) 27.3 mcg/mL (10.0-20.0) Vancomycin Last Dose Date 12/12/16 12/13/16 Vancomycin Last Dose Time 2200 1600 White Blood Count 10.3 x10^3/uL (4.0-11.0) Red Blood Count 2.87 x10^6/uL (4.30-5.70) Hemoglobin 8.3 g/dL (13.0-17.5) Hematocrit 25.8 % (39.0-53.0) Mean Corpuscular Volume 90 fL (79-100) Mean Corpuscular Hemoglobin 29 pg (25-35) Mean Corpuscular Hemoglobin Concent 32 g/dL (31-37) Red Cell Distribution Width 18.4 % (11.5-14.5) Platelet Count 94 x10^3/uL (140-400) Sodium Level 149 mmol/L (136-145) Potassium Level 3.1 mmol/L (3.5-5.1) Chloride Level 110 mmol/L (98-107) Carbon Dioxide Level 30 mmol/L (21-32) Anion Gap 9 (6-14) Blood Urea Nitrogen 32 mg/dL (8-26) Creatinine 1.4 mg/dL (0.7-1.3) Estimated GFR (Cockcroft-Gault) 50.7 Glucose Level 119 mg/dL (70-99) Calcium Level 8.6 mg/dL (8.5-10.1) Phosphorus Level 2.7 mg/dL (2.6-4.7) Albumin 2.4 g/dL (3.4-5.0) KYLE LAWSON MD Dec 14, 2016 13:36
--- NOTE | 2016-12-14 14:58 | PDOC ---
PULMONARY PROGRESS NOTES Subjective ON BIPAP MINIMAL RESPONSE TOLERATED BEING OFF FOR 2 HOURS Vitals Vital Signs Date Time Temp Pulse Resp B/P (MAP) Pulse Ox O2 Delivery O2 Flow Rate FiO2 12/14/16 14:32 99.1 75 28 109/67 (81) 96 BiPAP/CPAP 99.1 12/14/16 10:59 12.0 General: Lethargic Cardiovascular: S1, S2 Abdomen: Soft, Other (distended) Extremities: Other (1+edema, wounds) Skin: Warm Labs Laboratory Tests Test 12/13/16 05:15 12/13/16 15:45 12/14/16 06:55 White Blood Count 10.4 x10^3/uL (4.0-11.0) 10.3 x10^3/uL (4.0-11.0) Red Blood Count 3.04 x10^6/uL (4.30-5.70) 2.87 x10^6/uL (4.30-5.70) Hemoglobin 8.9 g/dL (13.0-17.5) 8.3 g/dL (13.0-17.5) Hematocrit 27.4 % (39.0-53.0) 25.8 % (39.0-53.0) Mean Corpuscular Volume 90 fL (79-100) 90 fL (79-100) Mean Corpuscular Hemoglobin 29 pg (25-35) 29 pg (25-35) Mean Corpuscular Hemoglobin Concent 33 g/dL (31-37) 32 g/dL (31-37) Red Cell Distribution Width 18.4 % (11.5-14.5) 18.4 % (11.5-14.5) Platelet Count 82 x10^3/uL (140-400) 94 x10^3/uL (140-400) Sodium Level 145 mmol/L (136-145) 149 mmol/L (136-145) Potassium Level 3.4 mmol/L (3.5-5.1) 3.1 mmol/L (3.5-5.1) Chloride Level 107 mmol/L (98-107) 110 mmol/L (98-107) Carbon Dioxide Level 30 mmol/L (21-32) 30 mmol/L (21-32) Anion Gap 8 (6-14) 9 (6-14) Blood Urea Nitrogen 25 mg/dL (8-26) 32 mg/dL (8-26) Creatinine 1.0 mg/dL (0.7-1.3) 1.4 mg/dL (0.7-1.3) Estimated GFR (Cockcroft-Gault) 74.8 50.7 Glucose Level 130 mg/dL (70-99) 119 mg/dL (70-99) Calcium Level 9.3 mg/dL (8.5-10.1) 8.6 mg/dL (8.5-10.1) Phosphorus Level 3.1 mg/dL (2.6-4.7) 2.7 mg/dL (2.6-4.7) Albumin 2.8 g/dL (3.4-5.0) 2.4 g/dL (3.4-5.0) Vancomycin Level Trough 32.9 mcg/mL (10.0-20.0) 27.3 mcg/mL (10.0-20.0) Vancomycin Last Dose Date 12/12/16 12/13/16 Vancomycin Last Dose Time 2199 1600 Laboratory Tests Test 12/13/16 15:45 12/14/16 06:55 Vancomycin Level Trough 32.9 mcg/mL (10.0-20.0) 27.3 mcg/mL (10.0-20.0) Vancomycin Last Dose Date 12/12/16 12/13/16 Vancomycin Last Dose Time 2200 1600 White Blood Count 10.3 x10^3/uL (4.0-11.0) Red Blood Count 2.87 x10^6/uL (4.30-5.70) Hemoglobin 8.3 g/dL (13.0-17.5) Hematocrit 25.8 % (39.0-53.0) Mean Corpuscular Volume 90 fL (79-100) Mean Corpuscular Hemoglobin 29 pg (25-35) Mean Corpuscular Hemoglobin Concent 32 g/dL (31-37) Red Cell Distribution Width 18.4 % (11.5-14.5) Platelet Count 94 x10^3/uL (140-400) Sodium Level 149 mmol/L (136-145) Potassium Level 3.1 mmol/L (3.5-5.1) Chloride Level 110 mmol/L (98-107) Carbon Dioxide Level 30 mmol/L (21-32) Anion Gap 9 (6-14) Blood Urea Nitrogen 32 mg/dL (8-26) Creatinine 1.4 mg/dL (0.7-1.3) Estimated GFR (Cockcroft-Gault) 50.7 Glucose Level 119 mg/dL (70-99) Calcium Level 8.6 mg/dL (8.5-10.1) Phosphorus Level 2.7 mg/dL (2.6-4.7) Albumin 2.4 g/dL (3.4-5.0) Medications Active Scripts Medications Dose Route/Sig Max Daily Dose Days Date Category Greer 3 Fish Oil Softgel (Greer-3 Fatty Acids/Fish Oil) 1 Each Capsule.dr 2 Cap PO DAILY 05/25/15 Reported Polyethylene Glycol 3350 17 Gm Powd.pack 17 Gm PO PRN QID PRN 05/25/15 Reported Simethicone 125 Mg Capsule 250 Mg PO QID 05/25/15 Reported Propranolol Hcl 20 Mg Tablet 20 Mg PO QHS 05/25/15 Reported Melatonin 3 Mg Tablet 6 Mg PO QHS 05/25/15 Reported Potassium Chloride 20 Meq Tab.er.prt 20 Meq PO DAILY 05/25/15 Reported Prazosin Hcl 1 Mg Capsule 1 Mg PO QHS 05/25/15 Reported Mupirocin Ointment (Mupirocin) 22 Gm Oint...g. 1 Kiran TP BID 05/25/15 Reported Nystop (Nystatin) 60 Gm Powder 1 Kiran TP BID 05/25/15 Reported Mirapex (Pramipexole Di-Hcl) 0.125 Mg Tablet 0.125 Mg PO TID 05/25/15 Reported Triamcinolone Acetonide 80 Gm Oint...g. 1 Kiran TP TID 05/25/15 Reported Tamsulosin Hcl 0.4 Mg Cap.er.24h 0.4 Mg PO DAILY 08/04/14 Reported Furosemide 20 Mg Tablet 20 Mg PO DAILY 08/04/14 Reported Magnesium Oxide 400 Mg Tablet 400 Mg PO BID 03/03/14 Reported Pantoprazole Sodium 40 Mg Tablet.dr 40 Mg PO DAILY 03/03/14 Reported Propranolol Hcl 40 Mg Tablet 40 Mg PO DAILY 03/03/14 Reported Nephro-Elkin Tablet (Folic Acid/Vitamin B Comp W-C) 0.8 Mg Tablet 1 Tab PO DAILY 03/03/14 Reported Temazepam 15 Mg Capsule 30 Mg PO QHS 03/03/14 Reported Losartan Potassium 50 Mg Tablet 50 Mg PO DAILY 03/03/14 Reported Abilify (Aripiprazole) 10 Mg Tablet 15 Mg PO DAILY 03/03/14 Reported Amlodipine Besylate 5 Mg Tablet 5 Tab PO DAILY 03/03/14 Reported Ranexa (Ranolazine) 500 Mg Tab.er.12h 500 Mg PO BID 03/03/14 Reported Nitrostat (Nitroglycerin) 0.4 Mg Tab.subl 0.4 Mg SL PRN Q5MIN PRN 03/03/14 Reported Probiotic & Acidophilus Cap (Lactobac Cmb #3/Fos/Pantethine) 1 Each Capsule 1 Tab PO DAILY 03/03/14 Reported Cilostazol 50 Mg Tablet 50 Mg PO BID 03/03/14 Reported Glycopyrrolate 2 Mg Tablet 2 Mg PO NOON 03/03/14 Reported Finasteride 5 Mg Tablet 5 Mg PO DAILY 03/03/14 Reported Vitamin D (Cholecalciferol (Vitamin D3)) 1,000 Unit Tablet 2,000 Unit PO DAILY 03/03/14 Reported Co Q-10 (Ubidecarenone) 100 Mg Capsule 100 Mg PO NOON 03/03/14 Reported Allopurinol 300 Mg Tablet 300 Mg PO BID 03/03/14 Reported Aspirin 325 Mg Tablet 325 Mg PO DAILY 03/03/14 Reported Imdur (Isosorbide Mononitrate) 30 Mg Tab.er.24h 30 Mg PO DAILYWLUN 03/03/14 Reported Sucralfate 1 Gm Tablet 1 Gm PO QIDACHS 03/03/14 Reported Atorvastatin Calcium 20 Mg Tablet 20 Mg PO HS 03/03/14 Reported Humalog (Insulin Lispro) 100 Unit/1 Ml Insuln.pen 5 Unit SQ TIDAC 03/03/14 Reported Lantus Solostar (Insulin Glargine,Hum.rec.anlog) 100 Unit/1 Ml Insuln.pen 30 Unit SQ QEVNG 03/03/14 Reported Ketoconazole 15 Gm Cream..g. 1 Kiran TP DAILY 03/03/14 Reported Impression . 1. Acute hypercapnic/ hypoxic RF, Multi-factorial 2. Septic shock, staph bacteremia 3. acute encephalology secondary to septic shock 4. No pneumoperitoneum by ct abdomen 5. RENETTA secondary septic shock 6. Abnormal chest x-ray basal atelectasis 7. chronic debility 8. Metabolic acidosis 9. Bradycardia, improved Plan . NOTHING NEW WILL CONTINUE THE SAME I THINK HE CAN MOVE TO LTAC ON FRIDAY SPOKE WITH BIPAP BACK ON PRESSORS PPN NO INTUBATION GLEN MONROY MD Dec 14, 2016 14:58
[2016-12-15] VITALS (19 sets, daily range): BP systolic 63–148; BP diastolic 43–99
--- NOTE | 2016-12-15 06:35 | PDOC ---
Infectious Disease Note Subjective Subjective on bipap ROS ROS Difficult to ascertain Vital Sign Vital Signs Vital Signs Date Time Temp Pulse Resp B/P (MAP) Pulse Ox O2 Delivery O2 Flow Rate FiO2 12/15/16 06:00 70 28 110/53 (72) 99 BiPAP/CPAP 12/15/16 04:00 99.5 99.5 12/14/16 10:59 12.0 Physical Exam PHYSICAL EXAM GENERAL: NAD, Alert, on Bipap HEENT: PERRL, OC/OP NECK: Supple, no JVD, no LN LUNGS: Clear HEART: S1S2, no gallop, no murmur ABD: Soft, NT, no organomegaly, no rebound, obese hutchins EXT: No edema, no cyanosis, wounds dressed PASSENGER [place]: Alert, oriented x 3, no focal neurologic deficit SKIN: No rash IV: RIJ Labs Lab Laboratory Tests Test 12/14/16 06:55 White Blood Count 10.3 x10^3/uL (4.0-11.0) Red Blood Count 2.87 x10^6/uL (4.30-5.70) Hemoglobin 8.3 g/dL (13.0-17.5) Hematocrit 25.8 % (39.0-53.0) Mean Corpuscular Volume 90 fL (79-100) Mean Corpuscular Hemoglobin 29 pg (25-35) Mean Corpuscular Hemoglobin Concent 32 g/dL (31-37) Red Cell Distribution Width 18.4 % (11.5-14.5) Platelet Count 94 x10^3/uL (140-400) Sodium Level 149 mmol/L (136-145) Potassium Level 3.1 mmol/L (3.5-5.1) Chloride Level 110 mmol/L (98-107) Carbon Dioxide Level 30 mmol/L (21-32) Anion Gap 9 (6-14) Blood Urea Nitrogen 32 mg/dL (8-26) Creatinine 1.4 mg/dL (0.7-1.3) Estimated GFR (Cockcroft-Gault) 50.7 Glucose Level 119 mg/dL (70-99) Calcium Level 8.6 mg/dL (8.5-10.1) Phosphorus Level 2.7 mg/dL (2.6-4.7) Albumin 2.4 g/dL (3.4-5.0) Vancomycin Level Trough 27.3 mcg/mL (10.0-20.0) Vancomycin Last Dose Date 12/13/16 Vancomycin Last Dose Time 1600 Objective Assessment Septic shock, POA. 12/06. MRSA bacteremia. TTE neg veg, 12/06. Hypothermia- off Blanquita hugger RENETTA Acute encephalopathy, improving Possible pneumoperitoneum on chest-ray. CT neg, mild ileus ? UTI, Ecoli POA. 12/06. a lot of contamination Acute respiratory failure Bradyarrhythmia s/p code blue 12/07 Metabolic acidosis Chronic debility Wounds Plan Plan of Care wait for vanc to come down Repeat UA/C and S F/u labs d/w manager visual prognosis poor LINDA CABALLERO MD Dec 15, 2016 06:35
[2016-12-15] MEDS ORDERED: VANCOMYCIN RANDOM LEVEL. MC ONE (07:00)
[2016-12-15 07:16] LABS: HEMATOCRIT 25.6 % (39.0-53.0); HEMOGLOBIN 8.1 g/dL (13.0-17.5); RED BLOOD COUNT 2.81 x10^6/uL (4.30-5.70); WHITE BLOOD COUNT 12.1 x10^3/uL (4.0-11.0)
[2016-12-15 07:32] LABS: ALBUMIN 2.5 g/dL (3.4-5.0); CALCIUM 9.5 mg/dL (8.5-10.1); CREATININE 1.7 mg/dL (0.7-1.3); GFR 40.5; PHOSPHORUS 2.3 mg/dL (2.6-4.7); POTASSIUM 3.2 mmol/L (3.5-5.1)
[2016-12-15 07:48] LABS: BILIRUBIN,URINE SMALL (NEG); GLUCOSE,URINE NEGATIVE (NEG); NITRITE,URINE NEGATIVE (NEG); PH,URINE 5.5; PROTEIN,URINE 30 mg/dL (NEG-TRACE)
[2016-12-15 08:06] LABS: RBC,URINE >40 /HPF (0-2); SQUAMOUS EPITHELIAL CELL,UR OCC /LPF; WBC,URINE >40 /HPF (0-4)
[2016-12-15 08:08] LABS: BACTERIA,URINE FEW /HPF (0-FEW); YEAST,URINE PRESENT /HPF
[2016-12-15] MEDS: VANCOMYCIN PER PHARMACY MC PRN ×2 (08:35→08:38)
[2016-12-15] MEDS: ARIPiprazole 5 MG TABLET PO SCH (08:50)
[2016-12-15] MEDS: POTASSIUM CHLORIDE 20 MEQ/15 ML ORAL LIQUID. PEG SCH (08:50)
[2016-12-15] MEDS: FAMOTIDINE 20 MG/2 ML VIAL IVP SCH ×2 (08:50→20:56)
[2016-12-15] MEDS: FUROSEMIDE 40 MG/4 ML VIAL. IVP SCH (08:50)
[2016-12-15] MEDS: NYSTATIN TOPICAL POWDER 15GM BOTTLE. TP SCH ×2 (08:51→20:58)
[2016-12-15] MEDS: AMMONIUM LACTATE 12% TOPICAL LOTION 226GM BOTTLE. TP SCH ×2 (08:51→21:00)
--- NOTE | 2016-12-15 11:44 | PDOC ---
SUBJECTIVE Subjective more alert on vent mask, looks better OBJECTIVE Vital Signs Vital Signs Date Time Temp Pulse Resp B/P (MAP) Pulse Ox O2 Delivery O2 Flow Rate FiO2 12/15/16 11:33 Venturi Mask 12.0 12/15/16 11:16 83 22 96/44 (61) 95 Venturi Mask 12.0 12/15/16 10:00 92 20 109/55 (73) 95 Venturi Mask 12.0 12/15/16 09:00 82 18 102/55 (71) 98 Venturi Mask 12.0 12/15/16 08:00 71 18 101/52 (68) 99 Venturi Mask 12.0 12/15/16 07:45 99 BiPAP/CPAP 12/15/16 07:38 Bi-pap 15.0 12/15/16 07:04 100.0 75 28 133/45 (74) 99 BiPAP/CPAP 100.0 12/15/16 06:00 70 28 110/53 (72) 99 BiPAP/CPAP 12/15/16 05:00 61 28 119/53 (75) 100 BiPAP/CPAP 12/15/16 04:53 100 BiPAP/CPAP 12/15/16 04:00 99.5 65 28 116/57 (76) 100 BiPAP/CPAP 99.5 12/15/16 04:00 Bi-pap 12/15/16 03:00 65 28 89/46 (60) 100 BiPAP/CPAP 12/15/16 02:06 100 BiPAP/CPAP 12/15/16 02:00 86 28 148/99 (115) 100 BiPAP/CPAP 12/15/16 01:00 76 28 108/54 (72) 100 BiPAP/CPAP 12/15/16 00:30 75 28 122/51 (74) 100 BiPAP/CPAP 12/15/16 00:15 59 28 81/53 (62) 100 BiPAP/CPAP 12/15/16 00:00 99.6 60 28 63/43 (50) 100 BiPAP/CPAP 99.6 12/15/16 00:00 Bi-pap 12/14/16 23:48 100 BiPAP/CPAP 12/14/16 23:00 59 28 102/51 (68) 100 BiPAP/CPAP 12/14/16 22:03 98 BiPAP/CPAP 12/14/16 22:00 36 28 90/55 (67) 99 BiPAP/CPAP 12/14/16 21:00 75 28 105/85 (92) 98 BiPAP/CPAP 12/14/16 20:00 72 28 99/65 (76) 99 BiPAP/CPAP 12/14/16 20:00 Bi-pap 12/14/16 19:50 98 BiPAP/CPAP 12/14/16 19:00 99.9 94 28 97/56 (70) 99 BiPAP/CPAP 99.9 12/14/16 17:06 98 BiPAP/CPAP 12/14/16 15:03 98 BiPAP/CPAP 12/14/16 14:32 99.1 75 28 109/67 (81) 96 BiPAP/CPAP 99.1 I & O Intake and Output 12/15/16 07:00 Intake Total 1637 ml Output Total 1080 ml Balance 557 ml Intake Oral 0 ml IV Total 46 ml Tube Feeding 871 ml Blood Product IV Normal Saline Flush 720 ml Output Urine Total 1080 ml PHYSICAL EXAM Physical Exam heart RRR abd soft lungs more clear decrease rales ext less edema ASSESSMENT/PLAN Assessment/Plan 1-Septic shock, POA. 12/06. Staph aureus, presumptive MRSA bacteremia. TTE neg veg, 12/06. 2-Hypothermia- off Blanquita hugger 3-Acute encephalopathy, resolved 4-UTI, POA. 12/06. GNR 5-RENETTA 6-Acute respiratory failure better on vent mask now 7-Bradyarrhythmia s/p code blue 12/07, another episode significant bradycardia 12/11 8-Metabolic acidosis 9-Chronic debility 10-hypokalemia replacing 11-anemia and thrombocytopenia looks better on vent mask , plan check bedside swallowing if ok start diet and D /C NGT feedings, likely to floor today Problems: COMMENT Lab Laboratory Tests Test 12/15/16 07:00 12/15/16 07:30 White Blood Count 12.1 x10^3/uL (4.0-11.0) Red Blood Count 2.81 x10^6/uL (4.30-5.70) Hemoglobin 8.1 g/dL (13.0-17.5) Hematocrit 25.6 % (39.0-53.0) Mean Corpuscular Volume 91 fL (79-100) Mean Corpuscular Hemoglobin 29 pg (25-35) Mean Corpuscular Hemoglobin Concent 32 g/dL (31-37) Red Cell Distribution Width 19.0 % (11.5-14.5) Platelet Count 115 x10^3/uL (140-400) Sodium Level 147 mmol/L (136-145) Potassium Level 3.2 mmol/L (3.5-5.1) Chloride Level 109 mmol/L (98-107) Carbon Dioxide Level 31 mmol/L (21-32) Anion Gap 7 (6-14) Blood Urea Nitrogen 39 mg/dL (8-26) Creatinine 1.7 mg/dL (0.7-1.3) Estimated GFR (Cockcroft-Gault) 40.5 Glucose Level 153 mg/dL (70-99) Calcium Level 9.5 mg/dL (8.5-10.1) Phosphorus Level 2.3 mg/dL (2.6-4.7) Albumin 2.5 g/dL (3.4-5.0) Random Vancomycin Level 21.7 mcg/mL Urine Collection Type U cath Urine Color Yellow Urine Clarity Turbid Urine pH 5.5 Urine Specific [place] 1.015 Urine Protein 30 mg/dL (NEG-TRACE) Urine Glucose (UA) Negative mg/dL (NEG) Urine Ketones (Stick) Trace mg/dL (NEG) Urine Blood Large (NEG) Urine Nitrite Negative (NEG) Urine Bilirubin Small (NEG) Urine Urobilinogen Dipstick 1.0 mg/dL (0.2 mg/dL) Urine Leukocyte Esterase Large (NEG) Urine RBC >40 /HPF (0-2) Urine WBC >40 /HPF (0-4) Urine Squamous Epithelial Cells Occ /LPF Urine Bacteria Few /HPF (0-FEW) Urine Mucus Slight /LPF Urine Yeast Present /HPF KYLE LAWSON MD Dec 15, 2016 11:44
--- NOTE | 2016-12-15 15:15 | PDOC ---
PULMONARY PROGRESS NOTES Subjective OFF BIPAP SINCE AM CONFUSED DID NOT KNOW MONTH Vitals Vital Signs Date Time Temp Pulse Resp B/P (MAP) Pulse Ox O2 Delivery O2 Flow Rate FiO2 12/15/16 14:00 86 20 95/50 (65) 93 Venturi Mask 12.0 12/15/16 07:04 100.0 100.0 General: Alert, Confused Lungs: Crackles Cardiovascular: S1, S2 Abdomen: Soft, Other (distended) Neuro Exam: Alert Skin: Warm Labs Laboratory Tests Test 12/13/16 15:45 12/14/16 06:55 12/15/16 07:00 12/15/16 07:30 Vancomycin Level Trough 32.9 mcg/mL (10.0-20.0) 27.3 mcg/mL (10.0-20.0) Vancomycin Last Dose Date 12/12/16 12/13/16 Vancomycin Last Dose Time 2200 1600 White Blood Count 10.3 x10^3/uL (4.0-11.0) 12.1 x10^3/uL (4.0-11.0) Red Blood Count 2.87 x10^6/uL (4.30-5.70) 2.81 x10^6/uL (4.30-5.70) Hemoglobin 8.3 g/dL (13.0-17.5) 8.1 g/dL (13.0-17.5) Hematocrit 25.8 % (39.0-53.0) 25.6 % (39.0-53.0) Mean Corpuscular Volume 90 fL (79-100) 91 fL (79-100) Mean Corpuscular Hemoglobin 29 pg (25-35) 29 pg (25-35) Mean Corpuscular Hemoglobin Concent 32 g/dL (31-37) 32 g/dL (31-37) Red Cell Distribution Width 18.4 % (11.5-14.5) 19.0 % (11.5-14.5) Platelet Count 94 x10^3/uL (140-400) 115 x10^3/uL (140-400) Sodium Level 149 mmol/L (136-145) 147 mmol/L (136-145) Potassium Level 3.1 mmol/L (3.5-5.1) 3.2 mmol/L (3.5-5.1) Chloride Level 110 mmol/L (98-107) 109 mmol/L (98-107) Carbon Dioxide Level 30 mmol/L (21-32) 31 mmol/L (21-32) Anion Gap 9 (6-14) 7 (6-14) Blood Urea Nitrogen 32 mg/dL (8-26) 39 mg/dL (8-26) Creatinine 1.4 mg/dL (0.7-1.3) 1.7 mg/dL (0.7-1.3) Estimated GFR (Cockcroft-Gault) 50.7 40.5 Glucose Level 119 mg/dL (70-99) 153 mg/dL (70-99) Calcium Level 8.6 mg/dL (8.5-10.1) 9.5 mg/dL (8.5-10.1) Phosphorus Level 2.7 mg/dL (2.6-4.7) 2.3 mg/dL (2.6-4.7) Albumin 2.4 g/dL (3.4-5.0) 2.5 g/dL (3.4-5.0) Random Vancomycin Level 21.7 mcg/mL Urine Collection Type U cath Urine Color Yellow Urine Clarity Turbid Urine pH 5.5 Urine Specific [place] 1.015 Urine Protein 30 mg/dL (NEG-TRACE) Urine Glucose (UA) Negative mg/dL (NEG) Urine Ketones (Stick) Trace mg/dL (NEG) Urine Blood Large (NEG) Urine Nitrite Negative (NEG) Urine Bilirubin Small (NEG) Urine Urobilinogen Dipstick 1.0 mg/dL (0.2 mg/dL) Urine Leukocyte Esterase Large (NEG) Urine RBC >40 /HPF (0-2) Urine WBC >40 /HPF (0-4) Urine Squamous Epithelial Cells Occ /LPF Urine Bacteria Few /HPF (0-FEW) Urine Mucus Slight /LPF Urine Yeast Present /HPF Laboratory Tests Test 12/15/16 07:00 12/15/16 07:30 White Blood Count 12.1 x10^3/uL (4.0-11.0) Red Blood Count 2.81 x10^6/uL (4.30-5.70) Hemoglobin 8.1 g/dL (13.0-17.5) Hematocrit 25.6 % (39.0-53.0) Mean Corpuscular Volume 91 fL (79-100) Mean Corpuscular Hemoglobin 29 pg (25-35) Mean Corpuscular Hemoglobin Concent 32 g/dL (31-37) Red Cell Distribution Width 19.0 % (11.5-14.5) Platelet Count 115 x10^3/uL (140-400) Sodium Level 147 mmol/L (136-145) Potassium Level 3.2 mmol/L (3.5-5.1) Chloride Level 109 mmol/L (98-107) Carbon Dioxide Level 31 mmol/L (21-32) Anion Gap 7 (6-14) Blood Urea Nitrogen 39 mg/dL (8-26) Creatinine 1.7 mg/dL (0.7-1.3) Estimated GFR (Cockcroft-Gault) 40.5 Glucose Level 153 mg/dL (70-99) Calcium Level 9.5 mg/dL (8.5-10.1) Phosphorus Level 2.3 mg/dL (2.6-4.7) Albumin 2.5 g/dL (3.4-5.0) Random Vancomycin Level 21.7 mcg/mL Urine Collection Type U cath Urine Color Yellow Urine Clarity Turbid Urine pH 5.5 Urine Specific [place] 1.015 Urine Protein 30 mg/dL (NEG-TRACE) Urine Glucose (UA) Negative mg/dL (NEG) Urine Ketones (Stick) Trace mg/dL (NEG) Urine Blood Large (NEG) Urine Nitrite Negative (NEG) Urine Bilirubin Small (NEG) Urine Urobilinogen Dipstick 1.0 mg/dL (0.2 mg/dL) Urine Leukocyte Esterase Large (NEG) Urine RBC >40 /HPF (0-2) Urine WBC >40 /HPF (0-4) Urine Squamous Epithelial Cells Occ /LPF Urine Bacteria Few /HPF (0-FEW) Urine Mucus Slight /LPF Urine Yeast Present /HPF Medications Active Scripts Medications Dose Route/Sig Max Daily Dose Days Date Category [place] 3 Fish Oil Softgel ([place]-3 Fatty Acids/Fish Oil) 1 Each Capsule.dr 2 Cap PO DAILY 05/25/15 Reported Polyethylene Glycol 3350 17 Gm Powd.pack 17 Gm PO PRN QID PRN 05/25/15 Reported Simethicone 125 Mg Capsule 250 Mg PO QID 05/25/15 Reported Propranolol Hcl 20 Mg Tablet 20 Mg PO QHS 05/25/15 Reported Melatonin 3 Mg Tablet 6 Mg PO QHS 05/25/15 Reported Potassium Chloride 20 Meq Tab.er.prt 20 Meq PO DAILY 05/25/15 Reported Prazosin Hcl 1 Mg Capsule 1 Mg PO QHS 05/25/15 Reported Mupirocin Ointment (Mupirocin) 22 Gm Oint...g. 1 Kiran TP BID 05/25/15 Reported Nystop (Nystatin) 60 Gm Powder 1 Kiran TP BID 05/25/15 Reported Mirapex (Pramipexole Di-Hcl) 0.125 Mg Tablet 0.125 Mg PO TID 05/25/15 Reported Triamcinolone Acetonide 80 Gm Oint...g. 1 Kiran TP TID 05/25/15 Reported Tamsulosin Hcl 0.4 Mg Cap.er.24h 0.4 Mg PO DAILY 08/04/14 Reported Furosemide 20 Mg Tablet 20 Mg PO DAILY 08/04/14 Reported Magnesium Oxide 400 Mg Tablet 400 Mg PO BID 03/03/14 Reported Pantoprazole Sodium 40 Mg Tablet.dr 40 Mg PO DAILY 03/03/14 Reported Propranolol Hcl 40 Mg Tablet 40 Mg PO DAILY 03/03/14 Reported Nephro-[place]kin Tablet (Folic Acid/Vitamin B Comp W-C) 0.8 Mg Tablet 1 Tab PO DAILY 03/03/14 Reported Temazepam 15 Mg Capsule 30 Mg PO QHS 03/03/14 Reported Losartan Potassium 50 Mg Tablet 50 Mg PO DAILY 03/03/14 Reported Abilify (Aripiprazole) 10 Mg Tablet 15 Mg PO DAILY 03/03/14 Reported Amlodipine Besylate 5 Mg Tablet 5 Tab PO DAILY 03/03/14 Reported Ranexa (Ranolazine) 500 Mg Tab.er.12h 500 Mg PO BID 03/03/14 Reported Nitrostat (Nitroglycerin) 0.4 Mg Tab.subl 0.4 Mg SL PRN Q5MIN PRN 03/03/14 Reported Probiotic & Acidophilus Cap (Lactobac Cmb #3/Fos/Pantethine) 1 Each Capsule 1 Tab PO DAILY 03/03/14 Reported Cilostazol 50 Mg Tablet 50 Mg PO BID 03/03/14 Reported Glycopyrrolate 2 Mg Tablet 2 Mg PO NOON 03/03/14 Reported Finasteride 5 Mg Tablet 5 Mg PO DAILY 03/03/14 Reported Vitamin D (Cholecalciferol (Vitamin D3)) 1,000 Unit Tablet 2,000 Unit PO DAILY 03/03/14 Reported Co Q-10 (Ubidecarenone) 100 Mg Capsule 100 Mg PO NOON 03/03/14 Reported Allopurinol 300 Mg Tablet 300 Mg PO BID 03/03/14 Reported Aspirin 325 Mg Tablet 325 Mg PO DAILY 03/03/14 Reported Imdur (Isosorbide Mononitrate) 30 Mg Tab.er.24h 30 Mg PO DAILYWLUN 03/03/14 Reported Sucralfate 1 Gm Tablet 1 Gm PO QIDACHS 03/03/14 Reported Atorvastatin Calcium 20 Mg Tablet 20 Mg PO HS 03/03/14 Reported Humalog (Insulin Lispro) 100 Unit/1 Ml Insuln.pen 5 Unit SQ TIDAC 03/03/14 Reported Lantus Solostar (Insulin Glargine,Hum.rec.anlog) 100 Unit/1 Ml Insuln.pen 30 Unit SQ QEVNG 03/03/14 Reported Ketoconazole 15 Gm Cream..g. 1 Kiran TP DAILY 03/03/14 Reported Impression . 1. Acute hypercapnic/ hypoxic RF, Multi-factorial 2. Septic shock, staph bacteremia 3. acute encephalology secondary to septic shock 4. No pneumoperitoneum by ct abdomen 5. RENETTA secondary septic shock 6. Abnormal chest x-ray basal atelectasis 7. chronic debility 8. Metabolic acidosis 9. Bradycardia, improved Plan . BETTER TODAY WILL KEEP OFF BIPAP QHS BIPAP START DIET SPEECH EVALUATION IN AM I THINK HE CAN MOVE TO LTAC THIS COMING WEEK SPOKE WITH NO INTUBATION GLEN MONROY MD Dec 15, 2016 15:15
[2016-12-15] MEDS: POTASSIUM CHLORIDE 20 MEQ TABLET.ER. PO SCH (20:56)
[2016-12-16] VITALS (25 sets, daily range): BP systolic 76–125; BP diastolic 38–62
[2016-12-16] MEDS ORDERED: VANCOMYCIN RANDOM LEVEL. MC ONE (05:00)
[2016-12-16 07:01] LABS: HEMATOCRIT 26.2 % (39.0-53.0); HEMOGLOBIN 8.1 g/dL (13.0-17.5); RED BLOOD COUNT 2.79 x10^6/uL (4.30-5.70); RED CELL DISTRIBUTION WIDTH 19.7 % (11.5-14.5)
[2016-12-16 07:04] LABS: ALBUMIN 2.5 g/dL (3.4-5.0); CALCIUM 8.9 mg/dL (8.5-10.1); CREATININE 1.9 mg/dL (0.7-1.3); GFR 35.6; PHOSPHORUS 4.2 mg/dL (2.6-4.7)
--- NOTE | 2016-12-16 07:27 | RAD ---
Portable chest, 12/16/2016: History: Respiratory failure Comparison is made to a study from 12/11/2016. The NG tube has been removed. A right jugular central venous catheter remains in place extending into the right atrium. There are worsening extensive bilateral pulmonary infiltrates. The pulmonary vascularity is congested with loss of vascular margination. There is pleural thickening in the lateral costophrenic angles, left greater than right, compatible with a component of pleural fluid. No pneumothorax is seen. There is mild gaseous distention of bowel loops in the upper abdomen. IMPRESSION: Worsening extensive pulmonary infiltrates suggesting pulmonary edema and/or pneumonia with ongoing bilateral pleural effusions.
[2016-12-16] MEDS ORDERED: PIPERACILLIN/TAZOBACTAM 2.25 GM in IV NORMAL SALINE 50ML 50 ML IV SCH (07:30)
--- NOTE | 2016-12-16 07:39 | PDOC ---
Infectious Disease Note Subjective Subjective OFF bipap - lethargic ROS ROS Unobtainable Vital Sign Vital Signs Vital Signs Date Time Temp Pulse Resp B/P (MAP) Pulse Ox O2 Delivery O2 Flow Rate FiO2 12/16/16 04:00 98.4 58 20 101/56 (71) 96 Venturi Mask 12.0 98.4 Physical Exam PHYSICAL EXAM GENERAL: NAD, lethargic. Min response to name HEENT: PERRLA NECK: Supple, no JVD, no LN LUNGS: Clear. 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, no focal neurologic deficit SKIN: No rash IV: RIJ Labs Lab Laboratory Tests Test 12/15/16 07:30 12/16/16 06:36 12/16/16 06:45 Urine Collection Type U cath Urine Color Yellow Urine Clarity Turbid Urine pH 5.5 Urine Specific [place] 1.015 Urine Protein 30 mg/dL (NEG-TRACE) Urine Glucose (UA) Negative mg/dL (NEG) Urine Ketones (Stick) Trace mg/dL (NEG) Urine Blood Large (NEG) Urine Nitrite Negative (NEG) Urine Bilirubin Small (NEG) Urine Urobilinogen Dipstick 1.0 mg/dL (0.2 mg/dL) Urine Leukocyte Esterase Large (NEG) Urine RBC >40 /HPF (0-2) Urine WBC >40 /HPF (0-4) Urine Squamous Epithelial Cells Occ /LPF Urine Bacteria Few /HPF (0-FEW) Urine Mucus Slight /LPF Urine Yeast Present /HPF Glucose (Fingerstick) 145 mg/dL (70-99) White Blood Count 12.0 x10^3/uL (4.0-11.0) Red Blood Count 2.79 x10^6/uL (4.30-5.70) Hemoglobin 8.1 g/dL (13.0-17.5) Hematocrit 26.2 % (39.0-53.0) Mean Corpuscular Volume 94 fL (79-100) Mean Corpuscular Hemoglobin 29 pg (25-35) Mean Corpuscular Hemoglobin Concent 31 g/dL (31-37) Red Cell Distribution Width 19.7 % (11.5-14.5) Platelet Count 116 x10^3/uL (140-400) Sodium Level 145 mmol/L (136-145) Potassium Level 4.0 mmol/L (3.5-5.1) Chloride Level 107 mmol/L (98-107) Carbon Dioxide Level 34 mmol/L (21-32) Anion Gap 4 (6-14) Blood Urea Nitrogen 41 mg/dL (8-26) Creatinine 1.9 mg/dL (0.7-1.3) Estimated GFR (Cockcroft-Gault) 35.6 Glucose Level 152 mg/dL (70-99) Calcium Level 8.9 mg/dL (8.5-10.1) Phosphorus Level 4.2 mg/dL (2.6-4.7) Albumin 2.5 g/dL (3.4-5.0) Random Vancomycin Level 14.5 mcg/mL Objective Assessment Lethargy - apparently has episodes of laying flat and then becoming less responsive - justine cardia Septic shock, POA. 12/06. MRSA bacteremia. TTE neg veg, 12/06. Repeat Blood cult 12/10 - neg Mild leukocytosis Fever Hypothermia- off Blanquita hugger RENETTA -worse Acute encephalopathy, improving Possible pneumoperitoneum on chest-ray. CT neg, mild ileus ? UTI, Ecoli POA. 12/06. a lot of contamination. Repeat Urine cult pending Acute respiratory failure Bradyarrhythmia s/p code blue 12/07 Metabolic acidosis Chronic debility Wounds Plan Plan of Care Cardiology f/u with episodes of unresponsiveness after laying flat Add Cefepime/Zyvox. D/c Vanc with worsening renal failure. Avoid Dapto with resp issues - CXR pending. Cover potential Pseudomonas given risk Repeat CXR Repeat blood cults F/u urine cults F/u labs D/w nursing d/w longterm prognosis poor LINDA CABALLERO MD Dec 16, 2016 07:39
--- NOTE | 2016-12-16 08:07 | RAD ---
Portable chest, 12/16/2016, 7:52 AM: History: Follow-up infiltrate Comparison is made to the study of earlier the same day. The depth of inspiration is better on this exam with improved aeration of the lungs, particularly the right lung. The underlying pulmonary vascularity on the right is much better defined. There is moderate ongoing left pulmonary infiltrate. There are persistent pleural effusions. The left chest opacities are similar to those seen on 12/11/2016. No new abnormality is detected. IMPRESSION: 1. Improved aeration of the lungs since earlier in the day. 2. Moderate ongoing left lung infiltrate and bilateral pleural effusions.
[2016-12-16] MEDS: FUROSEMIDE 40 MG/4 ML VIAL. IVP SCH (08:34)
[2016-12-16] MEDS: FAMOTIDINE 20 MG/2 ML VIAL IVP SCH ×2 (08:34→21:17)
[2016-12-16] MEDS: NYSTATIN TOPICAL POWDER 15GM BOTTLE. TP SCH ×2 (08:37→21:17)
[2016-12-16] MEDS: AMMONIUM LACTATE 12% TOPICAL LOTION 226GM BOTTLE. TP SCH ×2 (08:37→21:00)
[2016-12-16] MEDS: ARIPiprazole 5 MG TABLET PO SCH (08:37)
[2016-12-16] MEDS: POTASSIUM CHLORIDE 20 MEQ TABLET.ER. PO SCH ×2 (08:37→21:00)
[2016-12-16] MEDS: CEFEPIME HCL 1 GM in IV NORMAL SALINE 50ML 50 ML IV SCH ×3 (08:37→22:52)
[2016-12-16] MEDS ORDERED: IV NORMAL SALINE 500ML BAG 500 ML IV ONE (09:00)
[2016-12-16 09:51] LABS: HCO3 ABG 26 mmol/L (21-28); PH ABG 7.23 (7.35-7.45); PO2 ABG 64 mmHg (65-108); SAT O2 ABG 90 % (92-99)
[2016-12-16 09:52] LABS: FIO2 ABG 40; PCO2 ABG 62 mmHg (35-46)
--- NOTE | 2016-12-16 10:15 | PDOC ---
CARDIOLOGY PROGRESS NOTE SUBJECTIVE: Patient continues to have difficulty with breathing requiring bipap. No pain. He is quite somnolent so not able to respond but per and nursing he is eating and communicating. OBJECTIVE: Vital SIgns: 100/60, HR 50's (afib) I & O Even. Objective: Gen: Somnolent CVS irr irr PULM: Bilateral rhonchi ABD: Soft, NT/ND +BS EXT: Trace edema. CURRENT MEDICATIONS: No cardiac meds. DIAGNOSTIC TESTING: Tele reviewed. ASSESSMENT: 1. Bradyarrhythmias 2. Non-responsive episodes 3. Acute on chronic resp failure 4. Septic shock Problems: PLAN: 1. No acute indication for HARSHA unless requested by ID, HARSHA would be complicated in light of his BiPAP requirements. 2. With respect to his bradyarrhythmias, feel that these are mostly driven by respiratory insufficiency. 3. His near syncopal episodes are multifactorial from resp issues, hypotension and bradycardia. Although a pacemaker might improve his rates, he would not necessarily have any improvement in hypoxia or hypotension. Furthermore, there is high risk on infection in the current setting for a pacemaker. If hypoxia and BP (sepsis) issues are resolved and patient still has bradycardia , then will consider pacer. Pls call with questions. WATSON ESCAMILLA MD Dec 16, 2016 10:15
--- NOTE | 2016-12-16 11:21 | PDOC ---
PULMONARY PROGRESS NOTES Subjective Became lethargic this am, low BP and bradycardic increase PCO2, back on BIPAP Vitals Vital Signs Date Time Temp Pulse Resp B/P (MAP) Pulse Ox O2 Delivery O2 Flow Rate FiO2 12/16/16 10:28 50 18 76/54 (61) 99 BiPAP/CPAP 12/16/16 08:00 95.7 95.7 12/16/16 04:00 12.0 General: Lethargic Lungs: Other (decrease bs) Cardiovascular: S1, S2 Abdomen: Soft, Other (distended) Extremities: Other (1+edema) Skin: Warm Labs Laboratory Tests Test 12/15/16 07:00 12/15/16 07:30 12/16/16 06:36 12/16/16 06:45 White Blood Count 12.1 x10^3/uL (4.0-11.0) 12.0 x10^3/uL (4.0-11.0) Red Blood Count 2.81 x10^6/uL (4.30-5.70) 2.79 x10^6/uL (4.30-5.70) Hemoglobin 8.1 g/dL (13.0-17.5) 8.1 g/dL (13.0-17.5) Hematocrit 25.6 % (39.0-53.0) 26.2 % (39.0-53.0) Mean Corpuscular Volume 91 fL (79-100) 94 fL (79-100) Mean Corpuscular Hemoglobin 29 pg (25-35) 29 pg (25-35) Mean Corpuscular Hemoglobin Concent 32 g/dL (31-37) 31 g/dL (31-37) Red Cell Distribution Width 19.0 % (11.5-14.5) 19.7 % (11.5-14.5) Platelet Count 115 x10^3/uL (140-400) 116 x10^3/uL (140-400) Sodium Level 147 mmol/L (136-145) 145 mmol/L (136-145) Potassium Level 3.2 mmol/L (3.5-5.1) 4.0 mmol/L (3.5-5.1) Chloride Level 109 mmol/L (98-107) 107 mmol/L (98-107) Carbon Dioxide Level 31 mmol/L (21-32) 34 mmol/L (21-32) Anion Gap 7 (6-14) 4 (6-14) Blood Urea Nitrogen 39 mg/dL (8-26) 41 mg/dL (8-26) Creatinine 1.7 mg/dL (0.7-1.3) 1.9 mg/dL (0.7-1.3) Estimated GFR (Cockcroft-Gault) 40.5 35.6 Glucose Level 153 mg/dL (70-99) 152 mg/dL (70-99) Calcium Level 9.5 mg/dL (8.5-10.1) 8.9 mg/dL (8.5-10.1) Phosphorus Level 2.3 mg/dL (2.6-4.7) 4.2 mg/dL (2.6-4.7) Albumin 2.5 g/dL (3.4-5.0) 2.5 g/dL (3.4-5.0) Random Vancomycin Level 21.7 mcg/mL 14.5 mcg/mL Urine Collection Type U cath Urine Color Yellow Urine Clarity Turbid Urine pH 5.5 Urine Specific [place] 1.015 Urine Protein 30 mg/dL (NEG-TRACE) Urine Glucose (UA) Negative mg/dL (NEG) Urine Ketones (Stick) Trace mg/dL (NEG) Urine Blood Large (NEG) Urine Nitrite Negative (NEG) Urine Bilirubin Small (NEG) Urine Urobilinogen Dipstick 1.0 mg/dL (0.2 mg/dL) Urine Leukocyte Esterase Large (NEG) Urine RBC >40 /HPF (0-2) Urine WBC >40 /HPF (0-4) Urine Squamous Epithelial Cells Occ /LPF Urine Bacteria Few /HPF (0-FEW) Urine Mucus Slight /LPF Urine Yeast Present /HPF Glucose (Fingerstick) 145 mg/dL (70-99) Test 12/16/16 08:58 O2 Saturation 90 % (92-99) Arterial Blood pH 7.23 (7.35-7.45) Arterial Blood pCO2 at Patient Temp 62 mmHg (35-46) Arterial Blood pO2 at Patient Temp 64 mmHg (65-108) Arterial Blood HCO3 26 mmol/L (21-28) Arterial Blood Base Excess -2 mmol/L (-3-3) FiO2 40 Laboratory Tests Test 12/16/16 06:36 12/16/16 06:45 12/16/16 08:58 Glucose (Fingerstick) 145 mg/dL (70-99) White Blood Count 12.0 x10^3/uL (4.0-11.0) Red Blood Count 2.79 x10^6/uL (4.30-5.70) Hemoglobin 8.1 g/dL (13.0-17.5) Hematocrit 26.2 % (39.0-53.0) Mean Corpuscular Volume 94 fL (79-100) Mean Corpuscular Hemoglobin 29 pg (25-35) Mean Corpuscular Hemoglobin Concent 31 g/dL (31-37) Red Cell Distribution Width 19.7 % (11.5-14.5) Platelet Count 116 x10^3/uL (140-400) Sodium Level 145 mmol/L (136-145) Potassium Level 4.0 mmol/L (3.5-5.1) Chloride Level 107 mmol/L (98-107) Carbon Dioxide Level 34 mmol/L (21-32) Anion Gap 4 (6-14) Blood Urea Nitrogen 41 mg/dL (8-26) Creatinine 1.9 mg/dL (0.7-1.3) Estimated GFR (Cockcroft-Gault) 35.6 Glucose Level 152 mg/dL (70-99) Calcium Level 8.9 mg/dL (8.5-10.1) Phosphorus Level 4.2 mg/dL (2.6-4.7) Albumin 2.5 g/dL (3.4-5.0) Random Vancomycin Level 14.5 mcg/mL O2 Saturation 90 % (92-99) Arterial Blood pH 7.23 (7.35-7.45) Arterial Blood pCO2 at Patient Temp 62 mmHg (35-46) Arterial Blood pO2 at Patient Temp 64 mmHg (65-108) Arterial Blood HCO3 26 mmol/L (21-28) Arterial Blood Base Excess -2 mmol/L (-3-3) FiO2 40 Medications Active Scripts Medications Dose Route/Sig Max Daily Dose Days Date Category [place] 3 Fish Oil Softgel ([place]-3 Fatty Acids/Fish Oil) 1 Each Capsule.dr 2 Cap PO DAILY 05/25/15 Reported Polyethylene Glycol 3350 17 Gm Powd.pack 17 Gm PO PRN QID PRN 05/25/15 Reported Simethicone 125 Mg Capsule 250 Mg PO QID 05/25/15 Reported Propranolol Hcl 20 Mg Tablet 20 Mg PO QHS 05/25/15 Reported Melatonin 3 Mg Tablet 6 Mg PO QHS 05/25/15 Reported Potassium Chloride 20 Meq Tab.er.prt 20 Meq PO DAILY 05/25/15 Reported Prazosin Hcl 1 Mg Capsule 1 Mg PO QHS 05/25/15 Reported Mupirocin Ointment (Mupirocin) 22 Gm Oint...g. 1 Kiran TP BID 05/25/15 Reported Nystop (Nystatin) 60 Gm Powder 1 Kiran TP BID 05/25/15 Reported Mirapex (Pramipexole Di-Hcl) 0.125 Mg Tablet 0.125 Mg PO TID 05/25/15 Reported Triamcinolone Acetonide 80 Gm Oint...g. 1 Kiran TP TID 05/25/15 Reported Tamsulosin Hcl 0.4 Mg Cap.er.24h 0.4 Mg PO DAILY 08/04/14 Reported Furosemide 20 Mg Tablet 20 Mg PO DAILY 08/04/14 Reported Magnesium Oxide 400 Mg Tablet 400 Mg PO BID 03/03/14 Reported Pantoprazole Sodium 40 Mg Tablet.dr 40 Mg PO DAILY 03/03/14 Reported Propranolol Hcl 40 Mg Tablet 40 Mg PO DAILY 03/03/14 Reported Nephro-[place]kin Tablet (Folic Acid/Vitamin B Comp W-C) 0.8 Mg Tablet 1 Tab PO DAILY 03/03/14 Reported Temazepam 15 Mg Capsule 30 Mg PO QHS 03/03/14 Reported Losartan Potassium 50 Mg Tablet 50 Mg PO DAILY 03/03/14 Reported Abilify (Aripiprazole) 10 Mg Tablet 15 Mg PO DAILY 03/03/14 Reported Amlodipine Besylate 5 Mg Tablet 5 Tab PO DAILY 03/03/14 Reported Ranexa (Ranolazine) 500 Mg Tab.er.12h 500 Mg PO BID 03/03/14 Reported Nitrostat (Nitroglycerin) 0.4 Mg Tab.subl 0.4 Mg SL PRN Q5MIN PRN 03/03/14 Reported Probiotic & Acidophilus Cap (Lactobac Cmb #3/Fos/Pantethine) 1 Each Capsule 1 Tab PO DAILY 03/03/14 Reported Cilostazol 50 Mg Tablet 50 Mg PO BID 03/03/14 Reported Glycopyrrolate 2 Mg Tablet 2 Mg PO NOON 03/03/14 Reported Finasteride 5 Mg Tablet 5 Mg PO DAILY 03/03/14 Reported Vitamin D (Cholecalciferol (Vitamin D3)) 1,000 Unit Tablet 2,000 Unit PO DAILY 03/03/14 Reported Co Q-10 (Ubidecarenone) 100 Mg Capsule 100 Mg PO NOON 03/03/14 Reported Allopurinol 300 Mg Tablet 300 Mg PO BID 03/03/14 Reported Aspirin 325 Mg Tablet 325 Mg PO DAILY 03/03/14 Reported Imdur (Isosorbide Mononitrate) 30 Mg Tab.er.24h 30 Mg PO DAILYWLUN 03/03/14 Reported Sucralfate 1 Gm Tablet 1 Gm PO QIDACHS 03/03/14 Reported Atorvastatin Calcium 20 Mg Tablet 20 Mg PO HS 03/03/14 Reported Humalog (Insulin Lispro) 100 Unit/1 Ml Insuln.pen 5 Unit SQ TIDAC 03/03/14 Reported Lantus Solostar (Insulin Glargine,Hum.rec.anlog) 100 Unit/1 Ml Insuln.pen 30 Unit SQ QEVNG 03/03/14 Reported Ketoconazole 15 Gm Cream..g. 1 Kiran TP DAILY 03/03/14 Reported Comments CXR 12/16 unchanged bilateral infiltrates Impression . 1. Acute hypercapnic/ hypoxic RF, Multi-factorial, now with recurrent hypercapnia, back on BIPAP 2. Septic shock, MRSA bacteremia, repeat cultures neg 3. acute encephalology secondary to septic shock POA, now due to hypercapnia 4. No pneumoperitoneum by ct abdomen 5. RENETTA secondary septic shock POA 6. Abnormal chest x-ray basal atelectasis 7. chronic debility 8. Recurrent episodes of bradycardia, probably contributing to brain hypo- perfusion, impaired ventilation 9. RECURRENT SHOCK Plan . BIPAP VASOPRESSOR/ FLUID CHALLENGE F/U ABG NPO SPEECH EVALUATION ONCE MS BETTER SPOKE WITH NO INTUBATION NEED FOR PM DUE TO ONGOING HYPO-PERFUSION EPISODES, D/W CARDIOLOGY/ AGREE D/W DR HUFF/ CLEARED FOR PROCEDURE ANTIBIOTICS PER ID D/W RN CCT 30 MIN MEAGAN TORRES MD Dec 16, 2016 11:21
[2016-12-16 12:26] LABS: HCO3 ABG 30 mmol/L (21-28); PH ABG 7.31 (7.35-7.45); PO2 ABG 71 mmHg (65-108); SAT O2 ABG 94 % (92-99)
[2016-12-16] MEDS ORDERED: BACITRACIN 50,000 UNIT in IV NORMAL SALINE 250ML 250 ML IRR ONE (12:30)
[2016-12-16 12:31] LABS: FIO2 ABG 30; PCO2 ABG 61 mmHg (35-46)
[2016-12-16] MEDS ORDERED: fentaNYL PF VIAL 100 MCG/2 ML VIAL ONE (12:57)
[2016-12-16] MEDS ORDERED: MIDAZOLAM HCL/PF 5 MG/5 ML VIAL. ONE (12:57)
[2016-12-16] MEDS ORDERED: LIDOCAINE 2%/EPI 1:100,000 20 ML VIAL. ONE (12:58)
--- NOTE | 2016-12-16 13:13 | PDOC ---
MODERATE SEDATION ASSESSMENT RISKS/ALTERNATIVES Risks/Alternatives Risks and alternatives of this type of sedation and procedure discussed with: RISK/ALTERNATIVES: Patient H & P ON CHART H & P H & P on chart and reviewed for co-morbid conditions and appropriate labs. H&P ON CHART: Yes STATUS PREG STATUS ASSESSED: N/A MEDS/ALLERGIES REVIEWED Meds/Allergies Reviewed Medications and Allergies including time and route of recently administered narcotics and sedatives. MEDS/ALLERGIES REVIEWED: Yes ASA RATING ASA RATING: III AIRWAY ASSESSMENT Airway Assessment Airway patency, oral function limitations, presence of caps, crowns, dentures, partials, and ability to extend neck assessed. AIRWAY ASSESSMENT: Yes MALLAMPATI SCORE MALLAMPATI SCORE: II PRE-SEDATION ASSESSMENT PRE-SEDATION ASSESSMENT: Yes WATSON ESCAMILLA MD Dec 16, 2016 13:13
[2016-12-16] MEDS ORDERED: fentaNYL PF VIAL 100 MCG/2 ML VIAL IV ONE (13:15)
[2016-12-16] MEDS ORDERED: MIDAZOLAM HCL/PF 5 MG/5 ML VIAL. IV ONE (13:15)
[2016-12-16] MEDS ORDERED: LIDOCAINE 2%/EPI 1:100,000 20 ML VIAL. IJ ONE (13:15)
[2016-12-16] MEDS ORDERED: IOHEXOL 300 MG/ML 100ML VIAL. ONE (13:25)
[2016-12-16] MEDS ORDERED: IOHEXOL 300 MG/ML 100ML VIAL. IV ONE (13:30)
--- NOTE | 2016-12-16 14:05 | PDOC ---
SUBJECTIVE Subjective geting pacemaker placed OBJECTIVE Vital Signs Vital Signs Date Time Temp Pulse Resp B/P (MAP) Pulse Ox O2 Delivery O2 Flow Rate FiO2 12/16/16 12:29 99 BiPAP/CPAP 12/16/16 12:00 96.3 74 12 125/62 (83) 99 BiPAP/CPAP 96.3 12/16/16 12:00 Bi-pap 12/16/16 11:20 45 28 85/41 (56) 99 BiPAP/CPAP 12/16/16 11:12 99 BiPAP/CPAP 12/16/16 11:00 50 24 80/40 (53) 99 BiPAP/CPAP 12/16/16 10:28 50 18 76/54 (61) 99 BiPAP/CPAP 12/16/16 09:56 99 BiPAP/CPAP 12/16/16 09:30 58 17 109/52 (71) 98 Venturi Mask 12/16/16 09:00 56 17 79/38 (52) 98 Venturi Mask 12/16/16 08:00 95.7 60 29 90/51 (64) 96 Venturi Mask 95.7 12/16/16 08:00 Venturi Mask 12/16/16 04:00 98.4 58 20 101/56 (71) 96 Venturi Mask 12.0 98.4 12/16/16 00:00 70 26 103/55 (71) 94 Venturi Mask 12.0 12/15/16 21:00 86 20 113/62 (79) 93 Venturi Mask 12/15/16 20:00 Venturi Mask 12/15/16 20:00 98.2 64 22 98/56 (70) 93 Venturi Mask 98.2 I & O Intake and Output 12/16/16 07:00 Intake Total 1038 ml Output Total 1100 ml Balance -62 ml Intake Oral 200 ml Tube Feeding 658 ml Blood Product IV Normal Saline Flush 180 ml Output Urine Total 1100 ml PHYSICAL EXAM Physical Exam most recent CXR is better exam about same ASSESSMENT/PLAN Assessment/Plan 1-Septic shock, POA. 12/06. Staph aureus, presumptive MRSA bacteremia. TTE neg veg, 12/06. 2-Hypothermia- off Blanquita hugger 3-Acute encephalopathy, resolved 4-UTI, POA. 12/06. GNR 5-RENETTA 6-Acute respiratory failure better on vent mask now 7-Bradyarrhythmia s/p code blue 12/07, another episode significant bradycardia 12/11 , for pacemaker today 8-Metabolic acidosis 9-Chronic debility 10-hypokalemia replacing 11-anemia and thrombocytopenia Problems: COMMENT Lab Laboratory Tests Test 12/16/16 06:36 12/16/16 06:45 12/16/16 08:58 12/16/16 11:12 Glucose (Fingerstick) 145 mg/dL (70-99) White Blood Count 12.0 x10^3/uL (4.0-11.0) Red Blood Count 2.79 x10^6/uL (4.30-5.70) Hemoglobin 8.1 g/dL (13.0-17.5) Hematocrit 26.2 % (39.0-53.0) Mean Corpuscular Volume 94 fL (79-100) Mean Corpuscular Hemoglobin 29 pg (25-35) Mean Corpuscular Hemoglobin Concent 31 g/dL (31-37) Red Cell Distribution Width 19.7 % (11.5-14.5) Platelet Count 116 x10^3/uL (140-400) Sodium Level 145 mmol/L (136-145) Potassium Level 4.0 mmol/L (3.5-5.1) Chloride Level 107 mmol/L (98-107) Carbon Dioxide Level 34 mmol/L (21-32) Anion Gap 4 (6-14) Blood Urea Nitrogen 41 mg/dL (8-26) Creatinine 1.9 mg/dL (0.7-1.3) Estimated GFR (Cockcroft-Gault) 35.6 Glucose Level 152 mg/dL (70-99) Calcium Level 8.9 mg/dL (8.5-10.1) Phosphorus Level 4.2 mg/dL (2.6-4.7) Albumin 2.5 g/dL (3.4-5.0) Random Vancomycin Level 14.5 mcg/mL O2 Saturation 90 % (92-99) 94 % (92-99) Arterial Blood pH 7.23 (7.35-7.45) 7.31 (7.35-7.45) Arterial Blood pCO2 at Patient Temp 62 mmHg (35-46) 61 mmHg (35-46) Arterial Blood pO2 at Patient Temp 64 mmHg (65-108) 71 mmHg (65-108) Arterial Blood HCO3 26 mmol/L (21-28) 30 mmol/L (21-28) Arterial Blood Base Excess -2 mmol/L (-3-3) 3 mmol/L (-3-3) FiO2 40 30 KYLE LAWSON MD Dec 16, 2016 14:05
--- NOTE | 2016-12-16 16:01 | CARD ---
APPROVED REPORT HISTORY The Patient is a 66 year-old male with a history of SSS and atrial fibrillation with tachy-justine PROCEDURES Insertion Single Chamber Ventricle Pacemaker Sedation Time: 110 INDICATIONS The patient was referred for pacemaker implantation for symptomatic SSS and tachybrady disease. Due t o his recent sepsis, a multidisciplinary discussion was held with pulmonary and ID teams to determine the timing of the pacemaker. The patient has had acute on chronic resp failure requiring bipap. Afte r agreement by all involved, including the patient and family, a decision was made to support the pat ient with a pacemaker. IMPLANTED DEVICES 30 mL of 2% lidocaine was infiltrated into the skin and subcutaneous tissues for local anesthesia. A n incision was made over the left infraclavicular fossa and using blunt dissection and cautery a pock et was created. Venous access was obtained in the left subclavian vein and a 6Fr sheath was inserted . Subsequently, a bipolar active fixation right ventricular lead model 2088TC/58, serial number [id number] was advanced under fluoroscopic guidance and the tip was positioned in the right ventricular apex. The lead was secured into place and was attached to a [employer] single chamber permanent pacemaker ge nerator model [id number], serial number [id number] This was placed in the pocket that was subsequently clos ed in 3 layers. Hemostasis was secured. At the end of procedure, the right ventricular lead showed sensing amplitude of 5.4 mV, impedance of 490ohms and a threshold of 0.6volts. Patient tolerated the procedure well. There were no immediate complications. CONCLUSION Successful insertion of a [employer] single chamber pacemaker for SSS and tachybrady syndrome.
[2016-12-16 18:40] LABS: HCO3 ABG 31 mmol/L (21-28); PO2 ABG 89 mmHg (65-108); SAT O2 ABG 96 % (92-99)
[2016-12-16 18:42] LABS: FIO2 ABG 40; PCO2 ABG 66 mmHg (35-46)
[2016-12-17] VITALS (31 sets, daily range): BP systolic 91–139; BP diastolic 47–74
[2016-12-17] MEDS: CEFEPIME HCL 1 GM in IV NORMAL SALINE 50ML 50 ML IV SCH ×3 (05:48→22:44)
[2016-12-17 06:29] LABS: ALBUMIN 2.3 g/dL (3.4-5.0); CALCIUM 8.7 mg/dL (8.5-10.1); CREATININE 1.7 mg/dL (0.7-1.3); GFR 40.5; PHOSPHORUS 3.3 mg/dL (2.6-4.7); POTASSIUM 3.5 mmol/L (3.5-5.1)
--- NOTE | 2016-12-17 07:04 | PDOC ---
Infectious Disease Note Subjective Subjective On bipap - more alert ROS ROS Difficult to ascertain but c/o some abd discomfort Vital Sign Vital Signs Vital Signs Date Time Temp Pulse Resp B/P (MAP) Pulse Ox O2 Delivery O2 Flow Rate FiO2 12/17/16 06:30 125/67 (86) 12/17/16 06:06 81 28 99 BiPAP/CPAP 12/17/16 04:00 9.0 12/17/16 04:00 98.2 98.2 Physical Exam PHYSICAL EXAM GENERAL: NAD, More alert HEENT: PERRLA NECK: Supple, no JVD, no LN LUNGS: Clear. on BiPap HEART: S1S2, no gallop, no murmur. Pacemaker dressed ABD: Soft, NT, no organomegaly,distended hutchins EXT: No edema, no cyanosis, wounds dressed PRIMARY CARE NURSE PRACTITIONER: Alert, oriented, no focal neurologic deficit, tremor SKIN: No rash IV: RIJ Labs Lab Laboratory Tests Test 12/16/16 08:58 12/16/16 11:12 12/16/16 18:10 12/17/16 05:50 O2 Saturation 90 % (92-99) 94 % (92-99) 96 % (92-99) Arterial Blood pH 7.23 (7.35-7.45) 7.31 (7.35-7.45) 7.30 (7.35-7.45) Arterial Blood pCO2 at Patient Temp 62 mmHg (35-46) 61 mmHg (35-46) 66 mmHg (35-46) Arterial Blood pO2 at Patient Temp 64 mmHg (65-108) 71 mmHg (65-108) 89 mmHg (65-108) Arterial Blood HCO3 26 mmol/L (21-28) 30 mmol/L (21-28) 31 mmol/L (21-28) Arterial Blood Base Excess -2 mmol/L (-3-3) 3 mmol/L (-3-3) 4 mmol/L (-3-3) FiO2 40 30 40 Sodium Level 143 mmol/L (136-145) Potassium Level 3.5 mmol/L (3.5-5.1) Chloride Level 106 mmol/L (98-107) Carbon Dioxide Level 31 mmol/L (21-32) Anion Gap 6 (6-14) Blood Urea Nitrogen 41 mg/dL (8-26) Creatinine 1.7 mg/dL (0.7-1.3) Estimated GFR (Cockcroft-Gault) 40.5 Glucose Level 111 mg/dL (70-99) Calcium Level 8.7 mg/dL (8.5-10.1) Phosphorus Level 3.3 mg/dL (2.6-4.7) Albumin 2.3 g/dL (3.4-5.0) Objective Assessment Sp Pacemaker 12/16 - bradycardia Levophed of 5 currently - better Septic shock, POA. 12/06. MRSA bacteremia. TTE neg veg, 12/06. Repeat Blood cult 12/10 - neg. Now on Zyvox Mild leukocytosis - ? reactive Fever RENETTA - better Acute encephalopathy, improving Possible pneumoperitoneum on chest-ray. CT neg, mild ileus ? UTI, Ecoli POA. 12/06. a lot of contamination. Repeat Urine cult pending Acute respiratory failure Bradyarrhythmia s/p code blue 12/07 Metabolic acidosis Chronic debility Wounds Plan Plan of Care Chest X-ray this am KUB this am with distension CBC this am Labs in am Add Flagyl Cont Cefepime/Zyvox. D/c Vanc with worsening renal failure 12/16. Avoid Dapto with resp issues - CXR pending. Cover potential Pseudomonas given risk Repeat blood cults F/u urine cults F/u labs Critically ill D/w nursing d/w residential prognosis poor LINDA CABALLERO MD Dec 17, 2016 07:04
[2016-12-17 07:17] LABS: BASO % 0 % (0-3); EOS % 2 % (0-3); HEMOGLOBIN 7.8 g/dL (13.0-17.5); LYMPH % 9 % (24-48); MEAN CORPUSCULAR HEMOGLOBIN 29 pg (25-35); MEAN CORPUSCULAR HGB CONC 31 g/dL (31-37); MEAN CORPUSCULAR VOLUME 92 fL (79-100); MONO % 6 % (0-9); NEUT % 83 % (31-73); PLATELET COUNT 138 x10^3/uL (140-400); RED BLOOD COUNT 2.71 x10^6/uL (4.30-5.70); RED CELL DISTRIBUTION WIDTH 19.5 % (11.5-14.5); WHITE BLOOD COUNT 10.2 x10^3/uL (4.0-11.0)
[2016-12-17] MEDS: FUROSEMIDE 40 MG/4 ML VIAL. IVP SCH (08:34)
[2016-12-17] MEDS: FAMOTIDINE 20 MG/2 ML VIAL IVP SCH ×2 (08:34→21:17)
[2016-12-17] MEDS: NYSTATIN TOPICAL POWDER 15GM BOTTLE. TP SCH ×2 (08:35→21:18)
[2016-12-17] MEDS: ARIPiprazole 5 MG TABLET PO SCH (08:35)
[2016-12-17] MEDS: AMMONIUM LACTATE 12% TOPICAL LOTION 226GM BOTTLE. TP SCH ×2 (08:35→19:26)
[2016-12-17] MEDS: POTASSIUM CHLORIDE 20 MEQ TABLET.ER. PO SCH ×2 (08:35→19:26)
[2016-12-17 08:53] LABS: HCO3 ABG 27 mmol/L (21-28); PCO2 ABG 36 mmHg (35-46); PH ABG 7.49 (7.35-7.45); PO2 ABG 81 mmHg (65-108); SAT O2 ABG 97 % (92-99)
[2016-12-17 08:57] LABS: FIO2 ABG 30
--- NOTE | 2016-12-17 09:15 | PDOC ---
SUBJECTIVE Subjective getting off Bipap now, Bp better weaning levo , had pace maker yesterday, dropped Hb OBJECTIVE Vital Signs Vital Signs Date Time Temp Pulse Resp B/P (MAP) Pulse Ox O2 Delivery O2 Flow Rate FiO2 12/17/16 09:00 80 26 108/62 (77) 99 Venturi Mask 12/17/16 08:00 98.2 86 27 139/74 (95) 100 BiPAP/CPAP 98.2 12/17/16 08:00 Bi-pap 12/17/16 08:00 9.0 12/17/16 06:30 125/67 (86) 12/17/16 06:06 81 28 115/64 (81) 99 BiPAP/CPAP 12/17/16 05:45 100 BiPAP/CPAP 12/17/16 05:15 112/59 (76) 12/17/16 05:00 80 30 123/66 (85) 100 BiPAP/CPAP 12/17/16 04:20 Bi-pap 12/17/16 04:00 9.0 12/17/16 04:00 98.2 85 28 115/59 (77) 99 BiPAP/CPAP 98.2 12/17/16 03:20 100 BiPAP/CPAP 12/17/16 03:14 84 28 108/50 (69) 100 BiPAP/CPAP 12/17/16 02:30 103/56 (72) 12/17/16 02:15 127/56 (79) 12/17/16 02:09 82 28 100/62 (75) 98 BiPAP/CPAP 12/17/16 01:15 98 BiPAP/CPAP 12/17/16 01:09 80 28 114/64 (81) 100 BiPAP/CPAP 12/17/16 00:00 9.0 12/17/16 00:00 Bi-pap 12/17/16 00:00 96.3 80 28 119/65 (83) 100 BiPAP/CPAP 96.3 12/16/16 23:20 98 BiPAP/CPAP 12/16/16 23:05 80 28 98/57 (71) 98 BiPAP/CPAP 12/16/16 22:15 91/50 (64) 12/16/16 22:00 80 24 91/50 (64) 96 Venturi Mask 12/16/16 21:19 80 20 95/51 (66) 98 Venturi Mask 9.0 12/16/16 20:45 87/52 (64) 12/16/16 20:30 84/46 (59) 12/16/16 20:00 109/62 (78) 12/16/16 20:00 Venturi Mask 9.0 12/16/16 19:46 84 14 106/54 (71) 97 Venturi Mask 12/16/16 19:45 83/54 (64) 12/16/16 19:30 97.3 80 14 103/58 (73) 99 Simple Mask 97.3 12/16/16 18:00 80 23 102/52 (69) 100 Venturi Mask 12.0 12/16/16 17:37 99 BiPAP/CPAP 12/16/16 17:00 80 16 94/54 (67) 100 BiPAP/CPAP 12/16/16 16:48 80 10 82/52 (62) 100 BiPAP/CPAP 12/16/16 16:00 12.0 12/16/16 16:00 Bi-pap 12/16/16 16:00 96.1 80 18 110/55 (73) 98 BiPAP/CPAP 96.1 12/16/16 15:22 18 99 BiPAP/CPAP 12/16/16 15:18 83 18 99/50 (66) 99 BiPAP/CPAP 12/16/16 15:00 99 BiPAP/CPAP 12/16/16 14:53 64 28 97 BiPAP/CPAP 12/16/16 14:45 28 97 BiPAP/CPAP 12/16/16 12:29 99 BiPAP/CPAP 12/16/16 12:00 12.0 12/16/16 12:00 96.3 74 12 125/62 (83) 99 BiPAP/CPAP 96.3 12/16/16 12:00 Bi-pap 12/16/16 11:20 45 28 85/41 (56) 99 BiPAP/CPAP 12/16/16 11:12 99 BiPAP/CPAP 12/16/16 11:00 50 24 80/40 (53) 99 BiPAP/CPAP 12/16/16 10:28 50 18 76/54 (61) 99 BiPAP/CPAP 12/16/16 09:56 99 BiPAP/CPAP 12/16/16 09:30 58 17 109/52 (71) 98 Venturi Mask I & O Intake and Output 12/17/16 07:00 Intake Total 1889.0 ml Output Total 1985 ml Balance -96.0 ml Intake Oral 250 ml IV Total 1639.0 ml Output Urine Total 1985 ml PHYSICAL EXAM Physical Exam lungs clearer chandler RRR abd soft ext decrease edema ASSESSMENT/PLAN Assessment/Plan 1-Septic shock, POA. 12/06. Staph aureus, presumptive MRSA bacteremia. TTE neg veg, 12/06 improved. 2-Hypothermia- off Blanquita hugger 3-Acute encephalopathy, resolved 4-UTI, POA. 12/06. GNR 5-RENETTA 6-Acute respiratory failure better off Bipap this AM 7-Bradyarrhythmia s/p code blue 12/07, another episode significant bradycardia 12/11 , pacemaker yesterday 8-Metabolic acidosis better 9-Chronic debility 10-hypokalemia replacing 11-anemia and thrombocytopenia transfuse 1 unit PRBC today plan swallow eval today and hopefully diet, may transfer to floor later today Problems: COMMENT Lab Laboratory Tests Test 12/16/16 11:12 12/16/16 18:10 12/17/16 05:50 12/17/16 08:07 O2 Saturation 94 % (92-99) 96 % (92-99) 97 % (92-99) Arterial Blood pH 7.31 (7.35-7.45) 7.30 (7.35-7.45) 7.49 (7.35-7.45) Arterial Blood pCO2 at Patient Temp 61 mmHg (35-46) 66 mmHg (35-46) 36 mmHg (35-46) Arterial Blood pO2 at Patient Temp 71 mmHg (65-108) 89 mmHg (65-108) 81 mmHg (65-108) Arterial Blood HCO3 30 mmol/L (21-28) 31 mmol/L (21-28) 27 mmol/L (21-28) Arterial Blood Base Excess 3 mmol/L (-3-3) 4 mmol/L (-3-3) 4 mmol/L (-3-3) FiO2 30 40 30 White Blood Count 10.2 x10^3/uL (4.0-11.0) Red Blood Count 2.71 x10^6/uL (4.30-5.70) Hemoglobin 7.8 g/dL (13.0-17.5) Hematocrit 25.0 % (39.0-53.0) Mean Corpuscular Volume 92 fL (79-100) Mean Corpuscular Hemoglobin 29 pg (25-35) Mean Corpuscular Hemoglobin Concent 31 g/dL (31-37) Red Cell Distribution Width 19.5 % (11.5-14.5) Platelet Count 138 x10^3/uL (140-400) Neutrophils (%) (Auto) 83 % (31-73) Lymphocytes (%) (Auto) 9 % (24-48) Monocytes (%) (Auto) 6 % (0-9) Eosinophils (%) (Auto) 2 % (0-3) Basophils (%) (Auto) 0 % (0-3) Neutrophils # (Auto) 8.5 x10^3uL (1.8-7.7) Lymphocytes # (Auto) 1.0 x10^3/uL (1.0-4.8) Monocytes # (Auto) 0.6 x10^3/uL (0.0-1.1) Eosinophils # (Auto) 0.2 x10^3/uL (0.0-0.7) Basophils # (Auto) 0.0 x10^3/uL (0.0-0.2) Sodium Level 143 mmol/L (136-145) Potassium Level 3.5 mmol/L (3.5-5.1) Chloride Level 106 mmol/L (98-107) Carbon Dioxide Level 31 mmol/L (21-32) Anion Gap 6 (6-14) Blood Urea Nitrogen 41 mg/dL (8-26) Creatinine 1.7 mg/dL (0.7-1.3) Estimated GFR (Cockcroft-Gault) 40.5 Glucose Level 111 mg/dL (70-99) Calcium Level 8.7 mg/dL (8.5-10.1) Phosphorus Level 3.3 mg/dL (2.6-4.7) Albumin 2.3 g/dL (3.4-5.0) KYLE LAWSON MD Dec 17, 2016 09:15
--- NOTE | 2016-12-17 10:20 | RAD ---
Portable chest, 12/17/2016: History: Respiratory failure Comparison is made to yesterday's study. A left-sided transvenous pacemaker has been inserted with a single lead extending into the right ventricle. A right jugular central venous catheter remains in place extending into the right atrium, although its tip is not clearly visualized. The heart size is unchanged. Pulmonary infiltrates continues to improve with better definition of the underlying pulmonary vascularity. There are residual basilar opacities, left greater than right, compatible with pleural fluid and underlying atelectasis. No new pulmonary abnormality is seen. IMPRESSION: 1. Interval insertion of a left-sided transvenous pacemaker with a single lead extending into the right ventricle. 2. Further interval improvement of the bilateral pulmonary infiltrates.
--- NOTE | 2016-12-17 10:33 | RAD ---
KUB, 12/17/2016: History: Abdominal distention There is moderate gaseous distention of large and small bowel loops. Bowel loops extend up beneath the right hemidiaphragm. The findings suggest a generalized ileus. The NG tube has been removed since the 12/12/2016 exam. There are moderate degenerative changes in the spine. IMPRESSION: Moderate ongoing gaseous distention of large and small bowel loops in a pattern suggesting a generalized ileus.
--- NOTE | 2016-12-17 12:54 | PDOC ---
JULISA HANDY PROGRAM COUNSELOR 12/17/16 1254: CARDIO Progress Notes Date and Time Date of Service 12/17/16 Time of Evaluation 1215 Subjective Subjective: No Chest Pain, No shortness of breath, Other (more alert today. Off BiPAP) Comments: PPM interrogation shows normal device function. CXR noted Vitals Vitals Vital Signs Date Time Temp Pulse Resp B/P (MAP) Pulse Ox O2 Delivery O2 Flow Rate FiO2 12/17/16 12:27 98.0 80 30 100/50 98.0 12/17/16 12:00 98 Nasal Cannula 5.0 Weight Weight [ ] Input and Output Intake and Output Intake and Output 12/17/16 07:00 Intake Total 1889.0 ml Output Total 1985 ml Balance -96.0 ml Intake Oral 250 ml IV Total 1639.0 ml Output Urine Total 1985 ml Laboratory Labs Laboratory Tests Test 12/16/16 18:10 12/17/16 05:50 12/17/16 08:07 O2 Saturation 96 % (92-99) 97 % (92-99) Arterial Blood pH 7.30 (7.35-7.45) 7.49 (7.35-7.45) Arterial Blood pCO2 at Patient Temp 66 mmHg (35-46) 36 mmHg (35-46) Arterial Blood pO2 at Patient Temp 89 mmHg (65-108) 81 mmHg (65-108) Arterial Blood HCO3 31 mmol/L (21-28) 27 mmol/L (21-28) Arterial Blood Base Excess 4 mmol/L (-3-3) 4 mmol/L (-3-3) FiO2 40 30 White Blood Count 10.2 x10^3/uL (4.0-11.0) Red Blood Count 2.71 x10^6/uL (4.30-5.70) Hemoglobin 7.8 g/dL (13.0-17.5) Hematocrit 25.0 % (39.0-53.0) Mean Corpuscular Volume 92 fL (79-100) Mean Corpuscular Hemoglobin 29 pg (25-35) Mean Corpuscular Hemoglobin Concent 31 g/dL (31-37) Red Cell Distribution Width 19.5 % (11.5-14.5) Platelet Count 138 x10^3/uL (140-400) Neutrophils (%) (Auto) 83 % (31-73) Lymphocytes (%) (Auto) 9 % (24-48) Monocytes (%) (Auto) 6 % (0-9) Eosinophils (%) (Auto) 2 % (0-3) Basophils (%) (Auto) 0 % (0-3) Neutrophils # (Auto) 8.5 x10^3uL (1.8-7.7) Lymphocytes # (Auto) 1.0 x10^3/uL (1.0-4.8) Monocytes # (Auto) 0.6 x10^3/uL (0.0-1.1) Eosinophils # (Auto) 0.2 x10^3/uL (0.0-0.7) Basophils # (Auto) 0.0 x10^3/uL (0.0-0.2) Sodium Level 143 mmol/L (136-145) Potassium Level 3.5 mmol/L (3.5-5.1) Chloride Level 106 mmol/L (98-107) Carbon Dioxide Level 31 mmol/L (21-32) Anion Gap 6 (6-14) Blood Urea Nitrogen 41 mg/dL (8-26) Creatinine 1.7 mg/dL (0.7-1.3) Estimated GFR (Cockcroft-Gault) 40.5 Glucose Level 111 mg/dL (70-99) Calcium Level 8.7 mg/dL (8.5-10.1) Phosphorus Level 3.3 mg/dL (2.6-4.7) Albumin 2.3 g/dL (3.4-5.0) Microbiology Micro Microbiology 12/16/16 Blood Culture - Preliminary, Resulted NO GROWTH AFTER 1 DAY 12/06/16 Urine Culture - Final, Complete 12/06/16 Urine Culture Result 1 (ERICK) - Final, Complete 12/06/16 Antimicrobic Susceptibility - Final, Complete Physical Exam HEENT: Neck Supple W Full Motion Chest: Symmetric, Other (left pectorial PPM insertion site with DRSG CDI. No ecchymosis or hematoma present ) LUNGS: Other (diminished bases ) Heart: S1S2, other (soft systolic murmur, v-paced with underling AFIB) Abdomen: Soft N/T Extremities: Other (anasarca, drsg intact to bilateral LE) Neurology: alert, follow commands, other (somnolent ) Assessment Assessment 1. Bradyarrhythmia; s/p implantations of [employer] single chamber pacemaker 2. Septic shock 3. Acute respiratory failure. Recommendations Monitor telemetry; no indication for rate controlling agents at this time. Transfuse as warranted Continue supportive care Consider ASA for stoke prevention. Plt now 138 WATSON ESCAMILLA MD 12/17/164: CARDIO Progress Notes Plan Plan Pt. seen and examined. Agree with above HUMIDIFIER OPERATOR note. No acute events overnight. Did well with pacer implant. Doing better w/ respect to breathing. More alert today. Labs/CXR reviewed. Will ask [facility] to reduce his back up rate to 50 tomorrow. Continue supportive care. Of note, patient has had transient afib, Mobitz Type 1 and possible complete heart block. Will need to monitor for afib, consider anticoagulation on an outpt basis. JULISA HANDY APRN Dec 17, 2016 12:54 WATSON ESCAMILLA MD Dec 17, 2016 20:44
--- NOTE | 2016-12-17 13:14 | PDOC ---
PULMONARY PROGRESS NOTES Subjective s/p PPM 12/16 much better, off pressor,off BIPAP Vitals Vital Signs Date Time Temp Pulse Resp B/P (MAP) Pulse Ox O2 Delivery O2 Flow Rate FiO2 12/17/16 12:42 97.7 80 22 92/49 97.7 12/17/16 12:00 98 Nasal Cannula 5.0 General: Alert, No acute distress Lungs: Other (decrease bs) Cardiovascular: S1, S2 Abdomen: Soft, Other (distended) Extremities: Other (1+edema) Skin: Warm Labs Laboratory Tests Test 12/16/16 06:36 12/16/16 06:45 12/16/16 08:58 12/16/16 11:12 Glucose (Fingerstick) 145 mg/dL (70-99) White Blood Count 12.0 x10^3/uL (4.0-11.0) Red Blood Count 2.79 x10^6/uL (4.30-5.70) Hemoglobin 8.1 g/dL (13.0-17.5) Hematocrit 26.2 % (39.0-53.0) Mean Corpuscular Volume 94 fL (79-100) Mean Corpuscular Hemoglobin 29 pg (25-35) Mean Corpuscular Hemoglobin Concent 31 g/dL (31-37) Red Cell Distribution Width 19.7 % (11.5-14.5) Platelet Count 116 x10^3/uL (140-400) Sodium Level 145 mmol/L (136-145) Potassium Level 4.0 mmol/L (3.5-5.1) Chloride Level 107 mmol/L (98-107) Carbon Dioxide Level 34 mmol/L (21-32) Anion Gap 4 (6-14) Blood Urea Nitrogen 41 mg/dL (8-26) Creatinine 1.9 mg/dL (0.7-1.3) Estimated GFR (Cockcroft-Gault) 35.6 Glucose Level 152 mg/dL (70-99) Calcium Level 8.9 mg/dL (8.5-10.1) Phosphorus Level 4.2 mg/dL (2.6-4.7) Albumin 2.5 g/dL (3.4-5.0) Random Vancomycin Level 14.5 mcg/mL O2 Saturation 90 % (92-99) 94 % (92-99) Arterial Blood pH 7.23 (7.35-7.45) 7.31 (7.35-7.45) Arterial Blood pCO2 at Patient Temp 62 mmHg (35-46) 61 mmHg (35-46) Arterial Blood pO2 at Patient Temp 64 mmHg (65-108) 71 mmHg (65-108) Arterial Blood HCO3 26 mmol/L (21-28) 30 mmol/L (21-28) Arterial Blood Base Excess -2 mmol/L (-3-3) 3 mmol/L (-3-3) FiO2 40 30 Test 12/16/16 18:10 12/17/16 05:50 12/17/16 08:07 O2 Saturation 96 % (92-99) 97 % (92-99) Arterial Blood pH 7.30 (7.35-7.45) 7.49 (7.35-7.45) Arterial Blood pCO2 at Patient Temp 66 mmHg (35-46) 36 mmHg (35-46) Arterial Blood pO2 at Patient Temp 89 mmHg (65-108) 81 mmHg (65-108) Arterial Blood HCO3 31 mmol/L (21-28) 27 mmol/L (21-28) Arterial Blood Base Excess 4 mmol/L (-3-3) 4 mmol/L (-3-3) FiO2 40 30 White Blood Count 10.2 x10^3/uL (4.0-11.0) Red Blood Count 2.71 x10^6/uL (4.30-5.70) Hemoglobin 7.8 g/dL (13.0-17.5) Hematocrit 25.0 % (39.0-53.0) Mean Corpuscular Volume 92 fL (79-100) Mean Corpuscular Hemoglobin 29 pg (25-35) Mean Corpuscular Hemoglobin Concent 31 g/dL (31-37) Red Cell Distribution Width 19.5 % (11.5-14.5) Platelet Count 138 x10^3/uL (140-400) Neutrophils (%) (Auto) 83 % (31-73) Lymphocytes (%) (Auto) 9 % (24-48) Monocytes (%) (Auto) 6 % (0-9) Eosinophils (%) (Auto) 2 % (0-3) Basophils (%) (Auto) 0 % (0-3) Neutrophils # (Auto) 8.5 x10^3uL (1.8-7.7) Lymphocytes # (Auto) 1.0 x10^3/uL (1.0-4.8) Monocytes # (Auto) 0.6 x10^3/uL (0.0-1.1) Eosinophils # (Auto) 0.2 x10^3/uL (0.0-0.7) Basophils # (Auto) 0.0 x10^3/uL (0.0-0.2) Sodium Level 143 mmol/L (136-145) Potassium Level 3.5 mmol/L (3.5-5.1) Chloride Level 106 mmol/L (98-107) Carbon Dioxide Level 31 mmol/L (21-32) Anion Gap 6 (6-14) Blood Urea Nitrogen 41 mg/dL (8-26) Creatinine 1.7 mg/dL (0.7-1.3) Estimated GFR (Cockcroft-Gault) 40.5 Glucose Level 111 mg/dL (70-99) Calcium Level 8.7 mg/dL (8.5-10.1) Phosphorus Level 3.3 mg/dL (2.6-4.7) Albumin 2.3 g/dL (3.4-5.0) Laboratory Tests Test 12/16/16 18:10 12/17/16 05:50 12/17/16 08:07 O2 Saturation 96 % (92-99) 97 % (92-99) Arterial Blood pH 7.30 (7.35-7.45) 7.49 (7.35-7.45) Arterial Blood pCO2 at Patient Temp 66 mmHg (35-46) 36 mmHg (35-46) Arterial Blood pO2 at Patient Temp 89 mmHg (65-108) 81 mmHg (65-108) Arterial Blood HCO3 31 mmol/L (21-28) 27 mmol/L (21-28) Arterial Blood Base Excess 4 mmol/L (-3-3) 4 mmol/L (-3-3) FiO2 40 30 White Blood Count 10.2 x10^3/uL (4.0-11.0) Red Blood Count 2.71 x10^6/uL (4.30-5.70) Hemoglobin 7.8 g/dL (13.0-17.5) Hematocrit 25.0 % (39.0-53.0) Mean Corpuscular Volume 92 fL (79-100) Mean Corpuscular Hemoglobin 29 pg (25-35) Mean Corpuscular Hemoglobin Concent 31 g/dL (31-37) Red Cell Distribution Width 19.5 % (11.5-14.5) Platelet Count 138 x10^3/uL (140-400) Neutrophils (%) (Auto) 83 % (31-73) Lymphocytes (%) (Auto) 9 % (24-48) Monocytes (%) (Auto) 6 % (0-9) Eosinophils (%) (Auto) 2 % (0-3) Basophils (%) (Auto) 0 % (0-3) Neutrophils # (Auto) 8.5 x10^3uL (1.8-7.7) Lymphocytes # (Auto) 1.0 x10^3/uL (1.0-4.8) Monocytes # (Auto) 0.6 x10^3/uL (0.0-1.1) Eosinophils # (Auto) 0.2 x10^3/uL (0.0-0.7) Basophils # (Auto) 0.0 x10^3/uL (0.0-0.2) Sodium Level 143 mmol/L (136-145) Potassium Level 3.5 mmol/L (3.5-5.1) Chloride Level 106 mmol/L (98-107) Carbon Dioxide Level 31 mmol/L (21-32) Anion Gap 6 (6-14) Blood Urea Nitrogen 41 mg/dL (8-26) Creatinine 1.7 mg/dL (0.7-1.3) Estimated GFR (Cockcroft-Gault) 40.5 Glucose Level 111 mg/dL (70-99) Calcium Level 8.7 mg/dL (8.5-10.1) Phosphorus Level 3.3 mg/dL (2.6-4.7) Albumin 2.3 g/dL (3.4-5.0) Medications Active Scripts Medications Dose Route/Sig Max Daily Dose Days Date Category [place] 3 Fish Oil Softgel (Groton-3 Fatty Acids/Fish Oil) 1 Each Capsule. 2 Cap PO DAILY 05/25/15 Reported Polyethylene Glycol 3350 17 Gm Powd.pack 17 Gm PO PRN QID PRN 05/25/15 Reported Simethicone 125 Mg Capsule 250 Mg PO QID 05/25/15 Reported Propranolol Hcl 20 Mg Tablet 20 Mg PO QHS 05/25/15 Reported Melatonin 3 Mg Tablet 6 Mg PO QHS 05/25/15 Reported Potassium Chloride 20 Meq Tab.er.prt 20 Meq PO DAILY 05/25/15 Reported Prazosin Hcl 1 Mg Capsule 1 Mg PO QHS 05/25/15 Reported Mupirocin Ointment (Mupirocin) 22 Gm Oint...g. 1 Kiran TP BID 05/25/15 Reported Nystop (Nystatin) 60 Gm Powder 1 Kiran TP BID 05/25/15 Reported Mirapex (Pramipexole Di-Hcl) 0.125 Mg Tablet 0.125 Mg PO TID 05/25/15 Reported Triamcinolone Acetonide 80 Gm Oint...g. 1 Kiran TP TID 05/25/15 Reported Tamsulosin Hcl 0.4 Mg Cap.er.24h 0.4 Mg PO DAILY 08/04/14 Reported Furosemide 20 Mg Tablet 20 Mg PO DAILY 08/04/14 Reported Magnesium Oxide 400 Mg Tablet 400 Mg PO BID 03/03/14 Reported Pantoprazole Sodium 40 Mg Tablet.dr 40 Mg PO DAILY 03/03/14 Reported Propranolol Hcl 40 Mg Tablet 40 Mg PO DAILY 03/03/14 Reported Nephro-Elkin Tablet (Folic Acid/Vitamin B Comp W-C) 0.8 Mg Tablet 1 Tab PO DAILY 03/03/14 Reported Temazepam 15 Mg Capsule 30 Mg PO QHS 03/03/14 Reported Losartan Potassium 50 Mg Tablet 50 Mg PO DAILY 03/03/14 Reported Abilify (Aripiprazole) 10 Mg Tablet 15 Mg PO DAILY 03/03/14 Reported Amlodipine Besylate 5 Mg Tablet 5 Tab PO DAILY 03/03/14 Reported Ranexa (Ranolazine) 500 Mg Tab.er.12h 500 Mg PO BID 03/03/14 Reported Nitrostat (Nitroglycerin) 0.4 Mg Tab.subl 0.4 Mg SL PRN Q5MIN PRN 03/03/14 Reported Probiotic & Acidophilus Cap (Lactobac Cmb #3/Fos/Pantethine) 1 Each Capsule 1 Tab PO DAILY 03/03/14 Reported Cilostazol 50 Mg Tablet 50 Mg PO BID 03/03/14 Reported Glycopyrrolate 2 Mg Tablet 2 Mg PO NOON 03/03/14 Reported Finasteride 5 Mg Tablet 5 Mg PO DAILY 03/03/14 Reported Vitamin D (Cholecalciferol (Vitamin D3)) 1,000 Unit Tablet 2,000 Unit PO DAILY 03/03/14 Reported Co Q-10 (Ubidecarenone) 100 Mg Capsule 100 Mg PO NOON 03/03/14 Reported Allopurinol 300 Mg Tablet 300 Mg PO BID 03/03/14 Reported Aspirin 325 Mg Tablet 325 Mg PO DAILY 03/03/14 Reported Imdur (Isosorbide Mononitrate) 30 Mg Tab.er.24h 30 Mg PO DAILYWLUN 03/03/14 Reported Sucralfate 1 Gm Tablet 1 Gm PO QIDACHS 03/03/14 Reported Atorvastatin Calcium 20 Mg Tablet 20 Mg PO HS 03/03/14 Reported Humalog (Insulin Lispro) 100 Unit/1 Ml Insuln.pen 5 Unit SQ TIDAC 03/03/14 Reported Lantus Solostar (Insulin Glargine,Hum.rec.anlog) 100 Unit/1 Ml Insuln.pen 30 Unit SQ QEVNG 03/03/14 Reported Ketoconazole 15 Gm Cream..g. 1 Kiran TP DAILY 03/03/14 Reported Comments CXR 12/16 unchanged bilateral infiltrates Impression . 1. Acute hypercapnic/ hypoxic RF, Multi-factorial, with recurrent hypercapnia . Recurrent episodes of bradycardia, contributing to brain hypo-perfusion, impaired ventilation. Much better post PPM. 2. Septic shock, MRSA bacteremia, repeat cultures neg, off pressors 3. acute encephalology ,resolved 4. No pneumoperitoneum by ct abdomen 5. RENETTA secondary septic shock POA 6. Abnormal chest x-ray basal atelectasis 7. chronic debility 8. Recurrent episodes of bradycardia, contributing to brain hypo-perfusion, impaired ventilation, resolved post PPM 9. RECURRENT SHOCK, off pressor Plan . BIPAP prn speech f/u for dysphagia F/U ABG much improved. SPOKE WITH NO INTUBATION ANTIBIOTICS PER ID D/W MEAGAN HERNANDEZ MD Dec 17, 2016 13:14
[2016-12-17] MEDS: AMINO AC 3%/ELECTROLYTE/GLYCER 1,000 ML IV SCH ×2 (14:07→23:34)
[2016-12-18] VITALS (15 sets, daily range): BP systolic 101–125; BP diastolic 50–66
[2016-12-18] MEDS: CEFEPIME HCL 1 GM in IV NORMAL SALINE 50ML 50 ML IV SCH (05:40)
[2016-12-18 06:05] LABS: BASO % 0 % (0-3); EOS % 1 % (0-3); HEMATOCRIT 26.5 % (39.0-53.0); HEMOGLOBIN 8.8 g/dL (13.0-17.5); LYMPH # 0.6 x10^3/uL (1.0-4.8); LYMPH % 7 % (24-48); MEAN CORPUSCULAR HEMOGLOBIN 29 pg (25-35); MEAN CORPUSCULAR HGB CONC 33 g/dL (31-37); MEAN CORPUSCULAR VOLUME 89 fL (79-100); MONO % 5 % (0-9); NEUT % 87 % (31-73); PLATELET COUNT 132 x10^3/uL (140-400); RED BLOOD COUNT 2.98 x10^6/uL (4.30-5.70); RED CELL DISTRIBUTION WIDTH 19.4 % (11.5-14.5); WHITE BLOOD COUNT 8.9 x10^3/uL (4.0-11.0)
[2016-12-18 06:23] LABS: ALBUMIN 2.2 g/dL (3.4-5.0); CREATININE 1.7 mg/dL (0.7-1.3); GFR 40.5; PHOSPHORUS 4.2 mg/dL (2.6-4.7); POTASSIUM 3.3 mmol/L (3.5-5.1)
--- NOTE | 2016-12-18 07:35 | PDOC ---
Infectious Disease Note Subjective Subjective Doing better. Abd better ROS ROS GEN: Denies fevers, chills, sweats HEENT: Denies blurred vision, CV: Denies chest pain RESP: Denies shortness of air, cough GI: Denies n/v/d NEURO: Denies confusion, dizziness MSK: Denies weakness, joint pain/swelling Vital Sign Vital Signs Vital Signs Date Time Temp Pulse Resp B/P (MAP) Pulse Ox O2 Delivery O2 Flow Rate FiO2 12/18/16 06:10 80 111/59 (76) 94 Venturi Mask 12.0 12/18/16 05:00 22 12/18/16 04:00 97.7 97.7 Physical Exam PHYSICAL EXAM GENERAL: NAD, More alert HEENT: PERRLA, dry NECK: Supple, no JVD, no LN LUNGS: Clear. on facemask HEART: S1S2, no gallop, no murmur. Pacemaker dressed. 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: Alert, oriented, no focal neurologic deficit, tremor SKIN: No rash IV: RIJ Labs Lab Laboratory Tests Test 12/17/16 08:07 12/18/16 05:40 O2 Saturation 97 % (92-99) Arterial Blood pH 7.49 (7.35-7.45) Arterial Blood pCO2 at Patient Temp 36 mmHg (35-46) Arterial Blood pO2 at Patient Temp 81 mmHg (65-108) Arterial Blood HCO3 27 mmol/L (21-28) Arterial Blood Base Excess 4 mmol/L (-3-3) FiO2 30 White Blood Count 8.9 x10^3/uL (4.0-11.0) Red Blood Count 2.98 x10^6/uL (4.30-5.70) Hemoglobin 8.8 g/dL (13.0-17.5) Hematocrit 26.5 % (39.0-53.0) Mean Corpuscular Volume 89 fL (79-100) Mean Corpuscular Hemoglobin 29 pg (25-35) Mean Corpuscular Hemoglobin Concent 33 g/dL (31-37) Red Cell Distribution Width 19.4 % (11.5-14.5) Platelet Count 132 x10^3/uL (140-400) Neutrophils (%) (Auto) 87 % (31-73) Lymphocytes (%) (Auto) 7 % (24-48) Monocytes (%) (Auto) 5 % (0-9) Eosinophils (%) (Auto) 1 % (0-3) Basophils (%) (Auto) 0 % (0-3) Neutrophils # (Auto) 7.8 x10^3uL (1.8-7.7) Lymphocytes # (Auto) 0.6 x10^3/uL (1.0-4.8) Monocytes # (Auto) 0.5 x10^3/uL (0.0-1.1) Eosinophils # (Auto) 0.1 x10^3/uL (0.0-0.7) Basophils # (Auto) 0.0 x10^3/uL (0.0-0.2) Sodium Level 142 mmol/L (136-145) Potassium Level 3.3 mmol/L (3.5-5.1) Chloride Level 105 mmol/L (98-107) Carbon Dioxide Level 31 mmol/L (21-32) Anion Gap 6 (6-14) Blood Urea Nitrogen 45 mg/dL (8-26) Creatinine 1.7 mg/dL (0.7-1.3) Estimated GFR (Cockcroft-Gault) 40.5 Glucose Level 147 mg/dL (70-99) Calcium Level 9.0 mg/dL (8.5-10.1) Phosphorus Level 4.2 mg/dL (2.6-4.7) Albumin 2.2 g/dL (3.4-5.0) Objective Assessment Sp Pacemaker 12/16 - bradycardia Off Levophed Yeast in urine - likely colonization. Septic shock, POA. 12/06. MRSA bacteremia. TTE neg veg, 12/06. Repeat Blood cult 12/10 - neg. Now on Zyvox Mild leukocytosis - ? reactive Resp failure - better Fever - better RENETTA - better Acute encephalopathy, improving Possible pneumoperitoneum on chest-ray. CT neg, mild ileus. Large BM 12/17 relieved pressure (KUB 12/17 a lot of gas) ? UTI, Ecoli POA. 12/06. a lot of contamination. Repeat Urine cult pending Acute respiratory failure Bradyarrhythmia s/p code blue 12/07 Metabolic acidosis Chronic debility Wounds Plan Plan of Care Cont Cefepime/Zyvox/Flagyl D/c Vanc with worsening renal failure 12/16. Avoid Dapto with resp issues - CXR pending. Cover potential Pseudomonas given risk. Taper to Vanc soon as he improves F/u Repeat blood cults F/u labs Critically ill but improving D/w nursing d/w healthcare management consultant prognosis poor LINDA CABALLERO MD Dec 18, 2016 07:35
[2016-12-18] MEDS: ONDANSETRON PF 4 MG/2 ML VIAL. IV PRN (08:34)
[2016-12-18] MEDS: NYSTATIN TOPICAL POWDER 15GM BOTTLE. TP SCH (08:35)
[2016-12-18] MEDS: FAMOTIDINE 20 MG/2 ML VIAL IVP SCH (08:35)
[2016-12-18] MEDS: ARIPiprazole 5 MG TABLET PO SCH (08:35)
[2016-12-18] MEDS: POTASSIUM CHLORIDE 20 MEQ TABLET.ER. PO SCH (08:35)
[2016-12-18] MEDS: FUROSEMIDE 40 MG/4 ML VIAL. IVP SCH (08:35)
[2016-12-18] MEDS: AMMONIUM LACTATE 12% TOPICAL LOTION 226GM BOTTLE. TP SCH (08:36)
--- NOTE | 2016-12-18 09:52 | PDOC ---
SUBJECTIVE Subjective He feels better today he is communicating very well he is on a Ventimask, he failed his bedside swallow yesterday, he is going for barium swallow today OBJECTIVE Objective He is off pressors Vital Signs Vital Signs Date Time Temp Pulse Resp B/P (MAP) Pulse Ox O2 Delivery O2 Flow Rate FiO2 12/18/16 09:00 80 28 110/58 (75) 95 Venturi Mask 12.0 12/18/16 08:00 98.3 80 21 114/57 (76) 94 Venturi Mask 12.0 98.3 12/18/16 08:00 Venturi Mask 12/18/16 07:00 80 23 114/50 (71) 95 Venturi Mask 12.0 12/18/16 06:10 80 111/59 (76) 94 Venturi Mask 12.0 12/18/16 05:00 80 22 104/52 (69) 94 Venturi Mask 12.0 12/18/16 04:18 Nasal Cannula 5.0 12/18/16 04:00 97.7 80 102/51 (68) 95 Nasal Cannula 5.0 97.7 12/18/16 03:15 80 20 119/65 (83) 98 Nasal Cannula 5.0 12/18/16 02:00 80 20 110/62 (78) 98 Nasal Cannula 5.0 12/18/16 01:18 80 20 109/61 (77) 98 Nasal Cannula 5.0 12/18/16 00:05 97.7 80 18 101/61 (74) 96 Nasal Cannula 5.0 97.7 12/17/16 23:54 Nasal Cannula 5.0 12/17/16 23:00 80 16 125/59 (81) Nasal Cannula 5.0 12/17/16 22:00 80 107/53 (71) 96 Nasal Cannula 5.0 12/17/16 21:13 80 24 103/52 (69) 98 Nasal Cannula 5.0 12/17/16 20:00 Nasal Cannula 5.0 12/17/16 19:00 98.0 80 99/52 (68) 95 Nasal Cannula 5.0 98.0 12/17/16 18:00 79 22 94/48 (63) 98 Nasal Cannula 5.0 12/17/16 17:00 80 28 94/49 (64) 98 Nasal Cannula 5.0 12/17/16 16:00 5.0 12/17/16 16:00 Nasal Cannula 5.0 12/17/16 16:00 97.8 80 27 95/52 (66) 97 Nasal Cannula 5.0 97.8 12/17/16 15:00 80 18 97/54 (68) 96 Nasal Cannula 5.0 12/17/16 14:00 80 27 93/55 (68) 98 Nasal Cannula 5.0 12/17/16 13:51 98.0 80 19 91/48 98.0 12/17/16 13:15 97.8 80 30 100/47 97.8 12/17/16 13:00 80 15 100/47 (64) 97 Nasal Cannula 5.0 12/17/16 12:42 97.7 80 22 92/49 97.7 12/17/16 12:27 98.0 80 30 100/50 98.0 12/17/16 12:00 98.0 83 27 105/49 (67) 98 Nasal Cannula 5.0 98.0 12/17/16 12:00 Nasal Cannula 5.0 12/17/16 12:00 9.0 12/17/16 11:00 80 27 96/49 (65) 97 Venturi Mask 12/17/16 10:00 80 19 102/63 (76) 99 Venturi Mask I & O Intake and Output 12/18/16 06:59 Intake Total 2950 ml Output Total 2730 ml Balance 220 ml IV Total 2200 ml Blood Product 350 ml Blood Product IV Normal Saline Flush 400 ml Output Urine Total 2730 ml PHYSICAL EXAM Physical Exam heart rate regular rate and rhythm Lungs clear in the upper lobes Abdomen is less distended Extremities was decreased edema ASSESSMENT/PLAN Assessment/Plan 1-Septic shock, POA. 12/06. Staph aureus, presumptive MRSA bacteremia. TTE neg veg, 12/06 improved. 2-Acute encephalopathy, resolved 3-UTI, POA. 12/06. GNR repeat urine culture is pending 4-RENETTA 5-Acute respiratory failure better off Bipap this AM 6-Bradyarrhythmia s/p code blue 12/07, another episode significant bradycardia 12/11 , pacemaker in place 7-Metabolic acidosis better 8-Chronic debility 9-hypokalemia replacing 10-anemia and thrombocytopenia transfuse 1 unit PRBC yesterday 11-for barium swallow today to evaluate dysphagia Hopefully to floor or to select soon Problems: COMMENT Lab Laboratory Tests Test 12/18/16 05:40 White Blood Count 8.9 x10^3/uL (4.0-11.0) Red Blood Count 2.98 x10^6/uL (4.30-5.70) Hemoglobin 8.8 g/dL (13.0-17.5) Hematocrit 26.5 % (39.0-53.0) Mean Corpuscular Volume 89 fL (79-100) Mean Corpuscular Hemoglobin 29 pg (25-35) Mean Corpuscular Hemoglobin Concent 33 g/dL (31-37) Red Cell Distribution Width 19.4 % (11.5-14.5) Platelet Count 132 x10^3/uL (140-400) Neutrophils (%) (Auto) 87 % (31-73) Lymphocytes (%) (Auto) 7 % (24-48) Monocytes (%) (Auto) 5 % (0-9) Eosinophils (%) (Auto) 1 % (0-3) Basophils (%) (Auto) 0 % (0-3) Neutrophils # (Auto) 7.8 x10^3uL (1.8-7.7) Lymphocytes # (Auto) 0.6 x10^3/uL (1.0-4.8) Monocytes # (Auto) 0.5 x10^3/uL (0.0-1.1) Eosinophils # (Auto) 0.1 x10^3/uL (0.0-0.7) Basophils # (Auto) 0.0 x10^3/uL (0.0-0.2) Sodium Level 142 mmol/L (136-145) Potassium Level 3.3 mmol/L (3.5-5.1) Chloride Level 105 mmol/L (98-107) Carbon Dioxide Level 31 mmol/L (21-32) Anion Gap 6 (6-14) Blood Urea Nitrogen 45 mg/dL (8-26) Creatinine 1.7 mg/dL (0.7-1.3) Estimated GFR (Cockcroft-Gault) 40.5 Glucose Level 147 mg/dL (70-99) Calcium Level 9.0 mg/dL (8.5-10.1) Phosphorus Level 4.2 mg/dL (2.6-4.7) Albumin 2.2 g/dL (3.4-5.0) KYLE LAWSON MD Dec 18, 2016 09:52
--- NOTE | 2016-12-18 11:37 | PDOC ---
PULMONARY PROGRESS NOTES Subjective s/p PPM 12/16 much better, off pressor,off BIPAP weak Vitals Vital Signs Date Time Temp Pulse Resp B/P (MAP) Pulse Ox O2 Delivery O2 Flow Rate FiO2 12/18/16 11:00 68 25 108/62 (77) 98 Venturi Mask 12.0 12/18/16 08:00 98.3 98.3 General: Alert, No acute distress Lungs: Other (decrease bs) Cardiovascular: S1, S2 Abdomen: Soft, Other (distended) Extremities: Other (2+edema) Skin: Warm Labs Laboratory Tests Test 12/16/16 18:10 12/17/16 05:50 12/17/16 08:07 12/18/16 05:40 O2 Saturation 96 % (92-99) 97 % (92-99) Arterial Blood pH 7.30 (7.35-7.45) 7.49 (7.35-7.45) Arterial Blood pCO2 at Patient Temp 66 mmHg (35-46) 36 mmHg (35-46) Arterial Blood pO2 at Patient Temp 89 mmHg (65-108) 81 mmHg (65-108) Arterial Blood HCO3 31 mmol/L (21-28) 27 mmol/L (21-28) Arterial Blood Base Excess 4 mmol/L (-3-3) 4 mmol/L (-3-3) FiO2 40 30 White Blood Count 10.2 x10^3/uL (4.0-11.0) 8.9 x10^3/uL (4.0-11.0) Red Blood Count 2.71 x10^6/uL (4.30-5.70) 2.98 x10^6/uL (4.30-5.70) Hemoglobin 7.8 g/dL (13.0-17.5) 8.8 g/dL (13.0-17.5) Hematocrit 25.0 % (39.0-53.0) 26.5 % (39.0-53.0) Mean Corpuscular Volume 92 fL (79-100) 89 fL (79-100) Mean Corpuscular Hemoglobin 29 pg (25-35) 29 pg (25-35) Mean Corpuscular Hemoglobin Concent 31 g/dL (31-37) 33 g/dL (31-37) Red Cell Distribution Width 19.5 % (11.5-14.5) 19.4 % (11.5-14.5) Platelet Count 138 x10^3/uL (140-400) 132 x10^3/uL (140-400) Neutrophils (%) (Auto) 83 % (31-73) 87 % (31-73) Lymphocytes (%) (Auto) 9 % (24-48) 7 % (24-48) Monocytes (%) (Auto) 6 % (0-9) 5 % (0-9) Eosinophils (%) (Auto) 2 % (0-3) 1 % (0-3) Basophils (%) (Auto) 0 % (0-3) 0 % (0-3) Neutrophils # (Auto) 8.5 x10^3uL (1.8-7.7) 7.8 x10^3uL (1.8-7.7) Lymphocytes # (Auto) 1.0 x10^3/uL (1.0-4.8) 0.6 x10^3/uL (1.0-4.8) Monocytes # (Auto) 0.6 x10^3/uL (0.0-1.1) 0.5 x10^3/uL (0.0-1.1) Eosinophils # (Auto) 0.2 x10^3/uL (0.0-0.7) 0.1 x10^3/uL (0.0-0.7) Basophils # (Auto) 0.0 x10^3/uL (0.0-0.2) 0.0 x10^3/uL (0.0-0.2) Sodium Level 143 mmol/L (136-145) 142 mmol/L (136-145) Potassium Level 3.5 mmol/L (3.5-5.1) 3.3 mmol/L (3.5-5.1) Chloride Level 106 mmol/L (98-107) 105 mmol/L (98-107) Carbon Dioxide Level 31 mmol/L (21-32) 31 mmol/L (21-32) Anion Gap 6 (6-14) 6 (6-14) Blood Urea Nitrogen 41 mg/dL (8-26) 45 mg/dL (8-26) Creatinine 1.7 mg/dL (0.7-1.3) 1.7 mg/dL (0.7-1.3) Estimated GFR (Cockcroft-Gault) 40.5 40.5 Glucose Level 111 mg/dL (70-99) 147 mg/dL (70-99) Calcium Level 8.7 mg/dL (8.5-10.1) 9.0 mg/dL (8.5-10.1) Phosphorus Level 3.3 mg/dL (2.6-4.7) 4.2 mg/dL (2.6-4.7) Albumin 2.3 g/dL (3.4-5.0) 2.2 g/dL (3.4-5.0) Laboratory Tests Test 12/18/16 05:40 White Blood Count 8.9 x10^3/uL (4.0-11.0) Red Blood Count 2.98 x10^6/uL (4.30-5.70) Hemoglobin 8.8 g/dL (13.0-17.5) Hematocrit 26.5 % (39.0-53.0) Mean Corpuscular Volume 89 fL (79-100) Mean Corpuscular Hemoglobin 29 pg (25-35) Mean Corpuscular Hemoglobin Concent 33 g/dL (31-37) Red Cell Distribution Width 19.4 % (11.5-14.5) Platelet Count 132 x10^3/uL (140-400) Neutrophils (%) (Auto) 87 % (31-73) Lymphocytes (%) (Auto) 7 % (24-48) Monocytes (%) (Auto) 5 % (0-9) Eosinophils (%) (Auto) 1 % (0-3) Basophils (%) (Auto) 0 % (0-3) Neutrophils # (Auto) 7.8 x10^3uL (1.8-7.7) Lymphocytes # (Auto) 0.6 x10^3/uL (1.0-4.8) Monocytes # (Auto) 0.5 x10^3/uL (0.0-1.1) Eosinophils # (Auto) 0.1 x10^3/uL (0.0-0.7) Basophils # (Auto) 0.0 x10^3/uL (0.0-0.2) Sodium Level 142 mmol/L (136-145) Potassium Level 3.3 mmol/L (3.5-5.1) Chloride Level 105 mmol/L (98-107) Carbon Dioxide Level 31 mmol/L (21-32) Anion Gap 6 (6-14) Blood Urea Nitrogen 45 mg/dL (8-26) Creatinine 1.7 mg/dL (0.7-1.3) Estimated GFR (Cockcroft-Gault) 40.5 Glucose Level 147 mg/dL (70-99) Calcium Level 9.0 mg/dL (8.5-10.1) Phosphorus Level 4.2 mg/dL (2.6-4.7) Albumin 2.2 g/dL (3.4-5.0) Medications Active Scripts Medications Dose Route/Sig Max Daily Dose Days Date Category [place] 3 Fish Oil Softgel ([place]-3 Fatty Acids/Fish Oil) 1 Each Capsule.dr 2 Cap PO DAILY 05/25/15 Reported Polyethylene Glycol 3350 17 Gm Powd.pack 17 Gm PO PRN QID PRN 05/25/15 Reported Simethicone 125 Mg Capsule 250 Mg PO QID 05/25/15 Reported Propranolol Hcl 20 Mg Tablet 20 Mg PO QHS 05/25/15 Reported Melatonin 3 Mg Tablet 6 Mg PO QHS 05/25/15 Reported Potassium Chloride 20 Meq Tab.er.prt 20 Meq PO DAILY 05/25/15 Reported Prazosin Hcl 1 Mg Capsule 1 Mg PO QHS 05/25/15 Reported Mupirocin Ointment (Mupirocin) 22 Gm Oint...g. 1 Kiran TP BID 05/25/15 Reported Nystop (Nystatin) 60 Gm Powder 1 Kiran TP BID 05/25/15 Reported Mirapex (Pramipexole Di-Hcl) 0.125 Mg Tablet 0.125 Mg PO TID 05/25/15 Reported Triamcinolone Acetonide 80 Gm Oint...g. 1 Kiran TP TID 05/25/15 Reported Tamsulosin Hcl 0.4 Mg Cap.er.24h 0.4 Mg PO DAILY 08/04/14 Reported Furosemide 20 Mg Tablet 20 Mg PO DAILY 08/04/14 Reported Magnesium Oxide 400 Mg Tablet 400 Mg PO BID 03/03/14 Reported Pantoprazole Sodium 40 Mg Tablet.dr 40 Mg PO DAILY 03/03/14 Reported Propranolol Hcl 40 Mg Tablet 40 Mg PO DAILY 03/03/14 Reported Nephro-Elkin Tablet (Folic Acid/Vitamin B Comp W-C) 0.8 Mg Tablet 1 Tab PO DAILY 03/03/14 Reported Temazepam 15 Mg Capsule 30 Mg PO QHS 03/03/14 Reported Losartan Potassium 50 Mg Tablet 50 Mg PO DAILY 03/03/14 Reported Abilify (Aripiprazole) 10 Mg Tablet 15 Mg PO DAILY 03/03/14 Reported Amlodipine Besylate 5 Mg Tablet 5 Tab PO DAILY 03/03/14 Reported Ranexa (Ranolazine) 500 Mg Tab.er.12h 500 Mg PO BID 03/03/14 Reported Nitrostat (Nitroglycerin) 0.4 Mg Tab.subl 0.4 Mg SL PRN Q5MIN PRN 03/03/14 Reported Probiotic & Acidophilus Cap (Lactobac Cmb #3/Fos/Pantethine) 1 Each Capsule 1 Tab PO DAILY 03/03/14 Reported Cilostazol 50 Mg Tablet 50 Mg PO BID 03/03/14 Reported Glycopyrrolate 2 Mg Tablet 2 Mg PO NOON 03/03/14 Reported Finasteride 5 Mg Tablet 5 Mg PO DAILY 03/03/14 Reported Vitamin D (Cholecalciferol (Vitamin D3)) 1,000 Unit Tablet 2,000 Unit PO DAILY 03/03/14 Reported Co Q-10 (Ubidecarenone) 100 Mg Capsule 100 Mg PO NOON 03/03/14 Reported Allopurinol 300 Mg Tablet 300 Mg PO BID 03/03/14 Reported Aspirin 325 Mg Tablet 325 Mg PO DAILY 03/03/14 Reported Imdur (Isosorbide Mononitrate) 30 Mg Tab.er.24h 30 Mg PO DAILYWLUN 03/03/14 Reported Sucralfate 1 Gm Tablet 1 Gm PO QIDACHS 03/03/14 Reported Atorvastatin Calcium 20 Mg Tablet 20 Mg PO HS 03/03/14 Reported Humalog (Insulin Lispro) 100 Unit/1 Ml Insuln.pen 5 Unit SQ TIDAC 03/03/14 Reported Lantus Solostar (Insulin Glargine,Hum.rec.anlog) 100 Unit/1 Ml Insuln.pen 30 Unit SQ QEVNG 03/03/14 Reported Ketoconazole 15 Gm Cream..g. 1 Kiran TP DAILY 03/03/14 Reported Comments CXR 12/16 unchanged bilateral infiltrates Impression . 1. Acute hypercapnic/ hypoxic RF, Multi-factorial, with recurrent hypercapnia / 10. Recurrent episodes of bradycardia, contributing to brain hypo-perfusion, impaired ventilation. Much better post PPM. 2. Septic shock, MRSA bacteremia, repeat cultures neg, off pressors 3. acute encephalology ,resolved 4. No pneumoperitoneum by ct abdomen 5. RENETTA secondary septic shock POA 6. Abnormal chest x-ray basal atelectasis 7. chronic debility 8. Recurrent episodes of bradycardia, contributing to brain hypo-perfusion, impaired ventilation, resolved post PPM 9. RECURRENT SHOCK, off pressor Plan . BIPAP prn speech f/u for dysphagia/ DHT otherwise if fails F/U ABG much improved. SPOKE WITH NO INTUBATION ANTIBIOTICS PER ID ok with LTAC D/W MEAGAN HERNANDEZ MD Dec 18, 2016 11:37
[2016-12-18] MEDS ORDERED: POTASSIUM CHLORIDE 20MEQ 50 ML IV ONE (12:00)
--- NOTE | 2016-12-18 13:57 | PDOC ---
CARDIO Progress Notes Date and Time Date of Service 12/18/16 Time of Evaluation 1315 Subjective Subjective: No Chest Pain, No shortness of breath, Other (no complaints ) Vitals Vitals Vital Signs Date Time Temp Pulse Resp B/P (MAP) Pulse Ox O2 Delivery O2 Flow Rate FiO2 12/18/16 13:00 78 20 118/62 (80) 97 Nasal Cannula 5.0 12/18/16 12:00 98.0 98.0 Weight Weight [ ] Input and Output Intake and Output Intake and Output 12/18/16 07:00 Intake Total 2950 ml Output Total 2455 ml Balance 495 ml IV Total 2200 ml Blood Product 350 ml Blood Product IV Normal Saline Flush 400 ml Output Urine Total 2455 ml Laboratory Labs Laboratory Tests Test 12/18/16 05:40 White Blood Count 8.9 x10^3/uL (4.0-11.0) Red Blood Count 2.98 x10^6/uL (4.30-5.70) Hemoglobin 8.8 g/dL (13.0-17.5) Hematocrit 26.5 % (39.0-53.0) Mean Corpuscular Volume 89 fL (79-100) Mean Corpuscular Hemoglobin 29 pg (25-35) Mean Corpuscular Hemoglobin Concent 33 g/dL (31-37) Red Cell Distribution Width 19.4 % (11.5-14.5) Platelet Count 132 x10^3/uL (140-400) Neutrophils (%) (Auto) 87 % (31-73) Lymphocytes (%) (Auto) 7 % (24-48) Monocytes (%) (Auto) 5 % (0-9) Eosinophils (%) (Auto) 1 % (0-3) Basophils (%) (Auto) 0 % (0-3) Neutrophils # (Auto) 7.8 x10^3uL (1.8-7.7) Lymphocytes # (Auto) 0.6 x10^3/uL (1.0-4.8) Monocytes # (Auto) 0.5 x10^3/uL (0.0-1.1) Eosinophils # (Auto) 0.1 x10^3/uL (0.0-0.7) Basophils # (Auto) 0.0 x10^3/uL (0.0-0.2) Sodium Level 142 mmol/L (136-145) Potassium Level 3.3 mmol/L (3.5-5.1) Chloride Level 105 mmol/L (98-107) Carbon Dioxide Level 31 mmol/L (21-32) Anion Gap 6 (6-14) Blood Urea Nitrogen 45 mg/dL (8-26) Creatinine 1.7 mg/dL (0.7-1.3) Estimated GFR (Cockcroft-Gault) 40.5 Glucose Level 147 mg/dL (70-99) Calcium Level 9.0 mg/dL (8.5-10.1) Phosphorus Level 4.2 mg/dL (2.6-4.7) Albumin 2.2 g/dL (3.4-5.0) Microbiology Micro Microbiology 12/16/16 Blood Culture - Preliminary, Resulted NO GROWTH AFTER 2 DAYS 12/15/16 Urine Culture - Final, Complete 12/15/16 Urine Culture Result 1 (ERICK) - Final, Complete Physical Exam HEENT: Neck Supple W Full Motion Chest: Symmetric, Other (left pectorial PPM insertion site with DRSG CDI. No ecchymosis or hematoma present ) LUNGS: Other (diminished bases ) Heart: S1S2, other (soft systolic murmur, 100% v-paced ) Abdomen: Soft N/T Extremities: Other (anasarca, drsg intact to bilateral LE) Neurology: alert, follow commands, other (somnolent ) Assessment Assessment 1. Bradyarrhythmia with transient afib, Mobitz Type 1, and possible complete heart block. s/p implantation of [employer] single chamber pacemaker 2. Septic shock; improved, off antibiotics as per ID 3. Acute respiratory failure; improved. on NC Recommendations Respiratory status improved PPM. [facility] to reduce his back up rate to 50 Add ASA for stroke prophylaxis Continue supportive care. Okay to DC to [facility] from [facility] standpoint. Will f/u on an outpatient basis in 4-6 weeks. JULISA HANDY APRN Dec 18, 2016 13:57
[2016-12-18] MEDS: AMINO AC 3%/ELECTROLYTE/GLYCER 1,000 ML IV SCH (14:30)
[2016-12-18] MEDS ORDERED: ASPIRIN ENTERIC COATED 81 MG TABLET.DR. PO SCH (17:00)
--- NOTE | 2016-12-19 17:48 | PDOC3 ---
Discharge Summary* Date of Admission: Dec 06, 2016 Date of Discharge: Dec 18, 2016 Admitting Diagnosis Problems Medical Problems: (1) Altered level of consciousness Status: Acute (2) Bradycardia Status: Acute (3) Hypotension Status: Acute (4) Hypothermia Status: Acute (5) Sepsis Status: Acute Problems: Final Diagnosis 1-Septic shock, POA. 12/06. Staph aureus, presumptive MRSA bacteremia. TTE neg veg, 12/06 improved. Repeat Blood cult 12/10 - neg. Now on Zyvox 2-Hypothermia- off Blanquita hugger 3-Acute encephalopathy, resolved 4-UTI, POA. 12/06. GNR 5-RENETTA 6-Acute respiratory failure 7-Bradyarrhythmia s/p code blue 12/07, another episode significant bradycardia 12/11 , Sp Pacemaker 12/16 8-Metabolic acidosis better 9-Chronic debility 10-hypokalemia replaced 11-anemia and thrombocytopenia transfuse 1 unit PRBC 12- Yeast in urine - likely colonization. 13-Possible pneumoperitoneum on chest-ray. CT neg, mild ileus. Large BM 12/17 relieved pressure (KUB 12/17 a lot of gas) 14-Wounds Problems Medical Problems: (1) Altered level of consciousness Status: Acute (2) Bradycardia Status: Acute (3) Hypotension Status: Acute (4) Hypothermia Status: Acute (5) Sepsis Status: Acute CONSULTS ID, Cardiology, Pulmonary, nephrology and palliative care Procedures US guided IJ and central line, CT abd and pelvis, several CXR and KUB, BiPap, HARSHA, blood transfusion, NGT and tube feeding Brief Hospital Course Mr. Mello is a 66 old M who presented with septic shock hypotension and hypoperfusion he needed pressors and IV fluid bearhug her for warming he was hypothermic he was acidotic he required BiPAP to maintain oxygenation he was doing DO NOT INTUBATE but he his wanted to continue with other modalities he was on antibiotics pulmonary cardiology as well as nephrology and infectious disease were consulted and he had a bradycardia on his admission, improved with pressors he later on coded in CT while getting CT of the abdomen and pelvis and improved with pressors and fluid he had some rock E and a few first days and then he started improving palliative care was consulted as to talk to his for setting up reasonable expectation the wanted to DO NOT INTUBATE but did not agree with stopping any other modalities of care patient also improved and at this point he was able to switch to the event to the vent mask he his chest x-ray improved however he failed his bedside swallow he will need a barium swallow to evaluate swallowing he is chronic debility and his prognosis is poor but he seemed to be has reached the maximum benefit of hospitalization and will benefit from transfer to long-term care facility like [facility] where all his antibiotic can be continued and he can get some more rehabilitation and his swallowing will be evaluated and his nutritional needs will be assessed off noted that he had received tube feeding in the hospital as well and had a transfusion of 1 unit of blood initially he did not tolerate tube feeding but later on he was able to tolerate that Disposition/Orders: D/C to Another Facility CONDITION AT DISCHARGE: Improved Diet: Tube Feeding Scheduled Allopurinol (Allopurinol), 300 MG PO BID, (Reported) Amlodipine Besylate (Amlodipine Besylate), 5 TAB PO DAILY, (Reported) Aripiprazole (Abilify), 15 MG PO DAILY, (Reported) Aspirin (Aspirin), 325 MG PO DAILY, (Reported) Atorvastatin Calcium (Atorvastatin Calcium), 20 MG PO HS, (Reported) Cholecalciferol (Vitamin D3) (Vitamin D), 2,000 UNIT PO DAILY, (Reported) Cilostazol (Cilostazol), 50 MG PO BID, (Reported) Finasteride (Finasteride), 5 MG PO DAILY, (Reported) Folic Acid/Vitamin B Comp W-C (Nephro-Elkin Tablet), 1 TAB PO DAILY, (Reported) Furosemide (Furosemide), 20 MG PO DAILY, (Reported) Glycopyrrolate (Glycopyrrolate), 2 MG PO NOON, (Reported) Insulin Glargine,Hum.rec.anlog (Lantus Solostar), 30 UNIT SQ QEVNG, (Reported) Insulin Lispro (Humalog), 5 UNIT SQ TIDAC, (Reported) Isosorbide Mononitrate (Imdur), 30 MG PO DAILYWLUN, (Reported) Ketoconazole (Ketoconazole), 1 L[place]D TP DAILY, (Reported) Lactobac Cmb #3/Fos/Pantethine (Probiotic & Acidophilus Cap), 1 TAB PO DAILY, ( Reported) Losartan Potassium (Losartan Potassium), 50 MG PO DAILY, (Reported) Magnesium Oxide (Magnesium Oxide), 400 MG PO BID, (Reported) Melatonin (Melatonin), 6 MG PO QHS, (Reported) Mupirocin (Mupirocin Ointment), 1 LLO[place]D TP BID, (Reported) Nystatin (Nystop), 1 LLO[place]D TP BID, (Reported) [place]-3 Fatty Acids/Fish Oil ([place] 3 Fish Oil Softgel), 2 CAP PO DAILY, ( Reported) Pantoprazole Sodium (Pantoprazole Sodium), 40 MG PO DAILY, (Reported) Potassium Chloride (Potassium Chloride), 20 MEQ PO DAILY, (Reported) Pramipexole Di-Hcl (Mirapex), 0.125 MG PO TID, (Reported) Prazosin Hcl (Prazosin Hcl), 1 MG PO QHS, (Reported) Propranolol Hcl (Propranolol Hcl), 40 MG PO DAILY, (Reported) Propranolol Hcl (Propranolol Hcl), 20 MG PO QHS, (Reported) Ranolazine (Ranexa), 500 MG PO BID, (Reported) Simethicone (Simethicone), 250 MG PO QID, (Reported) Sucralfate (Sucralfate), 1 GM PO QIDACHS, (Reported) Tamsulosin Hcl (Tamsulosin Hcl), 0.4 MG PO DAILY, (Reported) Temazepam (Temazepam), 30 MG PO QHS, (Reported) Triamcinolone Acetonide (Triamcinolone Acetonide), 1 [place]D TP TID, (Reported) Ubidecarenone (Co Q-10), 100 MG PO NOON, (Reported) Scheduled PRN Nitroglycerin (Nitrostat), 0.4 MG SL PRN Q5MIN PRN for CHEST PAIN, (Reported) Polyethylene Glycol 3350 (Polyethylene Glycol 3350), 17 GM PO PRN QID PRN for CONSTIPATION, (Reported) FOLLOW UP APPOINTMENT: Dr Leon when discharged Time Spent Total time spent with patient 40 minutes for coordination of care, counseling, and education. KYLE LAWSON MD Dec 19, 2016 17:47
== END 2016-12-18 16:45 | DRG 871 ==
LOC: ER 14:46 → 1 WEST ICU 16:00
PROVIDERS: ADMIT Internal Medicine; ATTEND Internal Medicine
PROC: 5A09557 Assistance with Respiratory Ventilation, Greater than 96 Consecutive Hours, Continuous Positive Airway Pressure (ICD-10-PCS; 2016-12-06)
PROC: 5A12012 Performance of Cardiac Output, Single, Manual (ICD-10-PCS; 2016-12-07)
PROC: 02H633Z Insertion of Infusion Device into Right Atrium, Percutaneous Approach (ICD-10-PCS; 2016-12-09)
PROC: B244ZZZ Ultrasonography of Right Heart (ICD-10-PCS; 2016-12-09)
PROC: 0JH604Z Insertion of Pacemaker, Single Chamber into Chest Subcutaneous Tissue and Fascia, Open Approach (ICD-10-PCS; 2016-12-16)
PROC: 02HK3JZ Insertion of Pacemaker Lead into Right Ventricle, Percutaneous Approach (ICD-10-PCS; 2016-12-16)
PROC: 30233N1 Transfusion of Nonautologous Red Blood Cells into Peripheral Vein, Percutaneous Approach (ICD-10-PCS; principal; 2016-12-17)
PROC: 4B02XSZ Measurement of Cardiac Pacemaker, External Approach (ICD-10-PCS; 2016-12-17)
DX: A41.9 Sepsis, unspecified organism (principal); G93.41 Metabolic encephalopathy; N17.0 Acute kidney failure with tubular necrosis; R65.21 Severe sepsis with septic shock; J96.21 Acute and chronic respiratory failure with hypoxia; J96.22 Acute and chronic respiratory failure with hypercapnia; K56.7 Ileus, unspecified; N39.0 Urinary tract infection, site not specified; I13.0 Hypertensive heart and chronic kidney disease with heart failure and stage 1 through stage 4 chronic kidney disease, or unspecified chronic kidney disease; I49.5 Sick sinus syndrome; I44.1 Atrioventricular block, second degree; B95.62 Methicillin resistant Staphylococcus aureus infection as the cause of diseases classified elsewhere; E03.9 Hypothyroidism, unspecified; E78.00 Pure hypercholesterolemia, unspecified; E78.5 Hyperlipidemia, unspecified; E87.5 Hyperkalemia; G47.33 Obstructive sleep apnea (adult) (pediatric); I50.9 Heart failure, unspecified; K21.9 Gastro-esophageal reflux disease without esophagitis; E87.6 Hypokalemia; K80.20 Calculus of gallbladder without cholecystitis without obstruction; Z96.659 Presence of unspecified artificial knee joint; E11.42 Type 2 diabetes mellitus with diabetic polyneuropathy; F32.9 Major depressive disorder, single episode, unspecified; K57.90 Diverticulosis of intestine, part unspecified, without perforation or abscess without bleeding; K59.00 Constipation, unspecified; L40.9 Psoriasis, unspecified; M19.90 Unspecified osteoarthritis, unspecified site; D69.6 Thrombocytopenia, unspecified; E11.22 Type 2 diabetes mellitus with diabetic chronic kidney disease; N18.9 Chronic kidney disease, unspecified; D64.9 Anemia, unspecified; T68.XXXA Hypothermia, initial encounter; X58.XXXA Exposure to other specified factors, initial encounter; I48.91 Unspecified atrial fibrillation; B96.20 Unspecified Escherichia coli [E. coli] as the cause of diseases classified elsewhere; Z51.5 Encounter for palliative care; Z66 Do not resuscitate; Z89.429 Acquired absence of other toe(s), unspecified side; Z95.0 Presence of cardiac pacemaker; Z88.8 Allergy status to other drugs, medicaments and biological substances; Z79.899 Other long term (current) drug therapy; Z79.1 Long term (current) use of non-steroidal anti-inflammatories (NSAID); Z79.2 Long term (current) use of antibiotics; Z79.82 Long term (current) use of aspirin; Z79.01 Long term (current) use of anticoagulants; Z74.01 Bed confinement status; Z87.891 Personal history of nicotine dependence; Z86.73 Personal history of transient ischemic attack (TIA), and cerebral infarction without residual deficits; Z82.49 Family history of ischemic heart disease and other diseases of the circulatory system; Z83.3 Family history of diabetes mellitus
CPT/HCPCS: 33207; 36415; 36556; 36600; 51702; 71010; 74000; 74176; 76937; 80047; 80048; 80053; 80061; 80069; 80202; 81001; 82550; 82570; 82805; 82962; 83605; 83735; 84156; 84300; 84443; 84484; 85007; 85027; 86850; 86900; 86901; 86920; 87040; 87086; 87186; 87205; 87641; 93005; 93306; 94640; 94660; 96365; 96368; 96375; 99152; 99153; C1786; C1892; C1898; J0461; J0610; J0690; J0692; J0696; J0878; J1265; J1644; J1815; J1940; J1956; J2020; J2250; J2270; J2405; J2543; J3010; J3370; J3480; J3490; J7030; J7040; J7042; J7050; J7060; P9016; P9045; P9046; Q9967; S0028; 92526; 92610; 99291-25